=== PATIENT | male | born 1925 | race Caucasian/White ===

== ENCOUNTER 2016-08-26 15:38 | Inpatient (IN) | payer MEDICARE, OTHER ==
[~2016-08-26] VITALS: Ht 180.3 cm; Wt 64.9 kg
[2016-08-26] MEDS: Famotidine Inj 20 MG in IV Premix 1 EACH IV SCH (02:00)
[~2016-08-26 15:38] MED LIST: ASPI-628 PO; BISA5TAB96 PO
[2016-08-26 15:50] VITALS: BP 118/51; PULSE 91; RESP 20; O2SAT 100
[2016-08-26 16:11] LABS: BASOPHILS % (AUTO) 0.1 % (0-3); EOSINOPHILS % (AUTO) 0.1 % (0-5); MONOCYTES % (AUTO) 4.8 % (4-12); Mean Corpuscular Hemoglobin 27.7 pg (27.0-35.0); Mean Corpuscular Volume 86.1 fL (81-100); NEUTROPHILS % (AUTO) 91.5 % (40-74); Platelet Count 346 bil/L (150-400)
--- NOTE | 2016-08-26 16:11 | ED.REPORT ---
HPI-Chest Pain 40 and Over Date of Service Aug 26, 2016 ED Provider: Herb Jiménez MD History of Present Illness: OCC Pt is an 89 y.o. male with a hx of Alzheimer's, dementia, PR, CAD,and hypokalemia who presents to the ED via EMS from [facility] after experiencing chest pain 15 minutes prior to arrival. Upon examination pt states he is not currently experiencing chest pain, and does not remember having chest pain prior to arrival. Pt is primarily concerned with a sore he has on his back which is causing him pain. He denies fever, cough, SOB, and diaphoresis. Per [facility] staff pt was dx with pneumonia on 08/11/16 and today is his last day of a 7 day course of Levaquin. Pt was also recently on a course of Tamiflu. Pt is a poor historian due to his dementia and Alzheimer's. Nursing Notes Stated Complaint: CHEST PAIN Chief Complaint: Chest Pain Nursing Notes Reviewed: Yes ([employer] not reconciled) Allergies: Coded Allergies: No Known Allergies (Verified Allergy, Unknown, 06/29/14) Scheduled Aspirin (Aspir 81) 81 Mg Tablet.dr 81 MG PO DAILY Bisacodyl (Correctol) 5 Mg Tablet 5 MG PO DAILY General Time Seen by MD: 16:06 Transferred From: [facility] Chief Complaint Chest pain Hx Obtained From: Patient Arrived By: Ambulance Sudden in Onset?: Yes Onset Occurred: 1 - 15 minutes ago Location: : Back Quality: Painful Severity: Current: Moderate Past Medical History Past Medical History Dementia Asthma CAD Arthritis Diverticulosis Hypokalemia 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 Physical Exam Initial Vital Signs Vital Signs (First) Date Time Temp Pulse Resp B/P Pulse Ox O2 Delivery O2 Flow Rate FiO2 08/26/16 15:50 36.6 91 20 118/51 100 Nasal Cannula 3 Initial VS: Reviewed, Vital signs normal Head / Eyes: Atraumatic, Normocephalic Skin: Warm, Dry, No cyanosis Neurologic: Alert, Oriented, Nonfocal General/Constitutional: Awake, Well appearing, Well developed, Not toxic appearing Pt is a poor historian and cannot keep focus during the examination. Respiratory / Chest: Atraumatic, Breath sounds NL, No respiratory distress Coarse lung sounds Cardiovascular: Heart rate NL, Regular rhythm, Heart sounds NL, Peripheral circulation NL Trace lower extremity edema Abdomen: Atraumatic, Soft, Non-tender, No distention Interpretation & Diagnostics Lab Results Interpretation Result Diagram: 08/26/16 1542 08/26/16 1542 Test 08/26/16 15:42 White Blood Count 16.5th/mm3 (3.8-10.1) Red Blood Count 3.68mil/mm3 (4.40-5.80) Hemoglobin 10.2g/dL (13.8-17.2) Hematocrit 31.7% (41.0-50.0) Mean Corpuscular Volume 86.1fL (81-100) Mean Corpuscular Hemoglobin 27.7pg (27.0-35.0) Mean Corpuscular Hemoglobin Concent 32.2% (32.0-37.0) Red Cell Distribution Width 15.2% (12.3-15.4) Platelet Count 346bil/L (150-400) Neutrophils (%) (Auto) 91.5% (40-74) Lymphocytes (%) (Auto) 3.1% (14-46) Monocytes (%) (Auto) 4.8% (4-12) Eosinophils (%) (Auto) 0.1% (0-5) Basophils (%) (Auto) 0.1% (0-3) Hold Purple Top Tube Received (Received) Hold Blue Top Tube Received (Received) Sodium Level 137mEq/L (134-144) Potassium Level 5.3mEq/L (3.5-5.2) Chloride Level 99mEq/L (97-108) Carbon Dioxide Level 18mmol/L (18-29) Blood Urea Nitrogen 64mg/dL (8-27) Creatinine 4.25mg/dL (0.76-1.27) Estimat Glomerular Filtration Rate 14mL/min (>59) Glucose Level 116mg/dL (60-99) Calcium Level 8.2mg/dL (8.5-10.1) Total Bilirubin 0.4mg/dL (0.0-1.2) Aspartate Amino Transf (AST/SGOT) 17U/L (0-50) Alanine Aminotransferase (ALT/SGPT) 8U/L (0-44) Alkaline Phosphatase 95U/L (25-160) Total Protein 6.8g/dL (6.4-8.4) Albumin 2.8g/dL (3.4-5.0) Hold Red Top Tube Received (Received) Hold [place] Top Tube Received (Received) Lab Results Interpretation: Possible leukocytosis CMP trace hyperkalemia, not yet significant Renal failure, new compared with previous values several years ago, Blood Cultures pending Lactic acid ECG Interpretation ECG Interpretation: Complicated by poor baseline and pt movement PVC No prior ECG for comparison. Normal ECG Interpretation: Normal rate, Normal sinus rhythm, No acute ischemic changes X-Ray Chest Interpretation Chest Xray Interpretation: IMPRESSION: Mild patchy left midlung radiopacities which may be associated with atelectasis, aspiration, or infection. Dictated by: Leonela Edwards M.D. on 08/26/2016 at 16:30 Approved by: Leonlea Edwards M.D. on 08/26/2016 at 16:30 Re-Eval/Medical Decision Med Decision/Clinical Course This is an 89-year-old male with dementia is unable provide any useful history [facility] with complaint that he had chest pain, and the nurses was worried about a heart attack. A careful review the records are sent with the patient indicates the patient was just diagnosed with a pneumonia , and is now on day 7 of Levaquin which is not yet had today. His records indicate that he recently apparently had a cough, possibly a fever, and again the patient cannot describe any character of the chest pain that brought him here today. According to the nursing notes, the patient was mildly hypotensive the blood pressure of 90 systolic, and was significantly hypoxic there-of these numbers have improved by the time they arrived here in the emergency department. The patient is not currently febrile. Exam here he is fatigued and demented. He does have a decubitus, and he has a few scattered rhonchi-but is not visibly tachypneic, is not currently hypoxic, he does not appear toxic. Chest x-ray however it is abnormal, and while records indicate he has had a recent outpatient chest x-ray was not available for comparison. Given the patient presents now for leukocytosis, this chest pain, and has not chest x-ray with an abnormality in the left chest, despite being on 7 days of antibiotics, at this point CT imaging was obtained-it had not be obtained without contrast due to the renal failure which appears new. The CT has features concerning for pneumonia versus neoplasm. The cultures were drawn, the patient's being started on antibiotics. He meets current criteria for treatment of healthcare associated pneumonia, and received his first dose of Levaquin since he was due for that already here the department. He also fully placed to monitor urine output given the acute renal failure. He clinically appears dry and is in terms of volume status, and is receiving some IV hydration. He did develop some agitation and restlessness, particularly fully required some chemical sedation-after the power of bunch maker was updated. The patient's being admitted for continued management. Case has been discussed the hospitalist. Source of Hx: Old records Time of Eval: 18:03 Re-Evaluation/Progress Note: Pt is agitated and attempting to remove his IV. Will administer Haldol. Consultation : Referral / Consult Name: Pat Mark MD Call Returned at: 16:58 Bark Grinder: Will see patient, Agrees with eval, Agrees with plan, Accepts admit Note: Discussed pt condition. Dr. Mark accepts admit and will see pt in ED. Counseled Regarding: Diagnosis, Lab results, Need for admission Discharge & Departure Primary Impression: Pneumonia Pneumonia type: due to unspecified organism Laterality: left Lung location : unspecified part of lung Qualified Code: J18.9 - Pneumonia, unspecified organism Additional Impressions: Renal failure Decubitus ulcer Pressure ulcer stage: stage II Qualified Code: L89.92 - Pressure ulcer of unspecified site, stage 2 Agitation Disposition: ADMITTED TO HOSPITAL Discharge Condition All VS Reviewed: Yes Condition: Stable Referrals: Yaneli Hughes MD (PCP) Frankie Attestation Portions of this note were transcribed by Julio Ash. I, Dr. Jiménez personally performed the history, physical exam and medical decision-making; I reviewed and confirmed the accuracy of the information in the transcribed note. Signed by: Frankie Martinez, 08/26/2016 and 1836. copies to: Yaneli Hughes MD, Matthew F MD Aug 26, 2016 16:11 JULIO ASH Aug 26, 2016 16:37
--- NOTE | 2016-08-26 16:32 | DRSVH ---
PROCEDURE: X-RAY CHEST ONE VIEW, PORTABLE ([id number]) INDICATIONS: chest pain TECHNIQUE: One view of the chest was acquired. COMPARISON: None. FINDINGS: Surgical changes and devices: None. Lungs and pleura: Mild patchy pulmonary opacities are present in the left midlung. The lungs are othe rwise clear. Mediastinum: Mediastinal contours appear normal. Heart size is normal. Bones and chest wall: No suspicious bony lesions. Overlying soft tissues appear unremarkable. IMPRESSION: Mild patchy left midlung radiopacities which may be associated with atelectasis, aspirati on, or infection. Dictated by: Leonela Edwards M.D. on 08/26/2016 at 16:30 Approved by: Leonela Edwards M.D. on 08/26/2016 at 16:30
[2016-08-26 16:35] LABS: Magnesium 2.3 mg/dL (1.6-2.6)
[2016-08-26] MEDS ORDERED: levoFLOXacin Inj 750 MG in IV Premix 1 EACH IV ONE (16:40)
[2016-08-26] MEDS ORDERED: 0.9% Sodium Chloride 1,000 ML IV ONE (16:40)
[2016-08-26 16:48] LABS: TROPONIN T 0.038 ug/L (0.0-0.011)
[2016-08-26] MEDS ORDERED: Lidocaine 2% 5 mL Urojet Topical Jelly Syringe MUC_MEMBRM ONE (16:55)
[2016-08-26] MEDS ORDERED: Piperacillin-Tazo 3.375 Gm Inj 3.375 GM in Dextrose 5% Minibag Plus 50 ML IV ONE (17:05)
[2016-08-26] MEDS ORDERED: Vancomycin Dose per Pharmacist XX ONE (17:05)
[2016-08-26] MEDS ORDERED: Vancomycin Inj 1,250 MG in 0.9% Sodium Chloride 250 ML IV ONE (17:40)
--- NOTE | 2016-08-26 17:43 | PCM.CONPHA ---
Subjective Requesting Provider: Hebr Jiménez MD Assessment/Plan Assessment/Plan Vancomycin dosing per pharmacist for pneumonia in patient with serum creatinine 4.25, creatinine clearance 14ml/min. Initial ER dose will be 1250mg IV x1, which is conservatively dosed at 15mg/kg since the patient's renal function is so poor. Pharmacy will provide follow up dosing when the patient is admitted if the vancomycin is continued. Danya Orta [facility] Aug 26, 2016 17:43
[2016-08-26] MEDS ORDERED: Haloperidol 5 mg/mL Inj IVPUSH ONE ×2 (17:50→18:05)
[2016-08-26] MEDS ORDERED: Haloperidol 5 mg/mL Inj ONE (17:50)
[2016-08-26] MEDS ORDERED: Albuterol 2.5 mg/3 mL Inhalation Solution NEB PRN (17:55)
--- NOTE | 2016-08-26 18:03 | DRSVH ---
PROCEDURE: CT CHEST WITHOUT CONTRAST ([id number]) INDICATIONS: Refractory ?pneumonia, L Chest TECHNIQUE: Noncontrast 5 mm thick sections acquired from the pulmonary apices to the posterior costophrenic angl es. 7 mm thick coronal and sagittal MIP reformats were then acquired. For radiation dose reduction, the following was used: automated exposure control, adjustment of mA and/or kV according to patient size. COMPARISON: [facility], CT, ABD/PELVIS W/CON (PNL), 03/22/2014, 14:59. FINDINGS: Image quality: Excellent. Lungs and pleura: Patchy airspace opacities are present bilaterally, more confluent on the left than on the right. An irregularly marginated pulmonary mass is present within the lateral aspect of the ri ght lung base which measures 2.0 x 1.3 cm and is similar in size and appearance to the study dated 01/26 (series 3, image 38). A consolidative mass with spiculated margins is present within the tariff inspector ior lingula which measures 1.1 x 1.5 cm. It is unclear whether this represents airspace disease or a discrete pulmonary mass (series 3, image 23). No pleural effusion or pneumothorax. Mediastinum: Heart size is normal. No pericardial effusion. No mediastinal adenopathy by size crit eria. Thoracic aorta and central pulmonary arteries are normal in size. Scattered atheromatous calci fications are present within the aortic arch. Esophagus is normal in caliber. No hiatal hernia. Bones and chest wall: There is a minimally displaced, subacute appearing posterior right 10th rib fra cture (series 3, image 43). No vertebral body compression fractures. No axillary or supraclavicular adenopathy by size criteria. Thyroid gland is unremarkable. Abdomen: Multiple renal cysts are partially characterized on this limited view of the abdomen. Visua lized upper abdominal solid organs and bowel loops appear otherwise normal in the absence of contrast . IMPRESSION: 1. Confluent bibasilar patchy airspace opacities, more consolidative on the left than on the right. G iven the distribution and confluent appearance, these findings most likely represent aspiration or pn eumonia. However, some of these focal areas of consolidation have a masslike appearance raising the s uspicion for neoplasm. No recent comparisons are available to determine the acuity of the findings. H owever, given the clinical history of refractory pneumonia, atypical pneumonia including cryptogenic organizing pneumonia and eosinophilic pneumonia should be considered in the differential. Short inter candis followup is recommended to exclude underlying pulmonary mass. 2. Subacute posterior right rib fracture. Dictated by: Leonela Edwards M.D. on 08/26/2016 at 17:52 Approved by: Leonela Edwards M.D. on 08/26/2016 at 18:01
[2016-08-26 18:41] LABS: APPEARANCE,URINE CLEAR (CLEAR,HAZY); COLOR,URINE YELLOW (YELLOW); OCCULT BLOOD,URINE TRACE (NEGATIVE)
[2016-08-26 18:42] LABS: UROBILINOGEN,URINE NORMAL (NORMAL)
[2016-08-26 18:58] LABS: Magnesium 2.3 mg/dL (1.6-2.6)
[2016-08-26 19:05] LABS: TROPONIN T 0.036 ug/L (0.0-0.011)
[2016-08-26 19:07] VITALS: BP 100/54; PULSE 88; RESP 18; O2SAT 98
--- NOTE | 2016-08-26 19:40 | PCM.HPMED ---
Subjective Date of Service Aug 26, 2016 Primary Provider: Admitting Physician: Pat Mark MD Primary Care Physician: Yaneli Hughes MD Attending Physician: Pat Mark MD Admit Status: From the Emergency Department, Full Admit, [facility] Telemetry Chief Complaint: Complaints of chest pain per [facility] History of Present Illness: This is an 89-year-old male who has significant dementia history of [place] CAD and presents to the emergency room from [facility] with according to the nurses complain of chest pain which lasted about 15 minutes. However on further evaluation with chest x-ray it appears that he has a left mid lung patchy opacities consistent with pneumonia versus aspiration versus atelectasis. He recently is about to complete seven-day course of by mouth Levaquin. He has completed 6 days of it. He also was given a course of Tamiflu. As the patient's dementia unable to get any history. His white count was noted be 16.5. He also was found to have acute renal failure compared to old values from several years ago with a BUN of 64 creatinine of 4.25. His vital signs upon presentation was a temp of 36.6, heart rate 91, respiratory rate 20 blood pressure 118/51 on 3 L nasal cannula O2 sat was 100%. His troponin was found to be 0.038 and lactic acid was 1.7. Bicarbonate on his labs was 18. Of note patient also had a CT of chest without contrast which revealed confluent bibasilar patchy airspace of PACs with more consolidative on the left than the right. Thought this may likely represent aspiration or pneumonia. Over some these focal areas of consolidation have a masslike appearance raising the suspicion for neoplasm. There was also seen a subacute posterior right rib fracture. 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 H/o [place] ho "CHF" Family History Unobtainable Social History Hx Alcohol Use: No Hx Substance Use: No Smoking Status: Former Smoker Living Arrangement: Senior Living Facility Exam Vital Signs Vital Sign - Last Date Time Temp Pulse Resp B/P Pulse Ox O2 Delivery O2 Flow Rate FiO2 08/26/16 19:07 36.0 88 18 100/54 98 Nasal Cannula 2.00 Exam Constitutional: Elderly man who appears in no acute distress Head: Normocephalic atraumatic Mouth: No lesions Neck: No adenopathy Chest: Decreased breath sounds at his bases Cor: Regular rate and rhythm S1-S2 with a 2/6 systolic ejection murmur Abdomen: Soft nontender bowel sounds are present Extremities: Trace bilateral pedal edema Psych: Appears pleasantly demented Neuro: He is alert oriented to self only, moves all extremities equally Lab and Diagnostics Labs Laboratory Tests 72 Hours Test 08/26/16 15:42 08/26/16 17:23 08/26/16 17:54 White Blood Count 16.5th/mm3 (3.8-10.1) Red Blood Count 3.68mil/mm3 (4.40-5.80) Hemoglobin 10.2g/dL (13.8-17.2) Hematocrit 31.7% (41.0-50.0) Mean Corpuscular Volume 86.1fL (81-100) Mean Corpuscular Hemoglobin 27.7pg (27.0-35.0) Mean Corpuscular Hemoglobin Concent 32.2% (32.0-37.0) Red Cell Distribution Width 15.2% (12.3-15.4) Platelet Count 346bil/L (150-400) Neutrophils (%) (Auto) 91.5% (40-74) Lymphocytes (%) (Auto) 3.1% (14-46) Monocytes (%) (Auto) 4.8% (4-12) Eosinophils (%) (Auto) 0.1% (0-5) Basophils (%) (Auto) 0.1% (0-3) Hold Purple Top Tube Received (Received) Hold Blue Top Tube Received (Received) Sodium Level 137mEq/L (134-144) Potassium Level 5.3mEq/L (3.5-5.2) Chloride Level 99mEq/L (97-108) Carbon Dioxide Level 18mmol/L (18-29) Blood Urea Nitrogen 64mg/dL (8-27) Creatinine 4.25mg/dL (0.76-1.27) Estimat Glomerular Filtration Rate 14mL/min (>59) Glucose Level 116mg/dL (60-99) Calcium Level 8.2mg/dL (8.5-10.1) Magnesium Level 2.3mg/dL (1.6-2.6) 2.3mg/dL (1.6-2.6) Total Bilirubin 0.4mg/dL (0.0-1.2) Aspartate Amino Transf (AST/SGOT) 17U/L (0-50) Alanine Aminotransferase (ALT/SGPT) 8U/L (0-44) Alkaline Phosphatase 95U/L (25-160) Troponin T 0.038ug/L (0.0-0.011) 0.036ug/L (0.0-0.011) Total Protein 6.8g/dL (6.4-8.4) Albumin 2.8g/dL (3.4-5.0) Hold Red Top Tube Received (Received) Hold [place] Top Tube Received (Received) Lactic Acid Level 1.7mmol/L (0.4-2.0) Procalcitonin 0.47ng/mL (0.00-0.08) Urine Color Yellow (YELLOW) Urine Appearance Clear (CLEAR,HAZY) Urine pH 5.0 (5.0-8.0) Urine Specific [place] 1.025 (1.003-1.035) Urine Protein Negativemg/dL (NEG,TRACE) Urine Glucose (UA) Negativemg/dL (NEGATIVE) Urine Ketones Negativemg/dL (NEGATIVE) Urine Occult Blood Trace (NEGATIVE) Urine Nitrite Negative (NEGATIVE) Urine Bilirubin Negative (NEGATIVE) Urine Urobilinogen Normalmg/dL (NORMAL) Urine Leukocyte Esterase Moderate (NEGATIVE) Urine RBC 0-2/hpf (0-2) Urine WBC 6-10/hpf (0-5) Urine Epithelial Cells Few/hpf (NONE-MOD) Urine Crystals None seen (NONE SEEN) Urine Bacteria Few/hpf (NONE-FEW) Urine Hyaline Casts None/lpf (NONE) Urine Granular Casts None seen (NONE SEEN) Urine Waxy Casts None seen (NONE SEEN) Urine Red Blood Cell Casts None seen (NONE SEEN) Urine White Blood Cell Casts None seen (NONE SEEN) Urine Mucus Present (None Seen) Urine Trichomonas None seen (NONE SEEN) Urine Yeast None (NONE SEEN) Urinalysis Comment None Urine Culture Reflexed Indicated Result Diagram: 08/26/16 1542 08/26/16 1542 X-Rays, CTs and MRIs PROCEDURE: X-RAY CHEST ONE VIEW, PORTABLE ([id number]) INDICATIONS: chest pain TECHNIQUE: One view of the chest was acquired. COMPARISON: None. FINDINGS: Surgical changes and devices: None. Lungs and pleura: Mild patchy pulmonary opacities are present in the left midlung. The lungs are otherwise clear. Mediastinum: Mediastinal contours appear normal. Heart size is normal. Bones and chest wall: No suspicious bony lesions. Overlying soft tissues appear unremarkable. IMPRESSION: Mild patchy left midlung radiopacities which may be associated with atelectasis, aspiration, or infection. Dictated by: Leonela Edwards M.D. on 08/26/2016 at 16:30 Approved by: Leonela Edwards M.D. on 08/26/2016 at 16:30 PROCEDURE: CT CHEST WITHOUT CONTRAST ([id number]) INDICATIONS: Refractory ?pneumonia, L Chest TECHNIQUE: Noncontrast 5 mm thick sections acquired from the pulmonary apices to the posterior costophrenic angles. 7 mm thick coronal and sagittal MIP reformats were then acquired. For radiation dose reduction, the following was used: automated exposure control, adjustment of mA and/or kV according to patient size. COMPARISON: [facility], CT, ABD/PELVIS W/CON (PNL), 03/22/2014, 14: 59. FINDINGS: Image quality: Excellent. Lungs and pleura: Patchy airspace opacities are present bilaterally, more confluent on the left than on the right. An irregularly marginated pulmonary mass is present within the lateral aspect of the right lung base which measures 2.0 x 1.3 cm and is similar in size and appearance to the study dated 03/22/14 ( series 3, image 38). A consolidative mass with spiculated margins is present within the posterior lingula which measures 1.1 x 1.5 cm. It is unclear whether this represents airspace disease or a discrete pulmonary mass (series 3, image 23). No pleural effusion or pneumothorax. Mediastinum: Heart size is normal. No pericardial effusion. No mediastinal adenopathy by size criteria. Thoracic aorta and central pulmonary arteries are normal in size. Scattered atheromatous calcifications are present within the aortic arch. Esophagus is normal in caliber. No hiatal hernia. Bones and chest wall: There is a minimally displaced, subacute appearing posterior right 10th rib fracture (series 3, image 43). No vertebral body compression fractures. No axillary or supraclavicular adenopathy by size criteria. Thyroid gland is unremarkable. Abdomen: Multiple renal cysts are partially characterized on this limited view of the abdomen. Visualized upper abdominal solid organs and bowel loops appear otherwise normal in the absence of contrast. IMPRESSION: 1. Confluent bibasilar patchy airspace opacities, more consolidative on the left than on the right. Given the distribution and confluent appearance, these findings most likely represent aspiration or pneumonia. However, some of these focal areas of consolidation have a masslike appearance raising the suspicion for neoplasm. No recent comparisons are available to determine the acuity of the findings. However, given the clinical history of refractory pneumonia, atypical pneumonia including cryptogenic organizing pneumonia and eosinophilic pneumonia should be considered in the differential. Short interval followup is recommended to exclude underlying pulmonary mass. 2. Subacute posterior right rib fracture. Dictated by: Leonela Edwards M.D. on 08/26/2016 at 17:52 Ap 12-lead ECG Unable to locate EKG but per ER M.D. note complicated by poor baseline and patient movement PVCs no prior EKG for comparison that was normal rate and rhythm no acute findings seen Assessment & Plan # Pneumonia, acute, present on admission Seems to be a failure of oral Levaquin so we will place on IV Zosyn, IV vancomycin for possible healthcare associated pneumonia. We will also give IV Levaquin at this time. Get sputum studies, respiratory PCR studies Check pro calcitonin today and tomorrow #Chest pain, acute, present on admission Check serial cardiac enzymes and if warranted check further investigative studies # Acute renal failure, present on admission Check abdominal ultrasound and urine studies Give some gentle IV fluid hydration and recheck labs # DVT prophylaxis Use SCDs in place on subcutaneous heparin 5000 every 12 hours # CODE STATUS Patient did have an accompanying pulsed form which states full code Time spent 60 minutes Pat Mark MD Aug 26, 2016 19:40
[2016-08-26] MEDS: Heparin 5,000 Unit/mL Inj SUBQ SCH (20:30)
[2016-08-26 23:15] VITALS: BP 118/55; PULSE 90; RESP 20; O2SAT 94
[2016-08-27] VITALS (8 sets, daily range): BP systolic 92–125; BP diastolic 44–65; PULSE 73–113; RESP 18–20; O2SAT 97–99
--- NOTE | 2016-08-27 00:32 | PCM.CONPHA ---
Subjective Date of Service: Aug 27, 2016 Requesting Provider: Pat Mark MD Reason for Pharmacy Consult: Vancomycin Dosing Objective Vital Signs Date Time Temp Pulse Resp B/P Pulse Ox O2 Delivery O2 Flow Rate FiO2 08/26/16 23:15 36.4 90 20 118/55 94 Nasal Cannula 2.00 08/26/16 19:34 Supplement Oxygen 08/26/16 19:07 36.0 88 18 100/54 98 Nasal Cannula 2.00 08/26/16 18:36 37.2 88 20 107/46 100 Nasal Cannula 3 08/26/16 15:50 36.6 91 20 118/51 100 Nasal Cannula 3 Weight (Kilograms): 81.820 Height (Feet): 5 Height (Inches): 11.00 Test 08/26/16 15:42 08/26/16 17:23 08/26/16 17:54 08/26/16 23:53 White Blood Count 16.5th/mm3 (3.8-10.1) Red Blood Count 3.68mil/mm3 (4.40-5.80) Hemoglobin 10.2g/dL (13.8-17.2) Hematocrit 31.7% (41.0-50.0) Mean Corpuscular Volume 86.1fL (81-100) Mean Corpuscular Hemoglobin 27.7pg (27.0-35.0) Mean Corpuscular Hemoglobin Concent 32.2% (32.0-37.0) Red Cell Distribution Width 15.2% (12.3-15.4) Platelet Count 346bil/L (150-400) Neutrophils (%) (Auto) 91.5% (40-74) Lymphocytes (%) (Auto) 3.1% (14-46) Monocytes (%) (Auto) 4.8% (4-12) Eosinophils (%) (Auto) 0.1% (0-5) Basophils (%) (Auto) 0.1% (0-3) Hold Purple Top Tube Received (Received) Hold Blue Top Tube Received (Received) Sodium Level 137mEq/L (134-144) Potassium Level 5.3mEq/L (3.5-5.2) Chloride Level 99mEq/L (97-108) Carbon Dioxide Level 18mmol/L (18-29) Blood Urea Nitrogen 64mg/dL (8-27) Creatinine 4.25mg/dL (0.76-1.27) Estimat Glomerular Filtration Rate 14mL/min (>59) Glucose Level 116mg/dL (60-99) Calcium Level 8.2mg/dL (8.5-10.1) Total Bilirubin 0.4mg/dL (0.0-1.2) Aspartate Amino Transf (AST/SGOT) 17U/L (0-50) Alanine Aminotransferase (ALT/SGPT) 8U/L (0-44) Alkaline Phosphatase 95U/L (25-160) Total Protein 6.8g/dL (6.4-8.4) Albumin 2.8g/dL (3.4-5.0) Hold Red Top Tube Received (Received) Hold [place] Top Tube Received (Received) Lactic Acid Level 1.7mmol/L (0.4-2.0) Magnesium Level 2.3mg/dL (1.6-2.6) Procalcitonin 0.47ng/mL (0.00-0.08) Urine Color Yellow (YELLOW) Urine Appearance Clear (CLEAR,HAZY) Urine pH 5.0 (5.0-8.0) Urine Specific [place] 1.025 (1.003-1.035) Urine Protein Negativemg/dL (NEG,TRACE) Urine Glucose (UA) Negativemg/dL (NEGATIVE) Urine Ketones Negativemg/dL (NEGATIVE) Urine Occult Blood Trace (NEGATIVE) Urine Nitrite Negative (NEGATIVE) Urine Bilirubin Negative (NEGATIVE) Urine Urobilinogen Normalmg/dL (NORMAL) Urine Leukocyte Esterase Moderate (NEGATIVE) Urine RBC 0-2/hpf (0-2) Urine WBC 6-10/hpf (0-5) Urine Epithelial Cells Few/hpf (NONE-MOD) Urine Crystals None seen (NONE SEEN) Urine Bacteria Few/hpf (NONE-FEW) Urine Hyaline Casts None/lpf (NONE) Urine Granular Casts None seen (NONE SEEN) Urine Waxy Casts None seen (NONE SEEN) Urine Red Blood Cell Casts None seen (NONE SEEN) Urine White Blood Cell Casts None seen (NONE SEEN) Urine Mucus Present (None Seen) Urine Trichomonas None seen (NONE SEEN) Urine Yeast None (NONE SEEN) Urinalysis Comment None Urine Culture Reflexed Indicated Troponin T 0.029ug/L (0.0-0.011) Assessment/Plan Assessment/Plan A: * Vancomycin dosing by pharmacy for 89 y/o man with possible healthcare associated pneumonia * The patient is also being started on Levaquin and Zosyn * He received a vancomycin loading dose of 1250 mg IV (CPinitial of about 22 mcg /mL) * He has LUIS A with a SCr of 4.25 mg/dL * Vancomycin half-life estimations based on CrCl would likely be inaccurate due to LUIS A * Estimated Vd is 57 liters P: * Drawing a vancomycin level 12 hours after the loading dose * Pharmacy to determine further dosing based on the level/renal function * Target a vancomycin trough range of 15 - 20 mcg/mL * Monitor renal function Thank you. Pharmacy will continue to follow. Nuria Adkins, PharmD Nuria Adkins Aug 27, 2016 00:32
[2016-08-27] MEDS: Famotidine Inj 20 MG in IV Premix 1 EACH IV SCH ×2 (01:50→21:38)
[2016-08-27 03:43] LABS: BASOPHILS % (AUTO) 0.1 % (0-3); EOSINOPHILS % (AUTO) 0.8 % (0-5); MONOCYTES % (AUTO) 6.2 % (4-12); Mean Corpuscular Hemoglobin 28.2 pg (27.0-35.0); Mean Corpuscular Volume 85.7 fL (81-100); NEUTROPHILS % (AUTO) 86.7 % (40-74); Platelet Count 265 bil/L (150-400)
[2016-08-27] MEDS: 0.9% Sodium Chloride 1,000 ML IV SCH ×3 (03:54→13:54)
[2016-08-27 04:33] LABS: TROPONIN T 0.033 ug/L (0.0-0.011)
--- NOTE | 2016-08-27 08:02 | NUR ---
Sacral Wound/Admission Information Pt has a sacral pressure ulcer that was present prior to admission. Pressure ulcer had a dressing on it that [facility] had applied but had since then come off. Pt did c/o pain in this area but could not give a pain score. A mepilex dressing was applied to pt's pressure ulcer and a wound care consult has been ordered. Pt's admission information is very little since pt is unable to answer the questions and had no family with him to assist with giving answers. Spoke with pt's son, who is his DPOA, and got a few answers. the DPOA gave the pt's PCP name which is Dr. Perera in [place], [place] and said that she would know about the pt's PMHx and medications. At this time either the PCP or [facility] needs to be contacted to gain further information regarding the pt's PMHx and current medications. This information was provided to sujey FRENCH and she is aware. Addendum: 09/12/16 at 0802 by ALINE PEREZ RN Wound Description When pt was being turned onto his side the wound on the pt's sacral area could be seen since the wound was exposed due to the dressing that [facility] had applied to the wound was senior care removed from the site of the pt's wound. The dressing appeared to be gauze with bio-occlusive dressing over that. The sacral wound had a yellow and reddish-pink appearance to it. The wound appeared to have no skin covering it and appeared to not be flush with the pt's skin that surrounded the wound and therefore looked slightly indented in comparison to the skin surrounding it. There was a bad odor that came from the wound when it was exposed. I placed a mepilex dressing over the wound site to prevent further exposure and possible contamination since the pt was lying down and moving independently of his own accord. Pt was aggressive and would not follow commands so we were unable to keep the pt off of the site of the wound at all times. Pt was able to keep the mepilex on the wound site for the remainder of the shift.
[2016-08-27] MEDS ORDERED: MIRT15TA PO (08:22)
[2016-08-27] MEDS ORDERED: LEVO500T16 PO (08:22)
[2016-08-27] MEDS ORDERED: [UNRECOGNIZED DRUG - CODE] PO (08:22)
[2016-08-27] MEDS ORDERED: levoFLOXacin Inj 750 MG in IV Premix 1 EACH IV SCH (08:30)
[2016-08-27] MEDS ORDERED: Influenza (Adult) Vaccine 0.5 mL Syringe IM ONE (08:30)
[2016-08-27] MEDS ORDERED: Vancomycin Dose per Pharmacist XX SCH (08:30)
[2016-08-27] MEDS: Piperacillin-Tazo 3.375 Gm Inj 3.375 GM in Dextrose 5% Minibag Plus 50 ML IV SCH ×2 (09:03→21:51)
[2016-08-27] MEDS: Heparin 5,000 Unit/mL Inj SUBQ SCH ×2 (09:03→19:58)
--- NOTE | 2016-08-27 09:35 | DRSVH ---
PROCEDURE: X-RAY CHEST ONE VIEW, PORTABLE ([id number]) INDICATIONS: dyspnea TECHNIQUE: One view of the chest was acquired. COMPARISON: [facility], CR, XR CHEST 1VW (PORTABLE), 08/26/2016, 15:55. FINDINGS: Surgical changes and devices: None. Lungs and pleura: No pleural effusions or pneumothorax. Previous subtle left midlung opacity is mary lou sly unchanged Mediastinum: Mediastinal contours appear normal. Heart size is normal. Bones and chest wall: No suspicious bony lesions. Overlying soft tissues appear unremarkable. IMPRESSION: No interval change. Patchy left midlung opacities as before and unchanged Dictated by: Roque Maldonado M.D. on 08/27/2016 at 9:34 Approved by: Roque Maldonado M.D. on 08/27/2016 at 9:35
--- NOTE | 2016-08-27 09:47 | NUR ---
Evaluation completed. Please go to "Notes" then click on "Assessments and Notes" (bottom left corner of screen). Then select appropriate discipline tab on top of screen.
--- NOTE | 2016-08-27 09:49 | DRSVH ---
PROCEDURE: US ABDOMEN ([id number]) INDICATIONS: acute renal failure TECHNIQUE: Real-time scanning was performed of the abdominal and retroperitoneal organs, with image documentatio n. COMPARISON: None. FINDINGS: Liver: Liver is not well seen, grossly in size and homogeneous in echotexture. Gallbladder: Surgically absent Biliary ducts: Not seen Pancreas: Not seen Spleen: Not well-seen Kidneys: Kidneys are normal in size and echotexture. Right kidney measures 10.9 cm long; left kidne y measures 13.0 cm long. No hydronephrosis or nephrolithiasis. No solid masses. Multiple right and left parapelvic cysts, measuring up to 2.7 cm on the right. Exophytic left renal cyst measuring up t o 7.2 cm. Aorta: Visualized aorta is normal in caliber at less than 3 cm. Iliacs: Proximal common iliac arteries are normal in caliber at less than 2.5 cm. IVC: Intrahepatic inferior vena cava is patent. Miscellaneous: No free abdominal fluid. IMPRESSION: Markedly suboptimal examination as above due to altered mental status and difficulty with motion. No definite hydronephrosis. Bilateral renal cysts. Dictated by: Roque Maldonado M.D. on 08/27/2016 at 9:45 Approved by: Roque Maldonado M.D. on 08/27/2016 at 9:49
[2016-08-27] MEDS ORDERED: Vancomycin Inj 1,000 MG in IV Premix 1 EACH IV ONE (12:00)
[2016-08-27] MEDS ORDERED: Vancomycin Serum Level XX ONE (12:00)
--- NOTE | 2016-08-27 14:37 | PCM.CONPHA ---
Subjective History of Present Illness One time dose of vancomycin 1000 mg after low trough of 7.9. New random trough on 08/28 at [facility], Renal function remains variable. Subsequent dosing to be determined. Objective Vital Signs Date Time Temp Pulse Resp B/P Pulse Ox O2 Delivery O2 Flow Rate FiO2 08/27/16 12:28 36.6 73 20 118/62 99 Room Air 08/27/16 10:17 99 08/27/16 08:50 Supplement Oxygen 08/27/16 08:10 36.6 103 18 92/44 97 Room Air 08/27/16 05:58 87 08/27/16 03:30 36.5 113 20 118/65 97 Room Air 08/26/16 23:15 36.4 90 20 118/55 94 Nasal Cannula 2.00 08/26/16 19:34 Supplement Oxygen 08/26/16 19:07 36.0 88 18 100/54 98 Nasal Cannula 2.00 08/26/16 18:36 37.2 88 20 107/46 100 Nasal Cannula 3 08/26/16 15:50 36.6 91 20 118/51 100 Nasal Cannula 3 Weight (Kilograms): 61.100 Height (Feet): 5 Height (Inches): 11.00 Test 08/26/16 15:42 08/26/16 17:23 08/26/16 17:54 08/27/16 03:32 Hold Purple Top Tube Received (Received) Hold Blue Top Tube Received (Received) Hold Red Top Tube Received (Received) Hold [place] Top Tube Received (Received) Lactic Acid Level 1.7mmol/L (0.4-2.0) Magnesium Level 2.3mg/dL (1.6-2.6) Urine Color Yellow (YELLOW) Urine Appearance Clear (CLEAR,HAZY) Urine pH 5.0 (5.0-8.0) Urine Specific [place] 1.025 (1.003-1.035) Urine Protein Negativemg/dL (NEG,TRACE) Urine Glucose (UA) Negativemg/dL (NEGATIVE) Urine Ketones Negativemg/dL (NEGATIVE) Urine Occult Blood Trace (NEGATIVE) Urine Nitrite Negative (NEGATIVE) Urine Bilirubin Negative (NEGATIVE) Urine Urobilinogen Normalmg/dL (NORMAL) Urine Leukocyte Esterase Moderate (NEGATIVE) Urine RBC 0-2/hpf (0-2) Urine WBC 6-10/hpf (0-5) Urine Epithelial Cells Few/hpf (NONE-MOD) Urine Crystals None seen (NONE SEEN) Urine Bacteria Few/hpf (NONE-FEW) Urine Hyaline Casts None/lpf (NONE) Urine Granular Casts None seen (NONE SEEN) Urine Waxy Casts None seen (NONE SEEN) Urine Red Blood Cell Casts None seen (NONE SEEN) Urine White Blood Cell Casts None seen (NONE SEEN) Urine Mucus Present (None Seen) Urine Trichomonas None seen (NONE SEEN) Urine Yeast None (NONE SEEN) Urinalysis Comment None Urine Culture Reflexed Indicated Urine Legionella pneumophilia Ag Negative (Negative) White Blood Count 11.4th/mm3 (3.8-10.1) Red Blood Count 2.87mil/mm3 (4.40-5.80) Hemoglobin 8.1g/dL (13.8-17.2) Hematocrit 24.6% (41.0-50.0) Mean Corpuscular Volume 85.7fL (81-100) Mean Corpuscular Hemoglobin 28.2pg (27.0-35.0) Mean Corpuscular Hemoglobin Concent 32.9% (32.0-37.0) Red Cell Distribution Width 14.9% (12.3-15.4) Platelet Count 265bil/L (150-400) Neutrophils (%) (Auto) 86.7% (40-74) Lymphocytes (%) (Auto) 6.0% (14-46) Monocytes (%) (Auto) 6.2% (4-12) Eosinophils (%) (Auto) 0.8% (0-5) Basophils (%) (Auto) 0.1% (0-3) Sodium Level 140mEq/L (134-144) Potassium Level 4.5mEq/L (3.5-5.2) Chloride Level 106mEq/L (97-108) Carbon Dioxide Level 18mmol/L (18-29) Blood Urea Nitrogen 55mg/dL (8-27) Creatinine 3.26mg/dL (0.76-1.27) Estimat Glomerular Filtration Rate 19mL/min (>59) Glucose Level 75mg/dL (60-99) Calcium Level 7.4mg/dL (8.5-10.1) Total Bilirubin 0.3mg/dL (0.0-1.2) Aspartate Amino Transf (AST/SGOT) 16U/L (0-50) Alanine Aminotransferase (ALT/SGPT) 7U/L (0-44) Alkaline Phosphatase 69U/L (25-160) Troponin T 0.033ug/L (0.0-0.011) Total Protein 4.5g/dL (6.4-8.4) Albumin 2.2g/dL (3.4-5.0) Procalcitonin 0.39ng/mL (0.00-0.08) Test 08/27/16 13:00 Random Vancomycin Level 7.9ug/mL Rx Shayne Badillo Aug 27, 2016 14:37
[2016-08-27] MEDS ORDERED: HYDROcodone-APAP 5-325 mg Tablet PO PRN (15:40)
--- NOTE | 2016-08-27 15:53 | PCM.PNMED ---
Subjective Date of Service Aug 27, 2016 Subjective Overnight, he was found to have a sacral pressure ulcer which was re-dressed. He has been unable to answer questions appropriately due to his advanced dementia. Today: He reports shortness of breath, back pain. Denies fevers, chills, nausea , vomiting, diarrhea, abdominal pain, coughing, wheezing, or edema. He is unsure if he has chest pain. Exam Vital Signs Vital Sign - Last Date Time Temp Pulse Resp B/P Pulse Ox O2 Delivery O2 Flow Rate FiO2 08/27/16 12:28 36.6 73 20 118/62 99 Room Air 08/26/16 23:15 2.00 Intake and Output 08/26/16 08/26/16 08/27/16 Cumulative From/Thru 15:00 23:00 07:00 08/26/16 15:50 - 08/27/16 06:42 Intake Total 1025 ml 1025 ml Output Total 1200 ml 1200 ml Balance -175 ml -175 ml Intake Oral 0 ml 0 ml IV Total 1025 ml 1025 ml Output Urine Total 1200 ml 1200 ml Exam General: Alert, Disoriented, Cooperative, No Acute Distress Head: Normocephalic, atraumatic. External ears normal. Eyes: PERRLA, EOMI. Anicteric sclerae. Mouth: Mouth Normal, Mucous Membranes Moist/[place] Neck: Neck supple with full range of motion. Chest & Lungs: Clear to auscultation bilaterally with no crackles, wheezes, or rhonchi. Cardiovascular: Regular Rate/Rhythm, Normal S1, Normal S2, 2/6 systolic ejection murmur Abdomen: Non-tender, Non-distended, No masses, Normoactive bowel tones, Soft Musculoskeletal: Normal Range of Motion Extremities: Trace pedal edema bilat Neurological: Grossly Neurologically Intact, Normal Speech Lab and Diagnostics Result Diagram: 08/27/1633108/27/16 033 X-Rays, CTs and MRIs PROCEDURE: X-RAY CHEST ONE VIEW, PORTABLE ([id number]) INDICATIONS: chest pain TECHNIQUE: One view of the chest was acquired. COMPARISON: None. FINDINGS: Surgical changes and devices: None. Lungs and pleura: Mild patchy pulmonary opacities are present in the left midlung. The lungs are otherwise clear. Mediastinum: Mediastinal contours appear normal. Heart size is normal. Bones and chest wall: No suspicious bony lesions. Overlying soft tissues appear unremarkable. IMPRESSION: Mild patchy left midlung radiopacities which may be associated with atelectasis, aspiration, or infection. Dictated by: Leonela Edwards M.D. on 08/26/2016 at 16:30 Approved by: Leonela Edwards M.D. on 08/26/2016 at 16:30 PROCEDURE: CT CHEST WITHOUT CONTRAST ([id number]) INDICATIONS: Refractory ?pneumonia, L Chest TECHNIQUE: Noncontrast 5 mm thick sections acquired from the pulmonary apices to the posterior costophrenic angles. 7 mm thick coronal and sagittal MIP reformats were then acquired. For radiation dose reduction, the following was used: automated exposure control, adjustment of mA and/or kV according to patient size. COMPARISON: [facility], CT, ABD/PELVIS W/CON (PNL), 03/22/2014, 14: 59. FINDINGS: Image quality: Excellent. Lungs and pleura: Patchy airspace opacities are present bilaterally, more confluent on the left than on the right. An irregularly marginated pulmonary mass is present within the lateral aspect of the right lung base which measures 2.0 x 1.3 cm and is similar in size and appearance to the study dated 03/22/14 ( series 3, image 38). A consolidative mass with spiculated margins is present within the posterior lingula which measures 1.1 x 1.5 cm. It is unclear whether this represents airspace disease or a discrete pulmonary mass (series 3, image 23). No pleural effusion or pneumothorax. Mediastinum: Heart size is normal. No pericardial effusion. No mediastinal adenopathy by size criteria. Thoracic aorta and central pulmonary arteries are normal in size. Scattered atheromatous calcifications are present within the aortic arch. Esophagus is normal in caliber. No hiatal hernia. Bones and chest wall: There is a minimally displaced, subacute appearing posterior right 10th rib fracture (series 3, image 43). No vertebral body compression fractures. No axillary or supraclavicular adenopathy by size criteria. Thyroid gland is unremarkable. Abdomen: Multiple renal cysts are partially characterized on this limited view of the abdomen. Visualized upper abdominal solid organs and bowel loops appear otherwise normal in the absence of contrast. IMPRESSION: 1. Confluent bibasilar patchy airspace opacities, more consolidative on the left than on the right. Given the distribution and confluent appearance, these findings most likely represent aspiration or pneumonia. However, some of these focal areas of consolidation have a masslike appearance raising the suspicion for neoplasm. No recent comparisons are available to determine the acuity of the findings. However, given the clinical history of refractory pneumonia, atypical pneumonia including cryptogenic organizing pneumonia and eosinophilic pneumonia should be considered in the differential. Short interval followup is recommended to exclude underlying pulmonary mass. 2. Subacute posterior right rib fracture. Dictated by: Leonela Edwards M.D. on 08/26/2016 at 17:52 Ap 12-lead ECG Unable to locate EKG but per ER M.D. note complicated by poor baseline and patient movement PVCs no prior EKG for comparison that was normal rate and rhythm no acute findings seen Assessment & Plan Mr. Dioni Leong is an 89 year old gentleman with history of dementia, [place], CAD , and recent treatment for pneumonia who presents from [facility] with a 15 minute episode of chest pain. He was admitted for refractory pneumonia and acute kidney injury. 1. Possible sepsis, acute. Present on admission. - Pt presents with WBC 16.5, tachycardia 113. Blood cultures show possible Strep. Likely secondary to pneumonia. Lactic acid 1.7. Serial procalcitonin 0.47 and 0.39. - NS @ 100 ml/hr 2. Pneumonia, acute, present on admission - Seems to be a failure of oral Levaquin so we will place on IV Zosyn for possible healthcare associated pneumonia. Discontinued Levaquin as he failed this medication. Also discontinued Vancomycin in light of his LUIS A. Strep pneumo and viral PCR negative. - Zosyn IV - MRSA screen pending - Continue monitoring CBC 3. Acute renal failure, present on admission. Improving. - Cr was elevated at 4.25 on admission, improved to 3.26. Given his dementia, this may be secondary to lack of access to free water. Will discuss with social work and family. - Give some gentle IV fluid hydration and recheck labs 4. Chest pain, acute, present on admission - Serial troponins trending. Elevated, but may also be secondary to severe LUIS A. - NS at 100 ml/hr - Avoid nephrotoxic medications - Monitor CMP 5. Agitation, acute. - Pt became agitated, hallucinated and swinging at staff. Started Seroquel. Consider Haldol if he remains agitated. - Seroquel 25 mg qhs Disposition: Will likely stay 2+ more days given degree of LUIS A. Will discuss code status and possible palliative care consult with family. Resuscitation Status: CPR: Attempt Resuscitation Attending Statement The patient was seen and examined together with Dr. Clifford on 08/27/2016 and I agree with the history, exam and plan as outlined in the note above. . Dalton Clifford Aug 27, 2016 15:53 Ken Jordan MD Sep 01, 2016 17:46
--- NOTE | 2016-08-27 18:23 | NUR ---
AMS/Sitter/Ulcer The pt remained disoriented throughout the shift, with increasing hallucinations and aggression towards the end of the shift. Advanced Alzheimer and dementia. The pt has a sitter at the bedside. PRN halidol is ordered. A stage 3 pressure ulcer on the pt's sacrum has been redressed by nursing, and the NTL is aware of the ulcer and the extensive bruises over the pt's body - including a fractured rib from a fall of unknown time and origin.
[2016-08-28] VITALS (8 sets, daily range): BP systolic 95–131; BP diastolic 44–73; PULSE 62–94; RESP 16–24; O2SAT 96–100
[2016-08-28] MEDS ORDERED: Vancomycin Serum Trough XX ONE (00:01)
[2016-08-28 04:24] LABS: BASOPHILS % (AUTO) 0.1 % (0-3); EOSINOPHILS % (AUTO) 0.6 % (0-5); MONOCYTES % (AUTO) 6.4 % (4-12); Mean Corpuscular Hemoglobin 28.3 pg (27.0-35.0); Mean Corpuscular Volume 85.8 fL (81-100); NEUTROPHILS % (AUTO) 86.8 % (40-74); Platelet Count 282 bil/L (150-400)
[2016-08-28] MEDS ORDERED: Vancomycin Serum Level XX ONE (05:00)
[2016-08-28 05:06] LABS: TROPONIN T 0.044 ug/L (0.0-0.011)
[2016-08-28] MEDS ORDERED: Vancomycin Inj 1,250 MG in 0.9% Sodium Chloride 250 ML IV ONE (06:00)
--- NOTE | 2016-08-28 06:10 | PCM.PHAPRO ---
Progress Date of Service: Aug 28, 2016 Vancomycin dosing by pharmacy for 89 y/o man O: * The patient received a one time 1000 mg dose of vancomycin yesterday * Vancomycin level about 8 hours after the dose was 14.4 mcg/mL * SCr of 2.32 mg/dL on 08/28 A: * He is clearing the vancomycin well * SCr is improving P: * Give a one time 1250 mg dose of vancomycin today * Draw another vancomycin level tomorrow morning (08/29) * Pharmacy to determine further dosing from there if patient is to remain on vancomycin Thank you. Pharmacy will continue to follow. Nuria Adkins, PharmD Nuria Adkins Aug 28, 2016 06:10
[2016-08-28] MEDS: 0.9% Sodium Chloride 1,000 ML IV SCH ×2 (06:39→10:05)
[2016-08-28] MEDS ORDERED: levoFLOXacin Inj 500 MG in IV Premix 1 EACH IV SCH (08:30)
[2016-08-28] MEDS: Heparin 5,000 Unit/mL Inj SUBQ SCH ×2 (08:59→21:24)
[2016-08-28] MEDS: Piperacillin-Tazo 3.375 Gm Inj 3.375 GM in Dextrose 5% Minibag Plus 50 ML IV SCH ×2 (10:06→21:24)
--- NOTE | 2016-08-28 11:05 | NUR ---
Pressure Ulcer Patient is being followed by would care for pressure ulcer. Dressing changed by vascular technician this AM and is C/D/I. Switched patient to P500 bed to promote healing and prevent further injury. Will continue frequent turns and care checks.
--- NOTE | 2016-08-28 11:31 | NUR ---
Discussed case with RN. No change in pt condition. Pt is eating minimal PO. Spoke with RD about adding snacks/supplements to order. MORTGAGE FIELD INSPECTOR will continue to communicate with RN and RD re: diet tolerance and will reassess when appropriate.
--- NOTE | 2016-08-28 11:43 | NUR ---
Palliative Care Palliative Care received verbal order from Dr Jordan 08/28/16 to assist with goals of care. Patient is an 89 year old man with history of dementia, [place], CAD and recent treatment for pneumonia. He was admitted 08/26/16 for refractory pneumonia and acute kidney injury. Patient is a resident at [facility]. Mireille Hansimon (/lives in [place]) [phone] Reuben Leong (son/[place]) [phone] Adriana Real
--- NOTE | 2016-08-28 12:34 | NUR ---
Wound Care [facility] Patient seen for evaluation of wound to sacrum. Unstageable pressure injury to sacrum measures 3.7cm L x 3.7cm W x 0.6 cm D with 100% yellow sough present and minimal purulent drainage. Pressure ulcer present on admission. Undermining 4.5cm at 12:00 and 1.5cm around remainder of wound. Periwound area red over areas of undermining but no signs of infection. Patient very combative during wound care. Assisted onto left side in bed by sitter and RN but does not stay still. Patient thrashing hips from side to side during assessment. Wound cleaned with NS. Covered with Mepliex sacral. Recommend P500 bed with turning every 2 hours as tolerated by patient. Wound care to follow up as needed. Nursing to change dressing q48 hours and prn soiling.
--- NOTE | 2016-08-28 12:50 | PCM.CONPAL ---
Date of Service Aug 28, 2016 Date of Hospital Admission: Aug 26, 2016 at 17:13 Date of Palliative Consult: Aug 28, 2016 Requesting Provider: Pat Mark MD Reason Palliative Care Consult: Goals of Care Discussion Hospital Unit @time of consult: Progressive Care Palliative Care Recommendation Summary of palliative recommendations: -Symptom management (Pain/other) Agitation--is requiring a sitter in hospital but part of that is for lines etc. Suggest increase in seroquel dosing and use routine-- not prn (for regulation issues in [place])-he was on 25 mg and now in hospital is only on haloperidol-suggest trial 12.5 in AM and 25 at HS. Other med he was on is mirtazapine 7.5 mg-- this could also be increased if not too sedating. -DPOA/Advanced Directives/POLST-FULL CODE-- will try and find his original POLST - if not will redo for son to sign later. -Family/emotional support-son Osvaldo -Spiritual support unlikely to benefit due to severity of dementia His GOC are well established by the son and based on conversation this is unlikely to change. Additional Medical Diagnoses with primary management by Hospitalist team include : Problems: End of Life Preferences Osvaldo- son states that they discussed this and goal is to have aggressive tx until end of life. In this discussion he was not opposed to all treatments including feeding tube This of course may take further discussion if condition deteriorates Disposition hopefully back to [facility] Resuscitation Status Resuscitation Status: CPR: Attempt Resuscitation POLST Updates/Changes Previous POLST?: Yes . Symptom management: Agitation, Delirium Pt History History of Present Illness This is an 89-year-old male who has significant dementia history of [place] CAD and presents to the emergency room from [facility] with according to the nurses complain of chest pain which lasted about 15 minutes. However on further evaluation with chest x-ray it appears that he has a left mid lung patchy opacities consistent with pneumonia versus aspiration versus atelectasis. He recently is about to complete seven-day course of by mouth Levaquin. He has completed 6 days of it. He also was given a course of Tamiflu. As the patient's dementia unable to get any history. His white count was noted be 16.5. He also was found to have acute renal failure compared to old values from several years ago with a BUN of 64 creatinine of 4.25. His vital signs upon presentation was a temp of 36.6, heart rate 91, respiratory rate 20 blood pressure 118/51 on 3 L nasal cannula O2 sat was 100%. His troponin was found to be 0.038 and lactic acid was 1.7. Bicarbonate on his labs was 18. Of note patient also had a CT of chest without contrast which revealed confluent bibasilar patchy airspace of PACs with more consolidative on the left than the right. Thought this may likely represent aspiration or pneumonia. Over some these focal areas of consolidation have a masslike appearance raising the suspicion for neoplasm. There was also seen a subacute posterior right rib fracture. PALLIATIVE CARE NOTE Reason for consult- goals of care Decision maker- son Osvaldo Medrano [phone]- son- local DPOAHC. DPOAHC form [facility] in [facility] from 2013 89 yo with hx of dementia, ASCAD s/p stents with hospitalization in Feb or Mar at [facility] for UTI. Recent treatment with levaquin and tamiflu for pneumonia and flu at facility. He is a resident of [facility] under the care of Dr. De La Fuente. Hx obtained from chart notes and his son by phone. Admitted here apparently due to c/o CP with note of ARF although most recent OP labs not available. His son states he was just told his father aspirates liquids but was not told he had difficulty swallowing. He also states he is unaware of masses in his lungs and states there was no mention from [facility]. 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 has son in [place] who is no longer involved in care as per Osvaldo Living Situation: [facility] for months Responsive Patient Symptoms Delirium agitation and aggression reported Other Not obtainable due to nonsensical responses Palliative Performance Scale PPS Patient Status: Current PPS Ambulation: Mainly Sit/Lie PPS Activity: Unable to do most activity PPS Self-Care: 2 person assist PPS Intake: Normal or reduced PPS Conscious Level: Full or confusion Performance Scale: 30% (to 40%--need more input from [facility] to determine) FAST Scale FAST Score: 7-C Allergy Allergies Reviewed: Yes Medications Current Medications: Current Medications Albuterol 2.5 mg 2.5 mg Q2H PRN NEB; Start 08/26/16 at 17:55 Levofloxacin/ Dextrose 750 mg/ Premix 150 ml @ 100 mls/hr Q24 IV; Start at 08:30; Status UNV Piperacillin Sod/ Tazobactam Sod 3.375 gm/Dextrose/ Water 50 ml @ 12.5 mls/hr Q12 IV Last administered on 08/28/16 10:06; Admin Dose 12.5 MLS/HR; Start 08/27 at 08:30 Sodium Chloride 1,000 ml @ 100 mls/hr Q10H IV Last administered on 08/28/16 10 :05; Admin Dose 100 MLS/HR; Start 08/26/16 at 17:54 Famotidine/Sodium Chloride/Premix 50 ml @ 400 mls/hr HS IV Last administered on 08/27/16 21:38; Admin Dose 400 MLS/HR; Start 08/26/16 at 20:30 Pharmacy Consult 1 ea 1 ea DAILY XX; Start 08/27/16 at 08:30; Stop 08/28/16 at 07:43; Status DC Levofloxacin/ Dextrose/Premix 100 ml @ 100 mls/hr Q48 IV; Start 08/28/16 at 08: 30; Stop 08/28/16 at 08:30; Status DC Heparin Sodium (Porcine) 5,000 unit Q12 SUBQ Last administered on 08/28/16 08: 59; Admin Dose 5,000 UNIT; Start 08/26/16 at 20:30 Acetaminophen/ Hydrocodone Bitart 1 tablet Q6 PRN PO Last administered on 16:10; Admin Dose 1 TABLET; Start 08/27/16 at 15:40 Quetiapine Fumarate 25 mg HS PO Last administered on 08/27/16 19:58; Admin Dose 25 MG; Start 08/27/16 at 21:00 Haloperidol 0.5 mg TID PRN PO; Start 08/27/16 at 17:20 Scheduled Aspirin (Aspir 81) 81 Mg Tablet. 81 MG PO DAILY Bisacodyl (Correctol) 5 Mg Tablet 5 MG PO DAILY Levofloxacin (Levaquin) 500 Mg Tablet 500 MG PO DAILY Mirtazapine (Remeron) 15 Mg Tablet 7.5 MG PO HS Miscellaneous Medications Hydrocodone/Acetaminophen (Lorcet 5-325 mg Tablet) 1 Each Tablet 1 EACH PO Objective Findings Exam Vital Sign - Last Date Time Temp Pulse Resp B/P Pulse Ox O2 Delivery O2 Flow Rate FiO2 08/28/16 08:57 37.0 62 16 112/65 100 Room Air 08/26/16 23:15 2.00 Intake and Output 08/27/16 08/27/16 08/28/16 Cumulative From/Thru 15:00 23:00 07:00 08/26/16 15:50 - 08/28/16 06:03 Intake Total 1232 ml 2100 ml 4357 ml Output Total 900 ml 2100 ml Balance 332 ml 2100 ml 2257 ml Intake Oral 200 ml 200 ml IV Total 1032 ml 2100 ml 4157 ml Output Urine Total 900 ml 2100 ml HEENT: PERRLA, Scleral Anicteric Heart: Regular Rate/Rhythm Lungs: Clear to Auscultation Abdomen: Soft Neuro: Other (constant rambling nonsensical talk, intermittent spoon feeding, fairly constant movement of arms and bit of legs) Extremities: No Edema, Other (extensive excoriations and subQ ecchymosis) Skin: Other (decub- dressed so not viewed) Lab/Diagnostics Lab and Imaging results reviewed in detail in EMR. HCO3- 16-18 CR admit of 4.25 and now 2.32 WBC 16K now normal mod anemia Chest CT without contrast- pulm mass stable from 2013, new pulm mass 1.5 cm spiculated and other mass like lesions which may represent pneumonia vs masses subacute R rib fx--pt had fall with contussion [place] 06[place]30 Patient/Family Conference Members Present Family Members Present with son by phone- Osvaldo Medical Team Members Present? Moe KLEIN Discussion/Goals of Care Discussion FAMILY UNDERSTANDING OF DISEASE: Son has sense that the patient's behavior and even his incontinence is a way of his getting attention and is intentional. He states this is part of his personality and only maybe a part from his dementia. He understands that he will not be getting better as to his indep from [place] but he knows he is getting better from this illness His son verbalizes much discontent and distrust of medical system and the expectations on his time for care and coordination of his father and the cost of keeping him at [facility]. He indicates that he does not trust his brother "being the same as his dad" for any input etc. DISEASE PROGRESSION/EVIDENCE OF DECLINE: SYMPTOM BURDEN: He would like things coordinated to minimize phone calls and disruptions in his work day. With this he also requests prompt return of his phone calls --ie info from [facility] etc to minimize his need to call back. If there is a FCTM he is not likely to have the time off work but is willing to try if needed. Working around the son's work schedule for conferences would be appreciated. GOALS: His son indicates that they had discussions about GOC/code status in the past and that they both share the same belief that he would want full code and aggressive management until he dies. He states this is rooted in the restoration belief structure. He indicates that his QOL is quite adequate and that he expects his father to go back to [facility]. HOPES/WORRIES: Time spent Total time 50 minutes; >50% face to face with patient and/or family, providing counselling regarding plans and recommendations, and in care coordination with his/her medical teams. I also spent an additional [ ] minutes counseling for advanced care planning with the patient/the patients family/the surrogate decision maker. copies to: Efrem De La Fuente Deborah A MD Aug 28, 2016 12:49
--- NOTE | 2016-08-28 15:55 | NUR ---
NUTRITION ASSESSMENT Assess: Pt is an 89 yo male admitted w/ pneumonia and acute renal failure. Pt has sacral pressure ulcer that was present prior to admission. Per notes, pt is unable to answer questions d/t dementia. Pt has minimal PO intake. ST encouraged adding HTL nutritional supplements if possible because pt was not appropriate for f/u today. Palliative was consulted. PMHx: Dementia, asthma, CAD, arthritis, diverticulosis, hypokalemia, late onset Alzheimers disease w/ behavioral disturbances, AK, CHF. LABS: Na 145, Cl 110, CO2 16, BUN 38, Allergist/Immunologist 2.32, Gluc 52, Ca 7.9, Alb 2.4 MEDICATIONS: Reviewed. DIET: Stimulation x 1 day HTL. PO Bites-25% GI symptoms/stool: 0 BM noted SKIN: Suman 15 - Unstageable PU on sacrum, present on admission ANTHROPOMETRICS: Current Wt: 61.1 kg BMI: 18.8 kg/m2 IBW: 75.3 kg ESTIMATED NEEDS: Wound (unstageable pressure injury) Calories: 6992-3785 kcal/day (30-35 kcal/kg BW) Protein: 75-95 g/day (1.2-1.5 g/kg BW) NUTRITION DIAGNOSIS: 1) Chew/swallow difficulties related to dementia and missing teeth as evidenced by altered texture diet per ST recommendation. 2) Inadequate oral intake related to acute illness and dementia as evidenced by PO intake of bites-25%. INTERVENTION: 1) Add Magic Cup to all trays. 2) Diet advancement per ST. MONITOR/EVALUATE: PO intake, labs, GI, wound, wt, POC. Will continue to monitor per moderate nutrition risk guidelines. Addendum: 08/28/16 at [address] Student documentation reviewed and I agree with above note. RAF.
[2016-08-28] MEDS ORDERED: Heparin 5,000 Unit/mL Inj IVPUSH PRN (16:50)
[2016-08-28] MEDS ORDERED: Heparin 25K Unit/500mL 0.45 NS 25,000 UNIT in IV Premix 1 EACH IV SCH (16:50)
--- NOTE | 2016-08-28 17:22 | NUR ---
Social Work Note: Initial Assessment Data& Assessment: EMR reviewed. ERNST gathered information from [facility] and pt son, SW role explained. SW phone number listed on pt whiteboard. Dioni Leong is a 89 year old male admitted on 08/26/2016 for pneumonia and acute renal failure. Pt has Medicare and [employer]. Pt also has [facility] supplemental insurance coverage per [facility]. Pt sees Yaneli Hughes MD for primary care. 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 Pt is wheelchair bound at baseline and typically a 1PA for transfers. Pt does not have HH hx. Pt does not have LT insurance or VA benefits. DPOA paperwork copy placed on pt chart. Per [facility], pt has been very ill in the last month. Pt first was struggling with Flu A and then developed pneumonia. Per [facility], they had been treating pt accordingly with antibiotics. However, pt was more confused than usual this last Sunday08/25/2016 and fell out of bed. [facility] also noticed that pt had a wound on his backside that had opened up. Per [facility] pt had complained of chest pain that same day and pt was sent to the ED. Per [facility], pt son is listed as the only contact on file and while he has never officially singed in or out when visiting pt at the facility, staff remembers pt son last visiting two weeks ago. There was an active APS investigation in 2013, but nothing current. There is not an open APS investigation at this time. ERNST spoke with pt son Osvaldo via phone call who confirmed plan for pt to return to [facility] when medically improved and ready for discharge. Pt son denied any needs at this time. SW to continue to follow if any needs arise. Plan: Anticipated discharge back to [facility] when medically ready. Pt son denied any needs at this time. SW to continue to follow if any needs arise. RAFY Vasquez Addendum: 08/28/16 at 1732 by GO LUQUE SS Amended: Links added. Addendum: 08/28/16 at 1736 by GO LUQUE SS ERNST confirmed with [facility] Misael Cuevsa that pt arrived at their facility from [facility] as a rehab pt in May 2016, pt eventually transitioned to a LTC patient and transitioned to [facility] the beginning of this month. RAFY Vasquez
--- NOTE | 2016-08-28 18:35 | PCM.PNMED ---
Subjective Date of Service Aug 28, 2016 Subjective Mr. Leong is an 89-year-old male who has significant dementia history of coronary artery disease and presents to the emergency room from [facility] with according to the nurses complain of chest pain which lasted about 15 minutes. Today, he denies chest pain, shortness of breath, cough, and abdominal pain. He does not have any concerns or pain. Exam Vital Signs Vital Sign - Last Date Time Temp Pulse Resp B/P Pulse Ox O2 Delivery O2 Flow Rate FiO2 08/28/16 17:35 36.8 76 16 112/44 98 Room Air 08/26/16 23:15 2.00 Intake and Output 08/27/16 08/27/16 08/28/16 Cumulative From/Thru 15:00 23:00 07:00 08/26/16 15:50 - 08/28/16 06:03 Intake Total 1232 ml 2100 ml 4357 ml Output Total 900 ml 2100 ml Balance 332 ml 2100 ml 2257 ml Intake Oral 200 ml 200 ml IV Total 1032 ml 2100 ml 4157 ml Output Urine Total 900 ml 2100 ml Exam General: Alert, Disoriented, Cooperative, No Acute Distress Head: Normocephalic, atraumatic. External ears normal. Eyes: PERRLA, EOMI. Anicteric sclerae. Mouth: Mouth Normal, Mucous Membranes Moist/[place] Neck: Neck supple with full range of motion. Chest & Lungs: Clear to auscultation bilaterally with no crackles, wheezes, or rhonchi. Cardiovascular: Regular Rate/Rhythm, Normal S1, Normal S2, 2/6 systolic ejection murmur Abdomen: Non-tender, Non-distended, No masses, Normoactive bowel tones, Soft Musculoskeletal: Normal Range of Motion Extremities: Trace pedal edema bilaterally Neurological: Grossly Neurologically Intact, Normal Speech IVs and Medications Medications Reviewed: Medications were reviewed in detail Lab and Diagnostics Result Diagram: 08/28/160 08/28/160 X-Rays, CTs and MRIs PROCEDURE: X-RAY CHEST ONE VIEW, PORTABLE IMPRESSION: Mild patchy left midlung radiopacities which may be associated with atelectasis, aspiration, or infection. Approved by: Leonela Edwards M.D. on 08/26/2016 at 16:30 PROCEDURE: CT CHEST WITHOUT CONTRAST IMPRESSION: 1. Confluent bibasilar patchy airspace opacities, more consolidative on the left than on the right. Given the distribution and confluent appearance, these findings most likely represent aspiration or pneumonia. However, some of these focal areas of consolidation have a masslike appearance raising the suspicion for neoplasm. No recent comparisons are available to determine the acuity of the findings. However, given the clinical history of refractory pneumonia, atypical pneumonia including cryptogenic organizing pneumonia and eosinophilic pneumonia should be considered in the differential. Short interval followup is recommended to exclude underlying pulmonary mass. 2. Subacute posterior right rib fracture. Dictated by: Leonela Edwards M.D. on 08/26/2016 at 17:52 12-lead ECG Unable to locate EKG but per ER M.D. note complicated by poor baseline and patient movement PVCs no prior EKG for comparison that was normal rate and rhythm no acute findings seen Assessment & Plan Mr. Dioni Leong is an 89 year old gentleman with history of dementia, MA, CAD , and recent treatment for pneumonia who presents from [facility] with a 15 minute episode of chest pain. He was admitted for refractory pneumonia and acute kidney injury. 1. Chest pain, acute, present on admission - Serial troponin trending and continues to be elevated and CK-MB also elevated. Likely secondary to myocardial ischemia. - Given patient's history of coronary artery disease, dementia, and that he is asymptomatic today, we will medically treat - Continue normal saline IV - Monitor CMP - Started aspirin 81 mg daily, metoprolol 12.5 mg twice per day, and atorvastatin 40 mg daily 2. Possible sepsis, acute. Present on admission. - Pt presents with WBC 16.5, tachycardia 113. Blood cultures show possible Enterococci. Likely not secondary to pneumonia or UTI. Source of infection needs to be further investigated. Lactic acid 1.7. Serial procalcitonin 0.47 and 0.39. - Normal Saline at 100 ml/hr, decreased to 75 mL per hour today -Urine culture shows mixed tia 3. Pneumonia, acute, present on admission - Seems to be a failure of oral Levaquin so we will place on IV piperacillin/ tazobactam for possible healthcare associated pneumonia. Discontinued Levaquin as he failed this medication. Also discontinued Vancomycin in light of his LUIS A. Strep pneumo and viral PCR negative. - Piperacillin/tazobactam IV, vancomycin discontinued today - MRSA screen negative - Continue monitoring CBC - Consider repeat imaging as recommended to look for possible underlying lung mass 4. Acute renal failure, present on admission. Improving. - Cr was elevated at 4.25 on admission, improved to 2.32. Given his dementia, this may be secondary to lack of access to free water and possible UTI. Will discuss with social work and family. - Give some gentle IV fluid hydration and recheck labs tomorrow - Avoid nephrotoxins. Vancomycin discontinued today 5. Agitation, acute. - Pt became agitated, hallucinated and swinging at staff. Started Seroquel. - Haldol 0.5 mg TID as needed for agitation - Seroquel 25 mg at bedtime 6. Sacral pressure ulcer, present on admission. Active -Wound care consulted and following. Their time and recommendations are appreciated. Disposition: Will likely stay 2+ more days given degree of acute kidney injury and possible sepsis. Will discuss code status and possible palliative care consult with family. VTE Prophylaxis: Sub-Q Heparin (Unfractionated) Resuscitation Status: CPR: Attempt Resuscitation Attending Statement The patient was seen and examined together with Dr. Cowan on 08/28/2016 and I agree with the history, exam and plan as outlined in the note above. . Cinthya Cowan DO Aug 28, 2016 18:35 Ken Jordan MD Sep 01, 2016 17:47 asymptomatic, will medically treat - NS at 75 mL/hr - Monitor CMP -Started aspirin 81 mg daily, metoprolol 12.5 mg twice per day, and atorvastatin 40 mg daily 2. Possible sepsis, acute. Present on admission. - Pt presents with WBC 16.5, tachycardia 113. Blood cultures show possible Strep. Likely secondary to pneumonia. Lactic acid 1.7. Serial procalcitonin 0.47 and 0.39. - NS @ 100 ml/hr, decreased to 75 mL per hour 3. Pneumonia, acute, present on admission - Seems to be a failure of oral Levaquin so we will place on IV Zosyn for possible healthcare associated pneumonia. Discontinued Levaquin as he failed this medication. Also discontinued Vancomycin in light of his LUIS A. Strep pneumo and viral PCR negative. - Zosyn IV, vancomycin discontinued today - MRSA screen pending - Continue monitoring CBC 4. Acute renal failure, present on admission. Improving. - Cr was elevated at 4.25 on admission, improved to 3.26. Given his dementia, this may be secondary to lack of access to free water. Will discuss with social work and family. - Give some gentle IV fluid hydration and recheck labs -Avoid nephrotoxins. Vancomycin discontinued today 5. Agitation, acute. - Pt became agitated, hallucinated and swinging at staff. Started Seroquel. Consider Haldol if he remains agitated. - Seroquel 25 mg qhs Disposition: Will likely stay 2+ more days given degree of LUIS A. Will discuss code status and possible palliative care consult with family. Resuscitation Status: CPR: Attempt Resuscitation Cinthya Cowan DO Aug 28, 2016 18:35
[2016-08-28] MEDS: Famotidine Inj 20 MG in IV Premix 1 EACH IV SCH (21:25)
[2016-08-29] VITALS (9 sets, daily range): BP systolic 100–128; BP diastolic 35–62; PULSE 57–89; RESP 16–20; O2SAT 96–99
[2016-08-29] MEDS: 0.9% Sodium Chloride 1,000 ML IV SCH ×2 (01:30→15:52)
[2016-08-29 03:41] LABS: BASOPHILS % (AUTO) 0.2 % (0-3); EOSINOPHILS % (AUTO) 0.9 % (0-5); MONOCYTES % (AUTO) 7.5 % (4-12); Mean Corpuscular Hemoglobin 27.8 pg (27.0-35.0); Mean Corpuscular Volume 86.3 fL (81-100); NEUTROPHILS % (AUTO) 80.2 % (40-74); Platelet Count 221 bil/L (150-400)
[2016-08-29] MEDS ORDERED: Vancomycin Serum Trough XX ONE (05:00)
--- NOTE | 2016-08-29 06:51 | NUR ---
Behavior Pt remains confused disoriented and hallucinating. He is combative and resisting care. He continues to swings at staff during care such as turning repositioning, oral care, etc. unable to re-orient and re-direct. All procedures explained to pt well. Pt was placed on P500 MARC bed. Turn Q 2 hr despite resistance form pt . VSS. Sitter at the bedside for safety. No overt complications noted.
[2016-08-29] MEDS: Piperacillin-Tazo 3.375 Gm Inj 3.375 GM in Dextrose 5% Minibag Plus 50 ML IV SCH ×2 (07:41→21:00)
[2016-08-29] MEDS: Heparin 5,000 Unit/mL Inj SUBQ SCH ×2 (07:41→21:02)
--- NOTE | 2016-08-29 11:14 | CONS ---
[address] [address] CONSULTATION REPORT PATIENT: JOHANNY MACHADO : 1925 MR#: [id number] ADMIT: 08/26/2016 JOB ID: [id number] DATE OF SERVICE: 08/29/2016 INFECTIOUS DISEASE CONSULTATION: REASON FOR CONSULT: Enterococcal bacteremia. HISTORY OF PRESENT ILLNESS: The patient is a quite demented, but very conversational, 89-year-old gentleman who lives at a local intermediate facility. He was referred here and admitted after complaints of sustained chest pain three days ago on August 26. Following his referral here, it was noted that he had acute renal failure as well as unexplained leukocytosis and a broad workup was initiated. Just prior to [facility], the patient had received about a six day course of combined levofloxacin and oseltamivir for what was felt to be a respiratory tract infection perhaps due to influenza or associated with a bacterial super infection. Apparently the patient had some degree of cough and questionable shortness of breath but it was not entirely clear that these antimicrobials made any difference, and then he developed the chest pain, which sent him here. In terms of interviewing the patient this morning, he has absolutely no insight into his situation. He is able to relate some past details of his life such as where he was born and so on and so forth but in terms of his current situation, he has absolutely no insight. He states that his left second toe hurts and that is his main problem. He has no idea as to his current location and believes we are somewhere in his house in [place], [place] and that numerous people are present in the room who are clearly not there. He has no idea with respect to what year or decade this is or any current events and any history he gives is extraordinarily unreliable. I attempted to interview him about fevers, chills, pulmonary complaints and other standard historical questions, but the patient will give bizarre answers or decline to answer. He is quite capable of speech, however, and rambles on at one point claiming he invented the [employer]. Review of records from the penitentiary indicates he has been receiving the Levaquin for six days prior to his transfer here. Additional details about what was transpiring at the intermediate facility are not available based on my review of the available records we have, which more or less just detail his meds at the penitentiary and his oral intake. PAST MEDICAL HISTORY: 1. Dementia, advanced, Alzheimer type. 2. Organic heart disease: a. Coronary artery disease. b. History of CHF though it is not clear how that was confirmed. 3. Asthma. SOCIAL HISTORY: Notes in the chart suggest he was a former smoker and the patient confirms this though he tells me he was smoking right up until today which seems highly unlikely as he lives in a penitentiary and is currently at [facility] with a sitter next to him. He denies drinking and the chart confirms this. FAMILY HISTORY: Is completely unknown as the patient seems unaware of what if any family members he has except for a son who he clearly recalls who apparently has been in to visit but there is no useful family history available from this confabulating and confused elderly gentleman. REVIEW OF SYSTEMS: Is likewise completely useless in this demented gentleman. When asked questions, he goes into tangents about other people who are present in the room or other side conversations which do not apply or make sense. PHYSICAL EXAMINATION: Reveals an awake, alert and pleasant though completely disoriented and confabulating elderly gentleman. He is currently sitting up in bed, in no acute distress. He is oriented x1. His speech is reasonably fluent but the content of it is largely nonsensical though his sentence structure is still intact. Examination of the head shows no evidence of trauma. The conjunctivae are pale. There is no scleral icterus. Nose normal. Neck is reasonably supple without adenopathy or any JVD. The patient's oral cavity is notable for many missing teeth but no evidence of thrush, pharyngitis or hairy leukoplakia. There is no obvious gingivitis. His lungs are fairly clear anteriorly though it is a bit difficult to get the patient to take deep breaths. Cardiac tones are regular rate and rhythm without any noticeable murmur but again it is tough to keep him from talking during examination of the heart, but I am reasonably certain that there are no significant murmurs present. There is no S3 and no S4. His abdomen is soft and nontender without organomegaly or ascites. He is wearing a diaper. There is no suprapubic fullness and no diarrhea noted. No inguinal or cervical lymph nodes are noted. The patient's extremities are notable for what appears to be an obvious right foot drop on the right as well as profound atrophy. When asked to move his foot back and forth, he can do it with the left but not with the right confirming the footdrop diagnosis. When asked if he can walk, the patient says no problem but his lower extremities in particular are extremely wasted suggesting that he does not walk. His toes on the left foot appear benign. Even with very careful inspection, I see no evidence for ulceration or tenderness except perhaps some minimal tenderness at the left 2nd MTP joint, but this is not reproducible. There is no evidence for gout or cellulitis in either of the feet though there is the right footdrop on the right. There is no cellulitis noted and absolutely no peripheral edema. 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 There are no peripheral stigmata of endocarditis on his hands nor in his conjunctivae. No thyromegaly is noted. LABORATORIES: Include white count 16,000 with left shift when he came in, now 6400, still with 80% segs. His creatinine was as high as 4.25 in the ED. It is now down to 1.72. Sodium slightly elevated 147. His liver function tests are normal. Procalcitonin was 0.47 when he came in. It is now down to 0.39. This is probably normal given his renal function. His urinalysis 6-10 white cells. Vancomycin level still 14. Urine culture grew mixed tia. Two of three blood cultures on admission in the ED grew Enterococcus which is ampicillin sensitive, gent resistant and streptomycin susceptible. The ARIELLE to penicillin is 8 which is actually fairly high. Respiratory viral PCR panel was done and was completely negative. Repeat blood cultures were just done this morning but only one bottle and it is pending. The MRSA screen of the nares was negative. IMAGING: Was carefully reviewed on the computer monitor. The CT scan of the chest shows patchy bibasilar infiltrates much more so on the left. The radiologist thought these likely represented aspiration and/or pneumonia but they also wonder if it could be neoplasm or cryptogenic organizing pneumonia. The standard chest x-ray shows patchy infiltrate on the left which is not nearly as impressive as it is on the CT. Renal ultrasound showed no hydronephrosis. IMPRESSION: It is a bit thick of a confusing case because we have absolutely no history from the patient available. At this point, the patient appears extremely comfortable and basically denies complaint except for pain in his left great toe. His left second toe is very slightly tender at the base but appears entirely normal so I am not certain when his left foot complaints mean though this would not be typical of gout for example. More importantly, the patient has Enterococcus present on two of three admission blood cultures. He was receiving Levaquin at the penitentiary for a possible pneumonitis and, of course, quinolones in general are not good agents for Enterococcus so perhaps the Levaquin played some role in the selection of this bacteremic organism. Enterococci do not cause pneumonia and so his pulmonary infiltrates cannot be linked to the Enterococcus in his blood. Likewise Enterococci are often agents of urinary tract infections which can be bacteremic, but that is not the case here as the patient's urine did not grow any Enterococcus. It is possible that this Enterococcus in his blood occurred as a result of translocation from the gout or some, as of yet, unrecognized abdominal pathology though his abdominal examination is quite benign. Another concern here would be the possibility of endocarditis as this patient would be in the typical age group for enterococcal endocarditis. RECOMMENDATIONS: 1. Follow up blood cultures have been obtained and we may need more in subsequent days depending on his clinical course. 2. Cardiac echo is needed and I have ordered that. 3. Cryptococcal antigen will be ordered because of the bilateral infiltrates which apparently were present at the penitentiary and failed to improve with Levaquin though I suspect they are likely aspiration rather than an occult fungal pneumonia. 4. Will continue with Zosyn which is currently his only antibiotic. Zosyn is actually a reasonable drug for the Enterococcus and also will provide treatment for aspiration pneumonia. Depending on how things settle out, we may be able to transition to Unasyn for example which would also have a narrower but good coverage for both aspiration and the enterococcal bacteremia. 5. Obviously if the patient has endocarditis, we will have to rethink our antibiotic regimen and duration as this would be have great significance in terms of his management post discharge at the penitentiary. 6. The optimal thing here would be if we find no evidence of endocarditis, his enterococcal bacteremia is not redemonstrated, and he can simply be discharged to the penitentiary to finish 10-14 days of either Unasyn or Zosyn for combined treatment of what may represent aspiration pneumonia as well as enterococcal bacteremia without endocarditis. Thank you very much and I want to thank Dr. Richards for this timely consult.
--- NOTE | 2016-08-29 11:23 | PCM.PNMED ---
Subjective Date of Service Aug 29, 2016 Subjective Mr. Leong is an 89-year-old male who has significant dementia history of coronary artery disease and presents to the emergency room from [facility] with according to the nurses complain of chest pain which lasted about 15 minutes. Overnight: Patient was combative and resisting care. He had a sitter. Today, he denies chest pain, shortness of breath, and abdominal pain. He does not have dysuria or trouble with his bowel movements. Exam Vital Signs Vital Sign - Last Date Time Temp Pulse Resp B/P Pulse Ox O2 Delivery O2 Flow Rate FiO2 08/29/16 07:35 36.6 59 18 100/47 97 Room Air 08/26/16 23:15 2.00 Intake and Output 08/28/16 08/28/16 08/29/16 Cumulative From/Thru 15:00 23:00 07:00 08/26/16 15:50 - 08/29/16 06:20 Intake Total 1200 ml 1120 ml 6677 ml Output Total 775 ml 600 ml 3475 ml Balance 425 ml 520 ml 3202 ml Intake Oral 300 ml 100 ml 600 ml IV Total 900 ml 1020 ml 6077 ml Output Urine Total 775 ml 600 ml 3475 ml Exam General: Alert, Disoriented and Agitated. No Acute Distress Head: Normocephalic, atraumatic. External ears normal. Eyes: PERRLA, EOMI. Anicteric sclerae. Mouth: Mouth Normal, Mucous Membranes Moist/[place] Neck: Neck supple with full range of motion. Chest & Lungs: Clear to auscultation bilaterally with no crackles, wheezes, or rhonchi. Cardiovascular: Regular Rate/Rhythm, Normal S1, Normal S2, 2/6 systolic ejection murmur Abdomen: Non-tender, Non-distended, No masses, Normoactive bowel tones, Soft Musculoskeletal: Normal Range of Motion Extremities: Trace pedal edema bilaterally Neurological: Grossly Neurologically Intact, Normal Speech IVs and Medications Medications Reviewed: Medications were reviewed in detail Lab and Diagnostics Result Diagram: 08/29/16 0255 08/29/16 0255 X-Rays, CTs and MRIs PROCEDURE: X-RAY CHEST ONE VIEW, PORTABLE IMPRESSION: Mild patchy left midlung radiopacities which may be associated with atelectasis, aspiration, or infection. Approved by: Leonela Edwards M.D. on 08/26/2016 at 16:30 PROCEDURE: CT CHEST WITHOUT CONTRAST IMPRESSION: 1. Confluent bibasilar patchy airspace opacities, more consolidative on the left than on the right. Given the distribution and confluent appearance, these findings most likely represent aspiration or pneumonia. However, some of these focal areas of consolidation have a masslike appearance raising the suspicion for neoplasm. No recent comparisons are available to determine the acuity of the findings. However, given the clinical history of refractory pneumonia, atypical pneumonia including cryptogenic organizing pneumonia and eosinophilic pneumonia should be considered in the differential. Short interval followup is recommended to exclude underlying pulmonary mass. 2. Subacute posterior right rib fracture. Dictated by: Leonela Edwards M.D. on 08/26/2016 at 17:52 12-lead ECG Unable to locate EKG but per ER Barby note complicated by poor baseline and patient movement PVCs no prior EKG for comparison that was normal rate and rhythm no acute findings seen Assessment & Plan Mr. Dioni Leong is an 89 year old gentleman with history of dementia, coronary artery disease, and recent treatment for pneumonia who presents from [facility] with a 15 minute episode of chest pain. He was admitted for refractory pneumonia and acute kidney injury. 1. Bacteremia, E. faecalis group D, present on admission. Active. -Blood culture grew E. faecalis resistant to gentamicin but susceptible to penicillin G in 2/3 bottles -Infectious disease consulted and following. His time and recommendations are appreciated. -Repeat blood cultures today -Echocardiogram to look for signs of endocarditis -Consider investigating a gastroenterology source if endocarditis is unlikely based on echocardiogram -Piperacillin/tazobactam IV 2. Sepsis, acute. Present on admission. Active. - Pt presents with WBC 16.5, tachycardia 113. Blood cultures shows Enterococci faecalis. Likely not secondary to pneumonia and urine culture does not reveal E. faecalis growth. Source of bacteremia needs to be further investigated. Lactic acid 1.7. Serial procalcitonin 0.47 and 0.39. - Normal Saline at 100 ml/hr, decreased to 75 mL per hour yesterday - Urine culture shows mixed tia 3. Sacral pressure ulcer, chronic, present on admission. Active -Wound care consulted and following. Their time and recommendations are appreciated. -Wound care recommends surgical consult because of wound depth and severity of wound. -Surgery consulted and following. Their time and recommendations are appreciated. 4. Chest pain, acute, present on admission. Improved. - Serial troponin trending and continues to be elevated and CK-MB also elevated. Likely secondary to myocardial ischemia due to sepsis above. - Given patient's history of coronary artery disease and that he continues to be asymptomatic, we will medically treat - Continue normal saline IV - Monitor CMP - Continue aspirin 81 mg daily, metoprolol 12.5 mg twice per day, and atorvastatin 40 mg daily - Hold metoprolol if patient is HR <60 bpm 5. Pneumonia, acute, present on admission - Seemed to be a failure of oral levofloxacin so he was placed on IV piperacillin/tazobactam for possible healthcare associated pneumonia. Discontinued Levaquin as he failed this medication. Also discontinued Vancomycin in light of his LUIS A. Strep pneumo and viral PCR negative. Possible aspiration pneumonia given patient's dementia. - MRSA screen negative - Continue monitoring CBC - Continue piperacillin/tazobactam IV. Vancomycin discontinued yesterday due to LUIS A and MRSA negative - Consider repeat imaging as recommended to look for possible underlying lung mass 6. Acute renal failure, present on admission. Improving. - Cr was elevated at 4.25 on admission, improved to 1.72 today. Given his dementia, this may be secondary to lack of access to free water and possible UTI. Will discuss with social work and family. - Continue gentle IV fluid hydration and recheck labs tomorrow - Avoid nephrotoxins. Vancomycin discontinued yesterday 7. Agitation, acute. - Patient became agitated, hallucinated and swinging at staff. Started Seroquel. - Haldol discontinued - Seroquel 25 mg at bedtime and started Seroquel 12.5 mg in the morning Other chronic diagnoses: Dementia - Palliative care consulted and following. Their time and recommendations are appreciated. - Patient requires a sitter for safety as he is a fall risk. Disposition: Will likely stay 2+ more days given degree of acute kidney injury, sepsis, and bacteremia. VTE Prophylaxis: Sub-Q Heparin (Unfractionated) Resuscitation Status: CPR: Attempt Resuscitation Attending Statement The patient was seen and examined together with Dr. Cowan on 08/29/2016 and I agree with the history, exam and plan as outlined in the note above. . Cinthya Cowan DO Aug 29, 2016 09:55 Ken Jordan MD Sep 01, 2016 17:48
--- NOTE | 2016-08-29 15:13 | NUR ---
Wound Patient reevaluated at bedside with nursing, digital examination of the sacral pressure ulcer reveals bone with spicule at the base of the wound, dimensions and undermining are unchanged from assessment 08/28/16. pressure injury to sacrum measures 3.7cm L x 3.7cm W x 0.6 cm D with 100% yellow sough present and minimal purulent drainage. Pressure ulcer present on admission. Undermining 4.5cm at 12:00 and 1.5cm around remainder of wound. Periwound area red over areas of undermining but no signs of infection. Believe that this wound is not likely to heal without surgical intervention and I strongly suggest surgical consult. Pt is currently on a P500 surface and is positioned in sidelying with heels floated. Nursing informed of recommendations. 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
--- NOTE | 2016-08-29 16:42 | DRSVH ---
[facility] [address] [place] [address] Echocardiogram Report Name: JOHANNY MACHADO KStudy Date: 08/29/2016 Height: 71 in Hospital Exam Location: [facility] Weight: 136 lb Gender: Male BSA: 1.8 m2 : 1925 Age: 89 yrs BP: 100/47 mmHg Reason For Study: Endocarditis Ordering Physician: HOSPITALIST [facility] Performed By: Natalee Cam Referring Physician: Dr. Yaneli Hughes Interpretation Summary The left ventricle is normal in size. The left ventricular ejection fraction is grossly normal. Regional wall motion abnormalities cannot be excluded due to limited visualization. Assessment of diastolic parameters indicates a relaxation abnormality of the left ventricle, consistent with normal filling pressures. The right ventricle is grossly normal size. Right ventricular function cannot be assessed due to poor image quality. Image quality is very poor which makes it very difficult to see any obvious vegetative masses. Consider MARISOL if clinically suspicious for endocarditis. Procedure: A two-dimensional transthoracic echocardiogram with color flow and Doppler was performed. Image quality is very poor. There is no prior echocardiogram noted for this patient. Left Ventricle: The left ventricle is normal in size. Left ventricular wall thickness is borderline increased. The left ventricular ejection fraction is grossly normal. Regional wall motion abnormalities cannot be excluded due to limited visualization. Assessment of diastolic parameters indicates a relaxation abnormality of the left ventricle, consistent with normal filling pressures. Right Ventricle: The right ventricle is grossly normal size. Right ventricular function cannot be assessed due to poor image quality. Atria: The left atrium is not well visualized. Right atrium not well visualized. Mitral Valve: The mitral valve is not well visualized. Aortic Valve: The aortic valve is not well visualized. Doppler assessment of the aortic valve could not be done due to poor visibility of the valve. There is trace aortic regurgitation. Tricuspid Valve: The tricuspid valve is not well visualized. Pulmonic Valve: The pulmonic valve is not well visualized. Great Vessels: The aortic root is not well visualized. The ascending aorta could not be visualized. The inferior vena cava was not visualized. Pericardium/ Pleura There is no pericardial effusion. MMode/2D Measurements & Calculations LVIDd: 4.8 cm LV lopez. diameter/BSA (cm/m^2): 2.7 IVSd: 1.0 cm LVPWd: 1.1 cm Doppler Measurements & Calculations LVOT Max Ponce MV E max ponce MV E/A: 0.74 MV dec time : 76.9 cm/sec : 59.3 cm/sec Med Peak E' Ponce : 0.28 sec MV A max ponce : 80.4 cm/sec E/E' med: 7.2 MV P1/2t: 82.1 msecMV A dur: 0.16 sec MV P1/2t max ponce LV V1 max PG LV V1 VTI: 16.9 cm MVA(P1/2t): 2.7 cm2 Reading Physician:JACKIE
--- NOTE | 2016-08-29 16:45 | PCM.PALLBR ---
Palliative Care Recommendation Summary of palliative recommendations: -Symptom management (Pain/other) Agitation--is requiring a sitter in hospital but part of that is for lines etc. Suggest increase in seroquel dosing and use routine-- not prn (for regulation issues in [place])-he was on 25 mg and now in hospital is only on haloperidol-suggest trial 12.5 in AM and 25 at HS. Other med he was on is mirtazapine 7.5 mg-- this could also be increased if not too sedating. -DPOA/Advanced Directives/POLST-FULL CODE-- will try and find his original POLST - if not will redo for son to sign later. -Family/emotional support-son Osvaldo -Spiritual support unlikely to benefit due to severity of dementia His GOC are well established by the son and based on conversation this is unlikely to change. Problems: End of Life Preferences Osvaldo- son states that they discussed this and goal is to have aggressive tx until end of life. In this discussion he was not opposed to all treatments including feeding tube This of course may take further discussion if condition deteriorates Disposition hopefully back to [facility] Resuscitation Status Resuscitation Status: CPR: Attempt Resuscitation POLST Updates/Changes Previous POLST?: Yes Total time [ ] minutes; >50% face to face with patient and/or family, providing counselling regarding plans and recommendations, and in care coordination with his/her medical teams. I also spent an additional [ ] minutes counseling for advanced care planning with the patient/the patients family/the surrogate decision maker. copies to: Efrme De La Fuente DO Palliative Brief Note Date of Service Aug 29, 2016 . Dementia with agitation now hospitalized with pneumonia and possible lung masses. Sacral decub is noted. Renal insuff- progressed now improving. Tolerating spoon feeding with pureed diet. He remains verbal and bit nonsensical. had communicated to sitter that he had pain in his leg but now gone - Reviewed with Dr. Deep ARAIZA and Dr. Jordan. Goals of care established through his son Osvaldo--with expectations that he will be a FULL CODE until end of life based on their beliefs. Expectation is that he will return to [facility] when medically stable. Palliative care will sign off at this time. Please call us if new questions arise. Daya Jimenez MD Aug 29, 2016 16:45
--- NOTE | 2016-08-29 18:16 | NUR ---
Behavior/Wound Pt continues to be very confused. Generally calm and cooperative today, re-directable. Sitter at bedside for fall safety and companionship. Dressing to sacral wound changed by wound RN, he requested a surgical consult. Ricardog c/d/i.
--- NOTE | 2016-08-29 20:50 | NUR ---
Transfer Note Pt transferred to [facility] from [facility] at 2034 on P500 bed. Alert and talking, very confused, not oriented to place,year and us president. Calm at this time, but unpredictable, aggressive some times raymond.with repositioning per sitter, sitter with pt. VSS, BP 115/50 HR 53, Meds given as HS except Metoprolol (hold per parameter hr<60). No s/s acute distress or cough. Moderately decreased lung sounds bilaterally,no crackles or wheezes. Tele in place: SR 60S-70S per PCC report. Abdomen soft,non tender, BT active, poor appetite, oral fluid encouraged. Diego in place, patent, yellow urine. Generalized bruises at both arms and hands, PU at sacrum, dressing in place CDI. [place] pt. Care ongoing.
--- NOTE | 2016-08-29 21:03 | NUR ---
TRANSFER Pt transferred to 3002 by sitter and RN in P500 bed, report given to Clementina Rodriguez RN. All belongings with pt. Vitals stable, sacral dressing CDI, no pain reported or noted. No other issue noted.
--- NOTE | 2016-08-29 23:22 | CONS ---
[address] [address] CONSULTATION REPORT PATIENT: JOHANNY MACHADO : 1925 MR#: [id number] ADMIT: 08/26/2016 JOB ID: [id number] DATE OF SERVICE: 08/29/2016 CHIEF COMPLAINT/IDENTIFICATION: I have been asked by the hospitalist service to consult on this 89-year-old man regarding possible debridement of a sacral pressure sore. HISTORY OF PRESENT ILLNESS: The patient was admitted four days ago through the emergency department, brought over from [facility] complaining of chest pain in the setting of a history of significant dementia, known coronary artery disease, history of CHF. He was admitted with aspiration pneumonia and elevated creatinine. Over the past several days he has been seen by Palliative Care and the Renal Service, and he was noted to have a sacral pressure sore. He was seen by Wound Care and today visual examination of the sacral pressure ulcer revealed bone with spicule at the base of the wound with stable dimensions and undermining from the initial assessment on August 28. There was minimal purulent drainage noted and there was concern that the wound would "not likely heal without surgical intervention," and surgical consultation was suggested. I was asked to see the patient. The patient is seen at the bedside. He is conversant but does not make sense, consistent with history of end-stage dementia. He appears cachectic. His BMI is 19. I have not taken his dressing down. His labs show white count of 6.4, hematocrit of 23, down from 31.7 on admission. Admission albumin of 2.2 and now 2.05. His creatinine was initially 4.25, but is now down to 1.72. IMPRESSION AND PLAN: An 89-year-old man who is an ambulator, reportedly has sensation intact but who has a significant pressure sore. I will examine the pressure sore with Booster Operator over the next day or two, but regarding surgical intervention, I think the underlying cause of his pressure sore is multifactorial, including his dementia, inattention to sensation of pain, his poor nutrition, and possibly some aspects of his care at [facility]. Surgical intervention via either debridement and/or flap would be unlikely to heal this problem unless we address the underlying issues. I have reviewed the Palliative Care consultation note and there was discussion of tube feeding which would augment his nutrition, but short of tube feeding it is hard to imagine that he could get him into a nutritional situation that would allow him to heal wounds. To that effect, I am reluctant to just take him to the operating room and debride tissue as I think this will just lead to a larger more problematic wound. Either I, or someone from the Surgical Service, will take a look at the wound with Wound Care in the next day or two and follow along, but at this point, I would not recommend surgical intervention. It is recorded in the chart that the some members of the family have concerns regarding distrust of the medical system, I think at this point surgical intervention would simply create a bigger wound for the patient and would not be in his best interest.
[2016-08-30] MEDS: 0.9% Sodium Chloride 1,000 ML IV SCH ×2 (05:39→13:35)
[2016-08-30 05:53] VITALS: BP 120/57; PULSE 72; RESP 16; O2SAT 99
[2016-08-30 05:57] LABS: BASOPHILS % (AUTO) 0.2 % (0-3); EOSINOPHILS % (AUTO) 4.7 % (0-5); MONOCYTES % (AUTO) 7.7 % (4-12); Mean Corpuscular Hemoglobin 27.9 pg (27.0-35.0); Mean Corpuscular Volume 86.6 fL (81-100); NEUTROPHILS % (AUTO) 71.2 % (40-74); Platelet Count 197 bil/L (150-400)
[2016-08-30] MEDS: Heparin 5,000 Unit/mL Inj SUBQ SCH ×2 (08:49→20:48)
[2016-08-30] MEDS: Piperacillin-Tazo 3.375 Gm Inj 3.375 GM in Dextrose 5% Minibag Plus 50 ML IV SCH ×2 (08:50→20:49)
--- NOTE | 2016-08-30 09:08 | NUR ---
KRISHNA: Patient is unable to accept KRISHNA asked CELL BIOLOGIST to follow up via phone with son to deliver KRISHNA
[2016-08-30 09:09] LABS: Cryptococcal Ag Negative (Negative)
[2016-08-30 10:36] VITALS: PULSE 65
--- NOTE | 2016-08-30 10:37 | NUR ---
KRISHNA signed Verbal permission to sign by pt's son and POA via phone. RAFY Leblanc
--- NOTE | 2016-08-30 10:38 | NUR ---
Social Work: Continued d/c planning Data: Pt is on day 4 of hospitalization. EMR reviewed. Pt discussed in rounds, states it will be at least another 2 days of hospitalization. MANAGER FEDERAL called pt's son, FARHANA Riley, , delivered KRISHNA and gave update of anticipated d/c in 2 or more days. MANAGER FEDERAL will continue to follow. Assessment: Pt from LTC SNF. Plan: Pt will d/c back to [facility]TC under [facility]. MANAGER FEDERAL will continue to follow. RAFY Leblanc
[2016-08-30 12:00] VITALS: BP 103/46; PULSE 54; RESP 16; O2SAT 97
--- NOTE | 2016-08-30 12:27 | PROG NOTE ---
[address] [address] PROGRESS NOTE PATIENT: JOHANNY MACHADO : 1925 MR#: [id number] ADMIT: 08/26/2016 JOB ID: [id number] DATE: 08/30/2016 INFECTIOUS DISEASE FOLLOWUP NOTE: REASON FOR FOLLOWUP: Enterococcal bacteremia, sacral decubitus and possible pulmonary infiltrates. INTERVAL HISTORY: Overnight, the patient says he has felt quite well. He is completely disoriented, however, and believes that outside the door of the room there is a large bathtub with some sort of device attached to it to bring out towels. He is concerned that this device may have been stolen and wants us to go out and look for it. Otherwise, though, he says he feels fine. He denies fevers, chills, shortness of breath, abdominal pain, or pain around the sacral decubitus. PHYSICAL EXAMINATION: Reveals an afebrile gentleman who is quite confused. Temperature 36.6. He has been afebrile since admission. Pulse 65, respiratory rate 16, blood pressure 120/57, saturating well on room air. His eyes without scleral icterus or conjunctivitis. Oral cavity benign. Lungs with a few crackles at the bases but relatively clear, and his breathing is certainly unlabored. Cardiac exam without significant murmur but it is hard to hear because of breathing and he frequently talks during the exam. His abdomen is soft and nontender. I rolled him over to examine his decubitus but there is a large dressing overlying the decubitus ulcers placed by Wound Management. So, instead of examining it, I simply read their notes about a deep decubitus ulcer, which likely will require surgical intervention. LABORATORY STUDIES: Include a white count which has normalized, now 5700, with normal diff. Creatinine 1.36, which is steadily improving. LFT normal. Procalcitonin 0.13. Cryptococcal antigen negative. Blood cultures negative. Respiratory viral culture negative. Note that the blood cultures I mentioned that are negative are the followup blood cultures. The initial sets, of course, 2/3 bottles grew Enterococcus faecalis, and that the organism was sensitive to penicillin. IMAGING: Includes the chest x-ray from the which showed some patchy left mid lung opacity which we thought might represent some degree of aspiration. The echocardiogram did not show obvious valvular vegetations but it was a poor study in terms of looking at the valves. IMPRESSION: This is a fairly complex case of a gentleman who is really quite demented and is conversant and pleasant enough but completely confused at this point. At this juncture he denies all complaints. He does have enterococcus on 2/3 admission blood cultures with negative followup blood cultures. I suspect that the most likely source for the enterococcal bacteremia was his decubitus ulcer perhaps rather than enterococcal endocarditis. Unless we have additional positive blood cultures for enterococcal organisms, I would not pursue a transesophageal echo, which might be quite an undertaking in this gentleman. The decubitus ulcers themselves are significant according to the wound wealth management consultant and unlikely to heal spontaneously. Surgery has already seen the patient, and they are concerned that even with a flap, they might not heal unless there is a great deal of effort expended in terms of nutrition and care of the wound flaps. The patient has no respiratory complaints and his lung exam is actually pretty benign. I suspect that the left-sided infiltrate seen is a resolving aspiration type event of minimal significance given his normal procalcitonin and essentially normal respiratory exam. RECOMMENDATIONS: 1. Will continue to watch the blood cultures. 2. If additional blood cultures turn positive for enterococcus, we will need to think about a MARISOL at that point, but otherwise I think I would not in this nontoxic patient. 3. Will try continue the Zosyn for a course of 10-14 total days. This will provide coverage not only for the enterococcus which was found in the blood but as well as for organisms which are likely in the decubitus ulcer and any possible aspiration pneumonia. 4. I will continue to follow this patient with you.
--- NOTE | 2016-08-30 15:29 | PCM.PNMED ---
Subjective Date of Service Aug 30, 2016 Subjective pleasantly confused but denies any pain, discomfort, or complaints Exam Vital Signs Vital Sign - Last Date Time Temp Pulse Resp B/P Pulse Ox O2 Delivery O2 Flow Rate FiO2 08/30/16 12:00 36.4 54 16 103/46 97 Room Air 08/26/16 23:15 2.00 Intake and Output 08/29/16 08/29/16 08/30/16 Cumulative From/Thru 15:00 23:00 07:00 08/26/16 15:50 - 08/30/16 05:54 Intake Total 1590 ml 1267 ml 9534 ml Output Total 275 ml 500 ml 4250 ml Balance 1315 ml 767 ml 5284 ml Intake Oral 650 ml 400 ml 1650 ml IV Total 940 ml 867 ml 7884 ml Output Urine Total 275 ml 500 ml 4250 ml # Bowel Movements 0 1 1 General: Alert, Cooperative, No Acute Distress Eyes: Scleral Anicteric Mouth: Mucous Membr Moist/[place] Neck: Supple Chest & Lungs: Chest Wall Normal, Clear to auscultation & percussion Cardiovascular: Regular Rate/Rhythm Pulses: NL carotid, radial, femoral, DP, PT Abdomen: Non-tender, Non-distended, Normoactive bowel tones, Soft Extremities: No cyanosis/clubbing/edma bilat Neurological: Grossly Neurologically Intact, Normal Speech IVs and Medications Medications Reviewed: Medications were reviewed in detail Lab and Diagnostics Result Diagram: 08/30/1644 08/30/1644 X-Rays, CTs and MRIs PROCEDURE: X-RAY CHEST ONE VIEW, PORTABLE IMPRESSION: Mild patchy left midlung radiopacities which may be associated with atelectasis, aspiration, or infection. Approved by: Leonela Edwards M.D. on 08/26/2016 at 16:30 PROCEDURE: CT CHEST WITHOUT CONTRAST IMPRESSION: 1. Confluent bibasilar patchy airspace opacities, more consolidative on the left than on the right. Given the distribution and confluent appearance, these findings most likely represent aspiration or pneumonia. However, some of these focal areas of consolidation have a masslike appearance raising the suspicion for neoplasm. No recent comparisons are available to determine the acuity of the findings. However, given the clinical history of refractory pneumonia, atypical pneumonia including cryptogenic organizing pneumonia and eosinophilic pneumonia should be considered in the differential. Short interval followup is recommended to exclude underlying pulmonary mass. 2. Subacute posterior right rib fracture. Dictated by: Leonela Edwards M.D. on 08/26/2016 at 17:52 12-lead ECG Unable to locate EKG but per ER Barby note complicated by poor baseline and patient movement PVCs no prior EKG for comparison that was normal rate and rhythm no acute findings seen Assessment & Plan 89 year old gentleman with history of dementia, coronary artery disease, and recent treatment for pneumonia who presents from [facility] with a 15 minute episode of chest pain. He was admitted for refractory pneumonia and acute kidney injury. 1. Bacteremia, E. faecalis group D, present on admission. Active. -Blood culture grew E. faecalis resistant to gentamicin but susceptible to penicillin G in 2/3 bottles -most likely source is suspected to be the decubitus ulcer rather than enterococcal endocarditis -appreciate ID consult. will f/u w/ recs -c/w IV Zosyn for now 2. Sepsis, acute. Present on admission. clinically resolved - Pt presents with WBC 16.5, tachycardia 113. Blood cultures shows Enterococci faecalis. source likely underlying bacteremia noted above - Source of bacteremia needs to be further investigated. Lactic acid 1.7. Serial procalcitonin 0.47 and 0.39. 3. Sacral pressure ulcer, chronic, present on admission. Active -Wound care consulted and following. Their time and recommendations are appreciated. -appreciate surgery consult as well. will f/u w/ recs - no surgery for now but to follow again in next day or two. 4. Chest pain, acute, present on admission. Improved. - Serial troponin trending and continues to be elevated and CK-MB also elevated. Likely secondary to myocardial ischemia due to sepsis above. - Given patient's history of coronary artery disease and that he continues to be asymptomatic, we will medically treat - Continue aspirin 81 mg daily, metoprolol 12.5 mg twice per day, and atorvastatin 40 mg daily - Hold metoprolol if patient is HR <60 bpm - Echo unremarkable 5. Pneumonia, acute, present on admission - Seemed to be a failure of oral levofloxacin so he was placed on IV piperacillin/tazobactam for possible healthcare associated pneumonia. Discontinued Levaquin as he failed this medication. Also discontinued Vancomycin in light of his LUIS A. Strep pneumo and viral PCR negative. Possible aspiration pneumonia given patient's dementia. - MRSA screen negative 6. Acute renal failure, present on admission. Improving. - Cr was elevated at 4.25 on admission, improved to 1.36 today. Given his dementia, this may be secondary to lack of access to free water - Continue gentle IV fluid hydration and recheck labs tomorrow - Avoid nephrotoxins. Vancomycin discontinued 08/28/16 7. Agitation, acute. - Patient became agitated, hallucinated and swinging at staff. Started Seroquel while in PCU - Haldol discontinued - Seroquel 25 mg at bedtime and Seroquel 12.5 mg in the morning 8. Acute hypokalemi - replete and f/u 9. Dementia - Palliative care consulted and following. Their time and recommendations are appreciated. - Patient requires a sitter for safety as he is a fall risk. Disposition: Will likely stay 2+ more days given degree of acute kidney injury, and bacteremia. VTE Prophylaxis: Sub-Q Heparin (Unfractionated) VTE Mechanical Devices: Venous Foot Pump Resuscitation Status: CPR: Attempt Resuscitation Time spent 35 min Guevara Spears Aug 30, 2016 15:28
[2016-08-30 16:40] VITALS: BP 126/57; PULSE 61; RESP 16; O2SAT 98
[2016-08-30 20:31] VITALS: BP 130/68; PULSE 71; RESP 18; O2SAT 99
[2016-08-30] MEDS ORDERED: Pantoprazole 40 mg ER24 Tablet PO ONE (23:10)
[2016-08-30] MEDS ORDERED: Potassium Chloride 20 mEq SR Tablet PO ONE (23:10)
[2016-08-31] VITALS (10 sets, daily range): BP systolic 110–149; BP diastolic 47–82; PULSE 57–72; RESP 16–18; O2SAT 96–99
[2016-08-31] MEDS: 0.9% Sodium Chloride 1,000 ML IV SCH ×2 (01:42→15:02)
--- NOTE | 2016-08-31 04:30 | NUR ---
BEHAVIOR/ Addendum: 08/31/16 at 0445 by JOHN FINLEY SN Pt remains confused and disoriented, requesting his . Unable to reorient/redirect patient. Sitter at bedside for pt safety. Bed low and locked, bed alarm on.
[2016-08-31 07:03] LABS: BASOPHILS % (AUTO) 0.3 % (0-3); EOSINOPHILS % (AUTO) 3.8 % (0-5); MONOCYTES % (AUTO) 8.7 % (4-12); Mean Corpuscular Hemoglobin 27.6 pg (27.0-35.0); Mean Corpuscular Volume 85.7 fL (81-100); Platelet Count 182 bil/L (150-400)
--- NOTE | 2016-08-31 08:03 | PCM.PNMED ---
Subjective Date of Service Aug 31, 2016 Subjective Pt has no complaints currently but as per nursing, was complaining of back pain , and later pain all over, earlier in the evening/night. No pain noted at this time, pt eager for DC. Exam Vital Signs Vital Sign - Last Date Time Temp Pulse Resp B/P Pulse Ox O2 Delivery O2 Flow Rate FiO2 08/31/16 05:57 69 08/31/16 05:18 36.4 18 144/62 99 Room Air 08/26/16 23:15 2.00 Intake and Output 08/30/16 08/30/16 08/31/16 Cumulative From/Thru 15:00 23:00 07:00 08/26/16 15:50 - 08/31/16 06:09 Intake Total 1267 ml 0 ml 08014 ml Output Total 550 ml 450 ml 5250 ml Balance 717 ml -450 ml 5551 ml Intake Oral 600 ml 0 ml 2250 ml IV Total 667 ml 8551 ml Output Urine Total 550 ml 450 ml 5250 ml # Bowel Movements 1 General: Alert, Other (pleasantly demented. No oriented to place or situation. ) Eyes: PERRLA Mouth: Mucous Membr Moist/[place] Chest & Lungs: Clear to auscultation & percussion Cardiovascular: Regular Rate/Rhythm Extremities: No cyanosis/clubbing/edma bilat Skin: Other (Decubitus wounds dressed, not examining during my morning rounding. ) IVs and Medications Medications Reviewed: Medications were reviewed in detail Lab and Diagnostics Result Diagram: 08/31/16 0645 08/31/16 0645 X-Rays, CTs and MRIs PROCEDURE: X-RAY CHEST ONE VIEW, PORTABLE IMPRESSION: Mild patchy left midlung radiopacities which may be associated with atelectasis, aspiration, or infection. Approved by: Leonela Edwards M.D. on 08/26/2016 at 16:30 PROCEDURE: CT CHEST WITHOUT CONTRAST IMPRESSION: 1. Confluent bibasilar patchy airspace opacities, more consolidative on the left than on the right. Given the distribution and confluent appearance, these findings most likely represent aspiration or pneumonia. However, some of these focal areas of consolidation have a masslike appearance raising the suspicion for neoplasm. No recent comparisons are available to determine the acuity of the findings. However, given the clinical history of refractory pneumonia, atypical pneumonia including cryptogenic organizing pneumonia and eosinophilic pneumonia should be considered in the differential. Short interval followup is recommended to exclude underlying pulmonary mass. 2. Subacute posterior right rib fracture. Dictated by: Leonela Edwards M.D. on 08/26/2016 at 17:52 12-lead ECG Unable to locate EKG but per ER Barby note complicated by poor baseline and patient movement PVCs no prior EKG for comparison that was normal rate and rhythm no acute findings seen Assessment & Plan 89 year old gentleman with history of dementia, coronary artery disease, and recent treatment for pneumonia who presents from [facility] with a 15 minute episode of chest pain. He was admitted for refractory pneumonia and acute kidney injury. 1. Bacteremia, E. faecalis group D, present on admission. Active. -Blood culture grew E. faecalis resistant to gentamicin but susceptible to penicillin G in 2/3 bottles -most likely source is suspected to be the decubitus ulcer rather than enterococcal endocarditis -appreciate ID consult. will f/u w/ recs -c/w IV Zosyn for now, consider means of provided 10-14 days Zosyn therapy as per ID rec, either extended hospital stay, SNF or PICC placement. Will continue to consider disposition options based on pt condition/improvement. . 2. Sepsis, acute. Present on admission. clinically resolved - Pt presents with WBC 16.5, tachycardia 113. Blood cultures shows Enterococci faecalis. source likely underlying bacteremia noted above - Source of bacteremia needs to be further investigated. Lactic acid 1.7. Serial procalcitonin 0.47 and 0.39. - Medically stable this morning. Nontoxic in appearance. 3. Sacral pressure ulcer, chronic, present on admission. Active -Wound care consulted and following. Their time and recommendations are appreciated. -appreciate surgery consult as well. will f/u w/ recs - no surgery for now but to follow this will continue to be considered by specialist. 4. Chest pain, acute, present on admission. Improved. - Serial troponin trending and continues to be elevated and CK-MB also elevated. Likely secondary to myocardial ischemia due to sepsis above. - Given patient's history of coronary artery disease and that he continues to be asymptomatic, we will medically treat - Continue aspirin 81 mg daily, metoprolol 12.5 mg twice per day, and atorvastatin 40 mg daily - Hold metoprolol if patient is HR <60 bpm - Echo unremarkable 5. Pneumonia, acute, present on admission - Seemed to be a failure of oral levofloxacin so he was placed on IV piperacillin/tazobactam for possible healthcare associated pneumonia. Discontinued Levaquin as he failed this medication. Also discontinued Vancomycin in light of his LUIS A. Strep pneumo and viral PCR negative. Possible aspiration pneumonia given patient's dementia. - MRSA screen negative 6. Acute renal failure, present on admission. Improving. - Cr was elevated at 4.25 on admission, improved to 1.36 today. Given his dementia, this may be secondary to lack of access to free water - Continue gentle IV fluid hydration and recheck labs tomorrow - Avoid nephrotoxins. Vancomycin discontinued 08/28/16 7. Agitation, acute. - Patient became agitated, hallucinated and swinging at staff. Started Seroquel while in PCU - Haldol discontinued - Seroquel 25 mg at bedtime and Seroquel 12.5 mg in the morning 8. Acute hypokalemi - replete and f/u 9. Dementia - Palliative care consulted and following. Their time and recommendations are appreciated. - Patient requires a sitter for safety as he is a fall risk. Disposition: Will likely stay 2 more days at least given degree of acute kidney injury, and bacteremia. Pain Evaluation: Adequate Pain Control VTE Prophylaxis: Sub-Q Heparin (Unfractionated) VTE Mechanical Devices: Venous Foot Pump Resuscitation Status: CPR: Attempt Resuscitation Attending Statement 25 minutes Christian Lopez DO Aug 31, 2016 08:03
[2016-08-31] MEDS: Heparin 5,000 Unit/mL Inj SUBQ SCH ×3 (09:17→20:30)
[2016-08-31] MEDS: Piperacillin-Tazo 3.375 Gm Inj 3.375 GM in Dextrose 5% Minibag Plus 50 ML IV SCH ×2 (09:17→20:04)
--- NOTE | 2016-08-31 14:38 | NUR ---
NUTRITION FOLLOW-UP: Assess: 89 YO male admitted w/ pneumonia and acute renal failure. Pt has sacral pressure ulcer that was present prior to admission. Per notes, pt is unable to answer questions d/t dementia. Pt has minimal PO intake now x 5 days, unclear of po intake prior to admit, MD aware of pt inadequate oral intake. Notes mention that family may desire nutrition support. Palliative was consulted. 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 LABS: Reviewed. Na 145, K+ 3.2, Cr 1.29, Ca 7.1, alb 1.9. MEDICATIONS: Reviewed. DIET: Pureed with Honey thick liquids, Magic cup all trays. PO Bites-25% x 5 days. GI symptoms/stool:BM x 1 (08/30) SKIN: Unstageable PU on sacrum, present on admission ANTHROPOMETRICS: Current Wt: 65.2 kg. Admit wt: 61.1 kg BMI: 18.8 kg/m2 IBW: 75.3 kg ESTIMATED NEEDS: Wound (unstageable pressure injury) Calories: 7684-4221 kcal/day (30-35 kcal/kg BW) Protein: 75-95 g/day (1.2-1.5 g/kg BW) NUTRITION DIAGNOSIS: 1) Chew/swallow difficulties related to dementia and missing teeth as evidenced by altered texture diet per ST recommendation -PERSISTS. 2) Inadequate oral intake related to acute illness and dementia as evidenced by PO intake of bites-25% x 5 days-PERSISTS. 3) Increased nutrient needs related to increased demand for nutrients for healing as evidenced by current skin issues-PERSISTS. INTERVENTION: 1) Continue to send Magic Cup all trays. 2) Continue to advance diet as able per ST recommendations. 3) Consider nutrition support if consistent with pt plan of care as pt has had inadequate po intake x 5 days. MONITOR/EVALUATE: PO intake, labs, GI, wound, weight, POC. Will continue to monitor per high nutrition risk guidelines.
--- NOTE | 2016-08-31 14:39 | PROG NOTE ---
[address] [address] PROGRESS NOTE PATIENT: JOAHNNY MACHADO : 1925 MR#: [id number] ADMIT: 08/26/2016 JOB ID: [id number] DATE: 08/31/2016 SUBJECTIVE: The patient was seen today with the marketing proposal specialist. He has a stage 4 pressure sore but minimal necrotic tissue, no underlying infection despite undermining. There is a palpable bone spicule. IMPRESSION AND PLAN: This is a sacral pressure sore on a patient who is capable of ambulating and who has sensation. I have discussed the care with Dr. Moser of plastic surgery. He concurs that optimal treatment is nonoperative at this point, and he needs to have pressure taken off the wound and have his nutrition improved. Surgical intervention, at this point, would simply give him a larger wound that would continue to fail to heal. Discussed with Primary Care team.
--- NOTE | 2016-08-31 15:36 | PROG NOTE ---
[address] [address] PROGRESS NOTE PATIENT: JOHANNY MACHADO : 1925 MR#: [id number] ADMIT: 08/26/2016 JOB ID: [id number] DATE: 08/31/2016 INFECTIOUS DISEASE FOLLOWUP NOTE: REASON FOR FOLLOWUP: Enterococcal bacteremia secondary to decubitus ulcer. INTERVAL HISTORY: The patient remains demented, confabulating and quite pleasant. He answers questions with strange associations but not with useful information. He states that he has no symptoms whatsoever today but he also has no idea where he is located or who the sitter in the room is or anything else. He does state he has been eating some foods today. he denies fevers or chills. He denies shortness of breath, and he denies abdominal complaint. He seems unaware that he has a large decubitus ulcer. PHYSICAL EXAMINATION: On today's physical exam, the patient is confused and confabulating but relatively happy. He is afebrile with temperature 36.2, blood pressure 110/53, pulse 60, respiratory rate 18. His pulse ox is excellent on room air. The patient's oral cavity is unremarkable. His lungs are quite clear. Cardiac tone: Regular rate and rhythm without new murmur. Abdomen soft and nontender. I did not examine his decubitus ulcers again today, as it is quite a struggle to do so, given his mental status. He does not like to be moved but I did review the notes from Dr. Bach who describes a stage 4 pressure ulcer with minimal necrotic tissue and no underlying infection. There is palpable bone present. The plastic surgeon and the general surgeon agree that offloading the wound and antibiotics are indicated at this time but not surgery. LABORATORY STUDIES: Today include white count 6600. His diff is basically normal on that. His creatinine 1.29. Crypto antigen negative. Blood cultures are negative. IMPRESSION: This is a demented gentleman who does not at all appear uncomfortable. He did come in with evidence of a systemic infection, and blood cultures grew enterococcus, which is quite clearly due to the large decubitus ulcer rather than enterococcal endocarditis. General Surgery, Plastic Surgery and Wound Management have been involved, and the patient is not now considered to be a candidate for a flap or any additional debridement. May, in fact, have noted that his wounds do not appear terribly infected. They are just unlikely to heal without more aggressive turning and perhaps eventually a flap. RECOMMENDATIONS: 1. The patient can be kept on Zosyn as long as he is here in the hospital. 2. I think that once the patient is ready for discharge we could transition to an oral regimen of Augmentin 875 b.i.d. plus a single dose of 1.5 g of dalbavancin. 3. Dalbavancin is an expensive drug, and I do not use it too liberally but I think in this case it is indicated because it would provide reasonable coverage for the enterococcus which was found in his blood. The patient really cannot have a peripheral IV unless he has a constant sitter which is a problem both here in the hospital and would be an even bigger problem at a [facility] facility. So, I think the combination of a single dose of IV dalbavancin prior to discharge plus oral Augmentin for any anaerobes or other organisms present within the area of the decubitus would be reasonable. The total duration of the Augmentin would be about 10 days. 4. Infectious Disease will go ahead and sign off at this time, as I see no additional active issues but please give me a call if I can be of any assistance in this complex case. 5. Also note that I did not use linezolid, which would have been a most cost effective agent, because of drug interaction problems. MTDD
--- NOTE | 2016-08-31 17:43 | NUR ---
Wound Patient seen at bedside with Dr Bach. Sacral pressure ulcer stage 4 measures 3.7cm L x 3.7cm W x 0.6 cm D, Drainage is sanquinous and moderate, wound continues to be undermined 4.5cm at 12:00 and 1.5cm around remainder of wound. Slough was non excisionally debrided from the wound bed with a curved iris scissor and forceps, wound dimensions remain unchanged, there was no bleeding. Redressed wound with aguacell ag packing and sacral adhesive foam dressing, recommend nursing change this daily. Will follow up as needed, continue positioning strictly off patients back sidelying only except for meals.
--- NOTE | 2016-08-31 18:13 | NUR ---
shift note Uneventful shift. Patient remained confused and disoriented throughout shift. Patient slept through most of shift with sitter in the room. PT placed patient on bedrest. cooperative with care but needed reinforcement. Wound care change sacral dressing.
[2016-09-01] VITALS (8 sets, daily range): BP systolic 125–138; BP diastolic 42–73; PULSE 58–71; RESP 16–18; O2SAT 96–99
--- NOTE | 2016-09-01 04:14 | NUR ---
Behavior/Plan Patient on bedrest, bed alarm on, with sitter in room entire shift. Came from [facility] with history of dementia, cooperative with cares, slept on and off throughout the night. Refused heparin injection. Had brief moments of hallucinations and one complaint of "pain in his heart", when asked to point to where the pain was, he pointed at his lower abdomen. Vital signs were taken and were normal for patient. Patient stated he was no longer in pain post vital signs. Continue IV Zosyn, potential future discharge home with PICC for antibiotics or to SNF.
[2016-09-01] MEDS: 0.9% Sodium Chloride 1,000 ML IV SCH ×2 (05:08→18:35)
[2016-09-01] MEDS: Piperacillin-Tazo 3.375 Gm Inj 3.375 GM in Dextrose 5% Minibag Plus 50 ML IV SCH ×2 (08:00→20:03)
[2016-09-01] MEDS: Heparin 5,000 Unit/mL Inj SUBQ SCH ×2 (08:11→20:18)
--- NOTE | 2016-09-01 10:26 | NUR ---
Social Work: Readiness for d/c Data: Pt is on day 6 of hospitalization. EMR reviewed. Pt discussed in rounds. states pt is medically ready for d/c. Pt currently has a sitter and cannot go back to [facility] until sitter free for 24 hours. Sitter is scheduled to come off at 10:30am. MARKET CONSULTANT notified [facility] that pt is likely to d/c tomorrow after sitter free for 24 hours. MARKET CONSULTANT will continue to follow. Assessment: Pt from LT. Plan: Pt will return to [facility], likely tomorrow after sitter free for 24 hours. MARKET CONSULTANT will continue to follow. RAFY Leblanc
--- NOTE | 2016-09-01 10:41 | NUR ---
KRISHNA: Patient unable to receive KRISHNA, patient has dementia at base. Asked [employer] to follow up with son via phone to deliver KRISHNA.
--- NOTE | 2016-09-01 11:00 | NUR ---
KRISHNA signed Verbal permission to sign by pt's son over phone. RAFY Leblanc
--- NOTE | 2016-09-01 12:55 | NUR ---
confusion pt is confused asking for help to decorate room that he has already "spent several hours decorating". pt somewhat re-oriented and put back in bed. pt tried to stand with walker but this RN asked the pt to sit back down due to his extreme weakness.
--- NOTE | 2016-09-01 16:08 | NUR ---
ANGER pt is angry over the fact that this RN has not made his toast yet. I explained to him that the doctor has determined that he is to be on a puree diet. pt is angry because he can't have the toast the way he had it in [place]. This RN attempted to re-orient pt to self/place/time, but the pt responds with non-sense.
--- NOTE | 2016-09-01 16:43 | PCM.PNMED ---
Subjective Date of Service Sep 01, 2016 Subjective Patient is stable time of evaluation, have been cooperative with staff in the morning prompting discontinuation of one-on-one sitter. He has no acute complaints during my exam. Lying comfortably in bed. Exam Vital Signs Vital Sign - Last Date Time Temp Pulse Resp B/P Pulse Ox O2 Delivery O2 Flow Rate FiO2 09/01/16 14:35 36.7 67 16 138/73 98 Room Air 08/26/16 23:15 2.00 Intake and Output 08/31/16 08/31/16 09/01/16 Cumulative From/Thru 15:00 23:00 07:00 08/26/16 15:50 - 09/01/16 05:49 Intake Total 400 ml 2558 ml 43919 ml Output Total 650 ml 5900 ml Balance -250 ml 2558 ml 7859 ml Intake Oral 400 ml 2650 ml IV Total 2558 ml 96203 ml Output Urine Total 650 ml 5900 ml # Bowel Movements 2 3 Exam General: Alert, Pleasantly demented. No oriented to place or situation. ) Eyes: PERRLA Mouth: Mucous Membranes Moist/[place] Chest & Lungs: Clear to auscultation & percussion Cardiovascular: Regular Rate/Rhythm Extremities: No cyanosis/clubbing/edema bilat Skin: Decubitus wounds dressed in clean/dry dressing not disturbed during today 's exam. IVs and Medications Medications Reviewed: Medications were reviewed in detail Lab and Diagnostics Result Diagram: 08/31/16 0645 08/31/16 0645 X-Rays, CTs and MRIs PROCEDURE: X-RAY CHEST ONE VIEW, PORTABLE IMPRESSION: Mild patchy left midlung radiopacities which may be associated with atelectasis, aspiration, or infection. Approved by: Leonela Edwards M.D. on 08/26/2016 at 16:30 PROCEDURE: CT CHEST WITHOUT CONTRAST IMPRESSION: 1. Confluent bibasilar patchy airspace opacities, more consolidative on the left than on the right. Given the distribution and confluent appearance, these findings most likely represent aspiration or pneumonia. However, some of these focal areas of consolidation have a masslike appearance raising the suspicion for neoplasm. No recent comparisons are available to determine the acuity of the findings. However, given the clinical history of refractory pneumonia, atypical pneumonia including cryptogenic organizing pneumonia and eosinophilic pneumonia should be considered in the differential. Short interval followup is recommended to exclude underlying pulmonary mass. 2. Subacute posterior right rib fracture. Dictated by: Leonela Edwards M.D. on 08/26/2016 at 17:52 12-lead ECG Unable to locate EKG but per ER [place]. note complicated by poor baseline and patient movement PVCs no prior EKG for comparison that was normal rate and rhythm no acute findings seen Assessment & Plan 89 year old gentleman with history of dementia, coronary artery disease, and recent treatment for pneumonia who presents from [facility] with a 15 minute episode of chest pain. He was admitted for refractory pneumonia and acute kidney injury. 1. Bacteremia, E. faecalis group D, present on admission. Active. -Blood culture grew E. faecalis resistant to gentamicin but susceptible to penicillin G in 2/3 bottles -most likely source is suspected to be the decubitus ulcer rather than enterococcal endocarditis -appreciate ID consult. will f/u w/ recs -c/w IV Zosyn for now, consider means of provided 10-14 days Zosyn therapy as per ID rec, either extended hospital stay, SNF or PICC placement. Will continue to consider disposition options based on pt condition/improvement. Dalbavancin may represent alterative approach should retaining IV access be impractical given pt's tendency to remove them. Will consider prior to DC., 2. Sepsis, acute. Present on admission. clinically resolved - Pt presents with WBC 16.5, tachycardia 113. Blood cultures shows Enterococci faecalis. source likely underlying bacteremia noted above - Source of bacteremia needs to be further investigated. Lactic acid 1.7. Serial procalcitonin 0.47 and 0.39. - Medically stable this morning. Nontoxic in appearance. 3. Sacral pressure ulcer, chronic, present on admission. Active -Wound care consulted and following. Their time and recommendations are appreciated. -appreciate surgery consult as well. will f/u w/ recs, though give patient overall condition he appears a poor candidate for surgical intervention at this time. 4. Chest pain, acute, present on admission. Improved. - Serial troponin trending and continues to be elevated and CK-MB also elevated. Likely secondary to myocardial ischemia due to sepsis above. - Given patient's history of coronary artery disease and that he continues to be asymptomatic, we will medically treat. - - Continue aspirin 81 mg daily, metoprolol 12.5 mg twice per day, and atorvastatin 40 mg daily - Hold metoprolol if patient is HR <60 bpm - Echo unremarkable 5. Pneumonia, acute, present on admission - Seemed to be a failure of oral levofloxacin so he was placed on IV piperacillin/tazobactam for possible healthcare associated pneumonia. Discontinued Levaquin as he failed this medication. Also discontinued Vancomycin in light of his LUIS A. Strep pneumo and viral PCR negative. Possible aspiration pneumonia given patient's dementia. - MRSA screen negative 6. Acute renal failure, present on admission. Improving. - Cr was elevated at 4.25 on admission, improved to 1.36 today. Given his dementia, this may be secondary to lack of access to free water - Continue gentle IV fluid hydration and recheck labs tomorrow - Avoid nephrotoxins. Vancomycin discontinued 08/28/16 7. Agitation, acute. - Patient became agitated, hallucinated and swinging at staff. Started Seroquel while in PCU - Haldol discontinued - Seroquel 25 mg at bedtime and Seroquel 12.5 mg in the morning 8. Acute hypokalemia - replete and f/u 9. Dementia - Palliative care consulted and following. Their time and recommendations are appreciated. - Patient requires a sitter for safety as he is a fall risk. Disposition: Planned DC to assisted living facility if able to stay in room/bed over night without need for sitter. Pain Evaluation: Adequate Pain Control VTE Prophylaxis: Sub-Q Heparin (Unfractionated) VTE Mechanical Devices: Venous Foot Pump Resuscitation Status: CPR: Attempt Resuscitation Time spent 25 minutes Christian Lopez DO Sep 01, 2016 16:42
[2016-09-02] VITALS (9 sets, daily range): BP systolic 129–151; BP diastolic 57–65; PULSE 62–69; RESP 18–22; O2SAT 97–99
--- NOTE | 2016-09-02 02:02 | NUR ---
Behavior/Plan: Patient needs to be 24 hours sitter-free before discharge. Sitter discontinued at 10:30 09/01/16 and remains without. Patient has had no complaints of pain this shift. Bowel movement this shift: medium/soft, Mepalex dressing on sacrum still in tact and due to be changed today 09/02/16. Physical therapy to evaluate status/ambulation, maintaining bedrest with q2 turns. Patient still on IV antibiotics, Zosyn, and has a Diego catheter in place. He is oriented to self only, and has exhibited moderate confusion over night, states "he wants to get out of here", and "go get your car", and has requested many times appointments for the dentist and doctor. Patient responds well to redirection and a quiet environment.
[2016-09-02 06:06] LABS: BASOPHILS % (AUTO) 0.2 % (0-3); EOSINOPHILS % (AUTO) 3.7 % (0-5); MONOCYTES % (AUTO) 9.9 % (4-12); Mean Corpuscular Hemoglobin 28.2 pg (27.0-35.0); Mean Corpuscular Volume 85.9 fL (81-100); NEUTROPHILS % (AUTO) 68.7 % (40-74); Platelet Count 146 bil/L (150-400)
[2016-09-02] MEDS ORDERED: Potassium Chloride Inj 30 MEQ in Dextrose 5% 250 ML IV ONE (07:20)
[2016-09-02] MEDS: 0.9% Sodium Chloride 1,000 ML IV SCH ×2 (07:43→20:55)
--- NOTE | 2016-09-02 07:46 | PCM.PNMED ---
Subjective Date of Service Sep 02, 2016 Subjective Patient did well overnight without sitter, over this morning he was askew and partially out of bed when I began my exam. He is in no acute distress however has no complaints, only remains severely demented does not recall where he is or previous encounters. Exam Vital Signs Vital Sign - Last Date Time Temp Pulse Resp B/P Pulse Ox O2 Delivery O2 Flow Rate FiO2 09/02/16 05:25 67 09/02/16 04:39 36.7 20 148/57 98 Room Air Intake and Output 09/01/16 09/01/16 09/02/16 Cumulative From/Thru 15:00 23:00 07:00 08/26/16 15:50 - 09/02/16 06:42 Intake Total 0 ml 1175 ml 971 ml 47610 ml Output Total 550 ml 650 ml 700 ml 7800 ml Balance -550 ml 525 ml 271 ml 8105 ml Intake Oral 0 ml 200 ml 70 ml 2920 ml IV Total 975 ml 901 ml 07569 ml Output Urine Total 550 ml 650 ml 700 ml 7800 ml # Bowel Movements 1 4 Exam Cachectic gentleman lying askew in bed in no acute distress breathing comfortably. Heart is a regular rate and rhythm with lungs clear to auscultation Neurologic exam is nonfocal excepting baseline dementia. Skin exam demonstrates clean dressings on sacral area, will reexamine later in the day during wound care evaluation, was not examined during my morning examination. Extremities are thin without edema, well-perfused. IVs and Medications Medications Reviewed: Medications were reviewed in detail Lab and Diagnostics Result Diagram: 09/02/1651609/02/16516 X-Rays, CTs and MRIs PROCEDURE: X-RAY CHEST ONE VIEW, PORTABLE IMPRESSION: Mild patchy left midlung radiopacities which may be associated with atelectasis, aspiration, or infection. Approved by: Leonela Edwards M.D. on 08/26/2016 at 16:30 PROCEDURE: CT CHEST WITHOUT CONTRAST IMPRESSION: 1. Confluent bibasilar patchy airspace opacities, more consolidative on the left than on the right. Given the distribution and confluent appearance, these findings most likely represent aspiration or pneumonia. However, some of these focal areas of consolidation have a masslike appearance raising the suspicion for neoplasm. No recent comparisons are available to determine the acuity of the findings. However, given the clinical history of refractory pneumonia, atypical pneumonia including cryptogenic organizing pneumonia and eosinophilic pneumonia should be considered in the differential. Short interval followup is recommended to exclude underlying pulmonary mass. 2. Subacute posterior right rib fracture. Dictated by: Leonela Edwards M.D. on 08/26/2016 at 17:52 12-lead ECG Unable to locate EKG but per ER [place] note complicated by poor baseline and patient movement PVCs no prior EKG for comparison that was normal rate and rhythm no acute findings seen Assessment & Plan 89 year old gentleman with history of dementia, coronary artery disease, and recent treatment for pneumonia who presents from [facility] with a 15 minute episode of chest pain. He was admitted for refractory pneumonia and acute kidney injury. 1. Bacteremia, E. faecalis group D, present on admission. Active. -Blood culture grew E. faecalis resistant to gentamicin but susceptible to penicillin G in 2/3 bottles -most likely source is suspected to be the decubitus ulcer rather than enterococcal endocarditis -appreciate ID consult. will f/u w/ recs -c/w IV Zosyn for now, consider means of provided 10-14 days Zosyn therapy as per ID rec, either extended hospital stay, SNF or PICC placement. Will continue to consider disposition options based on pt condition/improvement. Dalbavancin may represent alterative approach should retaining IV access be impractical given pt's tendency to remove them. Will consider prior to DC., 2. Sepsis, acute. Present on admission. clinically resolved - Pt presents with WBC 16.5, tachycardia 113. Blood cultures shows Enterococci faecalis. source likely underlying bacteremia noted above - Source of bacteremia needs to be further investigated. Lactic acid 1.7. Serial procalcitonin 0.47 and 0.39. - Medically stable this morning. Nontoxic in appearance. 3. Sacral pressure ulcer, chronic, present on admission. Active -Wound care consulted and following. Their time and recommendations are appreciated. -appreciate surgery consult as well. will f/u w/ recs, though give patient overall condition he appears a poor candidate for surgical intervention at this time. 4. Chest pain, acute, present on admission. Improved. - Serial troponin trending and continues to be elevated and CK-MB also elevated. Likely secondary to myocardial ischemia due to sepsis above. - Given patient's history of coronary artery disease and that he continues to be asymptomatic, we will medically treat. - - Continue aspirin 81 mg daily, metoprolol 12.5 mg twice per day, and atorvastatin 40 mg daily - Hold metoprolol if patient is HR <60 bpm - Echo unremarkable 5. Pneumonia, acute, present on admission - Seemed to be a failure of oral levofloxacin so he was placed on IV piperacillin/tazobactam for possible healthcare associated pneumonia. Discontinued Levaquin as he failed this medication. Also discontinued Vancomycin in light of his LUIS A. Strep pneumo and viral PCR negative. Possible aspiration pneumonia given patient's dementia. - MRSA screen negative 6. Acute renal failure, present on admission. Improving. - Cr was elevated at 4.25 on admission, improved to 1.36 today. Given his dementia, this may be secondary to lack of access to free water - Continue gentle IV fluid hydration and recheck labs tomorrow - Avoid nephrotoxins. Vancomycin discontinued 08/28/16 7. Agitation, acute. - Patient became agitated, hallucinated and swinging at staff. Started Seroquel while in PCU - Haldol discontinued - Seroquel 25 mg at bedtime and Seroquel 12.5 mg in the morning 8. Acute hypokalemia - replete and f/u, down returning today opted for IV repletion this morning with 30 mEq potassium. 9. Dementia - Palliative care consulted and following. Their time and recommendations are appreciated. - Patient requires a sitter for safety as he is a fall risk. 10. Severely malnourished/cachexia - This is directly related to patient's dementia and poor oral intake. - We will discuss patient's diet with nutrition further today and attempt for nutritionally concentrated foods and drinks to be provided to assist in this process. - However given end-stage dementia he may not be able to meet nutritional requirements without placement of feeding tube. I will attempt out reach son, Osvaldo, this patient's POA later today to discuss plans of care further. Disposition: Planned DC to assisted living facility once patient is medically stabilized, or plan of care is adjusted. At this time while patient is full code with all medical interventions desired, he is not medically stable for discharge. Pain Evaluation: Adequate Pain Control VTE Prophylaxis: Sub-Q Heparin (Unfractionated) VTE Mechanical Devices: Venous Foot Pump Resuscitation Status: CPR: Attempt Resuscitation Time spent 30 minutes Christian Lopez DO Sep 02, 2016 07:46
[2016-09-02] MEDS: Piperacillin-Tazo 3.375 Gm Inj 3.375 GM in Dextrose 5% Minibag Plus 50 ML IV SCH ×2 (09:23→19:50)
[2016-09-02] MEDS: Heparin 5,000 Unit/mL Inj SUBQ SCH ×2 (09:28→19:50)
--- NOTE | 2016-09-02 15:38 | NUR ---
Dressing Change Together with primary RN, changed Pt's sacral decub dressing. As per order, cleaned wound with sterile saline, patted dry with gauze, placed clean Mepilex dressing. Also changed patient's brief at this time. Moderate yellow drainage noted on previous brief and old Mepilex dressing.
--- NOTE | 2016-09-02 15:59 | NUR ---
NUTRITION FOLLOW-UP: Assess: 89 YO male admitted w/ pneumonia and acute renal failure. Pt has sacral pressure ulcer that was present prior to admission. Per notes, pt is unable to answer questions d/t dementia. Pt has minimal PO intake now x 7 days, unclear of PO intake prior to admit. MD aware of pt inadequate oral intake. Notes mention that family may desire nutrition support, confirmed by Palliative Care. Pt. continues to require sitter, which precludes discharge. Code status remains full. 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 LABS: Reviewed. K+ 2.8, Glu 111, Ca 6.7, Alb 1.8. MEDICATIONS: Reviewed. Seroquel, remeron, lopressor. DIET: Pureed with Honey thick liquids, Magic cup all trays. PO Bites-25% x 7 days. GI symptoms/stool: BM x 1 today. SKIN: Sacral ulcer, stage IV. ANTHROPOMETRICS: Current Wt: 69.3 kg. Admit wt: 61.1 kg BMI: 18.8 kg/m2 IBW: 75.3 kg ESTIMATED NEEDS: Wound (Stg IV pressure injury) Calories: 8011-1983 kcal/day (30-35 kcal/kg BW) Protein: 75-95 g/day (1.2-1.5 g/kg BW) NUTRITION DIAGNOSIS: 1) Chew/swallow difficulties related to dementia and missing teeth as evidenced by altered texture diet per ST recommendation - PERSISTS. 2) Inadequate oral intake related to acute illness and dementia as evidenced by PO intake of bites-25% x 7 days - PERSISTS. 3) Increased nutrient needs related to increased demand for nutrients for healing as evidenced by current skin issues - PERSISTS. INTERVENTION: 1) Continue to send Magic Cup all trays. 2) Continue to advance diet as able per ST recommendations. 3) It appears that the patient will remain full code. Recommend consideration of PEG tube placement to mitigate long-term feeding issues. Recommend initiate Jevity 1.5 at 15 ml/hr x 8 hr. Once tolerance established, recommend advance 5 ml every 4 hr. to goal rate 55 ml/hr. Flush dose 40 ml H2O every 4 hr. Enteral feeding at goal would provide 1898 kcal, 81 g protein, sufficient to meet 100% nutrient needs. MONITOR/EVALUATE: PO intake, labs, orders for nutrition support, GI, wound, weight, POC. Will continue to monitor per high nutrition risk guidelines.
[2016-09-03] VITALS (9 sets, daily range): BP systolic 124–157; BP diastolic 47–72; PULSE 50–71; RESP 18–20; O2SAT 98–99
--- NOTE | 2016-09-03 05:04 | NUR ---
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 Patient was able to sleep better tonight as well.
[2016-09-03 05:33] LABS: BASOPHILS % (AUTO) 0.2 % (0-3); EOSINOPHILS % (AUTO) 3.6 % (0-5); Mean Corpuscular Hemoglobin 27.8 pg (27.0-35.0); Mean Corpuscular Volume 86.1 fL (81-100); Platelet Count 145 bil/L (150-400)
[2016-09-03 05:49] LABS: Magnesium 1.4 mg/dL (1.6-2.6)
[2016-09-03] MEDS ORDERED: Magnesium Sulf 2 Gm/50mL Water 2 GM in IV Premix 1 EACH IV ONE ×2 (07:15→14:00)
--- NOTE | 2016-09-03 07:27 | PCM.PNMED ---
Subjective Date of Service Sep 03, 2016 Subjective Patient remained pleasant and mostly cooperative overnight was staff. As has been the case previously noted acute complaints described no discomforts. Staff had a little more success feeding him his meals than previously when he was symptom provided them and left feet himself, this may be a relatively noninvasive means of increasing his caloric intake. Exam Vital Signs Vital Sign - Last Date Time Temp Pulse Resp B/P Pulse Ox O2 Delivery O2 Flow Rate FiO2 09/03/16 05:59 50 09/03/16 05:31 36.1 20 136/47 98 Room Air Intake and Output 09/02/16 09/02/16 09/03/16 Cumulative From/Thru 15:00 23:00 07:00 08/26/16 15:50 - 09/03/16 06:50 Intake Total 0 ml 2130 ml 984 ml 49696 ml Output Total 0 ml 1200 ml 850 ml 9850 ml Balance 0 ml 930 ml 134 ml 9169 ml Intake Oral 0 ml 80 ml 0 ml 3000 ml IV Total 2050 ml 984 ml 56587 ml Output Urine Total 0 ml 1200 ml 850 ml 9850 ml # Bowel Movements 1 0 5 Exam Cachectic gentleman lying askew in bed in no acute distress breathing comfortably. Pleasantly demented. Heart is a regular rate and rhythm with lungs clear to auscultation Neurologic exam is nonfocal excepting baseline dementia. Skin exam demonstrates sacral ulcer, stage IV, edges of the wound demonstrates good granulation tissue without evidence of worsening infection, over there is extensive undermining and depth of ulcer was not probed during this evaluation. Skin is loose and hanging is evidence of muscle wasting. Extremities are thin without edema, well-perfused. IVs and Medications Medications Reviewed: Medications were reviewed in detail Lab and Diagnostics Result Diagram: 09/03/16 0458 09/03/16 0458 X-Rays, CTs and MRIs PROCEDURE: X-RAY CHEST ONE VIEW, PORTABLE IMPRESSION: Mild patchy left midlung radiopacities which may be associated with atelectasis, aspiration, or infection. Approved by: Leonela Edwards M.D. on 08/26/2016 at 16:30 PROCEDURE: CT CHEST WITHOUT CONTRAST IMPRESSION: 1. Confluent bibasilar patchy airspace opacities, more consolidative on the left than on the right. Given the distribution and confluent appearance, these findings most likely represent aspiration or pneumonia. However, some of these focal areas of consolidation have a masslike appearance raising the suspicion for neoplasm. No recent comparisons are available to determine the acuity of the findings. However, given the clinical history of refractory pneumonia, atypical pneumonia including cryptogenic organizing pneumonia and eosinophilic pneumonia should be considered in the differential. Short interval followup is recommended to exclude underlying pulmonary mass. 2. Subacute posterior right rib fracture. Dictated by: Leonela Edwards M.D. on 08/26/2016 at 17:52 12-lead ECG Unable to locate EKG but per ER Barby note complicated by poor baseline and patient movement PVCs no prior EKG for comparison that was normal rate and rhythm no acute findings seen Assessment & Plan 89 year old gentleman with history of dementia, coronary artery disease, and recent treatment for pneumonia who presents from [facility] with a 15 minute episode of chest pain. He was admitted for refractory pneumonia and acute kidney injury. 1. Bacteremia, E. faecalis group D, present on admission. Active. -Blood culture grew E. faecalis resistant to gentamicin but susceptible to penicillin G in 2/3 bottles -most likely source is suspected to be the decubitus ulcer rather than enterococcal endocarditis -appreciate ID consult. will f/u w/ recs -c/w IV Zosyn for now, with a report total of 10-14 days therapy as per ID rec, either extended hospital stay, SNF or PICC placement. Will continue to consider disposition options based on pt condition/improvement. Dalbavancin may represent alterative approach should retaining IV access be impractical given pt 's tendency to remove them. Will consider prior to DC., 2. Sepsis, acute. Present on admission. clinically resolved - Pt presents with WBC 16.5, tachycardia 113. Blood cultures shows Enterococci faecalis. source likely underlying bacteremia noted above - Source of bacteremia needs to be further investigated. Lactic acid 1.7. Serial procalcitonin 0.47 and 0.39. - Medically stable this morning. Nontoxic in appearance. 3. Sacral pressure ulcer, chronic, present on admission. Active -Wound care consulted and following. Their time and recommendations are appreciated. -appreciate surgery consult as well. will f/u w/ recs, though give patient overall condition he appears a poor candidate for surgical intervention at this time. 4. Severely malnourished/cachexia - This is directly related to patient's dementia and poor oral intake. - Staff have been making attempts to assist patient in feedings which may improve caloric intake some, though I believe without PEG tube or other means of nutritional supplementation he will not be able to sustain himself long- term. I have had further discussion with patient's son and POA, who confirms he would wish to proceed with all invasive measures as needed, including placement of PEG tube. Given patient's continued decline nutritional status there seems no other means providing adequate nutrition aside from this intervention. - At this time we will continue to push by mouth feeds as much as possible, and provide nutritional and electrolyte supplementation as needed. Specifically patient's calcium magnesium and potassium have been an issue, even corrected calcium has been dropping, today was replated along with other electrolytes. - GI will be consulted for surgical placement of PEG tube. I discussed this case with Dr. Marrero, patient will remain nothing by mouth after midnight in anticipation of possible procedure. - Time placement of PEG Jevity feeds may be initiated as per recommendations of nutrition services associate. 5. Pneumonia, acute, present on admission - Seemed to be a failure of oral levofloxacin so he was placed on IV piperacillin/tazobactam for possible healthcare associated pneumonia. Discontinued Levaquin as he failed this medication. Also discontinued Vancomycin in light of his LUIS A. Strep pneumo and viral PCR negative. Possible aspiration pneumonia given patient's dementia. - MRSA screen negative 6. Acute renal failure, present on admission. Improving. - Cr was elevated at 4.25 on admission, improved to 1.36 today. Given his dementia, this may be secondary to lack of access to free water - Continue gentle IV fluid hydration and recheck labs tomorrow - Avoid nephrotoxins. Vancomycin discontinued 08/28/16 7. Agitation, acute. - Patient became agitated, hallucinated and swinging at staff. Started Seroquel while in PCU - Haldol discontinued - Seroquel 25 mg at bedtime and Seroquel 12.5 mg in the morning 8. Acute hypokalemia - replete and f/u, down returning today opted for IV repletion this morning with 30 mEq potassium. 9. Dementia - Palliative care consulted and following. Their time and recommendations are appreciated. - Patient requires a sitter for safety as he is a fall risk. 10. Chest pain, acute, present on admission. Improved. - Serial troponin trending and continues to be elevated and CK-MB also elevated. Likely secondary to myocardial ischemia due to sepsis above. - Given patient's history of coronary artery disease and that he continues to be asymptomatic, we will medically treat. - - Continue aspirin 81 mg daily, metoprolol 12.5 mg twice per day, and atorvastatin 40 mg daily - Hold metoprolol if patient is HR <60 bpm - Echo unremarkable Disposition: Planned DC to assisted living facility once patient is medically stabilized, or plan of care is adjusted. At this time while patient is full code with all medical interventions desired, he is not medically stable for discharge. Pain Evaluation: Adequate Pain Control VTE Prophylaxis: Sub-Q Heparin (Unfractionated) VTE Mechanical Devices: Venous Foot Pump Resuscitation Status: CPR: Attempt Resuscitation Time spent 25 minutes Christian Lopez DO Sep 03, 2016 07:27
[2016-09-03] MEDS: Potassium Chloride Inj 20 MEQ in Dextrose 5% 250 ML IV SCH ×3 (08:33→16:58)
[2016-09-03] MEDS: Piperacillin-Tazo 3.375 Gm Inj 3.375 GM in Dextrose 5% Minibag Plus 50 ML IV SCH ×2 (08:33→19:54)
[2016-09-03] MEDS: Heparin 5,000 Unit/mL Inj SUBQ SCH ×2 (08:34→19:58)
--- NOTE | 2016-09-03 09:10 | NUR ---
KRISHNA signed VOLLEYBALL ASSISTANT COACH called pt's son, FARHANA. Verbal permission to sign given by son. RAFY Leblanc
[2016-09-03] MEDS: 0.9% Sodium Chloride 1,000 ML IV SCH (11:09)
--- NOTE | 2016-09-03 15:42 | NUR ---
Behavior/nutrition/dressing change pt was more cooperative with care than previous shifts. Pt refused all meals. Sacral dressing changed after BM.
--- NOTE | 2016-09-03 16:26 | NUR ---
Social Work: Continued d/c planning Data: Pt is on day 8 of hospitalization. EMR reviewed. Pt discussed in rounds. MD states pt will remain in hospital for at least a few more days due to nutritional issues. GI will be consulted. INDUSTRIAL ENERGY ENGINEER spoke with pt's son who states that he spoke with MD yesterday regarding update and that he appreciates the communication. INDUSTRIAL ENERGY ENGINEER will continue to follow. Assessment: Pt who is independent at baseline. Plan: Pt will d/c back to [facility] when medically stable. INDUSTRIAL ENERGY ENGINEER will continue to follow. RAFY Leblanc
[2016-09-04] VITALS (10 sets, daily range): BP systolic 127–150; BP diastolic 56–71; PULSE 55–86; RESP 18–20; O2SAT 95–100
[2016-09-04] MEDS: 0.9% Sodium Chloride 1,000 ML IV SCH ×2 (00:04→12:15)
--- NOTE | 2016-09-04 01:24 | CONS ---
[address] [address] CONSULTATION REPORT PATIENT: JOHANNY MACHADO : 1925 MR#: [id number] ADMIT: 08/26/2016 JOB ID: [id number] DATE OF SERVICE: 09/04/2016 REASON FOR CONSULTATION: Evaluation for PEG tube placement. HISTORY OF PRESENT ILLNESS: This is an 89-year-old, male, with a history of dementia, asthma, coronary artery disease, diverticulosis, arthritis, history of myocardial infarction, history of congestive heart failure, who presents for consultation for evaluation for PEG tube. The patient was admitted to the hospital on August 26, 2016, for chest pain, and found to have a left middle lung opacification consistent with pneumonia at that point in time. The patient was also found to have sepsis with positive blood cultures for Enterococci faecalis. The patient is currently followed by Infectious Disease. The patient also has a sacral decubitus, and also acute renal failure upon admission. The patient has been followed by speech and swallow therapy, and it was deemed that the patient was too malnourished or cachectic, with poor p.o. intake, and request for a PEG tube. It is unknown whether the patient had an EGD or colonoscopy in the past, and unknown family history of colon cancer, inflammatory bowel disease, or celiac disease. The patient does have a dual power of insurance defense attorney, who is the patient's son. The patient denies rectal bleeding, nausea, vomiting, hematemesis, abdominal pain, change in bowel habits, or unintentional weight loss. The patient states that he does not like the food here and wants regular food. Speech and swallow therapy evaluated the patient and recommended adding snacks and supplements to their order, and a pureed texture with nectar thick liquids with one-to-one feeds. The patient denies any dysphagia or odynophagia. PAST MEDICAL HISTORY: As stated above. PAST SURGERIES: Unknown. MEDICATIONS AT HOME: Aspirin and Bisacodyl. ALLERGIES: No known drug allergies. SOCIAL HISTORY: Former smoker. No alcohol. No IV drug use. He lives in a long term facility. FAMILY HISTORY: Unknown. REVIEW OF SYSTEMS: The patient denies headache, blurred vision, nausea, vomiting. Positive for chest pain. No shortness of breath, abdominal pain, skin rash, joint pain. PHYSICAL EXAMINATION: Vital signs upon presentation: His temperature is 36.3, pulse 71, respiratory rate 18, blood pressure 124/68, satting 98% on room air. General: In no acute distress. Head: No scars. Eyes: Anicteric. Throat supple. Lungs: Clear to auscultation bilaterally. Cardiovascular: Regular rhythm and rate. Abdomen: Soft, nondistended, nontender. Normal bowel sounds. Extremities: No cyanosis, clubbing or edema. LABORATORIES: Show a white count 6.2, hemoglobin 7.6, hematocrit 23, platelet count 145. Chemistry: Sodium 142, potassium 2.8, chloride 111, bicarb 19, BUN 12, creatinine 1.0, glucose 72. Lactic acid 0.8. Calcium 6.3, magnesium 1.4. Total bili 0.4, AST 19, ALT 10, alk phos 54. Troponin 0.072. Total protein 3.8, albumin 1.9. PT and INR unknown at this time. Abdominal ultrasound on August 26, 2016, showed no hydronephrosis, bilateral renal cyst. Chest x-ray on August 27, 2016, shows left mid lung opacifications, unchanged from prior study. ASSESSMENT AND PLAN: This is an 89-year-old, male, with a history of Alzheimer's dementia, myocardial infarction, coronary artery disease. He lives at [facility] in [place]. History of diverticulosis, asthma, arthritis, congestive heart failure, who presents for evaluation for a percutaneous endoscopic gastrostomy (PEG) tube. At this point in time, the patient is unable to make his own decisions and the durable power insurance defense attorney is his son per chart bx who would like everything to be done for the patient. I will be in contact with the speech team in regards to the patient's nutrition status and calorie count, and the need for a PEG tube at this point in time. I do agree if the patient has low albumin and the patient is malnourished, which would not help with his healing of his sacral decubitus. RECOMMENDATIONS: 1. Diet per speech team. 2. I will be in contact with the speech and swallow team to see if the patient is not meeting his daily calorie count. If this is so and if the patient's durable power of insurance defense attorney would like everything done, then we will proceed with an EGD with PEG tube placement, with cardiac clearance given the patient's HI, elevated troponin also that was found during this hospital stay, along with his chest pain on admission. We will continue to follow. JAMSHIDD
--- NOTE | 2016-09-04 03:48 | NUR ---
PO intake: At the beginning of the shift, pt was verbalizing that he has not received any food since being here. Speech is mumbled at times and thoughts are scattered, pt is not always able to complete his thoughts. Pt stated liking applesauce, and that he would like some, although after offering pt 3 bites, he declined any further; did take an additional [address] Marquez talked with the pt tonight, stated at this time pt could eat, did not have to be NPO after midnight and further information was required before going forward with PEG tube placement. Pt has been able to sleep most of the night thus far this shift.
[2016-09-04] MEDS ORDERED: Potassium Phos (mEq) Inj 20 MEQ in Dextrose 5% 250 ML IV ONE (07:00)
[2016-09-04] MEDS ORDERED: Magnesium Sulf 4 Gm/100 mL H2O 4 GM in IV Premix 1 EACH IV ONE (07:00)
[2016-09-04] MEDS ORDERED: Potassium Chloride 20 mEq SR Tablet PO ONE (07:00)
[2016-09-04] MEDS: Piperacillin-Tazo 3.375 Gm Inj 3.375 GM in Dextrose 5% Minibag Plus 50 ML IV SCH ×2 (07:56→22:24)
[2016-09-04] MEDS: Heparin 5,000 Unit/mL Inj SUBQ SCH ×2 (08:02→22:26)
[2016-09-04 09:26] LABS: BASOPHILS % (AUTO) 0.4 % (0-3); EOSINOPHILS % (AUTO) 3.5 % (0-5); MONOCYTES % (AUTO) 6.8 % (4-12); Mean Corpuscular Hemoglobin 27.5 pg (27.0-35.0); Mean Corpuscular Volume 83.8 fL (81-100); NEUTROPHILS % (AUTO) 75.2 % (40-74); Platelet Count 185 bil/L (150-400)
--- NOTE | 2016-09-04 10:32 | PCM.PNSURG ---
Subjective Date of Service: Sep 04, 2016 Date of Service: Sep 04, 2016 Visit Information: Subjective: No acute events overnight. Patient was sleeping and now awake. Patient alert and oriented 0. Patient denies difficulty swallowing or pain on swallowing. Postop General: No Complaints Objective Vital Sign- Last 8 Hours Date Time Temp Pulse Resp B/P Pulse Ox O2 Delivery O2 Flow Rate FiO2 09/04/16 09:47 60 20 96 Room Air 09/04/16 09:37 36.2 60 18 127/63 96 Room Air 09/04/16 06:03 Supplement Oxygen 09/04/16 06:00 36.4 61 20 145/68 98 Room Air Intake and Output- Last 8 Hour 09/04/16 Cumulative From/Thru 07:00 08/26/16 15:50 - 09/04/16 06:52 Intake Total 226 ml 75100 ml Output Total 1050 ml 45561 ml Balance -824 ml 8755 ml Intake Oral 0 ml 3080 ml IV Total 226 ml 32276 ml Output Urine Total 1050 ml 21535 ml # Bowel Movements 1 7 General: Alert Neck: Supple Lungs: Clear to Auscultation Heart: Exam Unremarkable Abdomen: Benign, Soft, Non-tender, Non-distended, Normoactive bowel tones Extremities: Distal Pulses Palpable Result Diagram: 09/04/16 0900 09/04/16 0900 Assessment & Plan Impression This is an 89-year-old, male, with a history of Alzheimer's dementia, myocardial infarction, coronary artery disease. He lives at [facility] in [place]. History of diverticulosis, asthma, arthritis, congestive heart failure, who presents for evaluation for a percutaneous endoscopic gastrostomy (PEG) tube. At this point in time, the patient is unable to make his own decisions and the durable power assistant district attorney is his son per chart bx who would like everything to be done for the patient. I do agree that pt has low albumin and the patient is malnourished, which would not help with his healing of his sacral decubitus. 09/04/2016- I spoke with the dietitian team. The patient has not had a daily calorie count for the past 3 days to see if this meets his required calorie counts each day. I have also encouraged the use of Megace and Ensure to help with his calorie count and appetite stimulation. The patient is most likely a poor candidate for a PEG tube given that he has pulled out his IVs in the past per the hospitalist team. RECOMMENDATIONS: 1. diet per clipper automatic and speech team 2. daily calorie count x 3 days 3. consider megace and ensure 4. Patient will be a poor candidate for PEG tube given the fact that he has pulled out his IVs in the past per the hospitalist team 5. encourage pt to eat and give pt types of foods he is willing to consume. 6. consider Ethics consult if PEG tube is pursued further will sign off Problems: VTE Prophylaxis: Sub-Q Heparin (Unfractionated) Resuscitation Status: CPR: Attempt Resuscitation Mathew Marquez MD Sep 04, 2016 10:32 Mathew Marquez MD Sep 04, 2016 10:32
[2016-09-04] MEDS: MEGESTROL 40 MG/ML PO SCH ×3 (12:15→22:26)
--- NOTE | 2016-09-04 14:13 | NUR ---
NUTRITION FOLLOW-UP Assess: 89 YO male admitted w/ pneumonia and acute renal failure. Per notes, acute renal failure is improving. Pt has Stage IV sacral pressure ulcer that was present prior to admission. Per notes, pt is unable to answer questions d/t dementia. Minimal PO intake persists w/ pt refusing most meals. Per notes, pt requested applesauce, but only took three bites when provided by RN. MD aware of pt inadequate oral intake. Per notes, pts son is interested in a PEG tube, but pt is unable to make his own needs known. GI consulted. Discussed the option of PEG tube w/ GI, and decided to collect a 3 day calorie count to assess nutritional intake before determining a recommendation. Pt already receiving supplements to help w/ intake at meals, but will add snack supplements to assess if intake improves w/ additional offerings. 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 LABS: Reviewed. Cl 112, Ca 6.8, Alb 1.8 MEDICATIONS: Reviewed. Seroquel, Remeron, Lopressor, Sodium Chloride, Megace. DIET: Pureed w/ NTL, Magic cups, gelatein, protein powder all trays. PO Refused-20%. GI symptoms/stool: BM x 1 (09/04) SKIN: Sacral ulcer, stage IV. ANTHROPOMETRICS: Current Wt: 65.1 kg. Admit wt: 61.1 kg BMI: 20.0 kg/m2 IBW: 75.3 kg ESTIMATED NEEDS: Wound (Stg IV pressure injury) Calories: 8186-8258 kcal/day (35-40 kcal/kg BW) Protein: 100-130 g/day (1.5-2.0 g/kg BW) Fluid: 5566-5950 ml (approximately 1 ml/kcal/day) NUTRITION DIAGNOSIS: 1) Chew/swallow difficulties related to dementia and missing teeth as evidenced by altered texture diet per ST recommendation - PERSISTS. 2) Inadequate oral intake related to acute illness and dementia as evidenced by PO intake of bites-25% x 9 days PERSISTS. 3) Increased nutrient needs related to increased demand for nutrients for healing as evidenced by Stage IV pressure ulcer - PERSISTS. INTERVENTION: 1) Continue to send Magic Cups, Gelatein and protein powder on all trays. 2) Continue to advance diet as able per ST recommendations. 3) Add NT Ensure BID at 10am and 2pm snacks. 4) Conduct three-day calorie count to assess nutritional intake. 5) If pt and son decide to proceed w/ PEG tube placement, recommend initiating Jevity 1.5 at 10 ml/hr for 24 hrs. Will monitor for refeeding d/t limited oral intake. Once tolerance established, recommend advancing 10 ml q 6 hrs to goal rate 70 ml/hr to provide 2415 kcal, 103g of protein and 1224 ml water, meeting 100% of calorie and protein needs. Flush dose 50 ml H2O q 4 hr to provide a total of 1524 ml of H2O, meeting 75% of fluid needs. Remaining fluid could be achieved through oral intake or increased fluid flush if PO remains poor. MONITOR/EVALUATE: Calorie intake, PO intake, labs, GI, wound, wt, POC. Will continue to monitor per high nutrition risk guidelines. Addendum: 09/04/16 at [address] Auxiliary student documentation reviewed. I agree with above documentation. Ashok Callejas, ROBERTN, CD
--- NOTE | 2016-09-04 14:33 | PCM.PNMED ---
Subjective Date of Service Sep 04, 2016 Subjective no new complaints or events. PEG tube placement on hold. Unclear if it would help. Spoke with GI. will start Megace. Will start caloric count. will continue to discuss with family goals of care. Exam Vital Signs Vital Sign - Last Date Time Temp Pulse Resp B/P Pulse Ox O2 Delivery O2 Flow Rate FiO2 09/04/16 13:36 36.3 60 18 149/68 98 Room Air Intake and Output 09/03/16 09/03/16 09/04/16 Cumulative From/Thru 15:00 23:00 07:00 08/26/16 15:50 - 09/04/16 06:52 Intake Total 1710 ml 226 ml 57253 ml Output Total 1300 ml 1050 ml 02684 ml Balance 410 ml -824 ml 8755 ml Intake Oral 80 ml 0 ml 3080 ml IV Total 1630 ml 226 ml 34505 ml Output Urine Total 1300 ml 1050 ml 48525 ml # Bowel Movements 1 1 7 Exam Cachectic gentleman lying in bed in no acute distress breathing comfortably. Pleasantly demented. Heart is a regular rate and rhythm with lungs clear to auscultation Neurologic exam is nonfocal excepting baseline dementia. Skin exam demonstrates sacral ulcer, stage IV, edges of the wound demonstrates good granulation tissue without evidence of worsening infection, over there is extensive undermining and depth of ulcer was not probed during this evaluation. Skin is loose and hanging is evidence of muscle wasting. Extremities are thin without edema, well-perfused. IVs and Medications Medications Reviewed: Medications were reviewed in detail Lab and Diagnostics Result Diagram: 09/04/16 0900 09/04/16 0900 X-Rays, CTs and MRIs PROCEDURE: X-RAY CHEST ONE VIEW, PORTABLE IMPRESSION: Mild patchy left midlung radiopacities which may be associated with atelectasis, aspiration, or infection. Approved by: Leonela Edwards M.D. on 08/26/2016 at 16:30 PROCEDURE: CT CHEST WITHOUT CONTRAST IMPRESSION: 1. Confluent bibasilar patchy airspace opacities, more consolidative on the left than on the right. Given the distribution and confluent appearance, these findings most likely represent aspiration or pneumonia. However, some of these focal areas of consolidation have a masslike appearance raising the suspicion for neoplasm. No recent comparisons are available to determine the acuity of the findings. However, given the clinical history of refractory pneumonia, atypical pneumonia including cryptogenic organizing pneumonia and eosinophilic pneumonia should be considered in the differential. Short interval followup is recommended to exclude underlying pulmonary mass. 2. Subacute posterior right rib fracture. Dictated by: Leonela Edwards M.D. on 08/26/2016 at 17:52 12-lead ECG Unable to locate EKG but per ER Barby note complicated by poor baseline and patient movement PVCs no prior EKG for comparison that was normal rate and rhythm no acute findings seen Assessment & Plan 89 year old gentleman with history of dementia, coronary artery disease, and recent treatment for pneumonia who presents from [facility] with a 15 minute episode of chest pain. He was admitted for refractory pneumonia and acute kidney injury. 1. Bacteremia, E. faecalis group D, present on admission. Active. -Blood culture grew E. faecalis resistant to gentamicin but susceptible to penicillin G in 2/3 bottles -most likely source is suspected to be the decubitus ulcer rather than enterococcal endocarditis -appreciate ID consult. will f/u w/ recs -c/w IV Zosyn for now, with a report total of 10-14 days therapy as per ID rec, started on 08/27/16either extended hospital stay, SNF or PICC placement. Will continue to consider disposition options based on pt condition/improvement. Dalbavancin may represent alterative approach should retaining IV access be impractical given pt's tendency to remove them. Will consider prior to DC., 2. Sepsis, acute. Present on admission. clinically resolved - Pt presents with WBC 16.5, tachycardia 113. Blood cultures shows Enterococci faecalis. source likely underlying bacteremia noted above - Source of bacteremia needs to be further investigated. Lactic acid 1.7. Serial procalcitonin 0.47 and 0.39. - Medically stable this morning. Nontoxic in appearance. 3. Sacral pressure ulcer, chronic, present on admission. Active -Wound care consulted and following. Their time and recommendations are appreciated. -appreciate surgery consult as well. will f/u w/ recs, though give patient overall condition he appears a poor candidate for surgical intervention at this time. 4. Severely malnourished/cachexia - This is directly related to patient's dementia and poor oral intake. - Staff have been making attempts to assist patient in feedings which may improve caloric intake some, prior team consulted GI for possible PEG. - Unclear if it would help. Spoke with GI. will start Megace. Will start caloric count. will continue to discuss with family goals of care. Patient is with advanced dementia. he reportedly pulls IV lines. Very high risk of pulling PEG tube and subsequent self injury. 5. Pneumonia, acute, present on admission - Seemed to be a failure of oral levofloxacin so he was placed on IV piperacillin/tazobactam for possible healthcare associated pneumonia. Discontinued Levaquin as he failed this medication. Also discontinued Vancomycin in light of his LUIS A. Strep pneumo and viral PCR negative. Possible aspiration pneumonia given patient's dementia. - MRSA screen negative 6. Acute renal failure, present on admission. Improving. - Cr was elevated at 4.25 on admission, improved to 1.36 today. Given his dementia, this may be secondary to lack of access to free water - Continue gentle IV fluid hydration and recheck labs tomorrow - Avoid nephrotoxins. Vancomycin discontinued 08/28/16 7. Agitation, acute. - Patient became agitated, hallucinated and swinging at staff. Started Seroquel while in PCU - Haldol discontinued - Seroquel 25 mg at bedtime and Seroquel 12.5 mg in the morning 8. Acute hypokalemia - replete and f/u, down returning today opted for IV repletion this morning with 30 mEq potassium. 9. Dementia - Palliative care consulted and following. Their time and recommendations are appreciated. - Patient requires a sitter for safety as he is a fall risk. 10. Chest pain, acute, present on admission. Improved. - Serial troponin trending and continues to be elevated and CK-MB also elevated. Likely secondary to myocardial ischemia due to sepsis above. - Given patient's history of coronary artery disease and that he continues to be asymptomatic, we will medically treat. - - Continue aspirin 81 mg daily, metoprolol 12.5 mg twice per day, and atorvastatin 40 mg daily - Hold metoprolol if patient is HR <60 bpm - Echo unremarkable Disposition: Planned DC to assisted living facility once patient is medically stabilized, or plan of care is adjusted. At this time while patient is full code with all medical interventions desired, he is not medically stable for discharge. Calori count started today. VTE Prophylaxis: Sub-Q Heparin (Unfractionated) VTE Mechanical Devices: Venous Foot Pump Resuscitation Status: CPR: Attempt Resuscitation Dayday Griffith MD Sep 04, 2016 14:33
--- NOTE | 2016-09-04 16:44 | NUR ---
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 Patient currently has no sitter at this time. Per report in rounds, mention of peg. Discussion of calorie count. SW will continue to follow pending further clinical course and discussion of goals of care with family. PLAN: Return back to [facility] of , pending clinical course Vito HILLMAN
[2016-09-05] VITALS (7 sets, daily range): BP systolic 114–150; BP diastolic 65–74; PULSE 68–74; RESP 16–20; O2SAT 98–99
[2016-09-05] MEDS: 0.9% Sodium Chloride 1,000 ML IV SCH ×2 (02:02→15:38)
--- NOTE | 2016-09-05 05:55 | NUR ---
Uneventful Night: Pt had an uneventful night, no c/o pain, chest pain, SOB. Pt awake off/on throughout the night, confused, trying to get out of bed; easily reoriented. ELECTRONICS ENGINEERING TECHNOLOGIST spent a lot of time visiting with the patient during shift. Pt pleasant and cooperative with most care.
[2016-09-05 07:57] LABS: BASOPHILS % (AUTO) 0.1 % (0-3); MONOCYTES % (AUTO) 7.3 % (4-12); Mean Corpuscular Volume 85.5 fL (81-100); NEUTROPHILS % (AUTO) 70.8 % (40-74); Platelet Count 181 bil/L (150-400)
[2016-09-05] MEDS: Piperacillin-Tazo 3.375 Gm Inj 3.375 GM in Dextrose 5% Minibag Plus 50 ML IV SCH ×2 (08:03→20:39)
[2016-09-05] MEDS: MEGESTROL 40 MG/ML PO SCH ×2 (08:04→20:39)
[2016-09-05] MEDS: Heparin 5,000 Unit/mL Inj SUBQ SCH ×2 (08:15→20:39)
[2016-09-05 08:26] LABS: Magnesium 1.8 mg/dL (1.6-2.6); Phosphorus 1.6 mg/dL (2.5-4.9)
[2016-09-05] MEDS ORDERED: Potassium Chloride 20 mEq/15 mL 15mL Oral Soln PO ONE (11:35)
[2016-09-05] MEDS ORDERED: Magnesium Sulf 2 Gm/50mL Water 2 GM in IV Premix 1 EACH IV ONE (11:35)
--- NOTE | 2016-09-05 14:25 | NUR ---
NUTRITION FOLLOW-UP Assess: 89 YO male admitted w/ pneumonia and acute renal failure. Per notes, acute renal failure is improving. Pt has Stage IV sacral pressure ulcer that was present prior to admission. Per notes, pt is unable to answer questions d/t dementia. Per notes, pt's son is interested in a PEG tube, but pt is unable to make his own needs known. GI consulted. Discussed the option of PEG tube w/ GI, and decided to collect a 3 day calorie count to assess nutritional intake before determining a recommendation. Per notes, pt has history of removing IV. concerned about potential of pt pulling out PEG and inflicting self-harm. Pt was started on Megace yesterday, and Ensure added BID. Calorie count started yesterday, w/ minimal PO at breakfast, but increasing PO at lunch and dinner. Calorie count inaccurate d/t incomplete medical records. 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 LABS: Reviewed. K 3.0, Cl 109, Ca 6.9, Phos 1.6, Alb 2.1 MEDICATIONS: Reviewed. Vit D3, Seroquel, Remeron, Lopressor, Sodium Chloride, Megace. DIET: Pureed w/ NTL, alternating Magic cups, gelatein, protein powder all trays. PO Refused-50%. CALORIE COUNT - DAY 1: Breakfast: 5 kcal, no protein Lunch: Meal ticket not provided - 50% total PO recorded. Total kcal and protein intake unknown. Dinner: 285 kcal, 21g protein Total (breakfast, dinner): 290 kcal, 21g protein meeting 13% of calorie needs and 20% of protein needs. GI symptoms/stool: BM x 2 (09/04) SKIN: Sacral ulcer, stage IV. ANTHROPOMETRICS: Current Wt: 64.8 kg. Admit wt: 61.1 kg BMI: 19.9 kg/m2 IBW: 75.3 kg ESTIMATED NEEDS: Wound (Stg IV pressure injury) Calories: 9288-5951 kcal/day (35-40 kcal/kg BW) Protein: 100-130 g/day (1.5-2.0 g/kg BW) Fluid: 7032-6212 ml (approximately 1 ml/kcal/day) NUTRITION DIAGNOSIS: 1) Chew/swallow difficulties related to dementia and missing teeth as evidenced by altered texture diet per ST recommendation - PERSISTS. 2) Inadequate oral intake related to acute illness and dementia as evidenced by PO intake of bites-50% x 10 days PERSISTS, SLIGHT IMPROVEMENT YESTERDAY w/ 50% PO x 2 MEALS. 3) Increased nutrient needs related to increased demand for nutrients for healing as evidenced by Stage IV pressure ulcer - PERSISTS. INTERVENTION: 1) Continue to alternate sending Magic Cups, Gelatein and protein powder on all trays. 2) Continue to advance diet as able per ST recommendations. 3) Continue NT Ensure BID at 10am and 2pm snacks. 4) If pt and son decide to proceed w/ PEG tube placement, recommend initiating Jevity 1.5 at 10 ml/hr for 24 hrs. Will monitor for refeeding d/t limited oral intake. Once tolerance established, recommend advancing 10 ml q 6 hrs to goal rate 70 ml/hr to provide 2415 kcal, 103g of protein and 1224 ml water, meeting 100% of calorie and protein needs. Flush dose 50 ml H2O q 4 hr to provide a total of 1524 ml of H2O, meeting 75% of fluid needs. Remaining fluid could be achieved through oral intake or increased fluid flush if PO remains poor. 5) PEG tube may be contraindicated in pt w/ advanced age and dementia. 6) Continue to calorie count. MONITOR/EVALUATE: Calorie intake, PO intake, labs, GI, wound, wt, POC. Will continue to monitor per high nutrition risk guidelines. Addendum: 09/05/16 at [address] Student documentation reviewed and I agree with above note. G.
--- NOTE | 2016-09-05 14:50 | NUR ---
KRISHNA completed with patient son/FARHANA Riley via phone. SW charted in patient chart. SW to follow.
--- NOTE | 2016-09-05 16:38 | PCM.PNMED ---
Subjective Date of Service Sep 05, 2016 Subjective Patient is on day 2 of the caloric count, will finish tomorrow upon review of the chart, there was discussion about PEG placement with , , documented in 08/29, family was not opposed to any types of life sustaining measures including PEG placement Nilson Rilye was not reachable today, Exam Vital Signs Vital Sign - Last Date Time Temp Pulse Resp B/P Pulse Ox O2 Delivery O2 Flow Rate FiO2 09/05/16 16:11 Supplement Oxygen 09/05/16 13:42 36.1 68 17 144/70 99 Intake and Output 09/04/16 09/04/16 09/05/16 Cumulative From/Thru 15:00 23:00 07:00 08/26/16 15:50 - 09/05/16 05:56 Intake Total 1235 ml 150 ml 28397 ml Output Total 750 ml 1200 ml 61835 ml Balance 485 ml -1050 ml 8190 ml Intake Oral 260 ml 150 ml 3490 ml IV Total 975 ml 14704 ml Output Urine Total 750 ml 1200 ml 85344 ml # Bowel Movements 1 0 8 Exam Cachectic elderly male, AAOx1 no JVD, MMM, no LAD RRR, nl s1, s2 no mrg CTAB, no w,c S,ND,NT,normoactive BS+ warm, no edema, pulses 2/2 IVs and Medications Medications Reviewed: Medications were reviewed in detail Lab and Diagnostics Result Diagram: 09/05/16 0751 09/05/16 0751 X-Rays, CTs and MRIs PROCEDURE: X-RAY CHEST ONE VIEW, PORTABLE IMPRESSION: Mild patchy left midlung radiopacities which may be associated with atelectasis, aspiration, or infection. Approved by: Leonela Edwards M.D. on 08/26/2016 at 16:30 PROCEDURE: CT CHEST WITHOUT CONTRAST IMPRESSION: 1. Confluent bibasilar patchy airspace opacities, more consolidative on the left than on the right. Given the distribution and confluent appearance, these findings most likely represent aspiration or pneumonia. However, some of these focal areas of consolidation have a masslike appearance raising the suspicion for neoplasm. No recent comparisons are available to determine the acuity of the findings. However, given the clinical history of refractory pneumonia, atypical pneumonia including cryptogenic organizing pneumonia and eosinophilic pneumonia should be considered in the differential. Short interval followup is recommended to exclude underlying pulmonary mass. 2. Subacute posterior right rib fracture. Dictated by: Leonela Edwards M.D. on 08/26/2016 at 17:52 12-lead ECG Unable to locate EKG but per ER Barby note complicated by poor baseline and patient movement PVCs no prior EKG for comparison that was normal rate and rhythm no acute findings seen Assessment & Plan 89 year old gentleman with history of dementia, coronary artery disease, and recent treatment for pneumonia who presents from [facility] with a 15 minute episode of chest pain. He was admitted for refractory pneumonia and acute kidney injury. 1. Bacteremia, E. faecalis group D, present on admission. Active. -Blood culture grew E. faecalis resistant to gentamicin but susceptible to penicillin G in 2/3 bottles -most likely source is suspected to be the decubitus ulcer rather than enterococcal endocarditis -appreciate ID consult. will f/u w/ recs -c/w IV Zosyn for now, with a report total of 10-14 days therapy as per ID rec, started on 08/27/16either extended hospital stay, SNF or PICC placement. Will continue to consider disposition options based on pt condition/improvement. Dalbavancin may represent alterative approach should retaining IV access be impractical given pt's tendency to remove them. Will consider prior to DC., 2. Sepsis, acute. Present on admission. clinically resolved - Pt presents with WBC 16.5, tachycardia 113. Blood cultures shows Enterococci faecalis. source likely underlying bacteremia noted above - Source of bacteremia needs to be further investigated. Lactic acid 1.7. Serial procalcitonin 0.47 and 0.39. - Medically stable this morning. Nontoxic in appearance. 3. Sacral pressure ulcer, chronic, present on admission. Active -Wound care consulted and following. Their time and recommendations are appreciated. -appreciate surgery consult as well. will f/u w/ recs, though give patient overall condition he appears a poor candidate for surgical intervention at this time. 4. Severely malnourished/cachexia - This is directly related to patient's dementia and poor oral intake. - Staff have been making attempts to assist patient in feedings which may improve caloric intake some, prior team consulted GI for possible PEG. -started Chris, caloric count. -will contact Son Osvaldo to confirm PEG placement tomorrow. -likely needs cardiac preop eval requested by GI 5. Pneumonia, acute, present on admission - Seemed to be a failure of oral levofloxacin so he was placed on IV piperacillin/tazobactam for possible healthcare associated pneumonia. Discontinued Levaquin as he failed this medication. Also discontinued Vancomycin in light of his LUIS A. Strep pneumo and viral PCR negative. Possible aspiration pneumonia given patient's dementia. - MRSA screen negative 6. Acute renal failure, present on admission. Improving. - Cr was elevated at 4.25 on admission, improved to 1.36 today. Given his dementia, this may be secondary to lack of access to free water - Continue gentle IV fluid hydration and recheck labs tomorrow - Avoid nephrotoxins. Vancomycin discontinued 08/28/16 7. Agitation, acute. - Patient became agitated, hallucinated and swinging at staff. Started Seroquel while in PCU - Haldol discontinued - Seroquel 25 mg at bedtime and Seroquel 12.5 mg in the morning 8. Acute hypokalemia - replete and f/u, down returning today opted for IV repletion this morning with 30 mEq potassium. 9. Dementia - Palliative care consulted and following. Their time and recommendations are appreciated. - Patient requires a sitter for safety as he is a fall risk. 10. Chest pain, acute, present on admission. Improved. - Serial troponin trending and continues to be elevated and CK-MB also elevated. Likely secondary to myocardial ischemia due to sepsis above. - Given patient's history of coronary artery disease and that he continues to be asymptomatic, we will medically treat. 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 VTE Prophylaxis: Sub-Q Heparin (Unfractionated) VTE Mechanical Devices: Venous Foot Pump Resuscitation Status: CPR: Attempt Resuscitation Time spent 35min Marvin Cornejo MD Sep 05, 2016 16:38 Marvin Cornejo MD Sep 05, 2016 16:38
--- NOTE | 2016-09-05 16:54 | NUR ---
Mentation- Patient is confused to place, time,and date. Stating he wants to get out of here and go home. Swinging legs off side of bed. Patient stating, I am going to if you don't give me my clothes and let me out of here." Cooperative for a while with reminders that he is safe and in the hospital and then becomes he becomes agitated again. Phone call made to son Fredis, who said he would call and talk to patient this evening. Notified MD of patient's increased confusion.Orders received.
--- NOTE | 2016-09-06 03:30 | NUR ---
Mentation Patient slept through most of the night, awakened twice and was yelling out. Cooperative with care. Alert to self and birthday. Bed alarm on for safety, intentional rounding in place.
[2016-09-06 05:07] VITALS: BP 132/74; PULSE 66; RESP 18; O2SAT 99
[2016-09-06 06:28] LABS: BASOPHILS % (AUTO) 0.3 % (0-3); EOSINOPHILS % (AUTO) 2.9 % (0-5); MONOCYTES % (AUTO) 8.9 % (4-12); Mean Corpuscular Volume 83.9 fL (81-100); NEUTROPHILS % (AUTO) 73.4 % (40-74); Platelet Count 194 bil/L (150-400)
[2016-09-06 06:34] LABS: Magnesium 2.1 mg/dL (1.6-2.6); Phosphorus 1.8 mg/dL (2.5-4.9)
[2016-09-06] MEDS: Piperacillin-Tazo 3.375 Gm Inj 3.375 GM in Dextrose 5% Minibag Plus 50 ML IV SCH (09:08)
[2016-09-06] MEDS: MEGESTROL 40 MG/ML PO SCH (09:09)
[2016-09-06] MEDS: Heparin 5,000 Unit/mL Inj SUBQ SCH (09:15)
--- NOTE | 2016-09-06 10:32 | NUR ---
Social Work: Readiness for d/c Data: Pt is on day 11 of hospitalization. EMR reviewed, pt discussed in rounds. states pt likely to d/c today. MW will continue to follow. Assessment: Pt from [facility]. Plan: Pt will d/c to [facility] when medically stable, likely today. TRANSPORTATION DISPATCH MANAGER will continue to follow. RAFY Leblanc
--- NOTE | 2016-09-06 10:44 | NUR ---
NUTRITION FOLLOW-UP Assess: 89 YO male admitted w/ pneumonia and acute renal failure. Per notes, acute renal failure is improving. Pt has Stage IV sacral pressure ulcer that was present prior to admission. Per notes, pt is unable to answer questions d/t dementia. Per notes, pt's son is interested in a PEG tube, but pt is unable to make his own needs known. GI consulted. Discussed the option of PEG tube w/ GI, and decided to collect a 3 day calorie count to assess nutritional intake before determining a recommendation. Per notes, pt has history of removing IV. concerned about potential of pt pulling out PEG and inflicting self-harm. Pt was started on Megace, and Ensure added BID. Calorie count started 09/04. Calorie count for Day 2 not complete d/t limited reporting. Increased PO intake this morning. Visited w/ pt who stated he was hungry and enjoying the food. Pt ate 100% of breakfast meal and supplements. 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 LABS: Reviewed. Cl 112, CO2 17, Gluc 107, Ca 7.1, Phos 1.8, Alb 2.1 MEDICATIONS: Reviewed. Vit D3, Seroquel, Remeron, Lopressor, Megace. DIET: Pureed w/ NTL, alternating Magic cups, gelatein, protein powder all trays. PO Refused-100%. CALORIE COUNT - DAY 1: Breakfast: 5 kcal, no protein Lunch: Meal ticket not provided - 50% total PO recorded. Total kcal and protein intake unknown. Dinner: 285 kcal, 21g protein Total (breakfast, dinner): 290 kcal, 21g protein meeting 13% of calorie needs and 20% of protein needs. CALORIE COUNT DAY 2: Breakfast: 140 kcal, 4 g protein Lunch: 285 kcal, 21g protein Dinner: Meal ticket not provided - No PO recorded. Total kcal and protein intake unknown. CALORIE COUNT DAY 3: Breakfast: 1115 kcal, 66g protein GI symptoms/stool: BM x 2 (09/04) SKIN: Sacral ulcer, stage IV. ANTHROPOMETRICS: Current Wt: 64.9 kg Admit wt: 61.1 kg BMI: 20.0 kg/m2 IBW: 75.3 kg ESTIMATED NEEDS: Wound (Stg IV pressure injury) Calories: 6612-3649 kcal/day (35-40 kcal/kg BW) Protein: 100-130 g/day (1.5-2.0 g/kg BW) Fluid: 2159-3605 ml (approximately 1 ml/kcal/day) NUTRITION DIAGNOSIS: 1) Chew/swallow difficulties related to dementia and missing teeth as evidenced by altered texture diet per ST recommendation - PERSISTS. 2) Inadequate oral intake related to acute illness and dementia as evidenced by PO intake of bites-100% x 11 days - SIGNIFICANTLY IMPROVED W/ 100% OF BREAKFAST CONSUMED. 3) Increased nutrient needs related to increased demand for nutrients for healing as evidenced by Stage IV pressure ulcer - PERSISTS. INTERVENTION: 1) Continue to alternate sending Magic Cups, Gelatein and protein powder on all trays. 2) Continue to advance diet as able per ST recommendations. 3) Continue NT Ensure BID at 10am and 2pm snacks. 4) Continue calorie count for one more day. 5) PEG tube may be contraindicated in pt d/t increasing PO intake, advanced age and dementia. MONITOR/EVALUATE: Calorie intake, PO intake, labs, GI, wound, wt, POC. Will continue to monitor per high nutrition risk guidelines. Addendum: 09/06/16 at [address] Auxiliary student documentation reviewed. I agree with above documentation, but would add the following: As pt has had minimal po intake x 9 days while admitted and po intake has dramatically increased today at breakfast, recommend checking labs (Mg, Phos, K+) frequently x 1 week as pt is at high risk for refeeding syndrome. Ashok Callejas, RDN, CD
[2016-09-06] MEDS ORDERED: QUET25TA73 PO ×2 (11:25)
[2016-09-06] MEDS ORDERED: MEGE400O4 PO (11:25)
[2016-09-06] MEDS ORDERED: CHOL100043 PO (11:25)
[2016-09-06] MEDS ORDERED: NAPH1POW2 PO (11:25)
[2016-09-06] MEDS ORDERED: ATOR20TA65 PO (11:32)
[2016-09-06] MEDS ORDERED: METO25TA6 PO (11:32)
--- NOTE | 2016-09-06 11:32 | PCM.DIMED ---
Discharge Instructions Date of Service Sep 06, 2016 Dates of Hospitalization Aug 26, 2016 at 17:13 Discharge Diagnosis Discharge Diagnosis #Sepsis secondary to Bacteremia with E. faecalis group D from infected decubitus ulcer. #Severely malnourished/cachexia, deconditioning due to advanced dementia Medication Instructions Please continue Megace for appetite booster Please note that aspirin, stain, BB started for medical management of possible ACS. Although joint terminal attack controller benefit is unclear, consider to stop if patient cannot tolerate well. Please continue vitD, phosphate supplement Please try Seroquel for agitation/delirium which has worked well during hospitalization. Diet Other (please see additional nutritional instruction) Activity No restrictions Patient Instructions You were hospitalized with complicated infection, deconditioning, poor oral intake. Instruction for SNF. Please note that pt remained in Full code after multiple discussion with family by palliative care service, all of the measures including PEG was discussed( family is willing to) Pt underwent trial of caloric count with Megace, which successfully increased his appetite, tolerated diet. Please follow details of nutrition recommendation as below. Pt finished course of antibiotics with zosyn for sepsis, remained stable upon discharge. NUTRITION FOLLOW-UP Assess: 89 YO male admitted w/ pneumonia and acute renal failure. Per notes, acute renal failure is improving. Pt has Stage IV sacral pressure ulcer that was present prior to admission. Per notes, pt is unable to answer questions d/ t dementia. Per notes, pt's son is interested in a PEG tube, but pt is unable to make his own needs known. GI consulted. Discussed the option of PEG tube w / GI, and decided to collect a 3 day calorie count to assess nutritional intake before determining a recommendation. Per notes, pt has history of removing IV. concerned about potential of pt pulling out PEG and inflicting self-harm. Pt was started on Megace, and Ensure added BID. Calorie count started /. Calorie count for Day 2 not complete d/t limited reporting. Increased PO intake this morning. Visited w/ pt who stated he was hungry and enjoying the food. Pt ate 100% of breakfast meal and supplements. 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 LABS: Reviewed. Cl 112, CO2 17, Gluc 107, Ca 7.1, Phos 1.8, Alb 2.1 MEDICATIONS: Reviewed. Vit D3, Seroquel, Remeron, Lopressor, Megace. DIET: Pureed w/ NTL, alternating Magic cups, gelatein, protein powder all trays. PO Refused-100%. CALORIE COUNT - DAY 1: Breakfast: 5 kcal, no protein Lunch: Meal ticket not provided - 50% total PO recorded. Total kcal and protein intake unknown. Dinner: 285 kcal, 21g protein Total (breakfast, dinner): 290 kcal, 21g protein meeting 13% of calorie needs and 20% of protein needs. CALORIE COUNT DAY 2: Breakfast: 140 kcal, 4 g protein Lunch: 285 kcal, 21g protein Dinner: Meal ticket not provided - No PO recorded. Total kcal and protein intake unknown. CALORIE COUNT DAY 3: Breakfast: 1115 kcal, 66g protein GI symptoms/stool: BM x 2 (09/04) SKIN: Sacral ulcer, stage IV. ANTHROPOMETRICS: Current Wt: 64.9 kg Admit wt: 61.1 kg BMI: 20.0 kg/m2 IBW: 75.3 kg ESTIMATED NEEDS: Wound (Stg IV pressure injury) Calories: 0919-5663 kcal/day (35-40 kcal/kg BW) Protein: 100-130 g/day (1.5-2.0 g/kg BW) Fluid: 3038-0816 ml (approximately 1 ml/kcal/day) NUTRITION DIAGNOSIS: 1) Chew/swallow difficulties related to dementia and missing teeth as evidenced by altered texture diet per ST recommendation - PERSISTS. 2) Inadequate oral intake related to acute illness and dementia as evidenced by PO intake of bites-100% x 11 days - SIGNIFICANTLY IMPROVED W/ 100% OF BREAKFAST CONSUMED. 3) Increased nutrient needs related to increased demand for nutrients for healing as evidenced by Stage IV pressure ulcer - PERSISTS. INTERVENTION: 1) Continue to alternate sending Magic Cups, Gelatein and protein powder on all trays. 2) Continue to advance diet as able per ST recommendations. 3) Continue NT Ensure BID at 10am and 2pm snacks. 4) Continue calorie count for one more day. 5) PEG tube may be contraindicated in pt d/t increasing PO intake, advanced age and dementia. MONITOR/EVALUATE: Calorie intake, PO intake, labs, GI, wound, wt, POC. Will continue to monitor per high nutrition risk guidelines. Follow-up plan Please follow up with the doctor in [facility]. Follow-up Provider: Shayne Duff MD Follow-up with PCP in: 2 weeks Marvin Cornejo MD Sep 06, 2016 11:29
--- NOTE | 2016-09-06 11:50 | NUR ---
Arranged S transport for 1415 via [facility], patient is returning to [facility]. Updated [employer] DEVELOPER
[2016-09-06] MEDS: Sodium-Potassium Phosphorus Packet PO SCH ×2 (12:10→12:33)
--- NOTE | 2016-09-06 13:46 | NUR ---
Social Work: Discharge Data: Pt is on day 11 of hospitalization. EMR reviewed. D/C orders are in. TABLET TECHNICIAN notified pt's son via voice mail, RN, MD, UR, and UR specialist notified facility and set up BLS transportation fro 2:15pm. No further d/c planning needs at this time. TABLET TECHNICIAN will continue to follow if needs arise. Assessment: Pt from LTC. Plan: Pt will d/c to [facility] via BLS at 2:15pm. No further d/c planning needs at this time. TABLET TECHNICIAN will continue to follow if needs arise. RAFY Leblanc
--- NOTE | 2016-09-06 14:15 | NUR ---
Discharge Reviewed d/c instructions with [facility]. Pt VS stable at time of d/c. IV d/c intact, no tele. Pt leaving with mixon catheter intact. All belongings packed by [employer]SEED OIL BOILER and taken with pt. BLS transport picked up pt.
--- NOTE | 2016-09-06 16:25 | NUR ---
Discharge 1400 - wind farm engineer arrived to transfer pt to [facility]. Pt VS were stable at time of transfer. Pt was transferred with mixon catheter n place. Verbal and written report were given by the primary RN. Pt belongings were with wind farm engineer.
--- NOTE | 2016-09-08 13:50 | PCM.DC.MED ---
Discharge Summary Date of Service Sep 06, 2016 Dates of Hospitalization Date of Hospital Admission Aug 26, 2016 at 17:13 Date of Discharge: Sep 06, 2016 Providers: Admitting Physician: Pat Mark MD Primary Care Physician: Yaneli Hughes MD Attending Physician: Pat Mark MD Diagnosis at Time of Discharge Diagnosis at Time of Discharge #Sepsis secondary to Bacteremia with E. faecalis group D from infected decubitus ulcer. #Severely malnourished/cachexia, deconditioning due to advanced dementia #advanced dementia Consultations palliative care gastroenterology infectious disease Procedures XRay, CTs & MRIs PROCEDURE: X-RAY CHEST ONE VIEW, PORTABLE IMPRESSION: Mild patchy left midlung radiopacities which may be associated with atelectasis, aspiration, or infection. Approved by: Leonela Edwards M.D. on 08/26/2016 at 16:30 PROCEDURE: CT CHEST WITHOUT CONTRAST IMPRESSION: 1. Confluent bibasilar patchy airspace opacities, more consolidative on the left than on the right. Given the distribution and confluent appearance, these findings most likely represent aspiration or pneumonia. However, some of these focal areas of consolidation have a masslike appearance raising the suspicion for neoplasm. No recent comparisons are available to determine the acuity of the findings. However, given the clinical history of refractory pneumonia, atypical pneumonia including cryptogenic organizing pneumonia and eosinophilic pneumonia should be considered in the differential. Short interval followup is recommended to exclude underlying pulmonary mass. 2. Subacute posterior right rib fracture. Dictated by: Leonela Edwards M.D. on 08/26/2016 at 17:52 ECG 12 Lead Unable to locate EKG but per ER M.D. note complicated by poor baseline and patient movement PVCs no prior EKG for comparison that was normal rate and rhythm no acute findings seen Other Diagnostics PROCEDURE: US ABDOMEN ([id number]) INDICATIONS: acute renal failure TECHNIQUE: Real-time scanning was performed of the abdominal and retroperitoneal organs, with image documentation. COMPARISON: None. FINDINGS: Liver: Liver is not well seen, grossly in size and homogeneous in echotexture. Gallbladder: Surgically absent Biliary ducts: Not seen Pancreas: Not seen Spleen: Not well-seen Kidneys: Kidneys are normal in size and echotexture. Right kidney measures 10.9 cm long; left kidney measures 13.0 cm long. No hydronephrosis or nephrolithiasis. No solid masses. Multiple right and left parapelvic cysts, measuring up to 2.7 cm on the right. Exophytic left renal cyst measuring up to 7.2 cm. Aorta: Visualized aorta is normal in caliber at less than 3 cm. Iliacs: Proximal common iliac arteries are normal in caliber at less than 2.5 cm. IVC: Intrahepatic inferior vena cava is patent. Miscellaneous: No free abdominal fluid. IMPRESSION: Markedly suboptimal examination as above due to altered mental status and difficulty with motion. No definite hydronephrosis. Bilateral renal cysts. Dictated by: Roque Maldonado M.D. on 08/27/2016 at 9:45 Approved by: Roque Maldonado M.D. on 08/27/2016 at 9:49 Brief History HPI obtained by This is an 89-year-old male who has significant dementia history of [place] CAD and presents to the emergency room from [facility] with according to the nurses complain of chest pain which lasted about 15 minutes. However on further evaluation with chest x-ray it appears that he has a left mid lung patchy opacities consistent with pneumonia versus aspiration versus atelectasis. He recently is about to complete seven-day course of by mouth Levaquin. He has completed 6 days of it. He also was given a course of Tamiflu. As the patient's dementia unable to get any history. His white count was noted be 16.5. He also was found to have acute renal failure compared to old values from several years ago with a BUN of 64 creatinine of 4.25. His vital signs upon presentation was a temp of 36.6, heart rate 91, respiratory rate 20 blood pressure 118/51 on 3 L nasal cannula O2 sat was 100%. His troponin was found to be 0.038 and lactic acid was 1.7. Bicarbonate on his labs was 18. Of note patient also had a CT of chest without contrast which revealed confluent bibasilar patchy airspace of PACs with more consolidative on the left than the right. Thought this may likely represent aspiration or pneumonia. Over some these focal areas of consolidation have a masslike appearance raising the suspicion for neoplasm. There was also seen a subacute posterior right rib fracture. PALLIATIVE CARE NOTE Reason for consult- goals of care Decision maker- son Osvaldo Medrano [phone]- son- local DPOA. [facility] 89 yo with hx of dementia, ASCAD s/p stents with hospitalization in Feb or Mar at [facility] for UTI. Recent treatment with levaquin and tamiflu for pneumonia and flu at facility. He is a resident of [facility] under the care of Dr. De La Fuente. Hx obtained from chart notes and his son by phone. Admitted here apparently due to c/o CP with note of ARF although most recent OP labs not available. His son states he was just told his father aspirates liquids but was not told he had difficulty swallowing. He also states he is unaware of masses in his lungs and states there was no mention from [facility]. Hospital Course 89 year old gentleman with history of dementia, coronary artery disease, and recent treatment for pneumonia who presents from [facility] with a 15 minute episode of chest pain. He was admitted for refractory pneumonia and acute kidney injury. pt had long complicated hospital course with sepsis secondary to E. faecalis group D bacteremia, possible HCAP with zosyn, finished 10days, source was thought to be sacral ulcer. also had LUIS A, prerenal vs ATN in the setting of sepsis, improved with supportive tx. Later the course, severe malnutrition was an issue, GI was consulted for possible PEG(which family agrees to after discussion with palliative care), pt underwent trial of caloric count with Megace, responded well, tolerated diet with improved appetite. PEG was not necessary per nutrition recommendation, Since pt is [facility]iary [facility], discharged back to SNF. most updated CODE STATUS " Osvaldo- son states that they discussed this and goal is to have aggressive tx until end of life. In this discussion he was not opposed to all treatments including feeding tube" 1. Bacteremia, E. faecalis group D, present on admission. Active. -Blood culture grew E. faecalis resistant to gentamicin but susceptible to penicillin G in 2/3 bottles -most likely source is suspected to be the decubitus ulcer rather than enterococcal endocarditis -appreciate ID consult. will f/u w/ recs -c/w IV Zosyn for now, with a report total of 10-14 days therapy as per ID rec, started on 08/27/16either extended hospital stay, SNF or PICC placement. Will continue to consider disposition options based on pt condition/improvement. Dalbavancin may represent alterative approach should retaining IV access be impractical given pt's tendency to remove them. Will consider prior to DC., 2. Sepsis, acute. Present on admission. clinically resolved - Pt presents with WBC 16.5, tachycardia 113. Blood cultures shows Enterococci faecalis. source likely underlying bacteremia noted above - Source of bacteremia needs to be further investigated. Lactic acid 1.7. Serial procalcitonin 0.47 and 0.39. - Medically stable this morning. Nontoxic in appearance. 3. Sacral pressure ulcer, chronic, present on admission. Active -Wound care consulted and following. Their time and recommendations are appreciated. -appreciate surgery consult as well. will f/u w/ recs, though give patient overall condition he appears a poor candidate for surgical intervention at this time. 4. Severely malnourished/cachexia - This is directly related to patient's dementia and poor oral intake. - Staff have been making attempts to assist patient in feedings which may improve caloric intake some, prior team consulted GI for possible PEG. -started Chris, caloric count. -will contact Son Osvaldo to confirm PEG placement tomorrow. -likely needs cardiac preop eval requested by GI 5. Pneumonia, acute, present on admission - Seemed to be a failure of oral levofloxacin so he was placed on IV piperacillin/tazobactam for possible healthcare associated pneumonia. Discontinued Levaquin as he failed this medication. Also discontinued Vancomycin in light of his LUIS A. Strep pneumo and viral PCR negative. Possible aspiration pneumonia given patient's dementia. - MRSA screen negative 6. Acute renal failure, present on admission. Improving. - Cr was elevated at 4.25 on admission, improved to 1.36 today. Given his dementia, this may be secondary to lack of access to free water - Continue gentle IV fluid hydration and recheck labs tomorrow - Avoid nephrotoxins. Vancomycin discontinued 08/28/16 7. Agitation, acute. - Patient became agitated, hallucinated and swinging at staff. Started Seroquel while in PCU - Haldol discontinued - Seroquel 25 mg at bedtime and Seroquel 12.5 mg in the morning 8. Acute hypokalemia - replete and f/u, down returning today opted for IV repletion this morning with 30 mEq potassium. 9. Dementia - Palliative care consulted and following. Their time and recommendations are appreciated. - Patient requires a sitter for safety as he is a fall risk. 10. Chest pain, acute, present on admission. Improved. - Serial troponin trending and continues to be elevated and CK-MB also elevated. Likely secondary to myocardial ischemia due to sepsis above. - Given patient's history of coronary artery disease and that he continues to be asymptomatic, we will medically treat. - - Continue aspirin 81 mg daily, metoprolol 12.5 mg twice per day, and atorvastatin 40 mg daily - Hold metoprolol if patient is HR <60 bpm - Echo unremarkable Disposition:Full code with all medical interventions desired, pt is [facility] at [facility], likely d/c in 2-3more days if pt require PEG. Exam Vital Signs (Last) Date Time Temp Pulse Resp B/P Pulse Ox O2 Delivery O2 Flow Rate FiO2 09/06/16 08:00 Supplement Oxygen 09/06/16 05:07 36.4 66 18 132/74 99 Exam Cachectic elderly male, AAOx1 no JVD, MMM, no LAD RRR, nl s1, s2 no mrg CTAB, no w,c S,ND,NT,normoactive BS+ warm, no edema, pulses 2/2 Test 08/26/16 15:42 08/26/16 17:54 08/28/16 04:00 08/28/16 15:05 Hold Purple Top Tube Received (Received) Hold Blue Top Tube Received (Received) Hold Red Top Tube Received (Received) Hold Parnell Top Tube Received (Received) Urine Color Yellow (YELLOW) Urine Appearance Clear (CLEAR,HAZY) Urine pH 5.0 (5.0-8.0) Urine Specific [place] 1.025 (1.003-1.035) Urine Protein Negativemg/dL (NEG,TRACE) Urine Glucose (UA) Negativemg/dL (NEGATIVE) Urine Ketones Negativemg/dL (NEGATIVE) Urine Occult Blood Trace (NEGATIVE) Urine Nitrite Negative (NEGATIVE) Urine Bilirubin Negative (NEGATIVE) Urine Urobilinogen Normalmg/dL (NORMAL) Urine Leukocyte Esterase Moderate (NEGATIVE) Urine RBC 0-2/hpf (0-2) Urine WBC 6-10/hpf (0-5) Urine Epithelial Cells Few/hpf (NONE-MOD) Urine Crystals None seen (NONE SEEN) Urine Bacteria Few/hpf (NONE-FEW) Urine Hyaline Casts None/lpf (NONE) Urine Granular Casts None seen (NONE SEEN) Urine Waxy Casts None seen (NONE SEEN) Urine Red Blood Cell Casts None seen (NONE SEEN) Urine White Blood Cell Casts None seen (NONE SEEN) Urine Mucus Present (None Seen) Urine Trichomonas None seen (NONE SEEN) Urine Yeast None (NONE SEEN) Urinalysis Comment None Urine Culture Reflexed Indicated Urine Legionella pneumophilia Ag Negative (Negative) Random Vancomycin Level 14.4ug/mL Rx Total Creatine Kinase 129U/L (21-232) Creatine Kinase MB 9.4ng/mL (0.0-10.4) Creatine Kinase MB % 7.3% (0.0-5.0) Test 08/28/16 17:24 08/29/16 02:55 08/30/16 05:44 08/31/16 06:45 Activated Partial Thromboplast Time 36.2sec (22.8-33.0) Cryptococcus Antigen Negative (Negative) Lactic Acid Level 0.8mmol/L (0.4-2.0) Procalcitonin 0.13ng/mL (0.00-0.08) Troponin T 0.072ug/L (0.0-0.011) Test 09/06/16 05:05 White Blood Count 7.5th/mm3 (3.8-10.1) Red Blood Count 3.04mil/mm3 (4.40-5.80) Hemoglobin 8.5g/dL (13.8-17.2) Hematocrit 25.5% (41.0-50.0) Mean Corpuscular Volume 83.9fL (81-100) Mean Corpuscular Hemoglobin 28.0pg (27.0-35.0) Mean Corpuscular Hemoglobin Concent 33.3% (32.0-37.0) Red Cell Distribution Width 15.9% (12.3-15.4) Platelet Count 194bil/L (150-400) Neutrophils (%) (Auto) 73.4% (40-74) Lymphocytes (%) (Auto) 14.0% (14-46) Monocytes (%) (Auto) 8.9% (4-12) Eosinophils (%) (Auto) 2.9% (0-5) Basophils (%) (Auto) 0.3% (0-3) Sodium Level 142mEq/L (134-144) Potassium Level 3.7mEq/L (3.5-5.2) Chloride Level 112mEq/L (97-108) Carbon Dioxide Level 17mmol/L (18-29) Blood Urea Nitrogen 11mg/dL (8-27) Creatinine 1.05mg/dL (0.76-1.27) Estimat Glomerular Filtration Rate 71mL/min (>59) Glucose Level 107mg/dL (60-99) Calcium Level 7.1mg/dL (8.5-10.1) Phosphorus Level 1.8mg/dL (2.5-4.9) Magnesium Level 2.1mg/dL (1.6-2.6) Total Bilirubin 0.3mg/dL (0.0-1.2) Aspartate Amino Transf (AST/SGOT) 20U/L (0-50) Alanine Aminotransferase (ALT/SGPT) 10U/L (0-44) Alkaline Phosphatase 72U/L (25-160) Total Protein 4.5g/dL (6.4-8.4) Albumin 2.1g/dL (3.4-5.0) Discharge Medications Discharge Medications Aspirin (Aspir 81) 81 Mg Tablet.dr 81 MG PO DAILY (Reported) Atorvastatin Calcium (Atorvastatin Calcium) 20 Mg Tablet 40 MG PO HS Prescribed by: MARVIN MCBRIDE MD Bisacodyl (Correctol) 5 Mg Tablet 5 MG PO DAILY (Reported) Cholecalciferol (Vitamin D3) (Vitamin D) 1,000 Unit Tablet 1,000 UNIT PO DAILY Prescribed by: MARVIN MCBRIDE MD Megestrol Acetate (Megestrol Acetate) 400 Mg/10 Ml Oral.susp 400 MG PO BID Prescribed by: MARVIN MCBRIDE MD Metoprolol Tartrate (Metoprolol Tartrate) 25 Mg Tablet 12.5 MG PO BID Prescribed by: MARVIN MCBRIDE MD Mirtazapine (Remeron) 15 Mg Tablet 7.5 MG PO HS (Reported) Naph,Mb-Db/K pH,Mbdb (Phos-Nak Packet) 1 Each Powd.pack 1 EA PO PCHS Prescribed by: MARVIN MCBRIDE MD Quetiapine Fumarate (Quetiapine Fumarate) 25 Mg Tablet 25 MG PO HS Prescribed by: MARVIN MCBRIDE MD Quetiapine Fumarate (Quetiapine Fumarate) 25 Mg Tablet 12.5 MG PO MORNING Prescribed by: MARVIN MCBRIDE MD Miscellaneous Medications Hydrocodone/Acetaminophen (Lorcet 5-325 mg Tablet) 1 Each Tablet 1 EACH PO ( Reported) Additional med instructions Please continue Megace for appetite booster Please note that aspirin, stain, BB started for medical management of possible ACS. Although rat exterminator benefit is unclear, consider to stop if patient cannot tolerate well. Please continue vitD, phosphate supplement Please try Seroquel for agitation/delirium which has worked well during hospitalization. Followup Plan Disposition: SNF Follow-up plan Please follow up with the doctor in [facility]. Discharge Diet: Other (please see additional nutritional instruction) Discharge Activity: No restrictions Patient Instructions You were hospitalized with complicated infection, deconditioning, poor oral intake. Instruction for SNF. Please note that pt remained in Full code after multiple discussion with family by palliative care service, all of the measures including PEG was discussed( family is willing to) Pt underwent trial of caloric count with Megace, which successfully increased his appetite, tolerated diet. Please follow details of nutrition recommendation as below. Pt finished course of antibiotics with zosyn for sepsis, remained stable upon discharge. NUTRITION FOLLOW-UP Assess: 89 YO male admitted w/ pneumonia and acute renal failure. Per notes, acute renal failure is improving. Pt has Stage IV sacral pressure ulcer that was present prior to admission. Per notes, pt is unable to answer questions d/ t dementia. Per notes, pt's son is interested in a PEG tube, but pt is unable to make his own needs known. GI consulted. Discussed the option of PEG tube w / GI, and decided to collect a 3 day calorie count to assess nutritional intake before determining a recommendation. Per notes, pt has history of removing IV. concerned about potential of pt pulling out PEG and inflicting self-harm. Pt was started on Megace, and Ensure added BID. Calorie count started 09/04. Calorie count for Day 2 not complete d/t limited reporting. Increased PO intake this morning. Visited w/ pt who stated he was hungry and enjoying the food. Pt ate 100% of breakfast meal and supplements. 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 LABS: Reviewed. Cl 112, CO2 17, Gluc 107, Ca 7.1, Phos 1.8, Alb 2.1 MEDICATIONS: Reviewed. Vit D3, Seroquel, Remeron, Lopressor, Megace. DIET: Pureed w/ NTL, alternating Magic cups, gelatein, protein powder all trays. PO Refused-100%. CALORIE COUNT - DAY 1: Breakfast: 5 kcal, no protein Lunch: Meal ticket not provided - 50% total PO recorded. Total kcal and protein intake unknown. Dinner: 285 kcal, 21g protein Total (breakfast, dinner): 290 kcal, 21g protein meeting 13% of calorie needs and 20% of protein needs. CALORIE COUNT DAY 2: Breakfast: 140 kcal, 4 g protein Lunch: 285 kcal, 21g protein Dinner: Meal ticket not provided - No PO recorded. Total kcal and protein intake unknown. CALORIE COUNT DAY 3: Breakfast: 1115 kcal, 66g protein GI symptoms/stool: BM x 2 (09/04) SKIN: Sacral ulcer, stage IV. ANTHROPOMETRICS: Current Wt: 64.9 kg Admit wt: 61.1 kg BMI: 20.0 kg/m2 IBW: 75.3 kg ESTIMATED NEEDS: Wound (Stg IV pressure injury) Calories: 1186-1503 kcal/day (35-40 kcal/kg BW) Protein: 100-130 g/day (1.5-2.0 g/kg BW) Fluid: 1469-2584 ml (approximately 1 ml/kcal/day) NUTRITION DIAGNOSIS: 1) Chew/swallow difficulties related to dementia and missing teeth as evidenced by altered texture diet per ST recommendation - PERSISTS. 2) Inadequate oral intake related to acute illness and dementia as evidenced by PO intake of bites-100% x 11 days - SIGNIFICANTLY IMPROVED W/ 100% OF BREAKFAST CONSUMED. 3) Increased nutrient needs related to increased demand for nutrients for healing as evidenced by Stage IV pressure ulcer - PERSISTS. INTERVENTION: 1) Continue to alternate sending Magic Cups, Gelatein and protein powder on all trays. 2) Continue to advance diet as able per ST recommendations. 3) Continue NT Ensure BID at 10am and 2pm snacks. 4) Continue calorie count for one more day. 5) PEG tube may be contraindicated in pt d/t increasing PO intake, advanced age and dementia. MONITOR/EVALUATE: Calorie intake, PO intake, labs, GI, wound, wt, POC. Will continue to monitor per high nutrition risk guidelines. Follow-up Provider: Shayne Duff MD Follow-up with PCP in: 2 weeks Time spent 65min Marvin Mcbride MD Sep 06, 2016 17:01
== END 2016-09-06 14:09 | DRG 871 ==
LOC: EDBD 15:38 → SED 15:38 → EDUNIT# 15:38 → PCC 17:13 → MPC 08-29 20:23
PROVIDERS: ADMIT Specialist; ATTEND Specialist
DX: A41.81 Sepsis due to Enterococcus (principal); J69.0 Pneumonitis due to inhalation of food and vomit; E43 Unspecified severe protein-calorie malnutrition; L89.154 Pressure ulcer of sacral region, stage 4; N17.9 Acute kidney failure, unspecified; F02.81 Dementia in other diseases classified elsewhere, unspecified severity, with behavioral disturbance; R64 Cachexia; Z68.1 Body mass index [BMI] 19.9 or less, adult; R07.9 Chest pain, unspecified; G30.1 Alzheimer's disease with late onset; I25.2 Old myocardial infarction; E87.6 Hypokalemia; Z87.891 Personal history of nicotine dependence

== ENCOUNTER 2016-09-21 11:45 | Inpatient (IN) | payer MEDICARE, OTHER ==
[2016-09-21] VITALS (10 sets, daily range): BP systolic 86–110; BP diastolic 32–66; PULSE 60–91; RESP 13–20; O2SAT 97–100
[~2016-09-21] VITALS: Ht 180.3 cm; Wt 70.3 kg
[~2016-09-21 11:45] MED LIST changes: +ATOR20TA65 PO; +CHOL100043 PO; +MEGE400O4 PO; +METO25TA6 PO; +MIRT15TA PO; +NAPH1POW2 PO; +QUET25TA73 PO; +[UNRECOGNIZED DRUG - CODE] PO
--- NOTE | 2016-09-21 11:59 | ED.REPORT ---
HPI-General Illness Date of Service Sep 21, 2016 ED Provider: Kendra Grimm MD The patient is an 89 year old male with history of dementia, asthma, and coronary artery disease, who was brought to the emergency department by EMS from [facility] for dark tarry stools that were noticed this morning. The staff is concerned he may be dehydrated or have sepsis. They also mention a decubitus ulcer that is getting larger. The patient is able to answer some questions but is not a reliable historian due to his mental status. Nursing Notes Stated Complaint: TARRY DARK STOOL Nursing Notes Reviewed: Yes Allergies: Coded Allergies: No Known Allergies (Verified Allergy, Unknown, 09/21/16) Scheduled Aspirin Chew (Aspirin Chew) 81 Mg Chew 81 MG PO DAILY Atorvastatin Calcium (Atorvastatin Calcium) 20 Mg Tablet 40 MG PO HS Cholecalciferol (Vitamin D3) (Vitamin D) 1,000 Unit Tablet 1,000 UNIT PO DAILY Megestrol Acetate (Megace) 400 Mg/10 Ml Oral.susp 400 MG PO BIDWM Metoprolol Tartrate (Metoprolol Tartrate) 25 Mg Tablet 12.5 MG PO BID Mirtazapine (Remeron) 15 Mg Tablet 7.5 MG PO HS Naph,Mb-Db/K pH,Mbdb (Phos-Nak Packet) 1 Each Powd.pack 1 EACH PO HS Quetiapine Fumarate (Quetiapine Fumarate) 25 Mg Tablet 25 MG PO HS Quetiapine Fumarate (Quetiapine Fumarate) 25 Mg Tablet 12.5 MG PO MORNING Scheduled PRN Hydrocodone/Acetaminophen (Lorcet 5-325 mg Tablet) 1 Each Tablet 1 EACH PO Q4H PRN PRN For Pain General Time Seen by MD: 11:57 Chief Complaint Other (dark tarry stools) Hx Obtained From: Patient (limited due to dementia), [employer]er, EMS Arrived By: Ambulance Sudden in Onset?: Yes Onset Occurred: 1 - 4 hours ago Symptom Duration: Intermittent Recent Healthcare: No recent hospitalization Similar Sx Previous: Yes Past Medical History Past Medical History Dementia Asthma CAD Arthritis Diverticulosis Hypokalemia 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 [place], he has a POLST form indicating FULL CODE Other Social History: Local resident Review of Systems +dark tarry stools, decubitus ulcer Unable to Obtain ROS Patient condition, Mental status Physical Exam Vital Signs Vital Signs Date Time Temp Pulse Resp B/P Pulse Ox O2 Delivery O2 Flow Rate FiO2 09/21/16 17:05 82 15 90/32 97 Room Air 09/21/16 16:10 82 16 86/33 97 Room Air 09/21/16 12:33 36.5 90 16 94/40 100 Room Air Initial VS: Reviewed Head / Eyes: Atraumatic, Normocephalic, PERRL Neck: Supple, Non-tender, Full range of motion Extremities: No swelling General/Constitutional: Awake, No acute distress Alertness: Positive: Confused, Disoriented Distress / Hydration: Positive: Dehydration moderate Elderly, weak, deconditioned and does not look well. Diffuse muscle wasting and skin atrophy. ENT: Airway patent Mouth: Positive: Mucous membranes dry Respiratory / Chest: Atraumatic, Breath sounds NL, Breath sounds = bilat, No respiratory distress, No rales, No rhonchi, No wheezing Cardiovascular: Heart rate NL, Regular rhythm, Heart sounds NL, No gallop, No murmurs, No rubs, Cap refill not delayed, Peripheral circulation NL Abdomen: Atraumatic, Soft, Non-tender, No guarding, No rebound, BS normoactive , No distention Skin: Color NL, Warm, Dry Rash / Lesion Notes: There is a 4x4 decubitus ulcer to the sacrum with surrounding necrosis and erythema. The wound have a very foul odor. : Diego catheter in place, with fecal matter around the tubing. Neurologic: Speech NL, No motor deficits, No sensory deficits Mental Status: Positive: Confused, Disoriented to place, Disoriented to time Interpretation & Diagnostics Lab Results Interpretation Result Diagram: 09/21/16 1252 09/21/16 1252 Test 09/21/16 12:52 09/21/16 15:52 09/21/16 16:58 White Blood Count 8.6th/mm3 (3.8-10.1) Red Blood Count 2.28mil/mm3 (4.40-5.80) Hemoglobin 6.2g/dL (13.8-17.2) Hematocrit 19.9% (41.0-50.0) Mean Corpuscular Volume 87.3fL (81-100) Mean Corpuscular Hemoglobin 27.2pg (27.0-35.0) Mean Corpuscular Hemoglobin Concent 31.2% (32.0-37.0) Red Cell Distribution Width 16.5% (12.3-15.4) Platelet Count 207bil/L (150-400) Neutrophils (%) (Auto) 95.5% (40-74) Lymphocytes (%) (Auto) 2.5% (14-46) Monocytes (%) (Auto) 1.6% (4-12) Eosinophils (%) (Auto) 0.1% (0-5) Basophils (%) (Auto) 0% (0-3) Prothrombin Time 11.5sec (8.1-12.5) Prothromb Time International Ratio 1.07ratio Sodium Level 137mEq/L (134-144) Potassium Level 3.1mEq/L (3.5-5.2) Chloride Level 105mEq/L (97-108) Carbon Dioxide Level 17mmol/L (18-29) Blood Urea Nitrogen 28mg/dL (8-27) Creatinine 1.09mg/dL (0.76-1.27) Estimat Glomerular Filtration Rate 68mL/min (>59) Glucose Level 139mg/dL (60-99) Calcium Level 7.8mg/dL (8.5-10.1) Total Bilirubin 0.3mg/dL (0.0-1.2) Aspartate Amino Transf (AST/SGOT) 17U/L (0-50) Alanine Aminotransferase (ALT/SGPT) 11U/L (0-44) Alkaline Phosphatase 57U/L (25-160) Troponin T 0.103ug/L (0.0-0.011) C-Reactive Protein 18.0mg/dL (0.0-0.5) Pro-B-Type Natriuretic Peptide 46501bq/mL (0-486) Total Protein 5.0g/dL (6.4-8.4) Albumin 2.0g/dL (3.4-5.0) Procalcitonin 2.71ng/mL (0.00-0.08) Phosphorus Level 3.1mg/dL (2.5-4.9) Lactic Acid Level 1.6mmol/L (0.4-2.0) ECG Interpretation ECG Interpretation: Sinus rhythm with a 79 PACs Time: 12:38 Interpreted by: ED physician X-Ray Chest Interpretation Chest Xray Interpretation: IMPRESSION: No acute cardiopulmonary disease. Dictated by: Bhargav MORSE Interpreted: Marga Hirsch MD on 09/21/2016 at 14:24 Interpretation / Wet Read by: Interpret - Radiologist Re-Eval/Medical Decision Med Decision/Clinical Course 89[facility]year-old [facility] staff has been concerned with altered mental status today. On evaluation does meet sepsis criteria with a large sacral decubitus stage IV fluids and antibiotics are started. He did have palliative care consult with most recent hospital stay. Remains full code at this point. Additional findings on anemia and elevated troponin. At this point I suspect the sacral decubitus is causing the underlying sepsis. Likely has bone marrow response due to his poor nutritional status and recurrent infections and that is contributing to his anemia. There is no evidence of acute blood loss the infection and anemia are causing the elevated troponin without any evidence of ischemic change chest pain or shortness of breath at this point Pressure care bed has been arranged, will clearly need wound care, will likely need general surgery consultation to talk about debridement. Not sure if he is physically strong enough to handle surgical intervention that may be required for the debridement. Remains quite confused. palliative care discussions including CODE STATUS need to be continued. Source of Hx: Old records, EMS, [employer] Time of Eval: 13:52 Re-Evaluation/Progress Note: Once the decubitus ulcer was further evaluated, antibiotics will be started, the wound will be well cleaned, will have a wound care consult, and will get a pressure bed while waiting for admission. Consultation #1: Referral / Consult Name: Mathew Marr MD Consulted With: Hospitalist Call Returned at: 15:55 Warehouse Pricing And Inventory Clerk: Will see patient, Agrees with eval, Agrees with plan, Accepts admit Consultation #2: Referral / Consult Name: Christian Lopez DO Consulted With: Hospitalist Call Returned at: 16:20 Warehouse Pricing And Inventory Clerk: Will see patient, Agrees with eval, Agrees with plan, Accepts admit Note: Dr. Lopez will now be admitting the patient. Counseled Regarding: Diagnosis, Lab results, Need for admission Discharge & Departure Primary Impression: Altered mental status Altered mental status type: unspecified Qualified Code: R41.82 - Altered mental status, unspecified Additional Impressions: Decubitus ulcer Pressure ulcer stage: stage IV Qualified Code: L89.94 - Pressure ulcer of unspecified site, stage 4 Dementia Dementia type: unspecified type Dementia behavioral disturbance: without behavioral disturbance Qualified Code: F03.90 - Unspecified dementia without behavioral disturbance Sepsis Anemia Elevated troponin Disposition: ADMITTED TO HOSPITAL Discharge Condition All VS Reviewed: Yes Condition: Stable Referrals: Yaneli Hughes MD (PCP) Scribe Attestation Portions of this note were transcribed by Cherie Mendez. I, Dr. Grimm personally performed the history, physical exam and medical decision-making; I reviewed and confirmed the accuracy of the information in the transcribed note. Signed by: Frankie Vergara, 09/21/2016 at 1645. copies to: Yaneli Hughes MD, Shawna L MD Sep 21, 2016 11:59 Cherie Mendez Sep 21, 2016 12:03
[2016-09-21] MEDS ORDERED: 0.9% Sodium Chloride 1,000 ML IV ONE ×2 (12:21→16:55)
[2016-09-21 13:08] LABS: BASOPHILS % (AUTO) 0 % (0-3); EOSINOPHILS % (AUTO) 0.1 % (0-5); MONOCYTES % (AUTO) 1.6 % (4-12); Mean Corpuscular Hemoglobin 27.2 pg (27.0-35.0); Mean Corpuscular Volume 87.3 fL (81-100); NEUTROPHILS % (AUTO) 95.5 % (40-74); Platelet Count 207 bil/L (150-400)
[2016-09-21 13:55] LABS: TROPONIN T 0.103 ug/L (0.0-0.011)
[2016-09-21] MEDS ORDERED: Clindamycin Inj 900 MG in IV Premix 1 EACH IV ONE (13:55)
[2016-09-21] MEDS ORDERED: Vancomycin Dose per Pharmacist XX ONE (13:55)
[2016-09-21] MEDS ORDERED: Meropenem Inj 2,000 MG in 0.9% Sodium Chloride 100 ML IV ONE (13:55)
[2016-09-21] MEDS ORDERED: Vancomycin Inj 1,250 MG in 0.9% Sodium Chloride 250 ML IV ONE (14:15)
--- NOTE | 2016-09-21 14:25 | DRSVH ---
PROCEDURE: X-RAY CHEST ONE VIEW, PORTABLE ([id number]) INDICATIONS: altered mental status TECHNIQUE: One view of the chest was acquired. COMPARISON: [facility], CR, XR CHEST 1VW (PORTABLE), 08/27/2016, 3:27. FINDINGS: Surgical changes and devices: None. Lungs and pleura: No pleural effusions or pneumothorax. Lungs are clear. Mediastinum: Mediastinal contours appear normal. Heart size is normal. Bones and chest wall: No suspicious bony lesions. Overlying soft tissues appear unremarkable. IMPRESSION: No acute cardiopulmonary disease. Dictated by: Bhargav Rendon [facility] Interpreted: Marga Hirsch MD on 09/21/2016 at 14:24 Transcribed by: GREG on 09/21/2016 at 14:24 Approved by: Marga Hirsch MD, PhD on 09/21/2016 at 17:02
[2016-09-21] MEDS ORDERED: Polyethylene Glycol (PEG) 17 Gm Powder PO PRN (16:20)
[2016-09-21] MEDS ORDERED: Alum-Mag Hydrox-Simeth 30 mL Suspension PO PRN (16:20)
[2016-09-21] MEDS ORDERED: Ondansetron 2 mg/mL 2 mL Inj IVPUSH PRN (16:20)
[2016-09-21] MEDS ORDERED: ASPI81TA3 PO (16:30)
[2016-09-21] MEDS ORDERED: BISA-67 PO (16:31)
[2016-09-21] MEDS ORDERED: MEGE400O PO (16:32)
[2016-09-21] MEDS ORDERED: NAPH1POW2 PO (16:35)
[2016-09-21] MEDS: 0.9% Sodium Chloride 1,000 ML IV SCH ×3 (16:46→20:01)
[2016-09-21] MEDS ORDERED: 0.9% Sodium Chloride 1,000 ML IV SCH (16:50)
[2016-09-21 17:06] LABS: INR 1.07 ratio
--- NOTE | 2016-09-21 17:12 | PCM.HPMED ---
Subjective Date of Service Sep 21, 2016 Primary Provider: Admitting Physician: Primary Care Physician: Yaneli Hughes MD Attending Physician: Chief Complaint: Altered Mental Status History of Present Illness: Dioni Leong is an 89 year old man with past medical history significant for severe dementia, coronary artery disease, cachexia, chronic non-healing sacral pressure ulcer, and E. fecalis bacteremia who presented this morning to [facility] ED via EMS from [facility] due to dark tarry stools. Patient is unable to give any history and while verbal is completely unaware of the situation surrounding him. All history is obtained from chart review and current ED records. Per report the [facility] staff was concerned that the patient may be dehydrated or have sepsis. The patient was previous hospitalized at [facility] from 06/01 to 09/06/16 due to bacteremia and sepsis secondary to chronic sacral ulcer. During that stay the wound was evaluated by Dr. Adame, general surgery , plastic surgery and wound care and it was determined that the patient is not a candidate for a flap. However Dr. Adame at the time also noted that the wound was unlikely to heal without surgical intervention. At the time he was treated with Zosyn with Dalbavancin on discharge. The patient could not be started on Zosyn due to medication interaction. At the time the patient was also considered for a PEG tube but was not determined to be a candidate. The patient's son is his DPOA and would like to proceed with full treatment and full code based on past documentation. In the ED the patients vital were T 36.5 HR 90 BP 94/40 RR 16. He was given single doses of Vancomycin, Meropenem and Clindamycin. He was also given one liter of fluid. Review of Systems: A comprehensive review of systems could not be conducted with the patient due to severe dementia. Allergies Coded Allergies: No Known Allergies (Verified Allergy, Unknown, 09/21/16) Home Medications Discharge Medications Aspirin (Aspir 81) 81 Mg Tablet. 81 MG PO DAILY (Reported) Atorvastatin Calcium (Atorvastatin Calcium) 20 Mg Tablet 40 MG PO HS Prescribed by: GABY MCBRIDE MD Bisacodyl (Correctol) 5 Mg Tablet 5 MG PO DAILY (Reported) Cholecalciferol (Vitamin D3) (Vitamin D) 1,000 Unit Tablet 1,000 UNIT PO DAILY Prescribed by: GABY MCBRIDE MD Megestrol Acetate (Megestrol Acetate) 400 Mg/10 Ml Oral.susp 400 MG PO BID Prescribed by: GABY MCBRIDE MD Metoprolol Tartrate (Metoprolol Tartrate) 25 Mg Tablet 12.5 MG PO BID Prescribed by: GABY MCBRIDE MD Mirtazapine (Remeron) 15 Mg Tablet 7.5 MG PO HS (Reported) Naph,Mb-Db/K pH,Mbdb (Phos-Nak Packet) 1 Each Powd.pack 1 EA PO PCHS Prescribed by: GABY MCBRIDE MD Quetiapine Fumarate (Quetiapine Fumarate) 25 Mg Tablet 25 MG PO HS Prescribed by: GABY MCBRIDE MD Quetiapine Fumarate (Quetiapine Fumarate) 25 Mg Tablet 12.5 MG PO MORNING Prescribed by: GABY MCBRIDE MD [facility] From prior chart records, unable to obtain from patient as he is altered: Dementia Asthma CAD Arthritis Diverticulosis Hypokalemia 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 HEENT: Normocephalic, atraumatic. External ears without defect. Pupils equal, round, and reactive to light and accommodation. Anicteric sclerae, pale conjunctivae, and no lid lag. Oropharynx free of erythema and cobble stoning with moist mucosa. Neck: Supple with full range of motion. No jugular venous distension. No bruits. No lymphadenopathy or thyromegaly. Cardiovascular: Regular rate and rhythm with no rubs, or gallops appreciated. A 2/6 systolic ejection murmur appreciated. Pulmonary: Clear to auscultation bilaterally with no crackles, wheezes, or rhonchi. Normal respiratory effort with no use of accessory muscles. Abdomen: Bowel tones present. Soft, nontender, nondistended. No hepatosplenomegaly or masses appreciated. Extremities: No clubbing, cyanosis, edema, or lymphadenopathy appreciated. : Diego in place. Skin: Pale. Patient refused sacral exam however documentation from the ED states " There is a 4x4 decubitus ulcer to the sacrum with surrounding necrosis and erythema. The wound have a very foul odor." Neurological: Cranial nerves grossly intact. Normal muscle strength.Overall muscular wasting noted. Reflexes, coordination, and sensory function within normal limits. No known gait impairment. Psychiatric: Pleasant however confused. Speaking in full sentences but content is nonsensical. Not answering any questions directly. Upon meeting the resident replied that he "will have a nice stay and I love you." Lab and Diagnostics Result Diagram: 09/21/16 1252 09/21/16 1252 X-Rays, CTs and MRIs X-RAY CHEST ONE VIEW, PORTABLE IMPRESSION: No acute cardiopulmonary disease. Dictated by: Bhargav MORSE Interpreted: Marga Hirsch MD on 09/21/2016 at 14:24 Cardiac Echo Impressions Interpretation Summary The left ventricle is normal in size. The left ventricular ejection fraction is grossly normal. Regional wall motion abnormalities cannot be excluded due to limited visualization. Assessment of diastolic parameters indicates a relaxation abnormality of the left ventricle, consistent with normal filling pressures. The right ventricle is grossly normal size. Right ventricular function cannot be assessed due to poor image quality. Image quality is very poor which makes it very difficult to see any obvious vegetative masses. Consider MARISOL if clinically suspicious for endocarditis. Assessment & Plan Dioni Leong is an 89 year old man with past medical history significant for severe dementia, coronary artery disease, cachexia, chronic non-healing sacral pressure ulcer, and E. fecalis bacteremia who presented this morning to [facility] ED via EMS from [facility] due to dark tarry stools. 1. Sacral pressure ulcer, chronic, present on admission. Active -Noted on prior admission and determined to be a surgical candidate -Wound care consulted. -In the ED patient received antibiotics for necrotizing fasciitis although his LRINEC score is only 2 -His wound previously grew E fecalis and was treated with Zosyn -Will consult infectious disease for antibiotic guidance but will continue with Zosyn for now 2. Probable sepsis, acute, present on admission. Active. - While patient does not meet criteria for SIRS he is hypotensive with a procalcitonin of 2.7, left shift with 95% neutrophils with a large decubitus ulcer known to grown E. fecalis and as described by the ED staff it appears fecal material is leaking around his wound. So it is likely he is again infected. - Patient received 2 L of NS in the ED - Will continue with another 1-2 L of NS and reassess - Trend lactic acid 3. Acute GI bleed, likely upper, present on admission. Active -Patient recently discharged with an Hgb of 8.5 only 2 weeks ago and presents with dark tarry stools by description -Patient typed and crossed for 4 units of blood in the ED. Agree with 1-2 units of PRBC. -Aggressive fluid resuscitation. Of note, in the past H and P the patient was noted to have CHF however on an ECHO done last month the patient was noted to have normal heart function. -Protonix bolus and drip -Trend H and H Q6 -NPO -Will hold off on GI consultation at this time and reassess goals of care with DPOA once he is present 4. Cachexia, chronic, present on admission. Active. - This is directly related to patient's dementia and poor oral intake. - Not a candidate for PEG tube. - NPO while likely UGIB is assessed, Carpenter/Labor consultation thereafter. 5. Acute on chronic normocytic normochromic anemia, present on admission. Active. - Secondary to acute UGIB - Will monitor as above. 6. Elevated troponin of uncertain significance, acute on chronic, present on admission. Active. - Prior values of troponin have been elevated however not this significantly - Possible etiology is due to stress from acute blood loss in the setting of known CAD or sepsis - Uncertain if this is consistent with an RI as patient is not complaining of any symptoms, however it is uncertain if he can. - Will continue to trend and obtain an EKG 7. 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 Active. - IV potassium replacement - likely due to poor oral intake 8. Dementia - Palliative care consulted and following. Their time and recommendations are appreciated. - Patient requires a sitter for safety as he is a fall risk. CODE STATUS: FULL CODE. Per notes from prior admission the patient's son, his DPOA, would like to continue with all invasive treatment. Would be prudent to perhaps broach the topic of palliative care and hospice due to mental status, cachexia and non-healing sacral ulcer. Patient is admitted under inpatient status with expected length of stay greater than 2 midnights due to severity of presenting symptoms, risk of adverse event, and complexity of treatment plan. Time spent 55 minutes Attending Statement I have seen and evaluated patient at bedside in addition to directly supervising care provided by resident physician. I agree with above documentation provided by Dr Garcia. Pt is well known to me, having participated in care on previous admission. Though medically unstable, i suspect underlying malnurtionment secondary to poor oral intake has a major factor both in failure of decubitus to heal and developement of anemia. Further, wound has been evaluated by surgery in the past , who deem patient a poor candidate due to his malnourished state, so intervention beyond further antibiotic therapy will likely again not be considered as nutritional status has only declined since previous admission. Extensive conversation with son confirms, pt will remain full code in accordance with wishes expressed prior to onset of late stage dementia. Palliative care as well has discuss this with son extensively, his opinion has been unwavering. Belinda Garcia DO Sep 21, 2016 17:12 Christian Lopez DO Sep 22, 2016 08:16
[2016-09-21] MEDS ORDERED: Pantoprazole 4 mg/mL 10 mL Inj IVPUSH ONE (17:30)
[2016-09-21 18:41] LABS: APPEARANCE,URINE SLIGHTLY CLOUDY (CLEAR,HAZY); COLOR,URINE YELLOW (YELLOW); OCCULT BLOOD,URINE MODERATE (NEGATIVE); PH,URINE 5.5 (5.0-8.0); UROBILINOGEN,URINE NORMAL (NORMAL)
[2016-09-21 18:43] LABS: YEAST,URINE MODERATE (NONE SEEN)
--- NOTE | 2016-09-21 19:01 | NUR ---
Admit from ED Pt alert only to self. Confusion noted with intermittent non-relevant speech. Agitation and yelling at times. Full skin check completed with the following observations: sacrum: deep open wound. R knee: scab. Bilateral toes: abrasions. Bilateral heels: redness. R heel: scab. L shoulder: redness. L westfall: scabs. Back: redness. IV line present. Diego catheter. Lesly care completed. Complete admission to be done by oncoming RN.
[2016-09-21] MEDS: Pantoprazole Inj 80 MG in 0.9% Sodium Chloride 80 ML IV SCH ×2 (20:01→21:49)
[2016-09-21] MEDS: Sodium Chloride LOK Flush 10 mL Syringe IVFLUSH SCH ×2 (20:01→23:29)
[2016-09-21] MEDS ORDERED: 0.9% Sodium Chloride 250 ML ONE (21:10)
[2016-09-22] VITALS (14 sets, daily range): BP systolic 109–148; BP diastolic 59–76; PULSE 55–84; RESP 16–22; O2SAT 95–100
[2016-09-22] MEDS ORDERED: 0.9% Sodium Chloride 250 ML ONE (00:54)
--- NOTE | 2016-09-22 05:10 | NUR ---
Blood Administration Pt alert only to self, significantly confused throughout shift but noncombative and semi-cooperative with care. Incoherent speech, unable to identify needs appropriately or respond to questions accurately. 2 units PRBCs administered this shift per MD order. VSS. Tele SR 70s with PACs. Pressure ulcer protocol initiated, pt on specialty MARC bed with Q2H turns/floated heels implemented. Admission documentation and med rec completed per record from [facility]; pt unable to contribute to admission information. Son (DPOA) updated to plan of care via phone call. NPO at present.
[2016-09-22] MEDS: 0.9% Sodium Chloride 1,000 ML IV SCH ×3 (06:21→22:19)
[2016-09-22] MEDS ORDERED: Propofol 10,000 mCg/mL 20 mL Inj ONE (07:46)
[2016-09-22] MEDS: Piperacillin-Tazo 3.375 Gm Inj 3.375 GM in Dextrose 5% Minibag Plus 50 ML IV SCH ×2 (08:09→21:10)
[2016-09-22] MEDS: Sodium Chloride LOK Flush 10 mL Syringe IVFLUSH SCH ×3 (08:10→21:10)
[2016-09-22 08:56] LABS: BASOPHILS % (AUTO) 0.2 % (0-3); EOSINOPHILS % (AUTO) 0.8 % (0-5); MONOCYTES % (AUTO) 7.3 % (4-12); Mean Corpuscular Volume 85.7 fL (81-100); NEUTROPHILS % (AUTO) 85.4 % (40-74); Platelet Count 178 bil/L (150-400)
--- NOTE | 2016-09-22 10:53 | NUR ---
Social Work: Initial Assessment D: Per EMR review, pt is an 89 year old male admitted for altered mental status, stage four decubitus sacral wounds. Pt is Medicare with [employer]; Pt also has [facility] for LTC and no VA Benefits. PCP is Mitzy Hughes MD. NOK and DPOA is Osvaldo Leong, son, . Advanced directives completed, POLST on file. Readmit score is high, 6/8. Pt is a readmit from 09/06/16 and was discharged to [facility]. Pt discussed in rounds. Pt admitted with a worsening sacral wound. Wound Care consult placed. There is question about a possible PEG tube placement for the pt and staff readiness officer states family was discussing possible hospice. Pt is a LTC resident at [facility]. He has dementia at baseline and is primarily w/c bound. Initial Assessment completed with pt's son, Osvaldo. He states pt has been a LTC resident since April 2016. He has never had HH. Son understands that limitations with [facility] placement for LTC and is willing to have the pt return to [facility] when pt is medically stable. At this time, pt's son would like to discuss pt's medical care before making any further decisions about PEG tube versus hospice. He is requesting a phone call from the pt's medical team. MANAGER EN[employer] CONTENT MANAGEMENT notified lead resident and provided contact information for pt's DPOA. Palliative care MANAGER [employer] MANAGEMENT is also aware. MANAGER [employer]ENT MANAGEMENT spoke with [place] at [facility]. They are prepared to accept the pt back once medically stable. She states that they can manage tube feeds for the pt if the family decides to purse this option. A: Pt who is dependent for all care with dementia at baseline. P: Evolving; Anticipate pt to discharge back to [facility] once medically stable. MANAGER [employer] MANAGEMENT to continue with discussions surrounding discharge planning RAFY Amaya Addendum: 09/22/16 at 1108 by ANTONIO BUNN SS Amended: Links added.
--- NOTE | 2016-09-22 13:17 | NUR ---
NUTRITION ASSESSMENT: ASSESS:89 YO male with past medical history significant for severe dementia, coronary artery disease, cachexia, chronic non-healing sacral pressure injury, and E. fecalis bacteremia who presented to the ED via EMS from [facility] due to dark tarry stools. Wound consult initiated for worsening non-healing sacral pressure injury that is likely source of sepsis. GI consult not yet ordered, pending decision related to goals of care. In the past, patient has not been a candidate for nutrition support; however, in the event family continues the patient's full code status, PEG tube placement will be required to be discussed. A review of the patient admission weights indicates that the patient has not lost weight in the past several months; in fact, he has gained nearly a kilogram since his admit in August. He is nearly the same weight as that recorded in 2013. PMHx:CAD, diverticulitis, non-healing sacral pressure injury, bacteremia, asthma. DIET:NPO. There is no swallow evaluation ordered at this time. LABS: K+ 3.1, Chloride 110, CO2 14, Ca 7.1, PAB 6. MEDICATIONS: Reviewed. NUTRITION FOCUSED PHYSICAL ASSESSMENT: GI symptoms / stool: BM x 2 todayBraden: 10. Skin Integrity: Wound consult pending related to chronic non-healing sacral pressure injury. ANTHROPOMETRICS: Current Wt: 65.7 kgBMI: 20.0 kg/m2. IBW: 78.18 kg (84% IBW) ESTIMATED NEEDS (WOUND, UNDERWEIGHT): Calories: 1971 - 2300 kcal (30 - 35 kcal / kg BW) Protein: 99 - 118 g protein (1.5 - 1.8 g / kg BW) Fluid: Approx. 1643 mL (25 mL / kg BW) NUTRITION DIAGNOSIS: 1)Inadequate oral intake related to severe dementia, failure to thrive, as evidenced by 84% IBW. INTERVENTION: 1) Recommend swallow evaluation to determine baseline swallow capability. 2) In the event family determines that patient is to remain full code and request PEG tube placement, enteral feeding recommendation follows. Initiate Jevity 1.5 @ 15 ml/hr x 24 hr to mitigate any refeeding issues. Once tolerance established, recommend advance 5 ml every 4 hr. to goal rate 65 ml/hr. Flush dose 40 ml H2O every 4 hr. Enteral feeding at goal rate will provide 2243 kcal, 95 g protein, sufficient to meet 100% nutrient needs. MONITOR/EVALUATE: Code status, nutrition support, diet advance / tolerance, PO intake, labs, GI/nutrition status. Follow up per high nutrition risk guidelines.
[2016-09-22] MEDS: Pantoprazole Inj 80 MG in 0.9% Sodium Chloride 80 ML IV SCH ×2 (13:30→23:34)
--- NOTE | 2016-09-22 14:27 | PCM.PNMED ---
Subjective Date of Service Sep 22, 2016 Subjective Overnight: Patient received 2 units of PRBCs. Vital signs stable. No acute event. NPO overnight. Today: Patient is only oriented to self. He is significantly demented and is an unreliable historian. He only complains of hunger and pain with movement. Otherwise, he has no other concerns. Plan of care was discussed with son, Reuben Leong, (DPOA) over the phone and hospice care was suggested in light of his father's multiple comorbidities. However, son is adamant that his father will receive full treatment and full code. Exam Vital Signs Vital Sign - Last Date Time Temp Pulse Resp B/P Pulse Ox O2 Delivery O2 Flow Rate FiO2 09/22/16 08:24 36.8 79 16 130/76 99 Room Air Intake and Output 09/21/16 09/21/16 09/22/16 Cumulative From/Thru 15:00 23:00 07:00 09/21/16 16:50 - 09/22/16 06:22 Intake Total 2000 ml 1844 ml 3844 ml Output Total 500 ml 500 ml Balance 2000 ml 1344 ml 3344 ml Intake Oral 0 ml 0 ml IV Total 2000 ml 1214 ml 3214 ml Packed Cells 630 ml 630 ml Output Urine Total 500 ml 500 ml # Bowel Movements 2 2 Exam General: Very pale, chronically ill appearing male, thin, not in acute distress HEENT: Normocephalic, atraumatic. External ears without defect. Anicteric sclerae, pale conjunctivae, and no lid lag. Neck: Supple with full range of motion. No jugular venous distension. No bruits. No lymphadenopathy or thyromegaly. Cardiovascular: Regular rate and rhythm. A 2/6 systolic ejection murmur appreciated. Pulmonary: Clear to auscultation bilaterally with no crackles, wheezes, or rhonchi. Normal respiratory effort with no use of accessory muscles. Abdomen: Bowel tones present. Soft, nontender, nondistended. No hepatosplenomegaly or masses appreciated. Extremities: No clubbing, cyanosis, edema, or lymphadenopathy appreciated. : Diego in place. Skin: Pale with scattered ecchymoses on arms. Skin exam was done with the help of wound care: Stage 1 Pressure injury/erythema patch at right medial heel measuring 1.5 cm L x 1 cm W. Stage 4 Pressure injury sacrum 4 cm L x 3.5 cm W x0.6 cm D, there is a rim of necrotic tissue from 6 o'clock through 12 o'clock to 3 o'clock, wound is also undermined 3 cms circumferentially, no tunneling noted. Patient also has bruising from this ulcer down along the left buttock extending probably about 10 cms. Neurological: Overall muscular wasting noted. Unable to assess gait. Psychiatric: Alert, oriented to self only. Pleasant however confused. Speaking in full sentences but content is nonsensical. Not answering any questions directly. IVs and Medications Medications Reviewed: Medications were reviewed in detail Lab and Diagnostics Result Diagram: 09/22/1684809/22/16848 X-Rays, CTs and MRIs X-RAY CHEST ONE VIEW, PORTABLE IMPRESSION: No acute cardiopulmonary disease. Dictated by: Bhargav MORSE Interpreted: Marga Hirsch MD on 09/21/2016 at 14:24 Cardiac Echo Impressions Interpretation Summary The left ventricle is normal in size. The left ventricular ejection fraction is grossly normal. Regional wall motion abnormalities cannot be excluded due to limited visualization. Assessment of diastolic parameters indicates a relaxation abnormality of the left ventricle, consistent with normal filling pressures. The right ventricle is grossly normal size. Right ventricular function cannot be assessed due to poor image quality. Image quality is very poor which makes it very difficult to see any obvious vegetative masses. Consider MARISOL if clinically suspicious for endocarditis. Assessment & Plan Dioni Leong is an 89 year old man with past medical history significant for severe dementia, coronary artery disease, cachexia, chronic non-healing sacral pressure ulcer, and E. fecalis bacteremia who presented this morning to [facility] ED via EMS from [facility] due to dark tarry stools. 1. Acute GI bleed, likely upper, present on admission. Active -Patient recently discharged with an Hgb of 8.5 only 2 weeks ago and presents with dark tarry stools by description -Patient typed and crossed for 4 units of blood in the ED. Transfused 2 units of PRBC last night. -Aggressive fluid resuscitation. LR @120mls/hr. Of note, in the past H and P the patient was noted to have CHF however on an ECHO done last month the patient was noted to have normal heart function. -Protonix bolus and drip -H/H has been stable. Last value was 9.4/28.6. Check H/H at 0000 and 0500. -NPO -GI consulted and will do an endoscopy this afternoon 09/22. Their time and recommendations are greatly appreciated. 2. Sacral pressure ulcer, chronic, present on admission. Active -Noted on prior admission and determined not to be a candidate for aggressive debridement, flaps and other aggressive care because of his advanced dementia and debility. -Wound care consulted. Their recommendations are appreciated. -Wound culture pending. -In the ED patient received antibiotics for necrotizing fasciitis although his LRINEC score is only 2 -His wound previously grew E fecalis and was treated with Zosyn at the last hospitalization. -Infectious disease was consulted for antibiotic guidance and recommended to continue Zosyn. Vanco and Clindamycin were discontinued. -Will follow up with wound culture for susceptibilities. 3. Probable sepsis, acute, present on admission. Active. - While patient does not meet criteria for SIRS he is hypotensive with a procalcitonin of 2.7, left shift with 95% neutrophils with a large decubitus ulcer known to grown E. fecalis and as described by the ED staff it appears fecal material is leaking around his wound. So it is likely he is again infected. - Patient received 2 L of NS in the ED - Will continue with another LR at 120mls/hr - Lactic acid 1.0 today. Repeat lactic acid in AM 4. Cachexia, chronic, present on admission. Active. - This is directly related to patient's dementia and poor oral intake. - Not a candidate for PEG tube. - NPO while likely UGIB is assessed, Sales Planning Coordinator consultation thereafter. 5. Acute on chronic normocytic normochromic anemia, present on admission. Active. - Secondary to acute UGIB - Will monitor as above. 6. Elevated troponin of uncertain significance, acute on chronic, present on admission. Active. - Prior values of troponin have been elevated however not this significantly - Possible etiology is due to stress from acute blood loss in the setting of known CAD or sepsis - Uncertain if this is consistent with an CA as patient is not complaining of any symptoms, however it is uncertain if he can. - Will check Troponin and EKG in the AM. 7. 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 Active. - IV potassium replacement - likely due to poor oral intake - On Mg/K replacement protocol 8. Dementia - Palliative care consulted and following. Their time and recommendations are appreciated. - Patient requires a sitter for safety as he is a fall risk. - Will consult Speech therapy in the AM. 9. Medication reconciliation: Patient is currently NPO. Will reconcile his med list once his diet is advanced. CODE STATUS: FULL CODE. Would be prudent to perhaps broach the topic of palliative care and hospice due to mental status, cachexia and non-healing sacral ulcer. However, his DPOA, would like to continue with all invasive treatment. Son is Reuben Leong at [phone]. Patient is admitted under inpatient status with expected length of stay greater than 2 midnights due to severity of presenting symptoms, risk of adverse event, and complexity of treatment plan. Pain Evaluation: Adequate Pain Control GI Prophylaxis: Proton Pump Inhibitor VTE Mechanical Devices: Intermittant Pneumatic CD Resuscitation Status: CPR: Attempt Resuscitation Attending Statement The patient was seen and examined together with Dr. Quiñones on 09/22/2016 and I agree with the history, exam and plan as outlined in the note above. . Javy Bass DO Sep 22, 2016 11:54 Gayle Quiñones DO Sep 22, 2016 14:27 Ken Jordan MD Sep 23, 2016 13:46
[2016-09-22] MEDS ORDERED: KCl 40 mEq/D5W 500 mL 40 MEQ in IV Premix 1 EACH IV ONE (14:30)
--- NOTE | 2016-09-22 14:40 | CONS ---
[address] [address] CONSULTATION REPORT PATIENT: JOHANNY MACHADO : 1925 MR#: [id number] ADMIT: 09/21/2016 JOB ID: [id number] DATE OF SERVICE: 09/22/2016 INFECTIOUS DISEASE CONSULTATION: I thank Dr. Garcia for this timely consult. REASON FOR CONSULTATION: Deep sacral decubitus ulcer with probable underlying osteomyelitis. HISTORY OF THE PRESENT ILLNESS: The patient is an unfortunate 89-year-old gentleman who is well known to me from an admission just last month. At that time, he had a deep decubitus ulcer and an enterococcal bacteremia without evidence of endocarditis. We treated him short course with IV antibiotics in the hospital and sent him home with a single dose of dalbavancin to hopefully eradicate his enterococcal bacteremia. He actually went back to the fdc facility where he resides at [facility] because of his very severe dementia. The patient apparently did okay there for a couple weeks, but was returned to this center because of concerns about possible sepsis and also was sent for evaluation of some black tarry stools that had been noted at [facility]. The patient was once again admitted as she was found to be quite anemic and had a borderline blood pressure. This readmission occurred last night. The patient is completely fluent in his speech and confabulates rapidly as he did during his last admission. 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 He has likewise no idea about what year it is or our current events but when asked questions he answers rapidly and fluidly. He tells us he has a car parked out back and when asked for details he tells us it is a BMW and so on. His history is likely of very limited value but he does tell us that today he has no significant headache, fevers, chills or sweats. He notes his vision is a little off but offers no details. He denies sore throat. He denies shortness of breath, chest pain or cough. He denies trouble swallowing or stiff neck. He does not have abdominal pain, nausea or vomiting and is asking for food. He says he had some pain around his butt which is chronic. This is the area where he has the large decub. He notes that he has a chronic Diego catheter which is correct. He tells us he can walk which seems highly unlikely looking at the condition of his legs and feet. Otherwise there is little else to be found in his history of the present illness. PAST MEDICAL HISTORY: 1. Advanced dementia supposedly Alzheimer's type though the patient's very fluent and rapid confabulation might suggest another cause like Wernicke's or Korsakoff's.. 2. 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 3. Asthma. SOCIAL HISTORY: Notes from my prior consults show that the patient was a former smoker. He denies having been a consumer of alcohol in the past or currently. 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 FAMILY HISTORY: The patient tells us he has a son but otherwise has no insight into any of his relatives or other past medical history. REVIEW OF SYSTEMS: Is basically useless. I stated in the history of the present illness what little I was able to glean from my conversations with this very demented gentleman. Review of systems is essentially not useful in this case. PHYSICAL EXAMINATION: Reveals a very pleasant and fluent gentleman, who is 100% disoriented. This is the way he presented last month as well. His current temperature is 36.8. He has been afebrile since his readmission. His pulse is 79. His respiratory rate is 16. His blood pressure is 130/76. He is saturating 99% on room air and looks very comfortable. Examination of the head reveals no trauma. He does not have temporal wasting. His eyes are notable for pale conjunctivae. No scleral icterus noted. Nose normal. Oral cavity without thrush or pharyngitis. Neck is completely supple. No adenopathy. No significant JVD. Lungs notable for a few rales at the right side when we had him positioned on his side. His spine is relatively straight and free of any skin breakdown. I examined in great detail the wounds with Ander from wound care. The patient has a very large decubitus ulcer about 4 cm in diameter over his sacrum. This extends down about 2/3 of a centimeter to palpable bone. One spicule of bone broke off when we were examining the wound and we sent this for culture as it is almost a free bone biopsy. There is considerable undermining going several centimeters in every direction from this already extensive wound. Surrounding this decubitus ulcer, there is a cellulitic change which is a little worse than when I saw it about three weeks ago. The patient's legs are somewhat wasted. When asked though, he can move his feet bilaterally and seems to have sensation in his feet but there are no calluses on his feet and his legs are quite wasted suggesting he is nonambulatory. When asked, however, he says he walks without difficulty. He has a Diego catheter present. No suprapubic fullness. The Diego is draining clear yellow urine. There is no evidence for synovitis or joint abnormalities. Neurologically, as mentioned, the patient can move his extremities, though he is quite weak diffusely and seems to have intact sensation. LABORATORIES: Include white count 6600. Hematocrit was only 20 when he came in. It is now 26 after some blood. Platelets 178. He has 85% segs. His creatinine is 0.95. His LFTs normal. Initial procalcitonin 2.71 which is up from 0.13 when he left in mid August. Urinalysis with 11-50 white cells. Keep in mind he has a chronic Diego. A culture is going to grow something. Cryptococcal antigen, during his last admission, was negative. During his last admission in August, blood cultures 2/3 bottles grew Enterococcus and that Enterococcus was sensitive to penicillin and only resistant to gent at the high-level synergy level. Urine last admission was mixed. A MRSA screen last admission was negative. From our admission last night, we have a couple blood cultures that are pending and a urine which is growing mixed tia. Another MRSA screen is pending. IMAGING: Done this admission last night includes a chest x-ray which is clear. Recall that during his last admission a month ago, his chest x-ray showed some patchy infiltrates which we thought might be heart failure or aspiration, those have completely resolved. IMPRESSION: This is an extremely unfortunate gentleman who is 89 years old and very demented. He has an unusual appearance to his dementia in that he will readily speak to you and is quite lively and conversational but completely disoriented and demented unfortunately. He was sent here from [facility] because of the possibility of either a GI bleed or sepsis and it is not clear to me reviewing the records exactly which was the foremost concern. At this point, I see nothing to suggest he is septic as he is awake and conversational and in no distress. His blood pressure and respiratory rate are fine and he is oxygenating quite well. He does, however, have a newly elevated procalcitonin and a very foul smelling deep decubitus ulcer, which Ander performed some limited debridement on at the bedside. 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 There is no reason to suspect that MRSA is involved here. RECOMMENDATIONS: 1. Ideally, if an aggressive approach was indicated, we would take the patient to the OR for extensive debridement and skin flaps. In addition, a colostomy might be indicated to divert stool away from his deep decubitus. This combined with aggressive turning to keep the patient off his sacrum for a period of weeks or even months might lead to a cure of this sacral decubitus ulcer. This was discussed during his last admission and the multiple services involved agreed he was not a candidate for aggressive debridement, flaps and other aggressive care because of his advanced dementia and debility. 2. Barring the aggressive approach described above, I think the best we are going to do is try and keep him off his backside as much as possible and perhaps give a course of antibiotics not so much to cure the wound but to prevent overt sepsis and further extension. 3. Zosyn will be a reasonable antibiotic and so I have gone ahead and stopped his vanco and clindamycin as these are likely to pose a toxicity without benefit. 4. How long to treat with Zosyn is a bit unclear but we might reasonably start off with a week or two of therapy and then perhaps try and transition to something oral based upon our culture and susceptibilities. 5. We did swabs of the deep wound right down to the bone at the bedside as well as sending a spicule of bone that broke off during our examination and these results will be helpful in tailoring the antibiotics. 6. I think a better approach overall in this patient might be to reconsider is full code status and consider some transition to hospice where this patient would receive comfort care.
--- NOTE | 2016-09-22 14:46 | PCM.CONPAL ---
Date of Service Sep 22, 2016 Date of Hospital Admission: Sep 21, 2016 at 17:20 Date of Palliative Consult: Sep 22, 2016 Requesting Provider: Ken Jordan MD Reason Palliative Care Consult: Goals of Care Discussion Hospital Unit @time of consult: Progressive Care Palliative Care Recommendation 89 yo with dementia and multiple progressive sacral decubiti readmitted with possible sepsis and further tissue breakdown. Patient''s son remains committed to maximal aggressive treatment. Palliative medicine consulted to assist in considerations of goals of care. Summary of palliative recommendations: -Symptom management (Pain/other)- remarkably comfortable at this time. Continued management per hospitalist team -DPOA/Advanced Directives/POLST- remains full code at his son's insistence. See below for details of my extended conversation with his son. Additional Medical Diagnoses with primary management by Hospitalist team include : 1. Sacral pressure ulcer, chronic, present on admission. Active 2. Probable sepsis, acute, present on admission. Active. 3. Acute GI bleed, likely upper, present on admission. Active 4. Cachexia, chronic, present on admission. Active. 5. Acute on chronic normocytic normochromic anemia, present on admission. Active. 6. Elevated troponin of uncertain significance, acute on chronic, present on admission. Active. 7. 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 Active. 8. Dementia Problems: End of Life Preferences Full code, all possible aggressive care per his son/POA Goals of Care His son unrealistically expects some sort of recovery, despite my advising him that it is overwhelmingly likely that the patient's decubiti will not heal and will only progress and worsen Disposition Likely return to SNF Resuscitation Status Resuscitation Status: CPR: Attempt Resuscitation POLST Updates/Changes Previous POLST?: No . Pain: None Pt History History of Present Illness Per admission H&P: 89 year old man with past medical history significant for severe dementia, coronary artery disease, cachexia, chronic non-healing sacral pressure ulcer, and E. fecalis bacteremia who presented this morning to [facility] ED via EMS from [facility] due to dark tarry stools. Patient is unable to give any history and while verbal is completely unaware of the situation surrounding him. All history is obtained from chart review and current ED records. Per report the [facility] staff was concerned that the patient may be dehydrated or have sepsis. The patient was previous hospitalized at [facility] from 08/26/16 to due to bacteremia and sepsis secondary to chronic sacral ulcer. During that stay the wound was evaluated by Dr. Adame, general surgery, plastic surgery and wound care and it was determined that the patient is not a candidate for a flap. However Dr. Adame at the time also noted that the wound was unlikely to heal without surgical intervention. At the time he was treated with Zosyn with Dalbavancin on discharge. The patient could not be started on Zosyn due to medication interaction. At the time the patient was also considered for a PEG tube but was not determined to be a candidate. The patient's son is his DPOA and would like to proceed with full treatment and full code based on past documentation. Palliative consulted to assist patient and his son in determining goals of care. Prior to visiting, I reviewed records in detail in the EMR, and spoke with his nurse and hospitalist. On my arrival, patient is lying in bed, and appears comfortable. He denies any pain, SOB, nausea or other distressing symptoms. He says "I am more than 82 years old so don't remember much..." when asked other questions. Unsure why he is here or where he came from or what his goals or plans might be. Attempted to contact his son/FARHANA Riley by phone, who put me on hold saying "I've got a $ 3 million boat deal I've been working on for years so you have to hold..." and then left me on hold for greater than 15 minutes before I gave up. I was later able to reach him by phone and we talked at length. Reviewed his father's past medical history (and he expresses a lot of resentment about prior care at other facilities that he feels negatively contributed to his father's present state) as well as his current status, diagnoses, and treatment options. He expressed quite unrealistic expectations for care- for instance, suggesting that surgeons could "just go in and cut off those bones that stick out and fix him right up". Osvaldo consistently demands that his father continue to receive all possible aggressive care, though after I specifically talked about artificial nutrition support in this setting he did seem to be reconsidering his insistence on PEG tube placement. He confirmed vigorously that he wants his father to receive all possible resuscitation efforts, including CPR, defibrillation, intubation, etc. despite being informed of the dismal prognosis with those interventions in patients like his father. He says he must respect to his father's wishes for aggressive resuscitation and life maintenance. He says his father would have wanted this even had had the foresight to see what he was like today. Osvaldo stated that "God will take us when he takes us" and that it was our duty to do everything possible to try to keep his father alive for as long as possible regardless of the quality of life. 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 Living Situation: From [facility] Palliative Performance Scale PPS Patient Status: Baseline PPS Ambulation: Totally Bed PPS Activity: Unable to do any activity PPS Self-Care: Total Care PPS Intake: Normal or reduced PPS Conscious Level: Full or confusion Performance Scale: 30% ADLs ADL Patient Status: Baseline ADL Ambulation: Totally Bed ADL Dressing: Total care ADL Feeding: Total care ADL Hygene/bathing: Total care ADL Transfers: Mainly assistance FAST Scale FAST Score: 6-E POLST at Time of Admission Previous POLST?: No Allergy Allergies Reviewed: Yes Medications Current Medications: Current Medications Sodium Chloride 1,000 ml @ 0 mls/hr Q0M IV Last administered on 09/21/16 17:45 ; Admin Dose 1,000 MLS/HR; Start 09/21/16 at 16:19 Al Hydrox/Mg Hydrox/Simethicone 30 ml Q6H PRN PO; Start 09/21/16 at 16:20 Ondansetron HCl 4-8 mg Q4H PRN IVPUSH; Start 09/21/16 at 16:20 Senna 17.2 mg BID PRN PO; Start 09/21/16 at 16:20 Polyethylene Glycol 17 gm 17 gm DAILY PRN PO; Start 09/21/16 at 16:20 Sodium Chloride 1,000 ml @ 100 mls/hr Q10H IV Last administered on 09/22/16 06 :21; Admin Dose 100 MLS/HR; Start 09/21/16 at 16:19 Sodium Chloride 10 ml 10 ml BULMARO IVFLUSH Last administered on 09/22/16 08:10; Admin Dose 10 ML; Start 09/21/16 at 16:30 Sodium Chloride 1,000 ml @ 0 mls/hr Q0M IV; Start 09/21/16 at 16:50; Stop at 17:33; Status DC Pantoprazole 80 mg/Sodium Chloride 100 ml @ 10 mls/hr Q10H IV Last administered on 09/21/16 21:49; Admin Dose 10 MLS/HR; Start 09/21/16 at 17:30 Piperacillin Sod/ Tazobactam Sod/ Dextrose/Water 50 ml @ 12.5 mls/hr Q12 IV Last administered on 09/22/16 08:09; Admin Dose 12.5 MLS/HR; Start 09/22/16 at 08:30 Scheduled Aspirin Chew (Aspirin Chew) 81 Mg Chew 81 MG PO DAILY Atorvastatin Calcium (Atorvastatin Calcium) 20 Mg Tablet 40 MG PO HS Cholecalciferol (Vitamin D3) (Vitamin D) 1,000 Unit Tablet 1,000 UNIT PO DAILY Megestrol Acetate (Megace) 400 Mg/10 Ml Oral.susp 400 MG PO BIDWM Metoprolol Tartrate (Metoprolol Tartrate) 25 Mg Tablet 12.5 MG PO BID Mirtazapine (Remeron) 15 Mg Tablet 7.5 MG PO HS Naph,Mb-Db/K pH,Mbdb (Phos-Nak Packet) 1 Each Powd.pack 1 EACH PO HS Quetiapine Fumarate (Quetiapine Fumarate) 25 Mg Tablet 25 MG PO HS Quetiapine Fumarate (Quetiapine Fumarate) 25 Mg Tablet 12.5 MG PO MORNING Scheduled PRN Hydrocodone/Acetaminophen (Lorcet 5-325 mg Tablet) 1 Each Tablet 1 EACH PO Q4H PRN PRN For Pain Objective Findings Exam Vital Sign - Last Date Time Temp Pulse Resp B/P Pulse Ox O2 Delivery O2 Flow Rate FiO2 09/22/16 12:30 36.5 84 16 148/66 100 Room Air Intake and Output 09/21/16 09/21/16 09/22/16 Cumulative From/Thru 15:00 23:00 07:00 09/21/16 16:50 - 09/22/16 06:22 Intake Total 2000 ml 1844 ml 3844 ml Output Total 500 ml 500 ml Balance 2000 ml 1344 ml 3344 ml Intake Oral 0 ml 0 ml IV Total 2000 ml 1214 ml 3214 ml Packed Cells 630 ml 630 ml Output Urine Total 500 ml 500 ml # Bowel Movements 2 2 Objective Frail-appearing elderly man lying in bed in no distress. Vital signs noted. Skin pale warm and dry. Head and neck exam without acute focal findings. Lungs clear anteriorly, heart sounds regular, abdomen soft and nontender. No ankle edema. I did not take down dressings over his decubiti. Lab/Diagnostics Lab and Imaging results reviewed in detail in EMR. Time spent Total time 85 minutes; >50% face to face with patient and family, providing counselling regarding plans and recommendations, and in care coordination with his medical teams. Of the above total time, 25 minutes counseling for advanced care planning with the patient's son/POA copies to: Yaneli Hughes MD, David F MD Sep 22, 2016 14:46
--- NOTE | 2016-09-22 14:49 | PCM.CHPMED ---
Subjective Date of Service: Sep 22, 2016 Provider requesting consult: Gayle Quiñones DO Primary Physician: Admitting Physician: Mathew Marr MD Primary Care Physician: Yaneli Hughes MD Attending Physician: Mathew Marr MD Chief Complaint: Chief Complaint: REASON FOR GI CONSULT: Acute anemia secondary to suspected upper gastrointestinal bleeding History of Present Illness: GASTROENTEROLOGY CONSULTATION NOTE Mr. Leong is a pleasantly confused 89 year old gentleman that arrived to [facility] via EMS from [facility] with reported melena. Initial labs revealed Hb 6.2 , Hct 19.9, with repeated values 5.8/18.5. He received 2U pRBC with appropriate response. GI was consulted to evaluate acute anemia secondary to suspected upper gastrointestinal bleeding. Patient is a poor historian; information has been obtained from chart review and discussions with primary team. No family at bedside at time of evaluation. Patient currently denies any pain, SOB, chest pain. Does not recall having any episodes of dark stools or hematemesis. States he is hungry. Declares the year as 1984, and states he cannot understand how he crossed [place] [facility] [place] and ended up in [place]. He states he is currently in [place] and that is where he lives. According to previous documentation, the patient is a resident of [facility], and staff at the facility were concerned that the patient was developing sepsis and was dehydrated. He was recently admitted to [facility] in August 2016 for approx 2 weeks for evaluation and treatment of E. faecalis bacteremia and sepsis secondary to a chronic, evolving sacral ulceration. GI consulted for evaluation of etiology of acute anemia and suspected UGIB. PMH Past Medical History From admission records, unable to obtain from patient as he is altered: Chronic decubitus ulceration of sacrum E. 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 H/o PA ho "CHF" Surgical History Unable to obtain, none reported at time of admission Home Medications Taken from admission note, which utilized the [place] medications from 08/2016 admission Discharge Medications Aspirin (Aspir 81) 81 Mg Tablet.dr 81 MG PO DAILY (Reported) Atorvastatin Calcium (Atorvastatin Calcium) 20 Mg Tablet 40 MG PO HS Prescribed by: GABY MCBRIDE MD Bisacodyl (Correctol) 5 Mg Tablet 5 MG PO DAILY (Reported) Cholecalciferol (Vitamin D3) (Vitamin D) 1,000 Unit Tablet 1,000 UNIT PO DAILY Prescribed by: GABY MCBRIDE MD Megestrol Acetate (Megestrol Acetate) 400 Mg/10 Ml Oral.susp 400 MG PO BID Prescribed by: GABY MCBRIDE MD Metoprolol Tartrate (Metoprolol Tartrate) 25 Mg Tablet 12.5 MG PO BID Prescribed by: GABY MCBRIDE MD Mirtazapine (Remeron) 15 Mg Tablet 7.5 MG PO HS (Reported) Naph,Mb-Db/K pH,Mbdb (Phos-Nak Packet) 1 Each Powd.pack 1 EA PO PCHS Prescribed by: GABY MCBRIDE MD Quetiapine Fumarate (Quetiapine Fumarate) 25 Mg Tablet 25 MG PO HS Prescribed by: GABY MCBRIDE MD Quetiapine Fumarate (Quetiapine Fumarate) 25 Mg Tablet 12.5 MG PO MORNING Prescribed by: GABY MCBRIDE MD Allergies: Coded Allergies: No Known Allergies (Verified Allergy, Unknown, 09/21/16) Family History Family History Unable to obtain, none reported at time of admission Social History Hx Alcohol Use: NoHx Substance Use: No Smoking Status: Former Smoker Living Arrangement: Halfway Facility ([facility]) Exam Vital Signs Vital Sign - Last Date Time Temp Pulse Resp B/P Pulse Ox O2 Delivery O2 Flow Rate FiO2 09/22/16 12:30 36.5 84 16 148/66 100 Room Air Intake and Output 09/21/16 09/21/16 09/22/16 Cumulative From/Thru 15:00 23:00 07:00 09/21/16 16:50 - 09/22/16 06:22 Intake Total 2000 ml 1844 ml 3844 ml Output Total 500 ml 500 ml Balance 2000 ml 1344 ml 3344 ml Intake Oral 0 ml 0 ml IV Total 2000 ml 1214 ml 3214 ml Packed Cells 630 ml 630 ml Output Urine Total 500 ml 500 ml # Bowel Movements 2 2 General: Alert, Cooperative, No Acute Distress, Other (Frail; appears younger than stated age) Head: Facial Expression & Appearance (Equal and symmetrical) Eyes: Scleral Anicteric Nose: Mucous Membr Moist/Tillar Mouth: Mucous Membr Moist/Tillar Chest & Lungs: Auscultation (Clear bilaterally), No adventitious breath sounds Cardiovascular: Regular Rate/Rhythm Pulses: Radial (Equal and bilateral) Abdomen: Non-tender, Non-distended, Soft Genitourinary: Diego Present Extremities: No cyanosis/clubbing/edma bilat, Warm Neurological: Normal Speech (without slur) Additional Information: Psych: Not oriented to place (reported: [place]) nor time (reported: August 1984); Unable to recall details of recent events; non-combative Lab and Diagnostics Result Diagram: 09/22/16 0849 09/22/16 0849 Assessment & Plan Assessment GASTROENTEROLOGY CONSULTATION NOTE Mr. Leong is a pleasantly confused 89 year old gentleman that arrived to [facility] via EMS from [facility] with reported melena. Initial labs revealed Hb 6.2 , Hct 19.9, with repeated values 5.8/18.5. He received 2U pRBC with appropriate response. GI was consulted to evaluate acute anemia secondary to suspected upper gastrointestinal bleeding. Assessments - Acute anemia secondary to suspected upper gastrointestinal bleeding - Acute anemia s/p 2U pRBC Plan - Keep NPO - Endoscopy 09/22 - Will need to contact family for consents of procedures: Son, Osvaldo Leong, Patient unable to recall details of health; reports stated episodes of melena, and initial H/H 6.2/19.9 with drop to 5.8/18.5. Thank you for this consult, we will happily follow along with you at this time. Please do not hesitate to contact us with any questions or concerns. Total time: 45 minutes Problems: Pain Evaluation: Adequate Pain Control VTE Mechanical Devices: Intermittant Pneumatic CD Attending Statement patient seen and examined agree with resident physician note plan for upper endoscopy to evaluate. Tiffanie Correia DO Sep 22, 2016 14:49 Lucinda Mc MD Sep 23, 2016 00:45
--- NOTE | 2016-09-22 14:55 | NUR ---
Wound Care Wound evaluation order received, patient seen at bedside, multiple Pressure Injuries (POA) R heel and sacrum. 89 yo demented male admitted with change in mental status from SNF where he is a resident. Pt presents with stage 1 Pressure injury at r medial heel measuring 1.5 cm L x 1 cm W x flush. Stage 4 Pressure injury sacrum 4 cm L x 3.5 cm W x0.6 cm D, there is a rim of necrotic tissue from 6 o'clock through 12 o'clock to 3 o'clock, wound is also undermined 3 cms circumferentially, no tunneling noted. Patient also has bruising from this ulcer down along the left buttock extending probably about 10 cms. Necrotic tissue was removed with scissors from the edge of this impressive ulceration but in no way was all of the necrotic tissue removed, wound was irrigated with saline and then dressed with 4x4 packing covered with an abd pad taped in place. This dressing to be changed by nursing daily. Patient on a low air loss bed.Recommend frequent repositioning and floating of heels. Would benefit from surgical consult for decision on whether to do a more thorough debridement of necrotic tissue to reduce bioburden at sacral ulcer or not. Goal of healing is not reasonable for this patient. Wound was cultured and loose bone fragment sent for culture as well. Dr Adame present during assessment. Addendum: 09/25/16 at 1037 by NOE HARRIS [facility] This note to define debridement more clearly, this was a nonexcisional selective debridement of necrotic skin around the wound edges dimensions of the wound are unchanged in depth, length increased to 4.5 cm and width increased to 4 cm. No bleeding with debridement and no complaint of pain as tissue was totally necrotic.
--- NOTE | 2016-09-22 15:52 | NUR ---
Palliative care note D/A: Referral for palliative care services received today from Dr. Quiñones. Request is for assistance with goals of care. Pt is an elderly male with dementia and Stage IV decub. Pt is a fpc resident at [facility]. His son Osvaldo, who is his decision maker, can be reached at [phone]. Dr. Gonsales is working with pt and his son. Discussion with son on the phone in relation to Go. Son continues to want full code. P: Palliative care to continue to follow. Avelina JIMENEZ, CCM
[2016-09-22] MEDS ORDERED: Lactated Ringer's 1,000 ML IV ONE (16:50)
--- NOTE | 2016-09-22 17:30 | NUR ---
AMS/Fluid status Pt Alert only to self. Agitated, restless, and anxious at times. Needs constant reorienting. Able to move extremities but mostly only moves when assisted. Tele sinus rhythm. Lungs clear bilaterally on RA, diminished in the bases. Pt NPO status since admission. Bowel tones hypoactive. Last BM 09/22/16. Diego catheter patent, draining yellow urine. Complains of pain only when turned or moved. Large open area on sacrum, covered with dressing placed by wound care staff today. Family members present at the bedside today. NS and protonix have been hanging all day. IV Potassium added after a K+ level of 3.1 was reported. IVs present on bilateral arms.
--- NOTE | 2016-09-22 17:41 | NUR ---
Procedure Patient left for the PACU at 1740 with family and RN. IV pantoprazole was disconnected and saline locked. IV NS was disconnected and saline locked. IV potassium remains hanging on the patient at 125ml/hour. Report given to RN at bedside.
[2016-09-22] MEDS: Lactated Ringer's 1,000 ML IV SCH ×2 (17:44→17:53)
[2016-09-22] MEDS ORDERED: MetoCLOpramide 5 mg/mL 2 mL Inj IVPUSH PRN (17:45)
[2016-09-22] MEDS ORDERED: Ondansetron 2 mg/mL 2 mL Inj IVPUSH PRN (17:45)
--- NOTE | 2016-09-22 21:51 | ENDO ---
[address] [address] ENDOSCOPY PROCEDURE PATIENT: JOHANNY MACHADO : 1925 MR#: [id number] ADMIT: 09/21/2016 JOB ID: [id number] PROCEDURE: Esophagogastroduodenoscopy. INDICATION: History of suspected melena in a patient with anemia and multiple medical problems. Please see Dr. Dejan Ernandez's anesthesia report for details regarding ASA classification, Mallampati score, and medications. INSTRUMENT USED: [id number]. PROCEDURE DETAILS: After informed consent was obtained, the patient was brought into the GI suite, where he was placed on oxygen via nasal cannula and monitored with continuous pulse oximeter, telemetry, and blood pressure monitoring. A time-out was performed. Then, he was placed in a left lateral decubitus position and medications were administered for sedation. A bite block was placed. Standard EGD scope was inserted through the bite block and advanced under direct visualization to the second portion of the duodenum without difficulty. FINDINGS: 1. Normal-appearing duodenal bulb, first and second portion. Bile-stained mucosa was noted throughout the examined portions of the duodenum. 2. Normal-appearing pylorus, antrum, and gastric body. 3. Retroflexed views in the gastric body revealed a normal-appearing cardia and fundus. 4. The GE junction was regular at 41 cm. 5. In the esophagus, what initially appeared to be adherent whitish plaques and therefore a single biopsy was obtained. However, upon further inspection and irrigation, this appeared to be possibly old food debris or medications, as we were able to irrigate and suction this whitish material. IMPRESSION: Normal esophagogastroduodenoscopy exam to second portion of the duodenum. No old or fresh blood seen on exam. Following the procedure, I had performed a rectal exam which revealed brown liquid stool. RECOMMENDATIONS: 1. Continue to follow H and H and transfuse blood products as needed. No upper GI source for anemia. Consider other etiologies for anemia. 2. He his having brown stool currently and therefore will hold off on colonoscopy to further evaluate anemia at this time. 3. If liquid stool persists consider checking C. Diff. Above discussed with patient's son who agreed on holding off on colonoscopy at this time. [facility]
[2016-09-23] VITALS (9 sets, daily range): BP systolic 100–161; BP diastolic 59–80; PULSE 61–81; RESP 16–20; O2SAT 98–100
[2016-09-23 03:55] LABS: BASOPHILS % (AUTO) 0.2 % (0-3); EOSINOPHILS % (AUTO) 1.8 % (0-5); MONOCYTES % (AUTO) 10.7 % (4-12); Mean Corpuscular Hemoglobin 28.1 pg (27.0-35.0); Mean Corpuscular Volume 83.7 fL (81-100); Platelet Count 214 bil/L (150-400)
[2016-09-23 04:35] LABS: TROPONIN T 0.13 ug/L (0.0-0.011)
[2016-09-23] MEDS ORDERED: KCl 40 mEq/D5W 500 mL 40 MEQ in IV Premix 1 EACH IV ONE (04:46)
--- NOTE | 2016-09-23 04:54 | NUR ---
Mentation / Wound Pt alert to self only, participates in conversation but incoherent. Pt restless and agitated this shift, insistently requesting "shrimp cocktails out of the fridge, and put some powdered cheese on it" or "we have to go, or they're going to beat us"; pt intermittently yells for Fredis (son). Generally redirectable, though occasionally pt escalates to anger and threats of violence without action. Able to calm and redirect with therapeutic speech. Pt attempted intermittently to pull at mixon; PRN quetiapine ordered. Not yet given this shift. VSS. Q2H turns in place. Sacral dressing changed x1. Tele SR 70s.
[2016-09-23] MEDS: Sodium Chloride LOK Flush 10 mL Syringe IVFLUSH SCH ×2 (08:30→16:13)
[2016-09-23] MEDS: 0.9% Sodium Chloride 1,000 ML IV SCH (08:42)
[2016-09-23] MEDS: MEGESTROL 40 MG/ML PO SCH ×2 (08:42→17:40)
[2016-09-23] MEDS: Piperacillin-Tazo 3.375 Gm Inj 3.375 GM in Dextrose 5% Minibag Plus 50 ML IV SCH ×2 (08:43→20:50)
--- NOTE | 2016-09-23 09:05 | NUR ---
[facility] Signed
[2016-09-23] MEDS: Pantoprazole Inj 80 MG in 0.9% Sodium Chloride 80 ML IV SCH (09:49)
--- NOTE | 2016-09-23 10:17 | PCM.PNMED ---
Subjective Date of Service Sep 23, 2016 Subjective GASTROENTEROLOGY PROGRESS NOTE Today: States date as 06/26/12; states he is located in the [facility], but cannot identify that he is in a medical facility. Denies any SOB, chest pain, abdominal pain, nausea, vomiting. No evidence bleeding noted by medical team. No family present at bedside at time of examination. Exam Vital Signs Vital Sign - Last Date Time Temp Pulse Resp B/P Pulse Ox O2 Delivery O2 Flow Rate FiO2 09/23/16 09:20 73 09/23/16 08:46 36.8 16 145/80 100 Room Air 09/22/16 18:20 2 100 Intake and Output 09/22/16 09/22/16 09/23/16 Cumulative From/Thru 15:00 23:00 07:00 09/21/16 16:50 - 09/23/16 06:24 Intake Total 1334 ml 1078 ml 6256 ml Output Total 450 ml 300 ml 1250 ml Balance 884 ml 778 ml 5006 ml Intake Oral 0 ml 0 ml 0 ml IV Total 1334 ml 1078 ml 5626 ml Packed Cells 630 ml Output Urine Total 450 ml 300 ml 1250 ml # Bowel Movements 0 2 4 Exam General: Alert, Cooperative, No Acute Distress, Frail; mildly agitated Head: Facial Expression & Appearance (Equal and symmetrical) Eyes: Scleral Anicteric Nose: Mucous Membr Moist/Dolliver Mouth: Mucous Membr Moist/Dolliver Chest & Lungs: Auscultation (Clear bilaterally), No adventitious breath sounds Cardiovascular: Regular Rate/Rhythm Pulses: Radial (Equal and bilateral) Abdomen: Non-tender, Non-distended, Soft Extremities: No cyanosis/clubbing/edma bilat, Warm Neurological: Normal Speech (without slur) Psych: Not oriented to place (does report location as [facility], but cannot identify he is in a medical facility) nor time (reported date: 06/26/12); Unable to recall details of recent events; non-combative, but notably agitated with IV sites and blankets Lab and Diagnostics Result Diagram: 09/23/16 0328 09/23/16 0328 X-Rays, CTs and MRIs X-RAY CHEST ONE VIEW, PORTABLE IMPRESSION: No acute cardiopulmonary disease. Dictated by: Bhargav MORSE Interpreted: Marga Hirsch MD on 09/21/2016 at 14:24 Cardiac Echo Impressions Interpretation Summary The left ventricle is normal in size. The left ventricular ejection fraction is grossly normal. Regional wall motion abnormalities cannot be excluded due to limited visualization. Assessment of diastolic parameters indicates a relaxation abnormality of the left ventricle, consistent with normal filling pressures. The right ventricle is grossly normal size. Right ventricular function cannot be assessed due to poor image quality. Image quality is very poor which makes it very difficult to see any obvious vegetative masses. Consider MARISOL if clinically suspicious for endocarditis. Assessment & Plan GASTROENTEROLOGY PROGRESS NOTE Mr. Leong is a pleasantly confused 89 year old gentleman that arrived to [facility] via EMS from [facility] with reported melena. Initial labs revealed Hb 6.2 , Hct 19.9, with repeated values 5.8/18.5. He received 2U pRBC with appropriate response. GI was consulted to evaluate acute anemia secondary to suspected upper gastrointestinal bleeding. EGD 09/22: No fresh or blood visualized; normal examination. Whitish material observed and biopsied of esophagus, likely marketing development representative of old food material. Assessments - Acute anemia secondary to suspected upper gastrointestinal bleeding; no identified source - Acute anemia s/p 2U pRBC; stable Plan - Continue to monitor H/H and transfuse as needed - Consider alternative anemia work-up - Consider stool PCR of liquid stool if it persists; he has received extensive antibiotics for his treatment of decubitus ulcer - No plans for colonoscopy at this time - Will need to contact family for consents of procedures, if and when indicated : Osvaldo Devine, Patient unable to recall details of health; reports stated episodes of melena, and initial H/H 6.2/19.9 with drop to 5.8/18.5. Osvaldo Devine, was contacted after EGD completion, and is aware of findings and agrees with holding off on colonoscopy at this time. No further interventions by the GI service. Thank you for this consult. We will sign off at this time. Please do not hesitate to contact us with any questions or concerns. if if the patient again develops signs of GI bleeding. Total time: 30 minutes GI Prophylaxis: Proton Pump Inhibitor VTE Mechanical Devices: Intermittant Pneumatic CD Resuscitation Status: CPR: Attempt Resuscitation Attending Statement patient seen and examined agree with resident physician note follow H/H considering checking stool PCR if further assistance needed please do not hesitate to contact us will sign off. Tiffanie Correia DO Sep 23, 2016 10:17 Lucinda Mc MD Sep 23, 2016 15:37
--- NOTE | 2016-09-23 10:34 | NUR ---
Social Work: Readiness for Discharge D: Pt discussed in am rounds. Pt is improving and expected to discharge back to [facility] tomorrow. CARGO SERVICES COORDINATOR spoke with channeler runner, Greer, at [facility] to notify of pt's anticipated discharge on Sunday. She is aware and they can accept him back. A: Pt who is a LTC resident at [facility]. P: Anticipate pt to discharge back to [facility] when medically stable; CARGO SERVICES COORDINATOR to continue to follow. RAFY Amaya
--- NOTE | 2016-09-23 11:43 | NUR ---
NUTRITION FOLLOW-UP: ASSESS:89 YO male with past medical history significant for severe dementia, coronary artery disease, cachexia, chronic non-healing sacral pressure injury, and E. fecalis bacteremia who presented to the ED via EMS from [facility] due to dark tarry stools. Wound consult initiated for worsening non-healing sacral pressure injury that is likely source of sepsis. Per Wrapper Off, there is a stage 1 Pressure injury at r medial heel measuring 1.5 cm L x 1 cm W x flush. There is a stage 4 Pressure injury sacrum 4 cm L x 3.5 cm W x0.6 cm D, with a rim of necrotic tissue from 6 o'clock through 12 o'clock to 3 o'clock. the wound is also undermined 3 cms circumferentially, no tunneling noted. Patient also has bruising from this ulcer down along the left buttock extending probably about 10 cms. Necrotic tissue was removed with scissors from the edge of this impressive ulceration, but in no way was all of the necrotic tissue removed. Wrapper Off recommending surgical consult for more extensive intervention. GI consult not ordered, per DPOA. In the past, patient has not been a candidate for nutrition support; however, in the event family continues the patient's full code status, PEG tube placement will be required to be discussed. A review of the patient admission weights indicates that the patient has not lost weight in the past several months; in fact, he has gained nearly a kilogram since his admit in August. He is nearly the same weight as that recorded in 2013. Diet advanced today by Speech Therapy to pureed, with honey thick liquids. PO intake not yet recorded. PMHx:CAD, diverticulitis, non-healing sacral pressure injury, bacteremia, asthma. DIET:Pureed, honey thick liquids. LABS: K+ 3.3, Chloride 114, CO2 14, Ca 7.6, Troponin 0.130, Alb 1.8. MEDICATIONS: Reviewed. Remeron, Seroquel, Lopressor, Megace. NUTRITION FOCUSED PHYSICAL ASSESSMENT: GI symptoms / stool: BM x 2 todayBraden: 10. Skin Integrity: See details in assessment, above. ANTHROPOMETRICS: Wt: 67.7 kg, BMI 20.0 kg/m2. Admit weight: 65.7 kgBMI: 20.0 kg/m2. IBW: 78.18 kg (84% IBW) ESTIMATED NEEDS (WOUNDS, UNDERWEIGHT): Calories: 1971 - 230 kcal (30 - 35 kcal / kg BW) Protein: 99 - 118 g protein (1.5 - 1.8 g / kg BW) Fluid: Approx. 1643 mL (25 mL / kg BW) NUTRITION DIAGNOSIS: 1)Inadequate oral intake related to severe dementia, failure to thrive, as evidenced by 84% IBW - PERSISTS. 2)Chewing / swallowing issues related to severe dementia, as evidenced by requirement for modified diet, per ST order. INTERVENTION: 1) Will add honey thick Mihir with Sprite lunch and dinner trays to assist with wound healing. 2) In the event family determines that patient is to remain full code and request PEG tube placement, enteral feeding recommendation follows. Initiate Jevity 1.5 @ 15 ml/hr x 24 hr to mitigate any refeeding issues. Once tolerance established, recommend advance 5 ml every 4 hr. to goal rate 65 ml/hr. Flush dose 40 ml H2O every 4 hr. Enteral feeding at goal rate will provide 2243 kcal, 95 g protein, sufficient to meet 100% nutrient needs. MONITOR/EVALUATE: Code status, nutrition support, diet advance / tolerance, PO intake, labs, GI/nutrition status. Follow up per high nutrition risk guidelines.
[2016-09-23] MEDS: D5 0.45% NaCl + KCl 20 mEq/L 1,000 ML IV SCH (12:23)
--- NOTE | 2016-09-23 12:26 | NUR ---
Potassium Potassium came back at 3.3 after getting a K Josiah this morning. Chatted with MD's and decided to not hang the second K Josiah and ordered D5W with 20 K in it for fluids. Will continue to monitor.
--- NOTE | 2016-09-23 16:27 | PCM.PNMED ---
Subjective Date of Service Sep 23, 2016 Subjective Overnight: patient was restless, agitated, and attempted to pull Diego intermittently. Quetiapine was ordered but not administered. Sacral dressing changed x1. Tele SR 70s. No other acute event. Today: Patient admits to have pain all over, but does not appear in distress. Nursing reports that patient only seems to be in pain when they turn him. Patient states to feel hungry. He has been NPO overnight, but saw ST this morning and was advanced to pureed diet. He continues to be pleasantly demented. Exam Vital Signs Vital Sign - Last Date Time Temp Pulse Resp B/P Pulse Ox O2 Delivery O2 Flow Rate FiO2 09/23/16 05:56 69 09/23/16 03:06 36.2 20 161/63 99 Room Air 09/22/16 18:20 2 100 Intake and Output 09/22/16 09/22/16 09/23/16 Cumulative From/Thru 15:00 23:00 07:00 09/21/16 16:50 - 09/23/16 06:24 Intake Total 1334 ml 1078 ml 6256 ml Output Total 450 ml 300 ml 1250 ml Balance 884 ml 778 ml 5006 ml Intake Oral 0 ml 0 ml 0 ml IV Total 1334 ml 1078 ml 5626 ml Packed Cells 630 ml Output Urine Total 450 ml 300 ml 1250 ml # Bowel Movements 0 2 4 Exam General: Very pale, chronically ill appearing male, thin, not in acute distress HEENT: Normocephalic, atraumatic. External ears without defect. Anicteric sclerae, pale conjunctivae, and no lid lag. Neck: Supple with full range of motion. No jugular venous distension. No bruits. No lymphadenopathy or thyromegaly. Cardiovascular: Regular rate and rhythm. A 2/6 systolic ejection murmur appreciated. Pulmonary: Scattered crackles. Normal respiratory effort with no use of accessory muscles. Abdomen: Bowel tones present. Soft, nontender, nondistended. No hepatosplenomegaly or masses appreciated. Extremities: No clubbing, cyanosis, edema, or lymphadenopathy appreciated. : Diego in place. Skin: Pale skin with scattered ecchymoses on arms. See my exam on 09/22 or wound care note for details of the decubitus ulcer exam. Neurological: Overall muscular wasting noted. Unable to assess gait. Psychiatric: Alert, oriented to self only. Pleasant however confused. Speaking in full sentences but content is nonsensical. Not answering any questions directly. IVs and Medications Medications Reviewed: Medications were reviewed in detail Lab and Diagnostics Result Diagram: 09/23/1632709/23/16327 X-Rays, CTs and MRIs X-RAY CHEST ONE VIEW, PORTABLE IMPRESSION: No acute cardiopulmonary disease. Dictated by: Bhargav Rendon RRShane Interpreted: Marga Hirsch MD on 09/21/2016 at 14:24 Cardiac Echo Impressions Interpretation Summary The left ventricle is normal in size. The left ventricular ejection fraction is grossly normal. Regional wall motion abnormalities cannot be excluded due to limited visualization. Assessment of diastolic parameters indicates a relaxation abnormality of the left ventricle, consistent with normal filling pressures. The right ventricle is grossly normal size. Right ventricular function cannot be assessed due to poor image quality. Image quality is very poor which makes it very difficult to see any obvious vegetative masses. Consider MARISOL if clinically suspicious for endocarditis. Assessment & Plan Dioni Leong is an 89 year old man with past medical history significant for severe dementia, coronary artery disease, cachexia, chronic non-healing sacral pressure ulcer, and E. fecalis bacteremia who presented this morning to [facility] ED via EMS from [facility] due to dark tarry stools. 1. Acute on chronic normocytic normochromic anemia, present on admission. Improved. - Initially suspected to be upper GI bleed. However, EGD was negative for bleeding. - Likely due to worsening Stage 4 decubitus ulcer. - Patient recently discharged with an Hgb of 8.5 only 2 weeks ago and presented with dark tarry stools by description. - Initial H/H was 5.8/18.5, now improved to 9.3/27.7 and stable. - Patient was transfused 2 units of PRBC on 09/21. - Aggressive fluid resuscitation initially due to hypotension, which now improved as well. - Monitor CBC daily 2. Possible acute GI bleed, likely upper, present on admission. Ruled out. - Appreciate GI's recommendations. EGD on 09/22 showed no upper GI source for anemia. Per GI, will hold off on colonoscopy to further evaluate anemia at this time. - Will switch from Protonix drip to PO. - H/H has been stable. Last value was 9.11/10.6. - Advance diet to puree. 3. Sacral pressure ulcer, chronic, present on admission. Active -Noted on prior admission and determined not to be a candidate for aggressive debridement, flaps and other aggressive care because of his advanced dementia and debility. -Wound care consulted and will continue to follow. Their recommendations are appreciated. -Wound culture pending. -In the ED patient received antibiotics for necrotizing fasciitis although his LRINEC score is only 2 -His wound previously grew E fecalis and was treated with Zosyn at the last hospitalization. -Infectious disease was consulted for antibiotic guidance and recommended to continue Zosyn. Will follow up with ID for length of antibiotic treatment. -Will follow up with wound culture for susceptibilities. 4. Probable sepsis, acute, present on admission. Resolved. - While patient does not meet criteria for SIRS he is hypotensive with a procalcitonin of 2.7, left shift with 95% neutrophils with a large decubitus ulcer known to grown E. fecalis and as described by the ED staff it appears fecal material is leaking around his wound. So it is likely he is again infected. - Patient received 2 L of NS in the ED - Lactic acid 1.0 on admission. Repeat lactic acid and procalcitonin in AM 5. Moderate malnutrition, chronic, present on admission. - This is directly related to patient's dementia and poor oral intake. - Not a candidate for PEG tube. - Given his poor oral intake, will start D5 1/2NS with 20mEq K at 80mls/hr. - Electronic Die Maker consultation. 6. Elevated troponin of uncertain significance, acute on chronic, present on admission. Active. - Prior values of troponin have been elevated however not this significantly - Possible etiology is due to stress from acute blood loss in the setting of known CAD or sepsis - Uncertain if this is consistent with an VT as patient is not complaining of any symptoms, however it is uncertain if he can. - EKG 09/23 showed normal rate and rhythm with no ST elevation. Will continue to trend Troponin. - Of note, in the past H and P the patient was noted to have CHF however on an ECHO done last month the patient was noted to have normal heart function. 7. 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 Active. - IV potassium replacement - likely due to poor oral intake - On Mg/K replacement protocol 8. Dementia - Palliative care consulted and following. Their time and recommendations are appreciated. - Patient requires a sitter for safety as he is a fall risk. - Pureed diet per speech. 9. Medication reconciliation: home medications were reconciled and resumed today. CODE STATUS: FULL CODE. Would be prudent to perhaps broach the topic of palliative care and hospice due to mental status, cachexia and non-healing sacral ulcer. However, his DPOA, would like to continue with all invasive treatment. Son is Reuben Leong at [phone]. Patient is admitted under inpatient status with expected length of stay greater than 2 midnights due to severity of presenting symptoms, risk of adverse event, and complexity of treatment plan. Pain Evaluation: Adequate Pain Control GI Prophylaxis: Proton Pump Inhibitor VTE Mechanical Devices: Intermittant Pneumatic CD Resuscitation Status: CPR: Attempt Resuscitation Attending Statement The patient was seen and examined together with Dr. Quiñones on 09/23/2016 and I agree with the history, exam and plan as outlined in the note above. . Gayle Quiñones DO Sep 23, 2016 07:00 Ken Jordan MD Sep 25, 2016 09:49
[2016-09-24] VITALS (8 sets, daily range): BP systolic 117–150; BP diastolic 65–82; PULSE 61–77; RESP 16–24; O2SAT 94–100
[2016-09-24] MEDS: Sodium Chloride LOK Flush 10 mL Syringe IVFLUSH SCH ×3 (00:30→16:33)
[2016-09-24 04:28] LABS: BASOPHILS % (AUTO) 0 % (0-3); EOSINOPHILS % (AUTO) 1.4 % (0-5); Mean Corpuscular Hemoglobin 27.9 pg (27.0-35.0); Mean Corpuscular Volume 84.4 fL (81-100); NEUTROPHILS % (AUTO) 77.1 % (40-74); Platelet Count 203 bil/L (150-400)
--- NOTE | 2016-09-24 06:10 | NUR ---
Mentation/Turns Patient awake and confused overnight. Frequent attempts at conversation with nursing staff, but content of statements is mostly nonsensical. Adamantly refusing turns and repositioning; "You're causing me agony when you do that." Explained importance of turns to patient, without success; patient continues to push staff back during care and verbally refuse care. Encouraged independent repositioning as much as possible and arranged pillows for support when possible. Continue to monitor.
[2016-09-24] MEDS ORDERED: KCl 40 mEq/D5W 500 mL 40 MEQ in IV Premix 1 EACH IV SCH (06:15)
[2016-09-24] MEDS: Piperacillin-Tazo 3.375 Gm Inj 3.375 GM in Dextrose 5% Minibag Plus 50 ML IV SCH ×2 (08:47→21:11)
[2016-09-24] MEDS: MEGESTROL 40 MG/ML PO SCH (08:47)
[2016-09-24] MEDS: Pantoprazole 40 mg ER24 Tablet PO SCH (08:49)
[2016-09-24] MEDS ORDERED: 0.9% Sodium Chloride 250 ML ONE (09:46)
--- NOTE | 2016-09-24 11:38 | PCM.PNMED ---
Subjective Date of Service Sep 24, 2016 Subjective Patient is pleasantly confused this morning. He reports that he is in no pain except for his back/rear end. He does have some idea that there is a wound on his posterior. Additional history is unreliable. Overnight patient was noted to be confused and not having any meaningful conversations. He told staff he was in too much pain for turns. Exam Vital Signs Vital Sign - Last Date Time Temp Pulse Resp B/P Pulse Ox O2 Delivery O2 Flow Rate FiO2 09/24/16 09:05 77 09/24/16 08:38 36.3 24 150/77 94 Room Air 09/22/16 18:20 2 100 Intake and Output 09/23/16 09/23/16 09/24/16 Cumulative From/Thru 15:00 23:00 07:00 09/21/16 16:50 - 09/24/16 01:54 Intake Total 1496 ml 707 ml 8459 ml Output Total 600 ml 1850 ml Balance 896 ml 707 ml 6609 ml Intake Oral 454 ml 454 ml IV Total 1042 ml 707 ml 7375 ml Packed Cells 630 ml Output Urine Total 600 ml 1850 ml # Bowel Movements 4 8 Exam General: Very pale, chronically ill appearing male, thin, not in acute distress ; somnolent this AM HEENT: Normocephalic, atraumatic. External ears without defect. Anicteric sclerae, pale conjunctivae, and no lid lag. Neck: Supple with full range of motion. No jugular venous distension. No bruits. No lymphadenopathy or thyromegaly. Cardiovascular: Regular rate and rhythm. A 2/6 systolic ejection murmur appreciated. Pulmonary: Scattered crackles. Normal respiratory effort with no use of accessory muscles. Abdomen: Bowel tones present. Soft, nontender, nondistended. No hepatosplenomegaly or masses appreciated. Extremities: No clubbing, cyanosis, or lymphadenopathy appreciated. Mild pitting edema appreciated in both lower extremities Pulses: Radial present and equal bilaterally. Dorsalis pedis pulse present on the right but difficult to appreciate on the left. : Diego in place. Skin: Pale skin with scattered ecchymoses on arms. See my exam on 09/22 or wound care note for details of the decubitus ulcer exam. Psychiatric: Alert, oriented to self only. Pleasant however confused. Speaking in full sentences but content is nonsensical. Answers few questions appropriately. IVs and Medications Medications Reviewed: Medications were reviewed in detail Lab and Diagnostics Result Diagram: 09/24/1635609/24/16356 X-Rays, CTs and MRIs X-RAY CHEST ONE VIEW, PORTABLE IMPRESSION: No acute cardiopulmonary disease. Dictated by: Bhargav MORSE Interpreted: Marga Hirsch MD on 09/21/2016 at 14:24 Cardiac Echo Impressions Interpretation Summary The left ventricle is normal in size. The left ventricular ejection fraction is grossly normal. Regional wall motion abnormalities cannot be excluded due to limited visualization. Assessment of diastolic parameters indicates a relaxation abnormality of the left ventricle, consistent with normal filling pressures. The right ventricle is grossly normal size. Right ventricular function cannot be assessed due to poor image quality. Image quality is very poor which makes it very difficult to see any obvious vegetative masses. Consider MARISOL if clinically suspicious for endocarditis. Additional Diagnostics PROCEDURE: Esophagogastroduodenoscopy. FINDINGS: 1. Normal-appearing duodenal bulb, first and second portion. Bile-stained mucosa was noted throughout the examined portions of the duodenum. 2. Normal-appearing pylorus, antrum, and gastric body. 3. Retroflexed views in the gastric body revealed a normal-appearing cardia and fundus. 4. The GE junction was regular at 41 cm. 5. In the esophagus, what initially appeared to be adherent whitish plaques and therefore a single biopsy was obtained. However, upon further inspection and irrigation, this appeared to be possibly old food debris or medications, as we were able to irrigate and suction this whitish material. IMPRESSION: Normal esophagogastroduodenoscopy exam to second portion of the duodenum. No old or fresh blood seen on exam. Following the procedure, I had performed a rectal exam which revealed brown liquid stool. RECOMMENDATIONS: 1. Continue to follow H and H and transfuse blood products as needed. No upper GI source for anemia. Consider other etiologies for anemia. 2. He his having brown stool currently and therefore will hold off on colonoscopy to further evaluate anemia at this time. 3. If liquid stool persists consider checking C. Diff. Above discussed with patient's son who agreed on holding off on colonoscopy at this time. Lucinda Mc MD 09/22/16 182 Assessment & Plan Dioni Leong is an 89 year old man with past medical history significant for severe dementia, coronary artery disease, cachexia, chronic non-healing sacral pressure ulcer, and E. fecalis bacteremia who presented this morning to [facility] ED via EMS from [facility] due to dark tarry stools. Hospital day # 4 1. Acute on chronic normocytic normochromic anemia, present on admission. Stable. - Initially suspected to be upper GI bleed. However, EGD was negative for bleeding. Likely due to worsening Stage 4 decubitus ulcer. - Patient was transfused 2 units of PRBC's on 3 and has required no additional blood product up to now. - Monitor CBC daily. Transfuse PRBC's if Hgb <8.0. 2. Sacral pressure ulcer, chronic, present on admission, ongoing. - Noted on prior admission and determined not to be a candidate for aggressive debridement, flaps and other aggressive care because of his advanced dementia and debility. In the ED patient received antibiotics for necrotizing fasciitis although his LRINEC score is only 2 - Wound care consulted and will continue to follow. Their recommendations are appreciated. - Wound culture pending - preliminary results show staph aureus infection. Await sensitivities. - Dr. Adame was consulted for antibiotic guidance and recommended to continue Zosyn (day 3). Will follow up with ID for length of antibiotic treatment. 3. Probable sepsis, acute, present on admission. Resolved. - While patient does not meet criteria for SIRS he is hypotensive with a procalcitonin of 2.7, left shift with 95% neutrophils with a large decubitus ulcer known to grown E. fecalis and as described by the ED staff it appears fecal material is leaking around his wound. So it is likely he is again infected. - Patient received 2 L of NS in the ED - Continue to monitor CBC and procalcitonin. 4. Moderate malnutrition, chronic, present on admission. - This is directly related to patient's dementia and poor oral intake. - Not a candidate for PEG tube. - Given his poor oral intake, will start D5 1/2NS with 20mEq K at 80mls/hr. - Lav Crewman consultation for most optimal nutrition. Limited to honey/pureed diet by speech therapy. - Stop Megace appetite stimulant. Start marinol 5 mg TID 30-60 minutes prior to meals. If patient tolerating this medication consider going up to 10 mg TIDAC. - If patient and family do not want limited diet they may sign an AMA form so they can feed him whatever he wants. 5. Elevated troponin of uncertain significance, acute on chronic, present on admission. Active. - Possible etiology is due to stress from acute blood loss in the setting of known CAD or sepsis. - EKG PRN chest pain. - Continue to monitor for symptoms. 6. 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 Active. - Likely due to poor oral intake. - Continue to monitor BMP and replete as needed. 7. Dementia, chronic, ongoing gradual decline. - Palliative care consulted and following. Their time and recommendations are appreciated. - Patient requires a sitter for safety as he is a fall risk. - Pureed diet per speech. 8. Possible acute GI bleed, likely upper, present on admission. Ruled out. - Appreciate GI's recommendations. EGD on 09/22 showed no upper GI source for anemia. Per GI, will hold off on colonoscopy to further evaluate anemia at this time. - Will switch from Protonix drip to PO. - H/H has been stable. - Advance diet to puree. Disposition: Awaiting final recommendations from Dr. Adame on length of antibiotic treatment. If H&H remains stable tomorrow anticipate discharge back to long-term. CODE STATUS: FULL CODE. Would be prudent to perhaps broach the topic of palliative care and hospice due to mental status, cachexia and non-healing sacral ulcer. However, his DPOA, would like to continue with all invasive treatment. Son is Reuben Leong at [phone]. GI Prophylaxis: Proton Pump Inhibitor VTE Mechanical Devices: Intermittant Pneumatic CD Resuscitation Status: CPR: Attempt Resuscitation Attending Statement The patient was seen and examined together with Dr. Mcintyre on 09/24/2016 and I agree with the history, exam and plan as outlined in the note above. . Vivien Mcintyre DO Sep 24, 2016 11:38 Ken Jordan MD Sep 25, 2016 09:50 GI Prophylaxis: Proton Pump Inhibitor VTE Mechanical Devices: Intermittant Pneumatic CD Resuscitation Status: CPR: Attempt Resuscitation Vivien Mcintyre DO Sep 24, 2016 11:38
[2016-09-24] MEDS ORDERED: KCl 40 mEq/D5W 500 mL 40 MEQ in IV Premix 1 EACH IV ONE (11:55)
[2016-09-24] MEDS: D5 0.45% NaCl + KCl 20 mEq/L 1,000 ML IV SCH ×2 (12:36→13:05)
--- NOTE | 2016-09-24 15:49 | NUR ---
Mentation/Turns/Dressing Change Pt mentation continues to be alert to self. Will ask RN to open all the cupboards to see "what will fly out of them". Pt refusing turns stating that he is in too much pain. This RN explained reasoning for positioning and pt told her to "shut up and quit talking". After approximately 5-10 minutes of explanation and convincing pt agreed to turn so that bed linens could be changed. At approximately 1530 pt was approached in order to have dressing changed on his sacrum. Pt stated that if it was going to hurt he would not allow us to touch him. This RN explained procedure and necessity of the dressing change. Pt continued to refuse. Will allow for 30 minutes and then reproach. Addendum: 09/24/16 at 1720 by ANGELA REED RN At 1630 Pt was reproached regarding dressing change on sacrum. He was agreeable to taking some pain medication and then having the dressing changed. Pt was administered PO 975mg of Tylenol and dressing was changed per wound care orders.
[2016-09-25] MEDS: Sodium Chloride LOK Flush 10 mL Syringe IVFLUSH SCH ×2 (00:30→07:52)
[2016-09-25] MEDS: D5 0.45% NaCl + KCl 20 mEq/L 1,000 ML IV SCH (02:33)
--- NOTE | 2016-09-25 04:20 | NUR ---
Mentation/Sleep/Turns Patient continues to be oriented to self only, generally pleasantly confused. Improved appetite and asking RN for food and snacks when awake. Patient informed RN at 2044 that he "just wants to sleep" and asked for RN to "please let me sleep as long as possible." Patient asleep for most of shift; rouses easily for medications and vitals checks. Refusing most attempts at repositioning and turning, stating "Don't make me lose my temper, I don't like losing my temper." Continue to monitor.
[2016-09-25 04:45] VITALS: BP 118/69; PULSE 62; RESP 16; O2SAT 99
[2016-09-25] MEDS: Piperacillin-Tazo 3.375 Gm Inj 3.375 GM in Dextrose 5% Minibag Plus 50 ML IV SCH (07:52)
[2016-09-25] MEDS: Pantoprazole 40 mg ER24 Tablet PO SCH (07:52)
[2016-09-25 07:55] LABS: BASOPHILS % (AUTO) 0.3 % (0-3); EOSINOPHILS % (AUTO) 2.7 % (0-5); MONOCYTES % (AUTO) 7.9 % (4-12); Mean Corpuscular Hemoglobin 27.6 pg (27.0-35.0); Mean Corpuscular Volume 81.2 fL (81-100); Platelet Count 219 bil/L (150-400)
[2016-09-25 08:00] VITALS: BP 148/75; PULSE 62; RESP 18; O2SAT 99
[2016-09-25 08:19] LABS: Magnesium 1.7 mg/dL (1.6-2.6); Phosphorus 1.9 mg/dL (2.5-4.9)
[2016-09-25] MEDS ORDERED: Sodium Chloride LOK Flush 10 mL Syringe IVFLUSH PRN ×2 (09:50)
[2016-09-25 10:27] VITALS: PULSE 61
--- NOTE | 2016-09-25 12:01 | PCM.DIMED ---
QuiñonesLetitiaana Deal 09/25/16 1201: Discharge Instructions Date of Service Sep 25, 2016 Dates of Hospitalization Sep 21, 2016 at 17:20 Discharge Diagnosis Discharge Diagnosis 1. Acute on chronic normocytic normochromic anemia, present on admission. Stable. 2. Sacral pressure ulcer, chronic, present on admission, ongoing. 3. 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 4. Sepsis, acute, present on admission. Resolved. 5. Moderate malnutrition, chronic, present on admission. 6. Elevated troponin of uncertain significance, acute on chronic, present on admission. Active. 7. 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 Active. 8. Dementia, chronic, ongoing gradual decline. 9. Possible acute GI bleed, likely upper, present on admission. Ruled out. Medication Instructions Patient will need to be on Unasyn 3000mg IV Q6H for an additional 39 days ( total of 6 weeks antibiotic for osteomyelitis). Script was written by Dr. Adame (infectious disease). He will stop taking the Megace and start the Dronabinol as directed. No change in other medications. Test Results Wound and bone cultures both grew probable staph aureus and strep enterococci. Diet Other (Pureed diet) Activity No restrictions Call your provider Fever or Chills, Shortness of breath, Bleeding, Chest pain, Vomitting, Excessive diarrhea, Weakness (unilateral) Patient Instructions You have a bone infection at the sacral decubitus wound and need to stay on antibiotics for 6 weeks. We did not find the source of bleeding in your upper GI tract. You can discuss with your PCP about having a follow-up colonoscopy to find out the source of bleeding. Your blood counts have been stable. Follow-up Provider: Yaneli Hughes MD Follow-up with PCP in: 1 week Marcos Moreau MD 09/26/16 1518: Discharge Instructions Attending's Statement The patient was seen and examined together with Dr. Quiñones on 09-25-16 and I agree with the history, exam and plan as outlined in the note above. Gayle Quiñones DO Sep 25, 2016 12:01 Marcos Moreau MD Sep 26, 2016 15:18
[2016-09-25] MEDS ORDERED: DRON2.5C10 PO (13:14)
[2016-09-25 13:36] VITALS: BP 136/80; PULSE 65; RESP 16; O2SAT 99
--- NOTE | 2016-09-25 13:46 | DRSVH ---
PROCEDURE: X-RAY PICC LINE PLACEMENT BY NURSE ([id number]) INDICATIONS: antibiotics COMPARISON: None. FINDINGS: PICC was placed by the intravenous therapy team from the left side. Fluoroscopic spot rojas m demonstrates tip projected over the lower SVC. IMPRESSION: Tip of PICC projected over the lower SVC . Dictated by: Bhargav MORSE Interpreted: Marycruz Brown MD on 09/25/2016 at 13:45 Transcribed by: ABRAHAM on 09/25/2016 at 13:45 Approved by: Marycruz Brown M.D. on 09/25/2016 at 18:29
--- NOTE | 2016-09-25 14:04 | PROG NOTE ---
[address] [address] PROGRESS NOTE PATIENT: JOHANNY MACHADO : 1925 MR#: [id number] ADMIT: 09/21/2016 JOB ID: [id number] DATE: 09/25/2016 REASON FOR FOLLOWUP: Deep, stage IV decubitus sacral ulcer with osteomyelitis at the base. INTERVAL HISTORY: Over the weekend, the patient has continued to be quite confused. He continues to be oriented x1. He reports he has no fevers, chills, pulmonary or significant GI symptoms. He does note, not surprisingly, that he does have rather severe pain in his sacral area. Given his dementia, there is little else in the way of available history, though the patient remains affable and his speech is reasonably fluent but just does not make sense. The patient has been afebrile over the weekend. Temp 36.8, pulse 62, respiratory rate 18, blood pressure 148/75. He is saturating well on room air. He is in no acute distress. Oriented x1 and confabulating. His eyes without conjunctivitis. Oral cavity negative. Lungs: Coarse breath sounds at the bases. Cardiac tones: No new murmur. Regular rate and rhythm. Abdomen soft and nontender. Given the fact the patient is comfortable and having breakfast, we did not roll him over but we did carefully examine the deep sacral decubitus on Sunday with wound management and there were actually bone spicules readily available that were actually breaking off his sacrum at the base of his very deep, undermined, and obviously infected wound. No new skin rashes noted. LABORATORIES: Include a white count of 6600, a normal diff. Creatinine is 0.91. LFTs normal. Albumin 1.9. Procalcitonin yesterday 1.25. Urinalysis 11-50 white cells. Urine culture was mixed. MRSA screen was negative once again. Deep cultures from the wound x2 both grew the same two organisms, MSSA and an ampicillin-sensitive Enterococcus. Recall that this is a patient who was admitted to this facility with enterococcal bacteremia of unknown significance last month and it certainly appears that that was on the basis of probable osteomyelitis, in retrospect. IMPRESSION: This unfortunate, very demented gentleman has a deep sacral decubitus ulcer with osteomyelitis in the base. The organisms here involve certainly the Enterococcus and Methicillin-sensitive Staphylococcus aureus we have cultured as well as certainly anaerobes, as this was a very malodorous wound. The nurses report that when the patient stools, the stools basically channeled into this deep and undermined sacral decubitus, making this really a hopeless situation without some debridement, possibly a flap, aggressive efforts to position the patient off his backside, and possibly even a colostomy to divert his fecal stream. Without this more aggressive set of measures, I am not at all hopeful about any resolution of this deep sacral decubitus as antibiotics alone may control it to some degree, the osteomyelitis and surrounding soft tissue infection, but will in no way obviously ameliorate this gaping, deep defect. RECOMMENDATIONS: 1. Unasyn offers one IV choice that would provide coverage for the Enterococcus as well as the MSSA and attendant anaerobes. Given that the patient lives in a group home, this could be provided there. If, on the other hand, more funds were available, it would be possible perhaps to use daptomycin as a once-a-day option with a short course of oral Flagyl for anaerobes, as the daptomycin would cover both the MSSA as well as the Enterococcus, but I suspect this would be cost prohibitive at the group home. 2. The patient will need a PICC line for his six weeks of antibiotics as well as followup labs. 3. I have written orders for the PICC line as well as the antibiotics and the serial laboratory studies and discussed this with the house staff caring for the patient as well as nursing. 4. Given that the patient resides at [facility], I suspect that his group home medical staff can take care of monitoring the labs on IV Unasyn, but I am happy to be involved in this, if necessary. 5. Note that his Unasyn will need to continue through about November 03 to maximize the chance of resolving his osteomyelitis, but again, I do not think that without some of the more aggressive measures mentioned above that we will likely gain permanent control of this problem. 6. ID will go ahead and sign off at this time as there are no additional issues to discuss but please do not hesitate to call me.
[2016-09-25] MEDS ORDERED: Ampicillin-Sulbactam Inj 3,000 MG in 0.9% Sodium Chloride 100 ML IV SCH (14:30)
--- NOTE | 2016-09-25 16:23 | NUR ---
Social Work Note: Discharge Data& Assessment: EMR reviewed. Per pt is medically ready for discharge. Dioni Leong is a 89 year old male admitted on 09/21/2016 for altered mental status. Per pt is medically improved and ready for discharge. Pt is a LTC resident at [facility]. ERNST confirmed with [place] in Admissions that pt is able to return today and they are able to meet pt's needs for IV Unicin for 6 weeks. Pt meets criteria for BLS and requires ambulance transportation for safety and continued care. ERNST spoke with Pt Son Osvaldo to confirm discharge plan and address any unmet needs. Pt son denies any other needs. RN notified. All updated and agreeable to plan. No other discharge needs identified. Plan: Per pt is medically ready for discharge back to [facility] via BLS. All updated and agreeable to plan. No other discharge needs identified. RAFY Vasquez
--- NOTE | 2016-09-25 16:30 | NUR ---
Discharge Pt discharged to [facility] [place]. He will be transported by BLS ambulance. Pt IV dc'd intact, telemetry was removed and tech notified. Pt's belongings were gathered for transport with pt. Report was called to [facility] and given to Alysa FRENCH. Pt was transferred onto a gurney and transported at 1543, a short report was given to GALILEO Johansen.
--- NOTE | 2016-09-25 17:55 | PCM.DC.MED ---
Discharge Summary Date of Service Sep 25, 2016 Dates of Hospitalization Date of Hospital Admission Sep 21, 2016 at 17:20 Date of Discharge: Sep 25, 2016 Providers: Admitting Physician: Mathew Marr MD Primary Care Physician: Yaneli Hughes MD Attending Physician: Mathew Marr MD Diagnosis at Time of Discharge Diagnosis at Time of Discharge 1. Acute on chronic normocytic normochromic anemia, present on admission. Stable. 2. Sacral pressure ulcer, chronic, present on admission, ongoing. 3. 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 4. Sepsis, acute, present on admission. Resolved. 5. Moderate malnutrition, chronic, present on admission. 6. Elevated troponin of uncertain significance, acute on chronic, present on admission. Active. 7. 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 Active. 8. Dementia, chronic, ongoing gradual decline. 9. Possible acute GI bleed, likely upper, present on admission. Ruled out. Consultations Infectious Disease (Dr. Bladimir Adame) Procedures XRay, CTs & MRIs X-RAY CHEST ONE VIEW, PORTABLE IMPRESSION: No acute cardiopulmonary disease. Dictated by: Bhargav Rendon Shane Interpreted: Marga Hirsch MD on 09/21/2016 at 14:24 Cardiac Echo Impression Interpretation Summary The left ventricle is normal in size. The left ventricular ejection fraction is grossly normal. Regional wall motion abnormalities cannot be excluded due to limited visualization. Assessment of diastolic parameters indicates a relaxation abnormality of the left ventricle, consistent with normal filling pressures. The right ventricle is grossly normal size. Right ventricular function cannot be assessed due to poor image quality. Image quality is very poor which makes it very difficult to see any obvious vegetative masses. Consider MARISOL if clinically suspicious for endocarditis. Other Diagnostics PROCEDURE: Esophagogastroduodenoscopy. FINDINGS: 1. Normal-appearing duodenal bulb, first and second portion. Bile-stained mucosa was noted throughout the examined portions of the duodenum. 2. Normal-appearing pylorus, antrum, and gastric body. 3. Retroflexed views in the gastric body revealed a normal-appearing cardia and fundus. 4. The GE junction was regular at 41 cm. 5. In the esophagus, what initially appeared to be adherent whitish plaques and therefore a single biopsy was obtained. However, upon further inspection and irrigation, this appeared to be possibly old food debris or medications, as we were able to irrigate and suction this whitish material. IMPRESSION: Normal esophagogastroduodenoscopy exam to second portion of the duodenum. No old or fresh blood seen on exam. Following the procedure, I had performed a rectal exam which revealed brown liquid stool. RECOMMENDATIONS: 1. Continue to follow H and H and transfuse blood products as needed. No upper GI source for anemia. Consider other etiologies for anemia. 2. He his having brown stool currently and therefore will hold off on colonoscopy to further evaluate anemia at this time. 3. If liquid stool persists consider checking C. Diff. Above discussed with patient's son who agreed on holding off on colonoscopy at this time. Lucinda Mc MD 09/22/16 182 Brief History Per admission H&P: Dioni Leong is an 89 year old man with past medical history significant for severe dementia, coronary artery disease, cachexia, chronic non-healing sacral pressure ulcer, and E. fecalis bacteremia who presented this morning to [facility] ED via EMS from [facility] due to dark tarry stools. Patient is unable to give any history and while verbal is completely unaware of the situation surrounding him. All history is obtained from chart review and current ED records. Per report the [facility] staff was concerned that the patient may be dehydrated or have sepsis. The patient was previous hospitalized at [facility] from 06/01 to 09/06/16 due to bacteremia and sepsis secondary to chronic sacral ulcer. During that stay the wound was evaluated by Dr. Adame, general surgery , plastic surgery and wound care and it was determined that the patient is not a candidate for a flap. However Dr. Adame at the time also noted that the wound was unlikely to heal without surgical intervention. At the time he was treated with Zosyn with Dalbavancin on discharge. The patient could not be started on Zosyn due to medication interaction. At the time the patient was also considered for a PEG tube but was not determined to be a candidate. The patient's son is his DPOA and would like to proceed with full treatment and full code based on past documentation. In the ED the patients vital were T 36.5 HR 90 BP 94/40 RR 16. He was given single doses of Vancomycin, Meropenem and Clindamycin. He was also given one liter of fluid. Hospital Course Dioni Leong is an 89 year old man with past medical history significant for severe dementia, coronary artery disease, cachexia, chronic non-healing sacral pressure ulcer, and E. fecalis bacteremia who presented this morning to [facility] ED via EMS from [facility] due to dark tarry stools. Hospital day # 5 1. Acute on chronic normocytic normochromic anemia, present on admission. Stable. - Initially suspected to be upper GI bleed. However, EGD was negative for bleeding. Likely due to worsening Stage 4 decubitus ulcer. - Patient was transfused 2 units of PRBC's on 3 and has required no additional blood product up to now. - CBC monitored daily. Transfuse PRBC's if Hgb <8.0. 2. Sacral pressure ulcer, chronic, present on admission, ongoing. - Noted on prior admission and determined not to be a candidate for aggressive debridement, flaps and other aggressive care because of his advanced dementia and debility. In the ED patient received antibiotics for necrotizing fasciitis although his LRINEC score is only 2 - Wound care consulted. Their recommendations are appreciated. 3. 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 - Wound and bone culture from the sacral ulcer grew Stap aureus and Strep Enterococci. Await sensitivities. - Dr. Adame was consulted for antibiotic guidance and recommended to continue Zosyn (day 4). - At discharge, patient had a PICC line placed and discharge on Unasyn 3g Q6H for another 39 days (total of 6 weeks). 4. Probable sepsis, acute, present on admission. Resolved. - While patient does not meet criteria for SIRS he is hypotensive with a procalcitonin of 2.7, left shift with 95% neutrophils with a large decubitus ulcer known to grown E. fecalis and as described by the ED staff it appears fecal material is leaking around his wound. So it is likely he is again infected. - Patient received 2 L of NS in the ED - CBC and procalcitonin monitored, both trended down. 5. Moderate malnutrition, chronic, present on admission. - This is directly related to patient's dementia and poor oral intake. - Not a candidate for PEG tube. - Given his poor oral intake, he was on D5 1/2NS with 20mEq K at 80mls/hr. - [employer] consultation for most optimal nutrition. Limited to honey/pureed diet by speech therapy. - Stop Megace appetite stimulant. Start marinol 5 mg TID 30-60 minutes prior to meals. - If patient and family do not want limited diet they may sign an AMA form so they can feed him whatever he wants. 6. Elevated troponin of uncertain significance, acute on chronic, present on admission. Active. - Possible etiology is due to stress from acute blood loss in the setting of known CAD or sepsis. - EKG PRN chest pain. - Continue to monitor for symptoms. 7. 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 Improved. - Likely due to poor oral intake. - Repletion PRN 8. Dementia, chronic, ongoing gradual decline. - Palliative care consulted. Their time and recommendations are appreciated. - Patient requires a sitter for safety as he is a fall risk. - Pureed diet per speech. 9. Possible acute GI bleed, likely upper, present on admission. Ruled out. - Appreciate GI's recommendations. EGD on 09/22 showed no upper GI source for anemia. Per GI, will hold off on colonoscopy to further evaluate anemia at this time. - Protonix drip changed PO. - H/H has been stable. - Advance diet to puree. Disposition: Discharge back to alf. CODE STATUS: FULL CODE. Would be prudent to perhaps broach the topic of palliative care and hospice due mental status, cachexia and non-healing sacral ulcer. However, his DPOA, would like to continue with all invasive treatment. Son is Reuben Leong at [phone]. Exam Vital Signs (Last) Date Time Temp Pulse Resp B/P Pulse Ox O2 Delivery O2 Flow Rate FiO2 09/25/16 10:27 61 09/25/16 08:00 36.8 18 148/75 99 Room Air 09/22/16 18:20 2 100 Exam General: Very pale, chronically ill appearing male, thin, not in acute distress HEENT: Normocephalic, atraumatic. External ears without defect. Anicteric sclerae, pale conjunctivae, and no lid lag. Neck: Supple with full range of motion. No jugular venous distension. No bruits. No lymphadenopathy or thyromegaly. Cardiovascular: Regular rate and rhythm. A 2/6 systolic ejection murmur appreciated. Pulmonary: Scattered crackles. Normal respiratory effort with no use of accessory muscles. Abdomen: Bowel tones present. Soft, nontender, nondistended. No hepatosplenomegaly or masses appreciated. Extremities: No clubbing, cyanosis, or lymphadenopathy appreciated. Mild pitting edema appreciated in both lower extremities Pulses: Radial present and equal bilaterally. Dorsalis pedis pulse present on the right but difficult to appreciate on the left. : Diego in place. Skin: Pale skin with scattered ecchymoses on arms. See my exam on 09/22 or wound care note for details of the decubitus ulcer exam. Psychiatric: Alert, oriented to self only. Pleasant however confused. Speaking in full sentences but content is nonsensical. Answers few questions appropriately. Test 09/21/16 12:52 09/21/16 18:21 09/24/16 03:57 09/25/16 07:45 Prothrombin Time 11.5sec (8.1-12.5) Prothromb Time International Ratio 1.07ratio C-Reactive Protein 18.0mg/dL (0.0-0.5) Pro-B-Type Natriuretic Peptide 33789md/mL (0-486) Urine Color Yellow (YELLOW) Urine Appearance Slightly cloudy Urine pH 5.5 (5.0-8.0) Urine Specific [place] 1.025 (1.003-1.035) Urine Protein 30mg/dL (NEG,TRACE) Urine Glucose (UA) Negativemg/dL (NEGATIVE) Urine Ketones Negativemg/dL (NEGATIVE) Urine Occult Blood Moderate (NEGATIVE) Urine Nitrite Positive (NEGATIVE) Urine Bilirubin Negative (NEGATIVE) Urine Urobilinogen Normalmg/dL (NORMAL) Urine Leukocyte Esterase Small (NEGATIVE) Urine RBC 3-10/hpf (0-2) Urine WBC 11-50/hpf (0-5) Urine Epithelial Cells Few/hpf (NONE-MOD) Urine Crystals Amorphous urates (NONE Urine Bacteria Moderate/hpf (NONE-FEW) Urine Hyaline Casts None/lpf (NONE) Urine Granular Casts Rare (NONE SEEN) Urine Waxy Casts None seen (NONE SEEN) Urine Red Blood Cell Casts None seen (NONE SEEN) Urine White Blood Cell Casts None seen (NONE SEEN) Urine Mucus None seen (None Seen) Urine Trichomonas None seen (NONE SEEN) Urine Yeast Moderate (NONE SEEN) Urinalysis Comment None Urine Culture Reflexed Indicated Lactic Acid Level 1.8mmol/L (0.4-2.0) Troponin T 0.085ug/L (0.0-0.011) Prealbumin 7mg/dL (20-40) Procalcitonin 1.25ng/mL (0.00-0.08) White Blood Count 6.6th/mm3 (3.8-10.1) Red Blood Count 3.41mil/mm3 (4.40-5.80) Hemoglobin 9.4g/dL (13.8-17.2) Hematocrit 27.7% (41.0-50.0) Mean Corpuscular Volume 81.2fL (81-100) Mean Corpuscular Hemoglobin 27.6pg (27.0-35.0) Mean Corpuscular Hemoglobin Concent 33.9% (32.0-37.0) Red Cell Distribution Width 16.2% (12.3-15.4) Platelet Count 219bil/L (150-400) Neutrophils (%) (Auto) 73.0% (40-74) Lymphocytes (%) (Auto) 14.9% (14-46) Monocytes (%) (Auto) 7.9% (4-12) Eosinophils (%) (Auto) 2.7% (0-5) Basophils (%) (Auto) 0.3% (0-3) Sodium Level 139mEq/L (134-144) Potassium Level 3.9mEq/L (3.5-5.2) Chloride Level 114mEq/L (97-108) Carbon Dioxide Level 14mmol/L (18-29) Blood Urea Nitrogen 19mg/dL (8-27) Creatinine 0.91mg/dL (0.76-1.27) Estimat Glomerular Filtration Rate 83mL/min (>59) Glucose Level 157mg/dL (60-99) Calcium Level 7.4mg/dL (8.5-10.1) Phosphorus Level 1.9mg/dL (2.5-4.9) Magnesium Level 1.7mg/dL (1.6-2.6) Total Bilirubin 0.3mg/dL (0.0-1.2) Aspartate Amino Transf (AST/SGOT) 12U/L (0-50) Alanine Aminotransferase (ALT/SGPT) 11U/L (0-44) Alkaline Phosphatase 46U/L (25-160) Total Protein 4.3g/dL (6.4-8.4) Albumin 1.9g/dL (3.4-5.0) Microbiology Results Bone and Wound Cultures from the Sacral Decubitus Ulcer Microbiology ARIELLE GS (GRAM STAIN) Final 09/22/16-1630 GRAM STAIN RESULT RARE POLYS FEW GRAM POS COCCI ARIELLE CULT AEROBIC Preliminary 09/25/16-1218 Organism 1 STAPHYLOCOCCUS AUREUS COLONY COUNT/QUANTITY MODERATE GROWTH SENSITIVITY COMMENTS For susceptibility test results see OTHER CULTURE SAME DAY Organism 2 ENTEROCOC FAECALIS - (GROUP D) COLONY COUNT/QUANTITY MODERATE GROWTH SENSITIVITY COMMENTS For susceptibility test results see OTHER CULTURE SAME DAY Organism 3 STREPTOCOCCUS ANGINOSUS COLONY COUNT/QUANTITY MODERATE GROWTH SENSITIVITY COMMENTS For susceptibility test results see OTHER CULTURE SAME DAY PRELIMINARY ID STAPH, PROBABLE STAPH AUREUS ID TO FOLLOW COLONY COUNT/QUANTITY MODERATE GROWTH PRELIMINARY ID ORG 2 STREP, PROBABLE ENTEROCOCCI ID TO FOLLOW COLONY COUNT/QUANTITY MODERATE GROWTH GRAM NEG RODS, ID and Susceptibilities to follow TWO MORPH TYPES ANAEROBIC CULTURE Preliminary 09/24/16-0859 Insufficient growth, culture is reincubated. Discharge Medications Discharge Medications Aspirin Chew (Aspirin Chew) 81 Mg Chew 81 MG PO DAILY (Reported) Atorvastatin Calcium (Atorvastatin Calcium) 20 Mg Tablet 40 MG PO HS Prescribed by: GABY MCBRIDE MD Cholecalciferol (Vitamin D3) (Vitamin D) 1,000 Unit Tablet 1,000 UNIT PO DAILY Prescribed by: GABY MCBRIDE MD Dronabinol (Dronabinol) 2.5 Mg Capsule 5 MG PO TIDAC Prescribed by: NAVNEET DA SILVA DO Metoprolol Tartrate (Metoprolol Tartrate) 25 Mg Tablet 12.5 MG PO BID Prescribed by: GABY MCBRIDE MD Mirtazapine (Remeron) 15 Mg Tablet 7.5 MG PO HS (Reported) Naph,Mb-Db/K pH,Mbdb (Phos-Nak Packet) 1 Each Powd.pack 1 EACH PO HS (Reported) Quetiapine Fumarate (Quetiapine Fumarate) 25 Mg Tablet 25 MG PO HS Prescribed by: GABY MCBRIDE MD Quetiapine Fumarate (Quetiapine Fumarate) 25 Mg Tablet 12.5 MG PO MORNING Prescribed by: GABY MCBRIDE MD As needed Hydrocodone/Acetaminophen (Lorcet 5-325 mg Tablet) 1 Each Tablet 1 EACH PO Q4H PRN PRN For Pain (Reported) Additional med instructions Patient will need to be on Unasyn 3000mg IV Q6H for an additional 39 days ( total of 6 weeks antibiotic for osteomyelitis). Script was written by Dr. Adame (infectious disease). He will stop taking the Megace and start the Dronabinol as directed. No change in other medications. Followup Plan Disposition: [facility] Follow-up plan Follow up plan per SNF. Discharge Diet: Other (Pureed diet) Discharge Activity: No restrictions Patient Instructions You have a bone infection at the sacral decubitus wound and need to stay on antibiotics for 6 weeks. We did not find the source of bleeding in your upper GI tract. You can discuss with your PCP about having a follow-up colonoscopy to find out the source of bleeding. Your blood counts have been stable. Follow-up Provider: Yaneli Hughes MD Follow-up with PCP in: 1 week Attending Statement The patient was seen and examined together with Dr. Da Silva on 09-25-16 and I agree with the history, exam and plan as outlined in the note above. copies to: Yaneli Hughes MD, Ngochanh H DO Sep 25, 2016 13:28 Marcos Moreau MD Sep 26, 2016 15:18
== END 2016-09-25 15:45 | DRG 871 ==
LOC: SED 11:45 → EDBD 11:45 → PCC 17:20
PROVIDERS: ADMIT Internal Medicine; ATTEND Internal Medicine
PROC: 30233N1 Transfusion of Nonautologous Red Blood Cells into Peripheral Vein, Percutaneous Approach (ICD-10-PCS; 2016-09-21)
PROC: 0DB58ZX Excision of Esophagus, Via Natural or Artificial Opening Endoscopic, Diagnostic (ICD-10-PCS; principal; 2016-09-22 16:00)
DX: A41.9 Sepsis, unspecified organism (principal); L89.154 Pressure ulcer of sacral region, stage 4; D62 Acute posthemorrhagic anemia; R64 Cachexia; E44.0 Moderate protein-calorie malnutrition; M86.18 Other acute osteomyelitis, other site; M86.68 Other chronic osteomyelitis, other site; Z68.20 Body mass index [BMI] 20.0-20.9, adult; L89.611 Pressure ulcer of right heel, stage 1; B95.61 Methicillin susceptible Staphylococcus aureus infection as the cause of diseases classified elsewhere; Z79.82 Long term (current) use of aspirin; Z87.891 Personal history of nicotine dependence; E87.6 Hypokalemia; F03.90 Unspecified dementia, unspecified severity, without behavioral disturbance, psychotic disturbance, mood disturbance, and anxiety; Z51.5 Encounter for palliative care; I25.2 Old myocardial infarction; B95.2 Enterococcus as the cause of diseases classified elsewhere; B95.4 Other streptococcus as the cause of diseases classified elsewhere; B96.20 Unspecified Escherichia coli [E. coli] as the cause of diseases classified elsewhere

== ENCOUNTER 2016-10-29 21:31 | Emergency (ER) | payer MEDICARE, OTHER ==
[~2016-10-29] VITALS: Ht 177.8 cm; Wt 65.0 kg
[~2016-10-29 21:31] MED LIST changes: -ASPI-628 PO; +ASPI81TA3 PO; -BISA5TAB96 PO; +DRON2.5C10 PO; -MEGE400O4 PO
--- NOTE | 2016-10-29 21:37 | ED.REPORT ---
HPI-General Illness Date of Service Oct 29, 2016 ED Provider: Dr. Cota 89 y/o male with a hx of dementia, Alzheimer's, [place], and pneumonia presents to the ED via EMS due to loss of his IV and required antibiotics due to be given for ulcer on the left buttock. Nursing notes indicate he was agitated and combative at his halfway causing his IV to come out. Further history unable to be obtained due to pt's dementia. Nursing Notes Stated Complaint: DEMENTIA Nursing Notes Reviewed: Yes Allergies: Coded Allergies: No Known Allergies (Verified Allergy, Unknown, 09/21/16) Scheduled Aspirin Chew (Aspirin Chew) 81 Mg Chew 81 MG PO DAILY Atorvastatin Calcium (Atorvastatin Calcium) 20 Mg Tablet 40 MG PO HS Cholecalciferol (Vitamin D3) (Vitamin D) 1,000 Unit Tablet 1,000 UNIT PO DAILY Dronabinol (Dronabinol) 2.5 Mg Capsule 5 MG PO TIDAC Metoprolol Tartrate (Metoprolol Tartrate) 25 Mg Tablet 12.5 MG PO BID Mirtazapine (Remeron) 15 Mg Tablet 7.5 MG PO HS Naph,Mb-Db/K pH,Mbdb (Phos-Nak Packet) 1 Each Powd.pack 1 EACH PO HS Quetiapine Fumarate (Quetiapine Fumarate) 25 Mg Tablet 25 MG PO HS Quetiapine Fumarate (Quetiapine Fumarate) 25 Mg Tablet 12.5 MG PO MORNING Scheduled PRN Hydrocodone/Acetaminophen (Lorcet 5-325 mg Tablet) 1 Each Tablet 1 EACH PO Q4H PRN PRN For Pain General Time Seen by MD: 21:36 Transferred From: long term Chief Complaint Other (Ulcer) Hx Obtained From: EMS Unable to Obtain Hx: Mental status Arrived By: Ambulance Sudden in Onset?: No Past Medical History Past Medical History Dementia Asthma CAD Arthritis Diverticulosis Hypokalemia 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, he has a POLST form indicating FULL CODE Other Social History: Local resident Ambulatory Status Wheelchair Review of Systems Unable to Obtain ROS Mental status Physical Exam Vital Signs Vital Signs Date Time Temp Pulse Resp B/P Pulse Ox O2 Delivery O2 Flow Rate FiO2 10/29/16 23:10 36.8 97 18 123/92 98 Room Air 10/29/16 21:39 37 78 18 114/54 99 Room Air Initial VS: Reviewed, Vital signs normal Head / Eyes: Atraumatic, Normocephalic, PERRL ENT: Mucous membranes moist, Conjunctiva normal, No scleral icterus Neck: Supple, Full range of motion Respiratory: Breath sounds normal, Clear to auscultation, No respiratory distress Abdomen / GI: Soft, Non-tender, No guarding, No rebound, No distention General/Constitutional: Awake Alertness: Positive: Confused Cardiovascular: Regular rhythm Borderline Tachycardia. Rate 108. Skin: Atraumatic Decubitus Ulcer #1: Positive: Chronic, Single decubitus ulcer, Stage 4 Ulcer located over left buttock Neurologic: Speech NL Mental Status: Positive: Confused Re-Eval/Medical Decision Med Decision/Clinical Course Demented elderly man presents E ambulance and even IV for ongoing IV antibiotics. An IV was placed by nursing staff. No other particular agenda to this visit and he is discharged back via ambulance to the halfway for ongoing therapy as previously arranged. Source of Hx: Old records, EMS Time of Eval: 23:16 Re-Evaluation/Progress Note: Dced back to SNF via BLS Counseled Regarding: Diagnosis, Need for follow-up, When/why to return to ED Discharge & Departure Primary Impression: Dementia Dementia type: unspecified type Dementia behavioral disturbance: with behavioral disturbance Qualified Code: F03.91 - Unspecified dementia with behavioral disturbance Additional Impression: Decubitus ulcer Pressure ulcer location: buttock Pressure ulcer stage: stage 4 Laterality: left Qualified Code: L89.324 - Pressure ulcer of left buttock, stage 4 Disposition: Home Discharge Condition All VS Reviewed: Yes Condition: Stable Additional Instructions: Resume former orders. Arrange PICC line during the daytime this week. Referrals: Bharat Hughes (PCP) Scribe Attestation Portions of this note were transcribed by Elliott Olivier and Av Coreas. I, personally performed the history, physical exam and medical decision- making;I reviewed and confirmed the accuracy of the information in the transcribed note. Signed by Elliott Olivier and Frankie Jackson. 10/29/16. 2313. copies to: Bharat Hughes Christopher W MD Oct 29, 2016 21:37 Elliott Olivier Oct 29, 2016 21:43 AV COREAS Oct 29, 2016 22:16
[2016-10-29 21:39] VITALS: BP 114/54; PULSE 78; RESP 18; O2SAT 99
[2016-10-29 23:10] VITALS: BP 123/92; PULSE 97; RESP 18; O2SAT 98
== END 2016-10-29 23:15 | disposition home or self-care (01) ==
LOC: EDUNIT# 21:31 → EDBD 21:31 → SED 21:31
DX: F03.91 Unspecified dementia, unspecified severity, with behavioral disturbance (principal); L89.324 Pressure ulcer of left buttock, stage 4; I25.2 Old myocardial infarction; G30.1 Alzheimer's disease with late onset; I25.10 Atherosclerotic heart disease of native coronary artery without angina pectoris; J45.909 Unspecified asthma, uncomplicated; I50.9 Heart failure, unspecified; Z79.82 Long term (current) use of aspirin; Z87.891 Personal history of nicotine dependence; Z99.3 Dependence on wheelchair

== ENCOUNTER 2017-02-15 07:55 | Inpatient (IN) | payer MEDICARE, OTHER, MEDICAID ==
[~2017-02-15] VITALS: Ht 182.9 cm; Wt 74.9 kg
[2017-02-15] VITALS (14 sets, daily range): BP systolic 100–132; BP diastolic 50–99; PULSE 76–123; RESP 17–24; O2SAT 96–100
--- NOTE | 2017-02-15 08:02 | ED.REPORT ---
HPI-General Illness Date of Service Feb 15, 2017 ED Provider: Kendra Grimm MD Patient is an 89 year old male with a hx of dementia and CAD who presents to the ED via EMS from [facility] for gargling respirations onset last night. Associated symptoms include altered level of consciousness. On arrival, he has feeding tube contents being suctioned from his oropharynx and is tachycardic at a rate of 120. Patient had a chest X-ray yesterday that was negative for pneumonia and noted to be normal. He has been on antibiotics as follows: Keflex started on January 24, 10 day course. Ceftriaxone, 500 mg IM, started on January 30, 7 day course. Bactrim, 7 day course, stopped yesterday. Ceftriaxone, 1 g IM, given yesterday for a possible aspiration pneumonia. Patient is FULL CODE. Nursing Notes Stated Complaint: DYSPNEA Chief Complaint: General Complaint Nursing Notes Reviewed: Yes Allergies: Coded Allergies: No Known Allergies (Verified Allergy, Unknown, 02/15/17) Scheduled Aspirin Chew (Aspirin Chew) 81 Mg Chew 81 MG PO DAILY Atorvastatin Calcium (Atorvastatin Calcium) 20 Mg Tablet 40 MG PO HS Cholecalciferol (Vitamin D3) (Vitamin D) 1,000 Unit Tablet 1,000 UNIT PO DAILY Dronabinol (Dronabinol) 2.5 Mg Capsule 5 MG PO TIDAC Metoprolol Tartrate (Metoprolol Tartrate) 25 Mg Tablet 12.5 MG PO BID Mirtazapine (Remeron) 15 Mg Tablet 7.5 MG PO HS Naph,Mb-Db/K pH,Mbdb (Phos-Nak Packet) 1 Each Powd.pack 1 EACH PO HS Quetiapine Fumarate (Quetiapine Fumarate) 25 Mg Tablet 25 MG PO HS Quetiapine Fumarate (Quetiapine Fumarate) 25 Mg Tablet 12.5 MG PO MORNING Scheduled PRN Hydrocodone/Acetaminophen (Lorcet 5-325 mg Tablet) 1 Each Tablet 1 EACH PO Q4H PRN PRN For Pain General Time Seen by MD: 07:55 Chief Complaint Breathing problem Hx Obtained From: EMS Arrived By: Ambulance Sudden in Onset?: Yes Onset Occurred: Yesterday Symptom Duration: Since onset Past Medical History Past Medical History Dementia Asthma CAD Arthritis Diverticulosis Hypokalemia 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 H/o IA H/o "CHF" Past Surgical History CABG cardiac stents Reports: Back/neck surgery Family History Noncontributory Smoking History Former Smoker Social History Patient presents from [facility], he has a POLST form indicating FULL CODE Other Social History: Local resident Ambulatory Status Wheelchair Review of Systems Unable to Obtain ROS Patient condition, Mental status Physical Exam Vital Signs Vital Signs Date Time Temp Pulse Resp B/P Pulse Ox O2 Delivery O2 Flow Rate FiO2 02/15/17 10:04 88 19 114/50 99 Room Air 02/15/17 09:45 88 20 114/50 98 Room Air 02/15/17 09:30 88 20 104/50 98 Room Air 02/15/17 09:00 109 19 132/67 97 Room Air 02/15/17 08:45 112 19 116/99 99 Room Air 02/15/17 08:30 115 20 109/64 98 Room Air 02/15/17 08:15 115 20 121/70 96 Room Air 02/15/17 08:00 118 20 116/69 96 Room Air 02/15/17 07:56 36.6 123 24 116/69 98 Room Air Initial VS: Reviewed, Vital signs abnormal Head / Eyes: Atraumatic, Normocephalic General/Constitutional: Awake Appearance / Presentation: Positive: Pale Minimally responsive Neck: Atraumatic Respiratory / Chest: Atraumatic diffuse gurgling Heart Rate / Rhythm: Positive: Tachycardia overriding pulomary noise Abdomen: Atraumatic, Soft feeding tube in place Ankle / Foot: No deformity R foot and ankle multiple wounds L foot and ankle atraumatic Skin: Warm, Dry Rash / Lesion Notes: multiple small bruises and abrasions sacrum - stage IV decubitus, bone visible, smells foul, wound vac dislodge, looks infected. R foot ulcer on lateral aspect no infection, large decubitus to R ankle with dressing, not draining L foot and ankle nL poor profusion diffusely Mental Status: Positive: Unresponsive (minimally responsive ) Interpretation & Diagnostics Lab Results Interpretation Result Diagram: 02/15/17 0800 02/15/17 0800 Test 02/15/17 08:00 02/15/17 08:03 02/15/17 09:00 White Blood Count 11.2th/mm3 (3.8-10.1) Red Blood Count 2.72mil/mm3 (4.40-5.80) Hemoglobin 8.1g/dL (13.8-17.2) Hematocrit 25.8% (41.0-50.0) Mean Corpuscular Volume 94.9fL (81-100) Mean Corpuscular Hemoglobin 29.8pg (27.0-35.0) Mean Corpuscular Hemoglobin Concent 31.4% (32.0-37.0) Red Cell Distribution Width 16.7% (12.3-15.4) Platelet Count 231bil/L (150-400) Neutrophils (%) (Auto) 88.7% (40-74) Lymphocytes (%) (Auto) 4.0% (14-46) Monocytes (%) (Auto) 6.9% (4-12) Eosinophils (%) (Auto) 0.1% (0-5) Basophils (%) (Auto) 0.1% (0-3) Sodium Level 142mEq/L (134-144) Potassium Level 3.5mEq/L (3.5-5.2) Chloride Level 105mEq/L (97-108) Carbon Dioxide Level 20mmol/L (18-29) Blood Urea Nitrogen 57mg/dL (8-27) Creatinine 0.83mg/dL (0.76-1.27) Estimat Glomerular Filtration Rate 93mL/min (>59) Glucose Level 195mg/dL (60-99) Lactic Acid Level 2.2mmol/L (0.4-2.0) Calcium Level 8.4mg/dL (8.5-10.1) Phosphorus Level 3.7mg/dL (2.5-4.9) Total Bilirubin 0.2mg/dL (0.0-1.2) Aspartate Amino Transf (AST/SGOT) 16U/L (0-50) Alanine Aminotransferase (ALT/SGPT) 10U/L (0-44) Alkaline Phosphatase 65U/L (25-160) Pro-B-Type Natriuretic Peptide 3871pg/mL (0-486) Total Protein 5.4g/dL (6.4-8.4) Albumin 2.7g/dL (3.4-5.0) Prealbumin 15mg/dL (20-40) Lipase 13U/L (13-60) Procalcitonin 0.22ng/mL (0.00-0.08) Urine Color Straw (YELLOW) Urine Appearance Hazy (CLEAR,HAZY) Urine pH 7.0 (5.0-8.0) Urine Specific [place] 1.005 (1.003-1.035) Urine Protein Negativemg/dL (NEG,TRACE) Urine Glucose (UA) Negativemg/dL (NEGATIVE) Urine Ketones Negativemg/dL (NEGATIVE) Urine Occult Blood Negative (NEGATIVE) Urine Nitrite Positive (NEGATIVE) Urine Bilirubin Negative (NEGATIVE) Urine Urobilinogen Normalmg/dL (NORMAL) Urine Leukocyte Esterase Negative (NEGATIVE) Urine RBC 0-2/hpf (0-2) Urine WBC 0-5/hpf (0-5) Urine Epithelial Cells Occasional/hpf (NONE-MOD) Urine Crystals None seen (NONE SEEN) Urine Bacteria Moderate/hpf (NONE-FEW) Urine Hyaline Casts None/lpf (NONE) Urine Granular Casts None seen (NONE SEEN) Urine Waxy Casts None seen (NONE SEEN) Urine Red Blood Cell Casts None seen (NONE SEEN) Urine White Blood Cell Casts None seen (NONE SEEN) Urine Mucus None seen (None Seen) Urine Trichomonas None seen (NONE SEEN) Urine Yeast None (NONE SEEN) Urinalysis Comment None Urine Culture Reflexed Indicated Urine Legionella pneumophilia Ag Negative (Negative) ECG Interpretation ECG Interpretation: Sinus tachycardia with a rate of 108 ST depression, anterolateral leads Different from 09/23/16 Time: 08:49 Interpreted by: ED physician ABG Interpretation ABG Interpretation: VBG: pH 7.370 pCO2 41 pO2 30.5 cHCO3- 22.9 cBase -1.7 Exam Performed by: Allied health pract X-Ray Chest Interpretation Chest Xray Interpretation: IMPRESSION: 1. Left retrocardiac opacities compatible with atelectasis or developing consolidation. Dictated by: Edward Sanchez M.D. on 02/15/2017 at 8:51 Approved by: Edward Sanchez M.D. on 02/15/2017 at 8:53 View: Portable, 1 view Interpretation / Wet Read by: Interpret - Radiologist Re-Eval/Medical Decision Med Decision/Clinical Course 89-year-old gentleman presents from nursing home facility, full code. Apparently increasing respiratory distress over the course of the evening. Minimally responsive with gurgling fluids clearly aspirating. Appeared to be tube feeding material. Initially quite tachycardic, pale, normotensive, and poor peripheral perfusion. Stat medical team was called. IV access was obtained. Deep suctioning performed a liter of fluid administered broad-spectrum antibiotics started. Initial assumption was severe sepsis with source being his large sacral decubitus ulcer with complicating aspiration and respiratory compromise. With her initial resuscitation if he actually has improved nicely now awake much more alert and interactive responding appropriately. At this point respiratory status is stable and he will not need intubation. EKG reveals some ST depression diffusely. Initial troponin is elevated. Suspect that these cardiac issues are result of the severity of the respiratory issue initially. Given the concerns for sepsis and the large sacral decubitus open area will opt to not anticoagulate at this time. With the recent significant aspiration from a G- tube I am not comfortable with oral aspirin and given the large suprapubic tube is getting to his rectum for rectal aspirin is not going to be feasible at this moment. Contacted his son and power of state's attorney. Reviewed my concerns with sepsis, the respiratory failure with likely a developing now aspiration pneumonia, the severe sacral decubitus that may need surgical intervention and clearly needs wound care and my concern that at his tenuous medical state and advanced age with multiple episodes today and the elevated troponin and he clearly is given need some of the consultative care available at [facility]. His son agreed to admission and hospitalist was called. Full CODE STATUS was again reviewed and confirmed. Time of Eval: 09:16 Re-Evaluation/Progress Note: Rechecked patient. He is now much more alert after fluids, antibiotics are running. He was deep suctioned and now has only a few wheezes and rhonchi throughout. He is less tachycardic now. Discussed plan for admission. Patient understands and agrees with plan. All questions addressed at this time. Time of Eval: 10:23 Re-Evaluation/Progress Note: Discussed plan of care in length with pt's son, POA. Explained clinical conditions and concerns. Pt's son agrees to hospitalization at [facility]. Consultation : Referral / Consult Name: Ken Jordan MD Consulted With: Hospitalist Call Returned at: 10:14 Financial Sales Manager: Will see patient, Agrees with eval, Agrees with plan, Accepts admit Note: Discussed pt's case. Accepts admit. Make sure admit to [facility] acceptable to pt's son who is POA Counseled Regarding: Diagnosis, Need for admission Discharge & Departure Primary Impression: Sepsis Sepsis type: sepsis due to unspecified organism Qualified Code: A41.9 - Sepsis, unspecified organism Additional Impressions: Elevated troponin Sacral decubitus ulcer, stage IV Aspiration pneumonia Aspiration pneumonia type: unspecified Laterality: left Lung location: lower lobe of lung Qualified Code: J69.0 - Pneumonitis due to inhalation of food and vomit Disposition: ADMITTED TO HOSPITAL Discharge Condition All VS Reviewed: Yes Condition: Stable Referrals: Bharat Hughes (PCP) Crit Care Except Billable Proc Time Spent: 30-74 minutes Services Performed: Patient management by me, Time spent at bedside, Reviewing test results, Reviewing imaging, Discussing patient care, Documentation in record, Time with fam/surrogate Scribe Attestation Portions of this note were transcribed by Fernanda Youngblood. I, Dr. Grimm, personally performed the history, physical exam, and medical decision making; I reviewed and confirmed the accuracy of the information in the transcribed note. Signed by: Frankie Samuels, 02/15/17 copies to: Bharat Hughes Shawna L MD Feb 15, 2017 08:02 FERNANDA YOUNGBLOOD Feb 15, 2017 08:08
[2017-02-15] MEDS ORDERED: 0.9% Sodium Chloride 1,000 ML IV ONE ×2 (08:03→08:05)
[2017-02-15] MEDS ORDERED: levoFLOXacin Inj 750 MG in IV Premix 1 EACH IV ONE (08:05)
[2017-02-15] MEDS ORDERED: Piperacillin-Tazo 3.375 Gm Inj 3.375 GM in Dextrose 5% Minibag Plus 50 ML IV ONE (08:05)
[2017-02-15] MEDS ORDERED: Vancomycin Dose per Pharmacist XX ONE (08:05)
[2017-02-15 08:10] LABS: BASOPHILS % (AUTO) 0.1 % (0-3); EOSINOPHILS % (AUTO) 0.1 % (0-5); MONOCYTES % (AUTO) 6.9 % (4-12); Mean Corpuscular Hemoglobin 29.8 pg (27.0-35.0); Mean Corpuscular Volume 94.9 fL (81-100); NEUTROPHILS % (AUTO) 88.7 % (40-74); Platelet Count 231 bil/L (150-400)
[2017-02-15] MEDS ORDERED: Vancomycin Inj 1,000 MG in IV Premix 1 EACH IV ONE (08:25)
--- NOTE | 2017-02-15 08:54 | DRSVH ---
PROCEDURE: X-RAY CHEST ONE VIEW, PORTABLE ([id number]) INDICATIONS: dyspnea TECHNIQUE: One view of the chest was acquired. COMPARISON: [facility], CR, XR CHEST 1VW (PORTABLE), 09/21/2016, 12:48. FINDINGS: Surgical changes and devices: None. Lungs and pleura: No pleural effusions or pneumothorax. There are a few streaky left retrocardiac o pacities compatible with atelectasis or developing consolidation. Mediastinum: Mediastinal contours appear normal. Heart size is normal. Bones and chest wall: No suspicious bony lesions. Overlying soft tissues appear unremarkable. IMPRESSION: 1. Left retrocardiac opacities compatible with atelectasis or developing consolidation. Dictated by: Edward Sanchez M.D. on 02/15/2017 at 8:51 Approved by: Edward Sanchez M.D. on 02/15/2017 at 8:53
[2017-02-15 09:18] LABS: TROPONIN T 0.169 ug/L (0.0-0.011)
[2017-02-15 09:47] LABS: APPEARANCE,URINE HAZY (CLEAR,HAZY); COLOR,URINE STRAW (YELLOW)
[2017-02-15 09:48] LABS: OCCULT BLOOD,URINE NEGATIVE (NEGATIVE); UROBILINOGEN,URINE NORMAL (NORMAL)
[2017-02-15] MEDS ORDERED: Lactated Ringer's 1,000 ML IV PRN (10:41)
[2017-02-15] MEDS ORDERED: Norepineph 8,000 mCg/250 mL NS 8,000 MCG in IV Premix 1 EACH IV PRN (10:41)
[2017-02-15] MEDS ORDERED: Lactated Ringer's 1,000 ML IV SCH (10:41)
[2017-02-15] MEDS ORDERED: 0.9% Sodium Chloride 1,000 ML IV SCH ×2 (10:41)
[2017-02-15] MEDS ORDERED: Ondansetron 2 mg/mL 2 mL Inj IVPUSH PRN (10:45)
[2017-02-15] MEDS ORDERED: Acetaminophen IV 1,000 MG in IV Premix 1 EACH IV PRN (10:45)
[2017-02-15 11:41] LABS: Phosphorus 3.7 mg/dL (2.5-4.9)
--- NOTE | 2017-02-15 11:53 | NUR ---
Admit to CCU Pt arrived from ED 1130. Multiple wounds noted, pt placed on P500 bed. Wound vac to coccyx and R buttocks. Wound RN notified, to see pt as soon as possible. Pt with flatus and liquid stool, incontinent. Per MD order, FMS placed. Stool sample to be sent. Temp 37.3, tele SR 84 with PVCs, SpO2 99% on RA, RR 15, BP 100/50(62). Arrived with Diego from SNF, clear yellow UOP. G-tube clamped. Pt alert, answers questions appropriately, slow to respond.
--- NOTE | 2017-02-15 13:01 | PCM.CHPMED ---
Subjective Date of Service: Feb 15, 2017 Provider requesting consult: Ken Jordan MD Primary Physician: Admitting Physician: Ken Jordan MD Primary Care Physician: Bharat Hughes Attending Physician: Ken Jordan MD Admit Status: From the Emergency Department Chief Complaint: Chief Complaint: Aspiration event at [facility] with associated altered mental status. 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 He presented to the ED via EMS from [facility] following a presumed aspiration event last evening when he was observed to have gargling respirations and altered mental status. On arrival to the emergency department feeding tube contents were suctioned from his oropharynx. He was tachycardic and hypotensive at that time and subsequently received two liters of normal saline as well as single doses of vancomycin, zosyn and levlofloxacin. History was obtained via chart review as patient is unable to give any history. Of note after extensive evaluation it was determined that the patient is not a candidate for a flap. Unfortunately it also appeared at that time that the wound was unlikely to heal without surgical intervention. However, he underwent extensive wound care and debridement and was ultimately discharged on 09/25 with plan for 6weeks of IV Unasyn, per Dr. Adame. The patient's son is his DPOA and would like to proceed with full treatment and full code based on past documentation. Additionally, patient reportedly received the following antibiotics prior to admission: cephalexin (-02/03), ceftriaxone (01/30-02/06), and a 7-day course of Trimethoprim- sulfamethoxazole through 02/14. In the ED, he was given single doses of vancomycin , levofloxacin and zosyn. He was also given two liters of normal saline after which his mentation was noted to improve. In the ED the patients vital were T 36.6, BP 116/69, HR 123, RR 24, SpO2 98%. Labs significant for a mild leukocytosis with a left shift, elevated troponin ( 0.169), lactic acidosis (2.2), mildly elevated procalcitonin, normocytic anemia (Hb 8.1),and hyperglycemia with a serum glucose of 195. ECG showed sinus tachycardia with a rate of [address] depression in the anterolateral leads which is new from prior admissions. Chest xray showed left retrocardiac opacities compatible with atelectasis or developing consolidation. He received single doses of vancomycin, levofloxacin and zosyn. He was also given two liters of normal saline after which his mentation and blood pressure improved. Review of Systems: Unable to obtain complete review of systems secondary to patient condition. 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 Per chart review, patient discharged on 09/25/16 with the following medications: Aspirin 81 MG PO DAILY Atorvastatin 40 MG PO HS Cholecalciferol 1,000 UNIT PO DAILY Dronabinol 5 MG PO TIDAC Metoprolol Tartrate 12.5 MG PO BID Mirtazapine 7.5 MG PO HS Quetiapine Fumarate 25 MG PO HS Quetiapine Fumarate 12.5 MG PO MORNING Hydrocodone/Acetaminophen 5-325 mg 1 EACH PO Q4H PRN For Pain Patient also discharged on Unasyn 3000mg IV Q6h for a total of 6 weeks of antibiotic for osteomyelitis, per Infectious Disease (Dr. Adame). Allergies: Coded Allergies: No Known Allergies (Verified Allergy, Unknown, 02/15/17) Social History Hx Alcohol Use: NoHx Substance Use: No Smoking Status: Former Smoker Exam Vital Signs Vital Sign - Last Date Time Temp Pulse Resp B/P Pulse Ox O2 Delivery O2 Flow Rate FiO2 02/15/17 10:04 88 19 114/50 99 Room Air 02/15/17 07:56 36.6 General: Pale and very thin chronically ill appearing male HEENT: Normocephalic, atraumatic. PERRLA, no scleral icterus. Moist mucosa. Neck: Supple, nontender, no JVD or lymphadenopathy Cardiovascular: Regular rate and rhythm with no rubs, or gallops appreciated. 2/ 6 systolic murmur appreciated. Pulmonary: Lungs are coarse with diffuse rhonchi, no wheezing. Normal respiratory effort with no use of accessory muscles. Abdomen: Bowel tones present. Soft, mildly distended and mildly tender to palpation diffusely. No masses appreciated. Extremities: No clubbing, cyanosis, edema, or lymphadenopathy appreciated. : Diego in place. Rectal exam revealed liquid brown stool without impaction Skin: Warm, dry without obvious rashes or tears. 4x4 decubitus ulcer to the sacrum with surrounding erythema Neurological: Cranial nerves grossly intact. Muscle wasting upper/lower extremities with generalized weakness. Psychiatric: Alert and somewhat withdrawn, answering questions with yes/no. Cooperative. Lab and Diagnostics Labs Laboratory Tests Test 02/15/17 08:00 02/15/17 08:03 White Blood Count 11.2th/mm3 (3.8-10.1) Red Blood Count 2.72mil/mm3 (4.40-5.80) Hemoglobin 8.1g/dL (13.8-17.2) Hematocrit 25.8% (41.0-50.0) Mean Corpuscular Volume 94.9fL (81-100) Mean Corpuscular Hemoglobin 29.8pg (27.0-35.0) Mean Corpuscular Hemoglobin Concent 31.4% (32.0-37.0) Red Cell Distribution Width 16.7% (12.3-15.4) Platelet Count 231bil/L (150-400) Neutrophils (%) (Auto) 88.7% (40-74) Lymphocytes (%) (Auto) 4.0% (14-46) Monocytes (%) (Auto) 6.9% (4-12) Eosinophils (%) (Auto) 0.1% (0-5) Basophils (%) (Auto) 0.1% (0-3) Sodium Level 142mEq/L (134-144) Potassium Level 3.5mEq/L (3.5-5.2) Chloride Level 105mEq/L (97-108) Carbon Dioxide Level 20mmol/L (18-29) Blood Urea Nitrogen 57mg/dL (8-27) Creatinine 0.83mg/dL (0.76-1.27) Estimat Glomerular Filtration Rate 93mL/min (>59) Glucose Level 195mg/dL (60-99) Lactic Acid Level 2.2mmol/L (0.4-2.0) Calcium Level 8.4mg/dL (8.5-10.1) Total Bilirubin 0.2mg/dL (0.0-1.2) Aspartate Amino Transf (AST/SGOT) 16U/L (0-50) Alanine Aminotransferase (ALT/SGPT) 10U/L (0-44) Alkaline Phosphatase 65U/L (25-160) Troponin T 0.169ug/L (0.0-0.011) Pro-B-Type Natriuretic Peptide 3871pg/mL (0-486) Total Protein 5.4g/dL (6.4-8.4) Albumin 2.7g/dL (3.4-5.0) Procalcitonin 0.22ng/mL (0.00-0.08) Urine Color Straw (YELLOW) Urine Appearance Hazy (CLEAR,HAZY) Urine pH 7.0 (5.0-8.0) Urine Specific [place] 1.005 (1.003-1.035) Urine Protein Negativemg/dL (NEG,TRACE) Urine Glucose (UA) Negativemg/dL (NEGATIVE) Urine Ketones Negativemg/dL (NEGATIVE) Urine Occult Blood Negative (NEGATIVE) Urine Nitrite Positive (NEGATIVE) Urine Bilirubin Negative (NEGATIVE) Urine Urobilinogen Normalmg/dL (NORMAL) Urine Leukocyte Esterase Negative (NEGATIVE) Urine RBC 0-2/hpf (0-2) Urine WBC 0-5/hpf (0-5) Urine Epithelial Cells Occasional/hpf (NONE-MOD) Urine Crystals None seen (NONE SEEN) Urine Bacteria Moderate/hpf (NONE-FEW) Urine Hyaline Casts None/lpf (NONE) Urine Granular Casts None seen (NONE SEEN) Urine Waxy Casts None seen (NONE SEEN) Urine Red Blood Cell Casts None seen (NONE SEEN) Urine White Blood Cell Casts None seen (NONE SEEN) Urine Mucus None seen (None Seen) Urine Trichomonas None seen (NONE SEEN) Urine Yeast None (NONE SEEN) Urinalysis Comment None Urine Culture Reflexed Indicated Microbiology 02/15/17 Blood Culture, Received Pending 02/15/17 Urine Culture, Received Pending Result Diagram: 02/15/17 0800 02/15/17 0800 X-Rays, CTs and MRIs (02/15/17) X-RAY CHEST ONE VIEW, PORTABLE IMPRESSION: 1. Left retrocardiac opacities compatible with atelectasis or developing consolidation. Dictated and approved by: Edward Sanchez M.D. on 02/15/2017 at 8:51 Assessment & Plan Assessment 89 year old man with severe dementia, coronary artery disease, and chronic non- healing sacral pressure ulcer who presented to the emergency department via EMS from [facility] with altered mental status following a possible aspiration event. Possible sepsis, acute, present on admission. Active. - Met criteria on admission with hypotension, tachycardia, leukocytosis, altered mental status with suspected pulmonary and/or decubitus ulcer as source for infection. - Patient was given 2 liters of normal saline in the ED and received doses of vancomycin, levofloxacin and zosyn. 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 Active - Secondary to severe, stage IV sacral decubitus ulcer. Previous admissions, wound cultures grew Staph aureus and strep enterococci - Patient determined to be a surgical candidate during previous admission - Wound care consulted. Elevated troponin of uncertain significance, acute on chronic, present on admission. Active. - Uncertain etiology. Possibly secondary demand ischemia in the setting infection. Patient does have history of known CAD as well as chronically elevated troponins. - At presentation troponin 0.162. Difficult to asses as patient is unable to provide additional information. He is not complaining of any symptoms. - Trend troponin Hyperglycemia, uncertain chronicity, present on admission. Active. - Patient without prior diagnosis of diabetes and serum glucose of 195 on admission. HbA1c pending - Bedside glucose checks, correctional insulin if patient NPO. Add basal insulin if needed. Possible small bowel obstruction vs ileus, present on admission. Active. - Patient presented with abdominal distention and apparent discomfort on exam. Dilated bowel loops noted on chest xray and history of retained gastric contents with tube feeding material suctioned from the oropharynx in the ED. - Rectal exam revealed an empty, dilated rectal vault with gas and liquid stool - Abdominal plain film, pending. Acute on chronic normocytic anemia, present on admission. Active. - Likely secondary to chronic disease. Hb 8.1 on admission. Concern for upper GI bleed on admission in August with negative endoscopy. - Monitor H/H - Transfusion threshold Hb < 7.0 Dementia, chronic, present on admission. Presumed stable. - Patient is a resident of [facility] and his son is his DPOA who would like to continue with full treatment. - Consider consult to palliative care. Problems: BeRosi grier DO Feb 15, 2017 10:46 Rosi Kirk DO Feb 15, 2017 10:46
--- NOTE | 2017-02-15 14:07 | DRSVH ---
PROCEDURE: X-RAY ABDOMEN, ONE VIEW ([id number]) INDICATIONS: Concern for bowel obstruction vs ileus TECHNIQUE: One view of the abdomen acquired. COMPARISON: None. FINDINGS: Surgical changes and devices: G-tube present.. Bowel: There is symmetric mildly gaseous distention of both small and large bowel throughout the abdo men and pelvis. Soft tissues: No suspicious abdominal calcifications. Visualized solid organ contours appear normal in size. Bones: No suspicious bony lesions. Diffuse osteopenia. IMPRESSION: Mild gaseous distention of bowel throughout the abdomen and pelvis which would suggest pa ralytic ileus, developing obstruction is unlikely. Recommend continued clinical correlation and if in dicated followup plain film series could be performed or alternatively abdominal pelvic CT. Dictated by: Bhargav MORSE Interpreted: Bonifacio Osuna MD on 02/15/2017 at 13:25 Approved by: Bonifacio Osuna M.D. on 02/15/2017 at 14:04
--- NOTE | 2017-02-15 15:37 | NUR ---
Inpatient Wound Nurse Patient seen for assessment of multiple wounds, most significantly, Stage 4 sacral pressure ulcer. Multiple bruises and skin tears found over all areas, most prominently on upper and lower arms. Umbilicus packed with black crust, topical fungus noted in bilateral axillae. It appears that oral care has been deferred; thick, mucus strings noted coating tongue. Patient is wearing foam boots from [facility], no bogginess or erythema found on heels. Wound vac was not patent, drape had rolled and bunched on one side. One piece of black foam was intact in sacral wound bed, canister 50% full of very dark exudate. 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 Wounds are listed as found on admission as follows: L lateral 5th met head Stage 1 PU 2.5 cm L x 2.5 cm W, erythemic, nonblanchable, dry. No additional interventions, as patient is wearing [employer] offloading boot. R lateral 5th met head DTI 1 cm L x 0.5 cm W, dark purple and brown with extending halo of erythema; dry. This area was painted with povidone idiodine swab and covered with dry, nonstick gauze. R lateral mid foot over tuberosity of 5th metatarsal unstageable PU, necrotic crust, intact, dry. This area was painted with povidone idiodine swab and covered with dry, nonstick gauze. R lateral malleolus Stage 3 PU 3.0 cm L x 2.5 cm W x 0.3 cm D, 50% beefy red wound bed, 50% well-adhered, scattered yellow slough. Epibole edges with extending erythemic halo of 3 cm. This wound was cleansed, blotted dry, periwound swabbed with skin prep, wound bed covered with Aquacel Extra Ag, the bordered Mepilex dressing and foot returned to [employer] offloading boot. L posterior at calf, Stage 1 PU, 4 cm L x 2 cm W, nonblanchable and erythemic. L posterior trochanter Grade 3 skin tear 1 cm L x 1.5 cm W x 0.1 cm D, dry pink wound bed, no drainage. This was covered with nonstick gauze. R posterior trochanter Grade 3 skin tear 1 cm L x 1.5 cm W x 0.1 cm D, dry pink wound bed, no drainage. This was covered with nonstick gauze. L tricep Grade 3 skin tear 3 cm L x 1 cm W, dry pink wound bed, no drainage. This was covered with nonstick gauze. R tricep Grade 3 skin tear 1 cm L x 2 cm W, dry pink wound bed, no drainage. This was covered with nonstick gauze. Midline sacrum Stage 4 PU 5.5. cm L x 3.5 cm W x 0.6 cm D. Tunnel found at 11 o'clock extending 2 cm. Epibole noted to entire margin circumference. Wound bed has no beefy red, granulating tissue, all tissue is either glossy pink or small areas of dark brown, thready tissue. Heavy drainage is odorous. Sharp bone is palpated throughout length of wound. This wound was cleansed, blotted dry, periwound swabbed with skin prep, Aquacel Extra Ag laid into wound bed without overlapping wound margins, then covered with sacral Mepilex foam dressing. Wound care was painful for patient though he followed instructions when assisted to side lying position for wound care. Conversation was completed with Dr. Jorge who advised that with bone exposed in sacrum and malleolus, osteomyelitis should be ruled out before NPWT is resumed. Patient's predicted wound healing trajectory is lengthy and complicated. Until goals are clear and established, wound care approach is to provide comfort and avoid further breakdown. Nursing staff to cover skin tears PRN. Pressure ulcer protocols to be followed and patient is on P500 bed. R medial malleolus wound and sacral wound to be followed by [facility] every other day. Since tomorrow is Sunday, [facility] will see patient tomorrow and continue to follow through next week.
--- NOTE | 2017-02-15 16:47 | PCM.HPMED ---
Subjective Date of Service Feb 15, 2017 Primary Provider: Admitting Physician: Ken Jordan MD Primary Care Physician: Bharat Hughes Attending Physician: Ken Jordan MD Chief Complaint: Aspiration event at [facility] with associated altered mental status. 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 due to AMS and gargled respiration and presumed aspiration concurrent with overall decline in the patient's physical capacity and cognition. The patient was unable to provide any meaningful information and is essentially only responsive to noxious stimuli. Upon arrival to the ED the patient's oropharynx was suctioned yielding a significant amount of tube feed mixture. The patient has been on multiple recent courses of antibiotics for soft tissue infections and osteomyelitis: cephalexin (01/24-02/03), ceftriaxone (01/30-02/06), and a 7-day course of Trimethoprim-sulfamethoxazole through 02/14. Wound care again evaluated the patient's chronic ulcer and determined that there was exposed bone which was highly likely to be infected and thus the patient's wound Vac was discontinued and managed per wound care recommendations. In the ED the patient was given Vanco, Zosyn, and Levofloxacin in response to his presumed aspiration with lab evaluation indicative of mild leukocytosis, lactic acidosis, tachycardia, mild hypotension, mildly elevated procalcitonin and a CXR indicative of pneumonia. Review of Systems: Comprehensive ROS negative except as outlined above. 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 Dementia Asthma CAD with h/o AL "CHF" Arthritis Diverticulosis Hypokalemia Surgical History CABG Cardiac stents Back/neck surgery Family History Patient is unable to relate any family history and no relevant history is listed in his chart Social History Hx Alcohol Use: No Hx Substance Use: No Smoking Status: Former Smoker Exam Vital Signs Vital Sign - Last Date Time Temp Pulse Resp B/P Pulse Ox O2 Delivery O2 Flow Rate FiO2 02/15/17 13:50 78 02/15/17 12:00 37.3 21 100/50 99 Room Air Exam Gen: obtunded elderly chronically ill appearing gentleman Neck: No JVD, no lymphadenopathy HEENT: PERRL, EOMI, no scleral icterus, dry mucous membranes, does not track CV: RRR, 2/6 mild systolic ejection murmur, no rubs or gallops Resp: Lungs Coarse with upper airway sounds obscuring auscultation, diffuse coarse rhonchi Abd: Mildly firm, distended, no rebound guarding or tenderness Extr: no clubbing or cyanosis, mild BL LE edema Skin: Dressed sacral decubitus ulcer examined by wound care and not disturbed upon evaluation Neuro: Difficult to assess as patient is not responsive in any significant manner, no gross neurologic abnormalities Lab and Diagnostics Labs Item Value Date Time Red Blood Count 2.72 mil/mm3 L 02/15/17799 Mean Corpuscular Volume 94.9 fL 02/15/17799 Mean Corpuscular Hemoglobin 29.8 pg 02/15/17799 Mean Corpuscular Hemoglobin Concent 31.4 % L 02/15/17799 Red Cell Distribution Width 16.7 % H 02/15/17799 Neutrophils (%) (Auto) 88.7 % H 02/15/17799 Lymphocytes (%) (Auto) 4.0 % L 02/15/17799 Monocytes (%) (Auto) 6.9 % 02/15/17799 Eosinophils (%) (Auto) 0.1 % 02/15/17799 Basophils (%) (Auto) 0.1 % 02/15/17799 Estimat Glomerular Filtration Rate 93 mL/min 02/15/17799 Lactic Acid Level 2.2 mmol/L H 02/15/17799 Calcium Level 8.4 mg/dL L 02/15/17799 Phosphorus Level 3.7 mg/dL 02/15/17799 Total Bilirubin 0.2 mg/dL 02/15/17799 Aspartate Amino Transf (AST/SGOT) 16 U/L 8/3/17 0800 Alanine Aminotransferase (ALT/SGPT) 10 U/L 02/15/17 0800 Alkaline Phosphatase 65 U/L 02/15/17 0800 Troponin T 0.161 ug/L *H 02/15/17 1439 Pro-B-Type Natriuretic Peptide 3871 pg/mL H 02/15/17 0800 Total Protein 5.4 g/dL L 02/15/17 0800 Albumin 2.7 g/dL L 02/15/17 0800 Prealbumin 15 mg/dL L 02/15/17 0800 Lipase 13 U/L 02/15/17 0800 Result Diagram: 02/15/17 0800 02/15/17 08 Microbiology Blood cultures pending Strep Pneumo antigen negative MRSA nasal swab pending X-Rays, CTs and MRIs X-RAY CHEST ONE VIEW, PORTABLE IMPRESSION: 1. Left retrocardiac opacities compatible with atelectasis or developing consolidation. Dictated by: Edward Sanchez M.D. on 02/15/2017 at 8:51 Approved by: Edward Sanchez M.D. on 02/15/2017 at 8:53 X-RAY ABDOMEN, ONE VIEW IMPRESSION: Mild gaseous distention of bowel throughout the abdomen and pelvis which would suggest paralytic ileus, developing obstruction is unlikely. Recommend continued clinical correlation and if indicated followup plain film series could be performed or alternatively abdominal pelvic CT. Dictated by: Bhargav Rendon [facility] Interpreted: Bonifacio Osuna MD on 02/15/2017 at 13:25 Approved by: Bonifacio Osuna M.D. on 02/15/2017 at 14:04 . Assessment & Plan Dioni Leong is a 89 year old demented gentleman with a history of CAD with AL and CABG, chronic decubitus ulcers with osteomyelitis, and Alzheimer's who presents from [facility] due to gargling respirations with presumed aspiration and sacral ulcers with exposed bone. Sepsis, POA, acute. Active -Likely secondary to Aspiration pneumonia, sacral ulcers with possible osteomyelitis, or a combination of the 2 -In the ED patient had Leukocytosis, Hypotension, Tachycardia, Elevated Procalcitonin, Altered mental status, and the above mentioned sources -Will Continue Vanco and Zosyn with plan to potentially eliminate Vanco with negative MRSA swab -Blood cultures pending -MRSA swab pending -Pelvic XR not indicative of osteomyelitis though this is not a sensitive test, Patient would likely not be able to lie still for MRI to clearly evaluate the area -Trend Lactic Acid and CBC, Procalcitonin 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 Active -Wound care evaluated the patient's sacral ulcer and observed exposed bone with likely Osteo -Severe stage IV pressure ulcer, prior cultures grew Staph Aureus and Strep Entorococci -Wound care will continue to manage -Infectious disease has been consulted and we appreciate their recommendations Elevated Troponin of uncertain significance, POA, chronic. 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 Active -Distended loops of small bowel on XR and abdominal distension on exam -Rectal exam revealed an empty, dilated rectal vault with gas and liquid stool -Abdominal XR not indicative of obstruction -Patient currently NPO due to altered mental status -Will consider CT if symptoms or clinical symptoms develop Dementia, POA, chronic. Active -Secondary to late onset Alzheimer's -Will continue palliative discussion from last admission -Patient's son is DPOA, as of last interaction he was insistent upon full code -Currently holding home oral Seroquel due to NPO status Acute on chronic normocytic anemia, POA. Active -Likely secondary to poor nutritional status and assisted illness -Will continue to monitor H/H -Transfusion Hg<7.0 Failure to Thrive, POA, Acute on chronic. Active -As above the patient's DPOA and son has in the past insisted upon Full Code and Full Treatment -Will continue palliative discussion Chronic conditions managed with home meds Hypertension: currently holding home antihypertensives due to NPO status and Hypotension Hyperlipidemia: Currently holding status due to NPO status Patient status: Inpatient, anticipated length of stay >2 midnights due to severity of condition and complexity of treatment plan Pain Evaluation: Adequate Pain Control GI Prophylaxis: H2 cyndi VTE Prophylaxis Indicated: Contraindicated (Low H/H with undetermined source) VTE Mechanical Devices: Intermittant Pneumatic CD Resuscitation Status: CPR: Attempt Resuscitation Attending Statement The patient was seen and examined together with Dr. Crane on 02/15/2017 and I agree with the history, exam and plan as outlined in the note above. . Mathew Crane DO Feb 15, 2017 16:47 Ken Jordan MD Feb 15, 2017 19:53
[2017-02-15] MEDS: Piperacillin-Tazo 3.375 Gm Inj 3.375 GM in Dextrose 5% Minibag Plus 50 ML IV SCH (16:56)
[2017-02-15] MEDS: Dextrose 5% 0.45% NaCl 1,000 ML IV SCH (16:56)
--- NOTE | 2017-02-15 18:55 | CONS ---
[address] [address] CONSULTATION REPORT PATIENT: JOHANNY MACHADO : 1925 MR#: [id number] ADMIT: 02/15/2017 JOB ID: [id number] DATE OF SERVICE: 02/15/2017 INFECTIOUS DISEASE CONSULTATION: I thank Dr. Crane for this timely consult. REASON FOR CONSULTATION: Sepsis in a debilitated dementia patient. HISTORY OF THE PRESENT ILLNESS: The patient is an extremely unfortunate 89-year-old gentleman I have had the chance to see during admissions in August and September of this year. His problems revolve around a diagnosis of advanced dementia, multiple decubitus ulcers including those over his sacrum as well as his right lateral malleolus, underlying cardiac disease, and asthma. He was hospitalized here in August and at that time had decubitus ulcers and an enterococcal bacteremia. In September he was hospitalized once again and at that time had a culture of a bone chip which was obtained during a biopsy debridement of an ulcer that grew a truly extraordinary range of organisms including MSSA, Enterococcus faecalis, Streptococcus anginosus, E. coli, and Morganella. The blood cultures during the September admission also grew Enterococcus, as they had in August. At the end of his admission in September we decided to attempt and cover what was probably osteomyelitis of the sacrum involving multiple organisms and a malodorous wound with six weeks of IV antibiotics. The decision was made at that point to send him out with the Unasyn to continue through November 03, as it would provide coverage for all these isolated organisms. I noted, however, in my notes from the September admission that without debridement, flaps, and very aggressive efforts to keep him on his side, that it was unlikely that he would improve substantially despite the long-term antibiotics. Also notable during his September admission was the fact he had a very fluent kind of dementia. 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 He was completely disoriented and unable to make any sense of his surroundings, but nevertheless was very fluent in his speech and able to keep up a lively banter, which was entirely nonfactual. While at [facility] the patient had additional possible infections of his decubitus ulcers and received antibiotics including ceftriaxone, Keflex, and recently Bactrim. I find in the notes from [facility] cultures for, among other things, MRSA which he did not have before, Morganella, and E. coli. These were obtained apparently from the right lateral malleolar decubitus ulcer. The patient was readmitted to this facility from [facility] today. He was transported over here because of gurgling respiration and presumed aspiration in concert with an overall decline in his physical and mental capacities. He was not able to give any information when he arrived in the ER late last night prior to his admission earlier this morning. The patient was suctioned, however, and a great deal of what appeared to be tube feeding material from his PEG tube was found in his airway. Because of this it was thought that he likely had aspirated, though his chest x-ray was not all that impressive. It was also noted that the patient continue to have significant decubitus ulcers and he was readmitted and started on broad-spectrum antibiotics today. The patient is unable to provide any real history. He can be awakened, but he is much more lethargic and confused than he was at his prior admissions this year. He basically resists much of the exam and would not allow me to roll him over and examine his sacral decubitus ulcer, though with some persuasion he did allow me to get a look at his right lateral malleolus. He is not able to give any history whatsoever today. PAST MEDICAL HISTORY: 1. Severe Alzheimer's dementia. 2. Asthma. 3. 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 4. Diverticulosis. 5. Status post CABG. 6. Status post back surgery. SOCIAL HISTORY: The patient is a former smoker and currently a nondrinker. He has been residing at [facility]. FAMILY HISTORY: Unobtainable from this very demented gentleman. REVIEW OF SYSTEMS: Unobtainable from this demented and lethargic gentleman. PHYSICAL EXAMINATION: Reveals a chronically ill, very debilitated gentleman lying supine in his bed. He looks much worse than he did when I saw him in August and September, as he has clearly lost much more weight. He was previously bright-eyed and able to answer questions, though the answers almost invariably were nonsensical. Now he really does not respond at all other than to say occasionally yes or no, or leave me alone. He has clearly lost weight and some of his remaining muscle mass in the meantime despite the placement of a PEG tube. Examination of the head reveals temporal wasting. The eyes are without conjunctivitis or particular scleral icterus. The oral cavity was examined and does not have thrush or pharyngitis. His neck is reasonably supple, without adenopathy or significant JVD. His lungs are notable for excessive upper airway gurgling, for want of a better term. It is almost impossible to auscultate the patient as it sounds like he is actively aspirating at all times. His cardiac tones are difficult to auscultate because of his noisy upper airway respirations, but at least he has regular rate and rhythm. His abdomen is soft and without appreciable tenderness. He does have a PEG tube in the left upper quadrant and there is no surrounding inflammation. He does not seem to have flank tenderness, though again it is difficult to know. He does not have suprapubic fullness. He does have a dressing over a large sacral decubitus which has been examined by others today, but he would not allow me to look. The realty loan specialist's note states that he has a left posterior trochanter grade 3 wound, as well as a right posterior trochanter grade 3 wound. Additionally she noted a stage 4 midline sacrum decubitus 5 x 3 cm x 0.6 cm deep. There was no good granulation tissue and the drainage was malodorous. Also noted, of course, were wounds over the right lateral foot, and especially the right lateral malleolus. Less significant wounds were present over the left lateral foot. The patient's legs are now much more wasted than they were before. He appears to have no strength whatsoever in his wasted legs. I carefully examined the feet. The right foot has a deep wound, stage 3 at least, over the right lateral malleolus. This does not appear infected per se but there is exposed tendon at the base of this wound. Along the right lateral forefoot there is considerable erythema and early breakdown of the skin without overt infection. The left foot is much better, as there is a grade 1 at most issue along the lateral foot. As was mentioned the patient did not allow me to remove his sacral decubitus dressing. He has reasonable perfusion of his extremities, but strength would be no more than 3/5 in the lower extremities. There is no overt skin rash beyond the skin breakdown noted in the sacrum and over the feet. The remainder of the exam was unremarkable. LABORATORIES: Include white count 11,200, with left shift. His creatinine is 0.83. His liver function tests are normal. BNP 3871. Albumin 2.7. Procalcitonin 0.22. Urinalysis without pyuria. Cultures from prior admissions were reviewed in the history of present illness. From this admission we have two sets of blood cultures, which are just from this morning, and they are of course too early to tell. The urine is in the same category. Urine pneumococcal antigen though is negative and the urine Legionella antigen is negative. IMAGING: I reviewed the patient's chest x-ray from today. It is about the same as on prior exams and shows perhaps a bit of left retrocardiac atelectasis but really the chest x-ray is quite clear. His abdominal film shows some mild gaseous distention through the abdomen, but no focal abnormalities of great importance. IMPRESSION: It is unclear to me at this point how much of an infection is going on here. The patient is afebrile and, though has a lot of upper airway gurgling, his chest x-ray does not look bad. Auscultation of his chest is very limited because of all the upper airway sounds. His decubitus ulcers are extensive and are present in the sacrum as well as over both trochanters and his right lateral malleolus. Despite all these abnormalities, the patient does not appear to me to be overtly septic, though he does have a mildly increased white blood count. He is certainly unable to protect his airway and if he does not have pneumonia now he surely will in the near future unfortunately. Likewise he has been unable to heal the deep decubitus ulcer despite the weeks of antibiotics and careful care he received at [facility]. My overall sense of this case is that this unfortunate demented nonambulatory gentleman is on a path of steady decline which will soon lead to his demise regardless of what actions we take. RECOMMENDATIONS: Given the multiplicity of organisms he has grown recently, I think we are at least in the short term forced to cover MRSA as this was isolated during a culture of his ankle done at [facility]. Likewise we have to cover strep anginosus and some basic gram-negative rods. 1. Will continue the vancomycin in the very short term while we attempt to sort out his culture and code situation. 2. Zosyn would be a reasonable primary agent to use here given the organisms we have isolated earlier. The combination of vancomycin and Zosyn is nephrotoxic and I would like to stop it as soon as possible but hopefully will have some culture data by tomorrow. 3. I would not continue any levofloxacin as a second agent for pneumonia because, among other things, I am not convinced that the patient has pneumonia based on his chest x-ray and physical exam. 4. If at all possible this patient should be made a DNR, DNI and I would argue almost certainly should be on comfort care given his progressive dementia, debility, decubitus ulcers, and almost total lack of prospects for improvement. Thank you very much.
[2017-02-15] MEDS ORDERED: Vancomycin Inj 1,000 MG in IV Premix 1 EACH IV SCH (20:30)
[2017-02-15] MEDS: Famotidine Inj 20 MG in IV Premix 1 EACH IV SCH (21:01)
[2017-02-16] VITALS (10 sets, daily range): BP systolic 108–138; BP diastolic 42–81; PULSE 52–70; RESP 17–22; O2SAT 97–100
[2017-02-16] MEDS: Piperacillin-Tazo 3.375 Gm Inj 3.375 GM in Dextrose 5% Minibag Plus 50 ML IV SCH ×3 (00:30→17:02)
[2017-02-16 03:20] LABS: BASOPHILS % (AUTO) 0.1 % (0-3); EOSINOPHILS % (AUTO) 1.7 % (0-5); MONOCYTES % (AUTO) 8.4 % (4-12); Mean Corpuscular Hemoglobin 29.7 pg (27.0-35.0); Mean Corpuscular Volume 93.4 fL (81-100); NEUTROPHILS % (AUTO) 80.7 % (40-74); Platelet Count 202 bil/L (150-400)
[2017-02-16 03:58] LABS: Phosphorus 2.6 mg/dL (2.5-4.9)
[2017-02-16 04:07] LABS: TROPONIN T 0.175 ug/L (0.0-0.011)
[2017-02-16] MEDS: 0.9% Sodium Chloride 250 ML IV SCH (04:25)
--- NOTE | 2017-02-16 05:35 | NUR ---
Mentation, skin, anemia Dozing most of the night. Arouses easily and occasionally makes verbal responses. At other times makes eye contract then does not respond. Turned side to side q2h. Foam boots in place. Multiple dressings intact. [place] cath placed with pale uop. Peg tube in place and secured. FMS in place with very small amount thin brown/rodriguez stool. Sats on room air high 90s. Desaturated once to 87%. Pt unable to cough or clear secretions. NT suctioned x1 for large amount white clear secretions. Sats returned to 99% after suctioning.
[2017-02-16] MEDS: Dextrose 5% 0.45% NaCl 1,000 ML IV SCH ×3 (06:05→22:09)
[2017-02-16] MEDS: Famotidine Inj 20 MG in IV Premix 1 EACH IV SCH ×2 (07:44→22:09)
[2017-02-16] MEDS ORDERED: Vancomycin Dose per Pharmacist XX SCH (08:30)
--- NOTE | 2017-02-16 10:08 | PCM.PNMED ---
Subjective Date of Service Feb 16, 2017 PULMONOLOGY/CRITICAL CARE PROGRESS NOTE . Subjective Patient appears to be resting comfortably this morning, in no acute distress and without acute events overnight. He is awake but significantly confused and non-cooperative. He will answer a question occasionally but responds only with yes/no answers. He is guarded this morning and would not allow me to do a complete physical exam. Throughout my exam he pushed my arms away and continually pulled his blankets up to his neck. Unable to obtain review of systems secondary to patient condition. Exam Vital Signs Vital Sign - Last Date Time Temp Pulse Resp B/P Pulse Ox O2 Delivery O2 Flow Rate FiO2 02/16/17 04:39 66 02/16/17 03:49 20 128/49 99 Room Air 02/16/17 00:24 36.9 Intake and Output 02/15/17 02/15/17 02/16/17 Cumulative From/Thru 15:00 23:00 07:00 02/15/17 08:32 - 02/16/17 05:56 Intake Total 2000 ml 1309 ml 3309 ml Output Total 950 ml 950 ml Balance 2000 ml 359 ml 2359 ml Intake IV Total 2000 ml 1309 ml 3309 ml Output Urine Total 950 ml 950 ml Exam General: Chronically ill appearing, pale and cachetic elderly male lying on his side in no acute distress. HEENT: Normocephalic, atraumatic. PERRLA, Anicteric sclerae, pale conjunctivae. Moist mucosa. Cardiovascular: Regular rate and rhythm. 2/6 systolic murmur appreciated. Pulmonary: Lungs are coarse with diffuse rhonchi, no wheezing. Normal respiratory effort with no use of accessory muscles. Abdomen: Bowel tones present. Soft, mildly distended does not appear tender to palpation but exam limited due to patient participation. Extremities: No clubbing, cyanosis, edema, or lymphadenopathy appreciated. : Diego in place. Rectal exam revealed liquid brown stool without impaction Skin: Warm, dry with scattered ecchymoses bilateral upper extremities. Patient would not allow me to exam sacral wound. Per wound care exam: 5.5cm x 3.5cm wound with tunneling, exposed bone, malodorous drainage and no granulating tissue. Neurological: Cranial nerves grossly intact. Muscle wasting upper/lower extremities with generalized weakness. Psychiatric: Difficult to asses. He is awake but somewhat withdrawn. Not speaking in full sentences. Answering questions with yes/no. Groaning and pushing me away during the exam. IVs and Medications Medications Reviewed: Medications were reviewed in detail Lab and Diagnostics Laboratory Tests Test 02/15/17 14:39 02/15/17 20:30 02/16/17 03:10 Troponin T 0.161ug/L (0.0-0.011) 0.163ug/L (0.0-0.011) 0.175ug/L (0.0-0.011) Lactic Acid Level 1.1mmol/L (0.4-2.0) White Blood Count 7.7th/mm3 (3.8-10.1) Red Blood Count 2.29mil/mm3 (4.40-5.80) Hemoglobin 6.8g/dL (13.8-17.2) Hematocrit 21.4% (41.0-50.0) Mean Corpuscular Volume 93.4fL (81-100) Mean Corpuscular Hemoglobin 29.7pg (27.0-35.0) Mean Corpuscular Hemoglobin Concent 31.8% (32.0-37.0) Red Cell Distribution Width 16.5% (12.3-15.4) Platelet Count 202bil/L (150-400) Neutrophils (%) (Auto) 80.7% (40-74) Lymphocytes (%) (Auto) 8.8% (14-46) Monocytes (%) (Auto) 8.4% (4-12) Eosinophils (%) (Auto) 1.7% (0-5) Basophils (%) (Auto) 0.1% (0-3) Sodium Level 143mEq/L (134-144) Potassium Level 3.2mEq/L (3.5-5.2) Chloride Level 108mEq/L (97-108) Carbon Dioxide Level 18mmol/L (18-29) Blood Urea Nitrogen 44mg/dL (8-27) Creatinine 0.76mg/dL (0.76-1.27) Estimat Glomerular Filtration Rate 103mL/min (>59) Glucose Level 98mg/dL (60-99) Calcium Level 8.2mg/dL (8.5-10.1) Phosphorus Level 2.6mg/dL (2.5-4.9) Magnesium Level 2.0mg/dL (1.6-2.6) Total Bilirubin 0.2mg/dL (0.0-1.2) Aspartate Amino Transf (AST/SGOT) 19U/L (0-50) Alanine Aminotransferase (ALT/SGPT) 9U/L (0-44) Alkaline Phosphatase 51U/L (25-160) Total Protein 5.0g/dL (6.4-8.4) Albumin 2.4g/dL (3.4-5.0) Procalcitonin 0.21ng/mL (0.00-0.08) Microbiology 02/15/17 Blood Culture - NO GROWTH AFTER 24 HOURS 02/15/17 MRSA (PCR) - Negative 02/15/17 Legionella and Streptococcus pneumoniae Ag Screens - Negative Result Diagram: 02/16/1730902/16/17309 Microbiology Blood cultures pending Strep Pneumo antigen negative MRSA nasal swab pending X-Rays, CTs and MRIs X-RAY CHEST ONE VIEW, PORTABLE IMPRESSION: 1. Left retrocardiac opacities compatible with atelectasis or developing consolidation. Dictated by: Edward Sanchez M.D. on 02/15/2017 at 8:51 Approved by: Edward Sanchez M.D. on 02/15/2017 at 8:53 X-RAY ABDOMEN, ONE VIEW IMPRESSION: Mild gaseous distention of bowel throughout the abdomen and pelvis which would suggest paralytic ileus, developing obstruction is unlikely. Recommend continued clinical correlation and if indicated followup plain film series could be performed or alternatively abdominal pelvic CT. Dictated by: Bhargav Rendon [facility] Interpreted: Bonifacio Osuna MD on 02/15/2017 at 13:25 Approved by: Bonifacio Osuna M.D. on 02/15/2017 at 14:04 . Assessment & Plan 89 year old man with severe dementia, coronary artery disease, and chronic non- healing sacral pressure ulcers who presented to the emergency department via EMS from [facility] with altered mental status following a possible aspiration event. Hospital day #2. Sepsis, acute. Present on admission. Active. - Likely secondary to infected decubitus ulcers. - Met criteria on admission with: hypotension, tachycardia, tachypnea, leukocytosis, and altered mental status. - Pt received 2 liters of normal saline in the ED and doses of vancomycin, levofloxacin and zosyn. - Blood cultures with no growth at 24h - Procalcitonin mildly elevated and essentially unchanged from yesterday - Lactic acid normalized. 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 Present on admission. Active - Secondary to severe, stage IV sacral decubitus ulcer. Previous admissions, wound/bone chip cultures grew Staph aureus, Strep, Enterococci - Per wound care, exposed bone observed during exam of sacral ulcer and foul odor noted. - Infectious disease is following, greatly appreciate expertise and recommendations. - Wound care will continue to manage Likely paralytic ileus. Present on admission. Active - Patient presented with abdominal distention and apparent discomfort on exam. Rectal exam revealed an empty, dilated rectal vault with gas and liquid stool - Distended loops of small bowel on abdominal xray consistent with ileus, unlikely obstruction. - Patient currently NPO due to altered mental status - Will consider CT if symptoms or clinical symptoms develop Acute on chronic normocytic anemia, present on admission. Active. - Likely secondary to chronic disease. Hb 8.1 on admission. Concern for upper GI bleed on admission in August with negative endoscopy. - Hb 6.8 this morning, down from 8.1 on admission. No obvious signs or symptoms of active bleed. - Transfuse 2units pRBCs with threshold for transfusion of Hb < 7.0 - Monitor for signs/symptoms of active bleeding - Serial H/H Dementia, chronic. Present on admission. Presumed stable. - Secondary to late onset Alzheimer's. Patient is a resident of [facility] and his son is his DPOA who would like to continue with full treatment. - Palliative care consulted, appreciate recommendations. Elevated troponin of uncertain significance, acute on chronic. Present on admission. Stable - Likely secondary to stress in the setting infection. Patient with chronically elevated troponin, appears at baseline. - Monitor clinically and repeat ECG, troponin if patient develop symptoms Hyperglycemia, uncertain chronicity. Present on admission. Resolved. - Patient without prior diagnosis of diabetes and serum glucose of 195 on admission. HbA1c 5.1 - Continue to monitor, correctional insulin if necessary Pulmonology/Critical Care consulted at time of admission due to patient's significant comorbidities and tenuous status at presentation. He has since been transferred out of the CCU. Thank you for included us in the care of this interesting patient and we remain available if necessary. . GI Prophylaxis: H2 cyndi VTE Mechanical Devices: Intermittant Pneumatic CD Resuscitation Status: CPR: Attempt Resuscitation Rosi Kirk DO Feb 16, 2017 07:49
--- NOTE | 2017-02-16 12:40 | PROG NOTE ---
[address] [address] PROGRESS NOTE PATIENT: JOHANNY MACHADO : 1925 MR#: [id number] ADMIT: 02/15/2017 JOB ID: [id number] DATE: 02/16/2017 INFECTIOUS DISEASE FOLLOWUP NOTE: REASON FOR FOLLOWUP: Infected decubitus ulcers in a debilitated and demented patient. INTERVAL HISTORY: The patient has been relatively stable overnight, though this morning he is receiving blood transfusions. The patient is slightly more awake than he was yesterday, but just mumbles answers which are confusing and not relevant to the question asked. When I asked him where he was this morning, he said Arianna, and when I asked him whether it was Arianna, Darby or Delisa, he immediately answered Bryan. He has really no ability to answer any questions and for what it is worth he denies focal physical complaint. PHYSICAL EXAMINATION: Reveals an afebrile gentleman. He has been afebrile since admission. Temperature 37 degrees, pulse 58, respiratory rate 18, blood pressure 117/49. He is saturating well on room air. LABORATORIES: Include a hematocrit 21 this morning. White count 7700, 200,000 platelets, 80% segs on the white count. Creatinine stable at 0.76. LFTs are normal. Troponins mildly elevated. Procalcitonin is 0.21, which is unchanged and essentially normal as compared to one done yesterday. Urinalysis had no white cells. Urine Legionella and pneumococcal antigens are negative. MRSA screen negative. Blood cultures negative. IMAGING: Included a chest x-ray which I reviewed yesterday and looked pretty normal except for perhaps some very subtle left retrocardiac atelectasis. An abdominal film showed possible ileus. IMPRESSION: This is an extremely unfortunate gentleman with far advanced dementia which eclipses all of his other medical problems which do include some organic heart disease. He has been treated for a stage 4 ulcer decubitus ulcer with underlying osteomyelitis and as part of that treatment for this polymicrobial process he received a very long course of Unasyn in September and October of this year. Following that the patient continued to stay at a [facility] where he received numerous short courses of other antibiotics aimed at either superinfection of his decubitus ulcers or urinary tract infections. He is now admitted for gurgling respiration and presumed aspiration pneumonia. Interestingly, I do not think that pneumonia is a very big problem here at all. His chest x-ray does not look bad, his lungs are fairly clear, and he is saturating very well without supplemental oxygen. He speaks in fairly long mumbling sentences which also suggest very little in the way of respiratory difficulty. His decubitus ulcers are obviously large. The patient has resisted examination of his sacral decubitus, so I have not seen it, but the one on his right lateral malleolus that I saw yesterday is quite deep and obviously not healing. I note the extensive work done by the mass spectrometry specialist in terms of evaluating his wounds yesterday and these are well summarized in the Wound Therapy notes. RECOMMENDATIONS: 1. I would provide a short course of Zosyn at this point for his presumably superinfected decubitus ulcers. I do not think he has aspiration pneumonia, but if there was some component of this the Zosyn would be fine. 2. I would discontinue the vancomycin as we have no evidence of MRSA, though it is worth noting that he did have a wound swab at [facility] which did grow MRSA after he left here in September. Recall that during his admission here in September all we found was MSSA. 3. I would probably continue with the Zosyn no longer than one week, which would take us through February 22. I do not think the longer courses of Zosyn will be of any value in trying to heal these decubitus ulcers in this bed-bound debilitated demented gentleman. 4. I have discussed this case with Dr. Gonsales of Palliative today. As stated in my note yesterday, I really believe that this patient should be transitioned to comfort care as he has a progressive and really severe dementia in association with debility and decubitus ulcers, and what would appear to be from my quick review a very poor quality of life. 5. ID will go ahead and sign off at this time. I have entered a stop date for the Zosyn but obviously if he were to transition to comfort care it could be stopped at any time. Thank you very much.
--- NOTE | 2017-02-16 12:55 | NUR ---
Transfer of patient Patient to be transferred to room 3007. Report given to [facility] RN. Patient instructed on transfer procedure. Pt mumbling, unable to understand pt at this time. Patient transferred to room 3007 via bed with personal belongings. Patient tolerated transfer well.
--- NOTE | 2017-02-16 12:59 | NUR ---
Transfer from [facility] Pt arrived from [facility] at 1255, alert with confusion, mumbling incoherently at times. Rec'd report from Maria Cuenca RN. On RA, denies any SOB. Diego patent, draining light mark urine, FMS in place with no output, stool sample still needed. Pt denies any pain/discomfort, no req at this time. IV D51/2 infusing at 75ml/hr. Bilat feet in booties. Per report, wound care will be coming to assess pt and perhaps trade bed for a Clinitron. Pt introduced to staff, bed/call light control. Bed in lowest, locked position and call light in reach.
--- NOTE | 2017-02-16 14:49 | NUR ---
NUTRITION ASSESSMENT: ASSESS: Pt is an 89yo M admitted for sepsis and aspiration pneumonia. Pt has a PEG and has been receiving nutrition via PEG. There is concern for ileus and aspiration of TF. Wound care is following and pt has multiple PU including stage 4 sacral PU. Unsigned TF orders have been placed in chart if TF is to be started over the weekend. RN is aware of unsigned TF orders. Family is considering Hospice. PMHX: Alzheimer's, Asthma, CAD, CHF, Diverticulosis, hypokalemia LABS: Reviewed. K 3.2, Bun 44, Ca 8.2, Alb 2.4 MEDS: Reviewed. GI: abdominal film shows possible ileus SKIN: multiple PU, including stg 4 sacral PU. See wound care note for further wound details CURRENT WTS: 74.9kg, BMI 22.4kg/m2, IBW: 78kg HOMF TF: There is conflicting info in charts from [facility] regarding TF formula pt was receiving (Jevity vs Vital). Formula was running @ 75ml x20hrs to provide 2250kcal and ~96g pro. Fluid flush 275ml 5x/day. DIET: NPO EST. 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 2.) If TF is to re-start, recommend start Jevity 1.5 @ 10ml/hr. If tolerated, recommend advance by 10ml q 12 hrs until reach goal rate of 80ml/hr to provide 2760kcal and 117gpro (100% estimated needs). Fluid flush 40ml q 4 hrs while on IVF. If off IVF, recommend flush 230ml q 4 hrs to better meet fluid needs. 3.) If Jevity is not tolerated due to ileus, recommend switch formula to Vital 1.5. MONITOR / EVAL: NPO, TF start?, GI, labs, wt, wounds, POC, nutrition status. Will continue to monitor per high nutrition risk guidelines
--- NOTE | 2017-02-16 15:27 | NUR ---
Spoke with RN and Paper Wrapping Machine Operator relating to swallowing evaluation. PLOF was PEG tube feed prior to hospitalization with severe dementia. 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
--- NOTE | 2017-02-16 15:55 | NUR ---
HOSPICE INFORMATIONAL VISIT : Called and spoke with Marco Antonio at [facility] and she is working on phone information visit with patient's son Osvaldo. This was requested by MD in multidisciplinary rounds. Updated STRIP PICKER
--- NOTE | 2017-02-16 16:01 | NUR ---
Ref labs Pt refusing labs, pushing staff away and attempting to strike while repeating, "No, no, no, no!" Addendum: 02/16/17 at 1819 by ADINA PRATT RN Lab called, req to attempt to draw pt's labs again. They said they would be up and call RN to assist.
--- NOTE | 2017-02-16 16:30 | NUR ---
Inpatient Wound Nurse Patient seen by [facility] for wound care of R lateral malleolus and sacrum. Wound beds unchanged from yesterday, odorous, draining purulent exudate. Edges are macerated, especially of sacrum. Wounds were cleansed and blotted dry, wound beds filled with Aquacel Extra Ag cut to fit within wound margins, then covered with Mepilex bordered dressings. Patient was combative with care but calmed as soon as completed. HOB should be raised no higher than 30 degrees to decrease shearing which is contributing to undermining of sacral wound. Clinitron bed was ordered and should be delivered this evening. Patient should be transferred to Clinitron bed as soon as available. The right lateral malleolus and sacral wounds limit turning position to L side only. Although changing from P500 to Clinitron may not improve healing, it likely will improve comfort with side-lying positions. Patient comfort is goal of wound care at this time. [facility] will see patient Sunday.
--- NOTE | 2017-02-16 17:14 | NUR ---
Wounds Wound care in this afternoon to change drsg to R lateral ankle and sacrum. Per wound care, change drsgs QD, instructions provided.
[2017-02-16 19:38] LABS: Mean Corpuscular Hemoglobin 29.3 pg (27.0-35.0); Mean Corpuscular Volume 93.4 fL (81-100)
--- NOTE | 2017-02-16 19:54 | PCM.PNMED ---
Subjective Date of Service Feb 16, 2017 Subjective 89 year old man with severe dementia, coronary artery disease, and chronic non- healing sacral pressure ulcers who presented to the emergency department via EMS from [facility] with altered mental status following a possible aspiration event. Hospital day #3. Nursing reports that patient's Hgb dropped significantly overnight to 6.8. Son called for verbal consent to transfuse PRBCs Patient seen and examined. Unable to obtain information secondary to patient's current mental state. Only have to speak in broken sentences with incoherent words. Exam Vital Signs Vital Sign - Last Date Time Temp Pulse Resp B/P Pulse Ox O2 Delivery O2 Flow Rate FiO2 02/16/17 19:33 36.4 52 18 138/60 97 Room Air Intake and Output 02/15/17 02/15/17 02/16/17 Cumulative From/Thru 15:00 23:00 07:00 02/15/17 08:32 - 02/16/17 05:56 Intake Total 2000 ml 1309 ml 3309 ml Output Total 950 ml 950 ml Balance 2000 ml 359 ml 2359 ml Intake IV Total 2000 ml 1309 ml 3309 ml Output Urine Total 950 ml 950 ml Exam Constitutional: Awake, confused, not speaking appropriate sentences. Frail. In no acute distress Head: normocephalic and atraumatic Eyes: No scleral icterus. [place] conjunctiva Heart: Bradycardic. Regular rhythm. No peripheral edema. Lungs: Diffuse rhonchi. No wheeze. ABD: soft. nontender. bowel sounds present throughout. Musculoskeletal: lower extremities with contractures. Moves upper extremities without purpose Neuro: no focal deficits. Diffuse muscular wasting. Skin: Warm, dry with scattered ecchymoses bilateral upper extremities. Patient would not allow me to exam sacral wound. Per wound care exam: 5.5cm x 3.5cm wound with tunneling, exposed bone, malodorous drainage and no granulating tissue. Psych: unable to assess. Patient severely demented and not speaking coherently. Unable to fully answer questions. IVs and Medications IV Fluids Dextrose w/ NS 1L in the last 24h. Medications Reviewed: Medications were reviewed in detail Medications High Risk IV Medications: Zosyn Lab and Diagnostics Result Diagram: 02/16/17 1930 02/16/17 0310 Microbiology Blood cultures pending Strep Pneumo antigen negative MRSA nasal swab pending X-Rays, CTs and MRIs X-RAY CHEST ONE VIEW, PORTABLE IMPRESSION: 1. Left retrocardiac opacities compatible with atelectasis or developing consolidation. Dictated by: Edward Sanchez M.D. on 02/15/2017 at 8:51 Approved by: Edward Sanchez M.D. on 02/15/2017 at 8:53 X-RAY ABDOMEN, ONE VIEW IMPRESSION: Mild gaseous distention of bowel throughout the abdomen and pelvis which would suggest paralytic ileus, developing obstruction is unlikely. Recommend continued clinical correlation and if indicated followup plain film series could be performed or alternatively abdominal pelvic CT. Dictated by: Bhargav Rendon RRA Interpreted: Bonifacio Osuna MD on 02/15/2017 at 13:25 Approved by: Bonifacio Osuna M.D. on 02/15/2017 at 14:04 . Assessment & Plan 89 year old man with severe dementia, coronary artery disease, and chronic non- healing sacral pressure ulcers who presented to the emergency department via EMS from [facility] with altered mental status following a possible aspiration event. Hospital day #2. Sepsis, acute. Present on admission. Active. - Likely secondary to infected decubitus ulcers. - Met criteria on admission with: hypotension, tachycardia, tachypnea, leukocytosis, and altered mental status. 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 Present on admission. Active - Secondary to severe, stage IV sacral decubitus ulcer. Previous admissions, wound/bone chip cultures grew Staph aureus, Strep, Enterococci - Per wound care, exposed bone observed during exam of sacral ulcer and foul odor noted. - Infectious disease is following, greatly appreciate expertise and recommendations. - Wound care will continue to manage Likely paralytic ileus. Present on admission. Active - Patient presented with abdominal distention and apparent discomfort on exam. Rectal exam revealed an empty, dilated rectal vault with gas and liquid stool - Distended loops of small bowel on abdominal xray consistent with ileus, unlikely obstruction. - Patient currently NPO due to altered mental status - Will consider CT if symptoms or clinical symptoms develop Acute on chronic normocytic anemia, present on admission. Active. - Likely secondary to chronic disease. Hb 8.1 on admission. Concern for upper GI bleed on admission in August with negative endoscopy. - Hb 6.8 this morning, down from 8.1 on admission. No obvious signs or symptoms of active bleed. - Transfuse 2units pRBCs with threshold for transfusion of Hb < 7.0. Patient received 1U PRBCs on 02/16. - Monitor for signs/symptoms of active bleeding - Serial H/H Dementia, chronic. Present on admission. Presumed stable. - Secondary to late onset Alzheimer's. Patient is a resident of [facility] and his son is his DPOA who would like to continue with full treatment. - Palliative care consulted, appreciate recommendations. Spoke with son 02/16. Would like to have further conversation with Palliative regarding Hospice. Elevated troponin of uncertain significance, acute on chronic. Present on admission. Stable - Likely secondary to stress in the setting infection. Patient with chronically elevated troponin, appears at baseline. - Monitor clinically and repeat ECG, troponin if patient develop symptoms Hyperglycemia, uncertain chronicity. Present on admission. Resolved. - Patient without prior diagnosis of diabetes and serum glucose of 195 on admission. HbA1c 5.1 - Continue to monitor, correctional insulin if necessary Pulmonology/Critical Care consulted at time of admission due to patient's significant comorbidities and tenuous status at presentation. He has since been transferred out of the CCU. Thank you for included us in the care of this interesting patient and we remain available if necessary. . GI Prophylaxis: H2 cyndi VTE Mechanical Devices: Intermittant Pneumatic CD, Venous Foot Pump Resuscitation Status: CPR: Attempt Resuscitation Attending Statement The patient was seen and examined together with Dr. Jorge on 02/16/2017 and I agree with the history, exam and plan as outlined in the note above. . Miguelito Jorge DO Feb 16, 2017 19:54 Ken Jordan MD Feb 17, 2017 08:17
[2017-02-16] MEDS ORDERED: KCl 40 mEq/D5W 500 mL 40 MEQ in IV Premix 500 EACH IV ONE (20:30)
[2017-02-16] MEDS ORDERED: Potassium Chloride 20 mEq SR Tablet PO ONE (20:30)
[2017-02-16] MEDS ORDERED: Potassium Chloride Inj 20 MEQ in Dextrose 5% 250 ML IV ONE (20:30)
[2017-02-16] MEDS ORDERED: Vancomycin 250 mg Oral Capsule PO SCH (23:38)
[2017-02-17] VITALS (7 sets, daily range): BP systolic 125–147; BP diastolic 47–57; PULSE 42–60; RESP 16–20; O2SAT 98–100
[2017-02-17] MEDS: 0.9% Sodium Chloride 250 ML IV SCH ×2 (02:04→19:14)
[2017-02-17] MEDS: Piperacillin-Tazo 3.375 Gm Inj 3.375 GM in Dextrose 5% Minibag Plus 50 ML IV SCH ×3 (02:04→17:31)
--- NOTE | 2017-02-17 05:21 | NUR ---
[place] bed / critical K+ / Cdiff Patient transferred to [facility] bed. Patient is alert, disoriented. Unable to redirect or to orient at this time. Becomes agitated w/ cares, staff using gentle approach and explaining all procedures and cares. 2009: Critical Kcl+ 2.6, results phoned and messaged to . New orders received for IV KCL 40meq (infusion complete) 2100: Patient combative w/ cigar machine feeder; DIRECTOR AND PROFESSOR and RN assist w/ lab draw, patient continued to be combative. MD notified of this. 2299: + Cdiff toxin, results from lab sent to . New orders for Vanco solution. (Per Peg tube) 1st dose given. Flagyl IV to be given in AM. Patient allowed next trop level blood draw. Diego patent, draining small amount of light yellow urine to gravity bag. FMS (Flexiseal rectal tube) in place, leaking slightly on incont pad. Pericare several times thru NOC. Barrier cream applied to reddened buttocks. Stool is brown liquid in collection bag. Tele: SB 53, w/ PVC's. Remains NPO. 40mL flush to PEG tube Q 4hours, clamped. patient refused to allow T-drain dressing change at insertion site. Podus boots on Bilat feet. Repositioned for comfort several times thru night. Soft music playing on TV, lights dim to encourage good rest. patient noted to be awake most of the night, fidgeting w/ linens, talking to self, non-sensical conversation. Frequent room / safety checks thru night. Call light w/in reach. CTM for changes.
[2017-02-17] MEDS: Vancomycin 100 mg/mL Oral Solution PO SCH ×3 (07:17→21:19)
[2017-02-17] MEDS: Famotidine Inj 20 MG in IV Premix 1 EACH IV SCH ×2 (07:17→21:19)
[2017-02-17] MEDS ORDERED: Vancomycin Serum Trough XX ONE (08:00)
[2017-02-17] MEDS ORDERED: metroNIDAZOLE Inj 1,000 MG in IV Premix 1 EACH IV SCH (08:30)
[2017-02-17 09:18] LABS: Mean Corpuscular Volume 94.3 fL (81-100)
[2017-02-17 09:19] LABS: Mean Corpuscular Hemoglobin 30.3 pg (27.0-35.0)
--- NOTE | 2017-02-17 13:15 | NUR ---
fecal management system tube system was not fastened to the drainage bag properly and was leaking on the floor. Bagged re-attached and floor cleaned. System in place with a slight leak near patients anus. Tube system straightened out and draining to collection bag. pt very upset about being moved but this RN determined it to be necessary to prevent further skin breakdown.
--- NOTE | 2017-02-17 13:18 | NUR ---
wound care. pt is not willing to roll on side to allow this RN to do his dressing change. This RN will attempt to change dressings on buttock and R heal.
[2017-02-17] MEDS: Dextrose 5% 0.45% NaCl 1,000 ML IV SCH ×2 (14:14→19:14)
--- NOTE | 2017-02-17 14:25 | NUR ---
wound care 2nd attempt at wound care, pt refusing. This RN tried to explain the importance of the dressing change. pt states that he doesn't care about the importance of dressing changes and states "leave me alone"
--- NOTE | 2017-02-17 14:55 | PCM.PNMED ---
Subjective Date of Service Feb 17, 2017 Subjective Patient is a verbal but unable to understand what he is saying and appears to be mostly nonsensical he does have severe dementia. Exam Vital Signs Vital Sign - Last Date Time Temp Pulse Resp B/P Pulse Ox O2 Delivery O2 Flow Rate FiO2 02/17/17 11:21 42 02/17/17 04:27 36.8 147/52 98 Room Air 02/16/17 19:33 18 Intake and Output 02/16/17 02/16/17 02/17/17 Cumulative From/Thru 15:00 23:00 07:00 02/15/17 08:32 - 02/17/17 05:34 Intake Total 350 ml 452 ml 806 ml 4917 ml Output Total 400 ml 800 ml 2150 ml Balance 350 ml 52 ml 6 ml 2767 ml Intake Oral 0 ml 300 ml 300 ml IV Total 50 ml 452 ml 506 ml 4317 ml Packed Cells 300 ml 300 ml Output Urine Total 400 ml 800 ml 2150 ml # Bowel Movements 0 2 2 Exam Constitutional: Elderly male in no acute distress Head: Normocephalic atraumatic Chest: Decreased breath sounds at his bases Cor: Regular rate and rhythm S1-S2 Abdomen: Soft nontender bowel sounds present Extremities trace bilateral pedal edema Neuro: He is alert but oriented 0, motor strength is intact bilaterally IVs and Medications Medications Reviewed: Medications were reviewed in detail Lab and Diagnostics Laboratory Tests 72 Hours Test 02/15/17 08:00 02/15/17 08:03 02/15/17 09:00 02/15/17 14:39 White Blood Count 11.2th/mm3 (3.8-10.1) Red Blood Count 2.72mil/mm3 (4.40-5.80) Hemoglobin 8.1g/dL (13.8-17.2) Hematocrit 25.8% (41.0-50.0) Mean Corpuscular Volume 94.9fL (81-100) Mean Corpuscular Hemoglobin 29.8pg (27.0-35.0) Mean Corpuscular Hemoglobin Concent 31.4% (32.0-37.0) Red Cell Distribution Width 16.7% (12.3-15.4) Platelet Count 231bil/L (150-400) Neutrophils (%) (Auto) 88.7% (40-74) Lymphocytes (%) (Auto) 4.0% (14-46) Monocytes (%) (Auto) 6.9% (4-12) Eosinophils (%) (Auto) 0.1% (0-5) Basophils (%) (Auto) 0.1% (0-3) Sodium Level 142mEq/L (134-144) Potassium Level 3.5mEq/L (3.5-5.2) Chloride Level 105mEq/L (97-108) Carbon Dioxide Level 20mmol/L (18-29) Blood Urea Nitrogen 57mg/dL (8-27) Creatinine 0.83mg/dL (0.76-1.27) Estimat Glomerular Filtration Rate 93mL/min (>59) Glucose Level 195mg/dL (60-99) Hemoglobin A1c 5.1% (4.8-5.6) Lactic Acid Level 2.2mmol/L (0.4-2.0) Calcium Level 8.4mg/dL (8.5-10.1) Phosphorus Level 3.7mg/dL (2.5-4.9) Total Bilirubin 0.2mg/dL (0.0-1.2) Aspartate Amino Transf (AST/SGOT) 16U/L (0-50) Alanine Aminotransferase (ALT/SGPT) 10U/L (0-44) Alkaline Phosphatase 65U/L (25-160) Troponin T 0.169ug/L (0.0-0.011) 0.161ug/L (0.0-0.011) Pro-B-Type Natriuretic Peptide 3871pg/mL (0-486) Total Protein 5.4g/dL (6.4-8.4) Albumin 2.7g/dL (3.4-5.0) Prealbumin 15mg/dL (20-40) Lipase 13U/L (13-60) Procalcitonin 0.22ng/mL (0.00-0.08) Urine Color Straw (YELLOW) Urine Appearance Hazy (CLEAR,HAZY) Urine pH 7.0 (5.0-8.0) Urine Specific [place] 1.005 (1.003-1.035) Urine Protein Negativemg/dL (NEG,TRACE) Urine Glucose (UA) Negativemg/dL (NEGATIVE) Urine Ketones Negativemg/dL (NEGATIVE) Urine Occult Blood Negative (NEGATIVE) Urine Nitrite Positive (NEGATIVE) Urine Bilirubin Negative (NEGATIVE) Urine Urobilinogen Normalmg/dL (NORMAL) Urine Leukocyte Esterase Negative (NEGATIVE) Urine RBC 0-2/hpf (0-2) Urine WBC 0-5/hpf (0-5) Urine Epithelial Cells Occasional/hpf (NONE-MOD) Urine Crystals None seen (NONE SEEN) Urine Bacteria Moderate/hpf (NONE-FEW) Urine Hyaline Casts None/lpf (NONE) Urine Granular Casts None seen (NONE SEEN) Urine Waxy Casts None seen (NONE SEEN) Urine Red Blood Cell Casts None seen (NONE SEEN) Urine White Blood Cell Casts None seen (NONE SEEN) Urine Mucus None seen (None Seen) Urine Trichomonas None seen (NONE SEEN) Urine Yeast None (NONE SEEN) Urinalysis Comment None Urine Culture Reflexed Indicated Urine Legionella pneumophilia Ag Negative (Negative) Test 02/15/17 20:30 02/16/17 03:10 02/16/17 13:27 02/16/17 19:30 Lactic Acid Level 1.1mmol/L (0.4-2.0) Troponin T 0.163ug/L (0.0-0.011) 0.175ug/L (0.0-0.011) 0.148ug/L (0.0-0.011) White Blood Count 7.7th/mm3 (3.8-10.1) 7.5th/mm3 (3.8-10.1) Red Blood Count 2.29mil/mm3 (4.40-5.80) 2.73mil/mm3 (4.40-5.80) Hemoglobin 6.8g/dL (13.8-17.2) 8.0g/dL (13.8-17.2) Hematocrit 21.4% (41.0-50.0) 25.5% (41.0-50.0) Mean Corpuscular Volume 93.4fL (81-100) 93.4fL (81-100) Mean Corpuscular Hemoglobin 29.7pg (27.0-35.0) 29.3pg (27.0-35.0) Mean Corpuscular Hemoglobin Concent 31.8% (32.0-37.0) 31.4% (32.0-37.0) Red Cell Distribution Width 16.5% (12.3-15.4) 16.0% (12.3-15.4) Platelet Count 202bil/L (150-400) 205bil/L (150-400) Neutrophils (%) (Auto) 80.7% (40-74) Lymphocytes (%) (Auto) 8.8% (14-46) Monocytes (%) (Auto) 8.4% (4-12) Eosinophils (%) (Auto) 1.7% (0-5) Basophils (%) (Auto) 0.1% (0-3) Sodium Level 143mEq/L (134-144) 142mEq/L (134-144) Potassium Level 3.2mEq/L (3.5-5.2) 2.6mEq/L (3.5-5.2) Chloride Level 108mEq/L (97-108) 107mEq/L (97-108) Carbon Dioxide Level 18mmol/L (18-29) 18mmol/L (18-29) Blood Urea Nitrogen 44mg/dL (8-27) 39mg/dL (8-27) Creatinine 0.76mg/dL (0.76-1.27) 0.73mg/dL (0.76-1.27) Estimat Glomerular Filtration Rate 103mL/min (>59) 108mL/min (>59) Glucose Level 98mg/dL (60-99) 90mg/dL (60-99) Calcium Level 8.2mg/dL (8.5-10.1) 8.4mg/dL (8.5-10.1) Phosphorus Level 2.6mg/dL (2.5-4.9) Magnesium Level 2.0mg/dL (1.6-2.6) Total Bilirubin 0.2mg/dL (0.0-1.2) 0.4mg/dL (0.0-1.2) Aspartate Amino Transf (AST/SGOT) 19U/L (0-50) 19U/L (0-50) Alanine Aminotransferase (ALT/SGPT) 9U/L (0-44) 11U/L (0-44) Alkaline Phosphatase 51U/L (25-160) 55U/L (25-160) Total Protein 5.0g/dL (6.4-8.4) 5.4g/dL (6.4-8.4) Albumin 2.4g/dL (3.4-5.0) 2.4g/dL (3.4-5.0) Procalcitonin 0.21ng/mL (0.00-0.08) Test 02/17/17 00:40 02/17/17 08:40 Troponin T 0.116ug/L (0.0-0.011) White Blood Count 8.9th/mm3 (3.8-10.1) Red Blood Count 2.44mil/mm3 (4.40-5.80) Hemoglobin 7.4g/dL (13.8-17.2) Hematocrit 23.0% (41.0-50.0) Mean Corpuscular Volume 94.3fL (81-100) Mean Corpuscular Hemoglobin 30.3pg (27.0-35.0) Mean Corpuscular Hemoglobin Concent 32.2% (32.0-37.0) Red Cell Distribution Width 15.9% (12.3-15.4) Platelet Count 209bil/L (150-400) Sodium Level 142mEq/L (134-144) Potassium Level 3.9mEq/L (3.5-5.2) Chloride Level 111mEq/L (97-108) Carbon Dioxide Level 16mmol/L (18-29) Blood Urea Nitrogen 35mg/dL (8-27) Creatinine 0.70mg/dL (0.76-1.27) Estimat Glomerular Filtration Rate 113mL/min (>59) Glucose Level 93mg/dL (60-99) Calcium Level 8.2mg/dL (8.5-10.1) Total Bilirubin 0.4mg/dL (0.0-1.2) Aspartate Amino Transf (AST/SGOT) 27U/L (0-50) Alanine Aminotransferase (ALT/SGPT) 12U/L (0-44) Alkaline Phosphatase 51U/L (25-160) Total Protein 5.0g/dL (6.4-8.4) Albumin 2.3g/dL (3.4-5.0) Result Diagram: 02/17/17 0840 02/17/17 0840 Microbiology Blood cultures pending Strep Pneumo antigen negative MRSA nasal swab pending X-Rays, CTs and MRIs X-RAY CHEST ONE VIEW, PORTABLE IMPRESSION: 1. Left retrocardiac opacities compatible with atelectasis or developing consolidation. Dictated by: Edward Sanchez M.D. on 02/15/2017 at 8:51 Approved by: Edward Sanchez M.D. on 02/15/2017 at 8:53 X-RAY ABDOMEN, ONE VIEW IMPRESSION: Mild gaseous distention of bowel throughout the abdomen and pelvis which would suggest paralytic ileus, developing obstruction is unlikely. Recommend continued clinical correlation and if indicated followup plain film series could be performed or alternatively abdominal pelvic CT. Dictated by: Bhargav Rendon RRA Interpreted: Bonifacio Osuna MD on 02/15/2017 at 13:25 Approved by: Bonifacio Osuna M.D. on 02/15/2017 at 14:04 . Assessment & Plan 89 year old man with severe dementia, coronary artery disease, and chronic non- healing sacral pressure ulcers who presented to the emergency department via EMS from [facility] with altered mental status following a possible aspiration event. Hospital day #2. Sepsis, acute. Present on admission. Active. - Likely secondary to infected decubitus ulcers. - Met criteria on admission with: hypotension, tachycardia, tachypnea, leukocytosis, and altered mental status. - Blood cultures with no growth at 24h - Procalcitonin mildly elevated and essentially unchanged from yesterday - Repeat CBC, procalcitonin - Continue Zosyn C. difficile colitis, acute, not present on admission - Found to have C. difficile on stool PCR and started on by mouth vancomycin and IV metronidazole overnight -There is some concern or ileus previously so we will go ahead and get CT scan of abdomen and pelvis although abdominal exam he was not tender to palpation Sinus bradycardia, acute, not present on admission -Patient was definitely tachycardic upon admission however has been dropping down to a lower heart rate with today dipping down into the low 40s. -Not clear if he has been symptomatic with this as he is not able to give a history although it looks like his blood pressures have been fairly stable with this. -He is not on any chronotropic agents to cause this. -We will transfer to [facility] given significant bradycardia -Check stat troponin, lactic acid, basic metabolic panel, 12-lead EKG, portable chest x-ray -I did Talk to his son who is DPOA, Osvaldo Leong, wishes full code. Hence patient is transferred to [facility] for continuing care. 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 Present on admission. Active - Secondary to severe, stage IV sacral decubitus ulcer. Previous admissions, wound/bone chip cultures grew Staph aureus, Strep, Enterococci - Per wound care, exposed bone observed during exam of sacral ulcer and foul odor noted. - Infectious disease is following, greatly appreciate expertise and recommendations. - Wound care will continue to manage Likely paralytic ileus. Present on admission. Active - Patient presented with abdominal distention and apparent discomfort on exam. Rectal exam revealed an empty, dilated rectal vault with gas and liquid stool - Distended loops of small bowel on abdominal xray consistent with ileus, unlikely obstruction. - Patient currently NPO due to altered mental status - Will consider CT if symptoms or clinical symptoms develop Acute on chronic normocytic anemia, present on admission. Active. - Likely secondary to chronic disease. Hb 8.1 on admission. Concern for upper GI bleed on admission in August with negative endoscopy. - Hb 6.8 this morning, down from 8.1 on admission. No obvious signs or symptoms of active bleed. - Transfuse 2units pRBCs with threshold for transfusion of Hb < 7.0. Patient received 1U PRBCs on 02/16. - Monitor for signs/symptoms of active bleeding - Serial H/H Dementia, chronic. Present on admission. Presumed stable. - Secondary to late onset Alzheimer's. Patient is a resident of [facility] and his son is his DPOA who would like to continue with full treatment. - Palliative care consulted, appreciate recommendations. Spoke with son 02/16. Would like to have further conversation with Palliative regarding Hospice. Elevated troponin of uncertain significance, acute on chronic. Present on admission. Stable - Likely secondary to stress in the setting infection. Patient with chronically elevated troponin, appears at baseline. - Monitor clinically and repeat ECG, troponin if patient develop symptoms Hyperglycemia, uncertain chronicity. Present on admission. Resolved. - Patient without prior diagnosis of diabetes and serum glucose of 195 on admission. HbA1c 5.1 - Continue to monitor, correctional insulin if necessary . GI Prophylaxis: H2 cyndi VTE Mechanical Devices: Intermittant Pneumatic CD, Venous Foot Pump Resuscitation Status: CPR: Attempt Resuscitation Time spent 30 minutes Pat Mark MD Feb 17, 2017 14:55
--- NOTE | 2017-02-17 15:20 | DRSVH ---
PROCEDURE: X-RAY CHEST ONE VIEW, PORTABLE ([id number]) INDICATIONS: bradycardia TECHNIQUE: One view of the chest was acquired. COMPARISON: None. FINDINGS: Surgical changes and devices: None. Lungs and pleura: No pleural effusions or pneumothorax. Lungs are abnormal with a mild pneumonia pa ttern of the right. Mediastinum: Mediastinal contours appear normal. Heart size is normal. Bones and chest wall: No suspicious bony lesions. Overlying soft tissues appear unremarkable. IMPRESSION: Mild right mid and lower lung pneumonia. Quality of visualization is somewhat diminishe d by reduced inspiratory volume and patient tilt and rotation rightward. Dictated by: Maciel Reyes M.D. on 02/17/2017 at 15:17 Approved by: Maciel Reyes M.D. on 02/17/2017 at 15:18
--- NOTE | 2017-02-17 15:30 | NUR ---
Pt transferred from [facility] Received report from Bharat [facility] RN. Pt transferred to room 2022 at about 1530. Pt in clinitron bed, no c/o pain at this time. Will resume IV fluids and ABX. [facility] team aware of pt's transfer. Per report, son was called several times and made aware of transfer. Ongoing care.
--- NOTE | 2017-02-17 15:33 | NUR ---
wound care this RN was able to re-dress pt's sacral wound and the skin tear on his left shoulder. This RN was not able to address wound on his ankle/heal
[2017-02-17 16:33] LABS: TROPONIN T 0.114 ug/L (0.0-0.011)
--- NOTE | 2017-02-17 16:49 | PCM.PNMED ---
Subjective Date of Service Feb 17, 2017 Subjective 89 chronically ill demented alf resident seen in CCU one evening when his admitting team was concerned he might decompensate. Did well over noc and has been transferred out of CCU while remaining stable. PCCM will sign off. Please reconsult as needed. Exam Vital Signs Vital Sign - Last Date Time Temp Pulse Resp B/P Pulse Ox O2 Delivery O2 Flow Rate FiO2 02/17/17 15:52 36.4 47 16 125/47 99 Room Air Intake and Output 02/16/17 02/16/17 02/17/17 Cumulative From/Thru 15:00 23:00 07:00 02/15/17 08:32 - 02/17/17 05:34 Intake Total 350 ml 452 ml 806 ml 4917 ml Output Total 400 ml 800 ml 2150 ml Balance 350 ml 52 ml 6 ml 2767 ml Intake Oral 0 ml 300 ml 300 ml IV Total 50 ml 452 ml 506 ml 4317 ml Packed Cells 300 ml 300 ml Output Urine Total 400 ml 800 ml 2150 ml # Bowel Movements 0 2 2 Lab and Diagnostics Result Diagram: 02/17/17 0840 02/17/17 1541 Microbiology Blood cultures pending Strep Pneumo antigen negative MRSA nasal swab pending X-Rays, CTs and MRIs X-RAY CHEST ONE VIEW, PORTABLE IMPRESSION: 1. Left retrocardiac opacities compatible with atelectasis or developing consolidation. Dictated by: Edward Sanchez M.D. on 02/15/2017 at 8:51 Approved by: Edward Sanchez M.D. on 02/15/2017 at 8:53 X-RAY ABDOMEN, ONE VIEW IMPRESSION: Mild gaseous distention of bowel throughout the abdomen and pelvis which would suggest paralytic ileus, developing obstruction is unlikely. Recommend continued clinical correlation and if indicated followup plain film series could be performed or alternatively abdominal pelvic CT. Dictated by: Bhargav Rendon [facility] Interpreted: Bonifacio Osuna MD on 02/15/2017 at 13:25 Approved by: Bonifacio Osuna M.D. on 02/15/2017 at 14:04 . Assessment & Plan 89 year old man with severe dementia, coronary artery disease, and chronic non- healing sacral pressure ulcers who presented to the emergency department via EMS from [facility] with altered mental status following a possible aspiration event. Hospital day #2. Sepsis, acute. Present on admission. Active. - Likely secondary to infected decubitus ulcers. - Met criteria on admission with: hypotension, tachycardia, tachypnea, leukocytosis, and altered mental status. - Blood cultures with no growth at 24h - Procalcitonin mildly elevated and essentially unchanged from yesterday - Repeat CBC, procalcitonin - Continue Zosyn C. difficile colitis, acute, not present on admission - Found to have C. difficile on stool PCR and started on by mouth vancomycin and IV metronidazole overnight -There is some concern or ileus previously so we will go ahead and get CT scan of abdomen and pelvis although abdominal exam he was not tender to palpation Sinus bradycardia, acute, not present on admission -Patient was definitely tachycardic upon admission however has been dropping down to a lower heart rate with today dipping down into the low 40s. -Not clear if he has been symptomatic with this as he is not able to give a history although it looks like his blood pressures have been fairly stable with this. -He is not on any chronotropic agents to cause this. -We will transfer to [facility] given significant bradycardia -Check stat troponin, lactic acid, basic metabolic panel, 12-lead EKG, portable chest x-ray -I did Talk to his son who is DPOA, Osvaldo Leong, wishes full code. Hence patient is transferred to [facility] for continuing care. 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 Present on admission. Active - Secondary to severe, stage IV sacral decubitus ulcer. Previous admissions, wound/bone chip cultures grew Staph aureus, Strep, Enterococci - Per wound care, exposed bone observed during exam of sacral ulcer and foul odor noted. - Infectious disease is following, greatly appreciate expertise and recommendations. - Wound care will continue to manage Likely paralytic ileus. Present on admission. Active - Patient presented with abdominal distention and apparent discomfort on exam. Rectal exam revealed an empty, dilated rectal vault with gas and liquid stool - Distended loops of small bowel on abdominal xray consistent with ileus, unlikely obstruction. - Patient currently NPO due to altered mental status - Will consider CT if symptoms or clinical symptoms develop Acute on chronic normocytic anemia, present on admission. Active. - Likely secondary to chronic disease. Hb 8.1 on admission. Concern for upper GI bleed on admission in August with negative endoscopy. - Hb 6.8 this morning, down from 8.1 on admission. No obvious signs or symptoms of active bleed. - Transfuse 2units pRBCs with threshold for transfusion of Hb < 7.0. Patient received 1U PRBCs on 02/16. - Monitor for signs/symptoms of active bleeding - Serial H/H Dementia, chronic. Present on admission. Presumed stable. - Secondary to late onset Alzheimer's. Patient is a resident of [facility] and his son is his DPOA who would like to continue with full treatment. - Palliative care consulted, appreciate recommendations. Spoke with son 02/16. Would like to have further conversation with Palliative regarding Hospice. Elevated troponin of uncertain significance, acute on chronic. Present on admission. Stable - Likely secondary to stress in the setting infection. Patient with chronically elevated troponin, appears at baseline. - Monitor clinically and repeat ECG, troponin if patient develop symptoms Hyperglycemia, uncertain chronicity. Present on admission. Resolved. - Patient without prior diagnosis of diabetes and serum glucose of 195 on admission. HbA1c 5.1 - Continue to monitor, correctional insulin if necessary . GI Prophylaxis: H2 cyndi VTE Mechanical Devices: Intermittant Pneumatic CD, Venous Foot Pump Resuscitation Status: CPR: Attempt Resuscitation Vishnu Lewis MD Feb 17, 2017 16:49
--- NOTE | 2017-02-17 17:36 | DRSVH ---
PROCEDURE: CT ABDOMEN AND PELVIS WITH CONTRAST ([id number]) INDICATIONS: C Diff colitis TECHNIQUE: After the administration of intravenous contrast, 5 mm thick sections acquired from the diaphragm to the symphysis. 5 mm coronal and sagittal reformats were acquired. For radiation dose reduction, the following was used: automated exposure control, adjustment of mA and/or kV according to patient siz e. COMPARISON: None. FINDINGS: Image quality: Excellent. ABDOMEN: Lung bases: Lung bases are abnormal with what appears to be mild bibasilar pneumonia posteriorly, ve rsus basilar atelectasis. Heart size is normal. Solid organs: Liver and spleen are normal in size and enhancement. Gallbladder appears previously r esected. Biliary system is non dilated. Pancreas enhances normally. No adrenal nodules. Kidneys d emonstrate normal size and enhancement, without hydronephrosis. 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 Peritoneum and bowel: Bowel loops demonstrate normal wall thickness and caliber. No free fluid or a ir. Nodes and vessels: No retroperitoneal or mesenteric adenopathy by size criteria. Aorta and inferior vena cava are normal in size. Miscellaneous: No ventral hernias. There is mild mural thickening of the posterior sigmoid colon, p reviously normal in appearance, with an appearance suggestive of colitis. A rectal tube with rectal balloon in place. Diego catheter is present draining the bladder lumen. PELVIS: Genitourinary: Bladder wall thickness is normal. Miscellaneous: No inguinal hernias or adenopathy. Bones: No suspicious bony lesions. No vertebral body compression fractures. IMPRESSION: Mild bibasilar atelectasis and/or pneumonia. Suspect posterior sigmoid colitis, where m ural thickening is concentric but without pneumatosis or evidence of adjacent abscess formation. Rec minerva balloon and tube in place. Diego catheter almost completely drains the bladder lumen. Dictated by: Maciel Reyes M.D. on 02/17/2017 at 17:32 Approved by: Maciel Reyes M.D. on 02/17/2017 at 17:35
--- NOTE | 2017-02-17 17:46 | NUR ---
Social Work Note: Initial Assessment Data& Assessment: Dioni Leong is a 89 year old male admitted on 02/15/2017 for sepsis. Pt has Medicare, [employer] supplement and [employer]. Pt sees José MEEKS for primary care. Pt is LTC pt at [facility]. ERNST spoke with Roseline at [facility] for assessment information. SW to follow up with pt son Osvaldo Leong ([place]) to confirm discharge plan and assess for any unmet needs. Pt is total assist at [facility] requiring assistance with all ADL's and is bed bound at baseline. Pt was receiving daily wound care and had a wound vac placed while at [facility] prior to this hospitalization. Pt was also on antibiotics. Pt has Alzheimer's diagnosis. Pt does not have LTC insurance or VA benefits. Pt son Osvaldo listed as DPOA/AD. [facility] does not have a copy of this paperwork on file. Per previous MD request and order, a call had been made to [facility] to speak with son via t/c for an informational visit. ERNST spoke with Mounika from Hospice today for an update. Apparenteley, the Hospice SW has been trying to reach pt son today without success, voicemails left. Hospice SW to continue to reach pt son this afternoon. Phone numbers matched what the hospital has on file for pt son ([phone]). SW to continue to follow and follow up with [facility] and pt son regarding discharge Planning. Plan: Anticipated discharge back to [facility] as a LTC when medically ready, SW to r/o Hospice. SW to continue to follow and follow up with [facility] and pt son regarding discharge Planning. RAFY Vasquez Addendum: 02/17/17 at 1752 by GO PUGA Amended: Links added.
[2017-02-17] MEDS ORDERED: 0.9% Sodium Chloride 1,000 ML IV ONE (18:25)
[2017-02-17] MEDS ORDERED: Potassium Chloride 20 mEq/15 mL 15mL Oral Soln PO ONE (18:30)
[2017-02-18] VITALS (11 sets, daily range): BP systolic 105–164; BP diastolic 54–59; PULSE 40–67; RESP 18–20; O2SAT 98–100
--- NOTE | 2017-02-18 00:22 | NUR ---
Report Report to Meme FRENCH, all questions answered, resting in bed and awake, confused but pleasant, no c/o pain,
[2017-02-18] MEDS: Dextrose 5% 0.45% NaCl 1,000 ML IV SCH (01:38)
[2017-02-18] MEDS: Piperacillin-Tazo 3.375 Gm Inj 3.375 GM in Dextrose 5% Minibag Plus 50 ML IV SCH ×3 (01:41→17:04)
[2017-02-18] MEDS: Vancomycin 100 mg/mL Oral Solution PO SCH ×4 (03:11→20:44)
--- NOTE | 2017-02-18 04:34 | NUR ---
Pain Assumed care of patient at 0000. Pt alert and responsive with baseline confusion. Pt has noted s/sx of pain with movement and was given Tylenol 975mg. Pt appears to be asleep without signs of distress. Care continues.
[2017-02-18] MEDS: Famotidine Inj 20 MG in IV Premix 1 EACH IV SCH ×2 (07:50→22:18)
[2017-02-18 09:00] LABS: Mean Corpuscular Hemoglobin 30.2 pg (27.0-35.0); Mean Corpuscular Volume 92.5 fL (81-100); Platelet Count 222 bil/L (150-400)
[2017-02-18 09:01] LABS: BASOPHILS % (AUTO) 1.8 % (0-3); EOSINOPHILS % (AUTO) 2.9 % (0-5); MONOCYTES % (AUTO) 7.2 % (4-12); NEUTROPHILS % (AUTO) 70.7 % (40-74)
--- NOTE | 2017-02-18 09:25 | NUR ---
KRISHNA signed DATA TECHNICIAN spoke with pt's DPOA on the phone, "Pascale Leong". KRISHNA given, verbal permission given for signature. RAFY Leblanc
--- NOTE | 2017-02-18 10:28 | NUR ---
Social Work: Continued d/c planning Data: Pt is on day 3 of hospitalization. EMR reviewed. Pt discussed in multidisciplinary rounds. POCKET SETTER LOCKSTITCH spoke with pt's DPOA, his son "Daryl Leong regarding hospice info visit. He states he spoke with [facility] yesterday and that they will talk on Sunday to set up an information visit as he will not know his schedule until that day. POCKET SETTER LOCKSTITCH called and spoke with Mounika with [facility] who confirmed this also. POCKET SETTER LOCKSTITCH will continue to follow. Assessment: Pt with dementia, from LTC, not independent at baseline or now. Plan: Pt will likely d/c back to [facility] , possibly with hospice. POCKET SETTER LOCKSTITCH will continue to follow. RAFY Leblanc
--- NOTE | 2017-02-18 14:59 | PCM.PNMED ---
Subjective Date of Service Feb 18, 2017 Subjective 89 year old man with severe dementia, coronary artery disease, and chronic non- healing sacral pressure ulcers who presented to the emergency department via EMS from [facility] with altered mental status following a possible aspiration event. Patient is verbal but nonsensical in responses such that a meaningful interview cannot be done. No significant overnight events Comprehensive ROS unable to be obtained in this demented patient. Exam Vital Signs Vital Sign - Last Date Time Temp Pulse Resp B/P Pulse Ox O2 Delivery O2 Flow Rate FiO2 02/18/17 11:56 36.6 46 20 105/54 99 Room Air Intake and Output 02/17/17 02/17/17 02/18/17 Cumulative From/Thru 15:00 23:00 07:00 02/15/17 08:32 - 02/18/17 06:46 Intake Total 476 ml 0 ml 1053 ml 6446 ml Output Total 300 ml 600 ml 3050 ml Balance 476 ml -300 ml 453 ml 3396 ml Intake Oral 0 ml 0 ml 300 ml IV Total 476 ml 1053 ml 5846 ml Packed Cells 300 ml Output Urine Total 300 ml 600 ml 3050 ml # Bowel Movements 2 Exam Gen: Patient alert but not oriented, elderly chronically ill appearing gentleman , NAD Neck: Supple, non tender, no lymphadenopathy HEENT: PERRL, EOMI, no scleral icterus CV: RRR, no murmurs rubs or gallops Resp: Lungs CTA BL, no wheezing rales or rhonchi Abd: Soft, no rebound masses or guarding Extr: Diffuse muscle wasting, decubitus ulcers are managed by wound care and not undressed today Neuro: CN 2-12 grossly intact, no focal neurologic deficit Psych: Patient is profoundly demented with little awareness of surroundings and nonsensical speech. Lab and Diagnostics Result Diagram: 02/18/17 0800 02/18/17 0800 Microbiology Blood cultures pending Strep Pneumo antigen negative MRSA nasal swab pending X-Rays, CTs and MRIs X-RAY CHEST ONE VIEW, PORTABLE IMPRESSION: 1. Left retrocardiac opacities compatible with atelectasis or developing consolidation. Dictated by: Edward Sanchez M.D. on 02/15/2017 at 8:51 Approved by: Edward Sanchez M.D. on 02/15/2017 at 8:53 X-RAY ABDOMEN, ONE VIEW IMPRESSION: Mild gaseous distention of bowel throughout the abdomen and pelvis which would suggest paralytic ileus, developing obstruction is unlikely. Recommend continued clinical correlation and if indicated followup plain film series could be performed or alternatively abdominal pelvic CT. Dictated by: Bhargav Rendon Shane Interpreted: Bonifacio Osuna MD on 02/15/2017 at 13:25 Approved by: Bonifacio Osuna M.D. on 02/15/2017 at 14:04 . Assessment & Plan 89 year old man with severe dementia, coronary artery disease, and chronic non- healing sacral pressure ulcers who presented to the emergency department via EMS from [facility] with altered mental status following a possible aspiration event. Sepsis, acute. Present on admission. Active. - Likely secondary to infected decubitus ulcers. - Met criteria on admission with: hypotension, tachycardia, tachypnea, leukocytosis, and altered mental status. - Blood cultures with no growth to date - Procalcitonin mildly elevated and essentially unchanged from yesterday - Repeat CBC, procalcitonin - Continue Zosyn C. difficile colitis, acute, not present on admission - Found to have C. difficile on stool PCR and started on by mouth vancomycin and IV metronidazole overnight - Abdominal CT did not reveal any signs of obstruction, did reveal diffuse concentric wall intestinal wall thickening Sinus bradycardia, acute, not present on admission -Patient was definitely tachycardic upon admission however has been dropping down to a lower heart rate with today dipping down into the low 40s. -Not clear if he has been symptomatic with this as he is not able to give a history although it looks like his blood pressures have been fairly stable with this. -He is not on any chronotropic agents to cause this. -I did Talk to his son who is DPOA, Osvaldo Leong, wishes full code. 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 Present on admission. Active - Secondary to severe, stage IV sacral decubitus ulcer. Previous admissions, wound/bone chip cultures grew Staph aureus, Strep, Enterococci - Per wound care, exposed bone observed during exam of sacral ulcer and foul odor noted. - Infectious disease is following, greatly appreciate expertise and recommendations. - Wound care will continue to manage Likely paralytic ileus. Present on admission. Active - Patient presented with abdominal distention and apparent discomfort on exam. Rectal exam revealed an empty, dilated rectal vault with gas and liquid stool - Distended loops of small bowel on abdominal xray consistent with ileus, unlikely obstruction. - Patient currently NPO due to altered mental status Acute on chronic normocytic anemia, present on admission. Active. - Likely secondary to chronic disease. Hb 8.1 on admission. Concern for upper GI bleed on admission in August with negative endoscopy. - Hb 6.8 this morning, down from 8.1 on admission. No obvious signs or symptoms of active bleed. - Threshold for transfusion of Hb < 7.0. Patient received 1U PRBCs on 02/16. - Monitor for signs/symptoms of active bleeding - Serial H/H Dementia, chronic. Present on admission. Presumed stable. - Secondary to late onset Alzheimer's. Patient is a resident of [facility] and his son is his DPOA who would like to continue with full treatment. - Palliative care consulted, appreciate recommendations. Spoke with son 02/16. Would like to have further conversation with Palliative regarding Hospice. Elevated troponin of uncertain significance, acute on chronic. Present on admission. Stable - Likely secondary to stress in the setting of infection. Patient with chronically elevated troponin, appears at baseline. - Monitor clinically and repeat ECG, troponin if patient develop symptoms Hyperglycemia, uncertain chronicity. Present on admission. Resolved. - Patient without prior diagnosis of diabetes and serum glucose of 195 on admission. HbA1c 5.1 - Continue to monitor, correctional insulin if necessary Disposition: Patient is clearly rapidly approaching the end of his life based upon multiple co-morbid medical conditions that cannot be cured or managed consistently as an outpatient; family has been involved in extensive palliative discussions with thus far no desire to change code status or treatment plan. There are reports that they are considering a Hospice info visit, but this has yet to materialize. DC date uncertain at this time as patient is approaching stability but would likely represent a near certain re-admit risk given his extremely tenuous health and non healing ulcers. Pain Evaluation: Adequate Pain Control GI Prophylaxis: H2 cyndi VTE Mechanical Devices: Intermittant Pneumatic CD, Venous Foot Pump Resuscitation Status: CPR: Attempt Resuscitation Attending Statement Severe protein calorie malnutrition, present on admission. Active. - Secondary to dementia and dysphagia as evidenced by severe body fat loss, severe muscle loss, need for nutrition via PEG and multiple PU - Continue recommendations per Nutrition The patient was seen and examined together with Dr. Crane on 02/18/2017 and I agree with the history, exam and plan as outlined in the note above. . Mathew Crane DO Feb 18, 2017 14:59 Ken Jordan MD Feb 18, 2017 16:29
--- NOTE | 2017-02-18 17:46 | NUR ---
Pain/Nuero Patient a/o to self only, c/o pain with any movement, Tylenol x 1 given with moderate effect. Patient turned q 2-3 hrs, coccyx and heel drsg c/d/i. Patient agitated this a.m. when lab draw done, but pleasant and cooperative with the rest of care. Patient able to nap intermittently this shift. VSS, tele SB 30-60's. Patient DPOA called to get update and patient progress and poc and rn social work able to speak with DPOA regarding D/C planning.
[2017-02-18] MEDS: 0.9% Sodium Chloride 1,000 ML IV SCH (20:30)
[2017-02-19] VITALS (9 sets, daily range): BP systolic 97–159; BP diastolic 48–71; PULSE 50–60; RESP 18; O2SAT 95–100
[2017-02-19] MEDS: Piperacillin-Tazo 3.375 Gm Inj 3.375 GM in Dextrose 5% Minibag Plus 50 ML IV SCH ×3 (01:24→16:49)
[2017-02-19] MEDS: Vancomycin 100 mg/mL Oral Solution PO SCH ×4 (02:30→22:01)
[2017-02-19] MEDS: 0.9% Sodium Chloride 250 ML IV SCH (02:38)
[2017-02-19] MEDS ORDERED: Dextrose 10% 250 ML IV ONE (03:35)
[2017-02-19 05:02] LABS: BASOPHILS % (AUTO) 0.3 % (0-3); EOSINOPHILS % (AUTO) 2.4 % (0-5); MONOCYTES % (AUTO) 7.1 % (4-12); Mean Corpuscular Hemoglobin 28.9 pg (27.0-35.0); Mean Corpuscular Volume 95 fL (81-100); NEUTROPHILS % (AUTO) 75.9 % (40-74); Platelet Count 214 bil/L (150-400)
[2017-02-19 05:09] LABS: Magnesium 1.8 mg/dL (1.6-2.6); Phosphorus 3.3 mg/dL (2.5-4.9)
[2017-02-19 05:16] LABS: INR 1.11 ratio
--- NOTE | 2017-02-19 06:21 | NUR ---
Pain/Agitation/Low Blood sugar Pt oriented to self. He mumbles most of the times. Pt sometimes follow command during care. Telemetry SB 40s-50s. Pain per FELDT scale and Tylenol per tube given. Blood sugar of 67 noted. made aware. D10% 250 cc given (Therapeutic substitute for 1 AMP D50). Rechecked Blood sugar 111. Pt yelling and agitated at times in room. Pt napping at this time especially after dose of Tylenol was given. PEG tube flush q4h with 40 ml as ordered.
[2017-02-19] MEDS: Potassium Chloride 20 mEq/15 mL Oral Soln (K < 3 Creat <2) TUBE SCH ×2 (06:38→09:02)
[2017-02-19] MEDS: Famotidine Inj 20 MG in IV Premix 1 EACH IV SCH ×2 (08:58→22:02)
--- NOTE | 2017-02-19 10:25 | NUR ---
NUTRITION FOLLOW UP: ASSESS: 89 yo M admitted for sepsis and aspiration pneumonia. TF to be started today via PEG. Previously, there is concern for ileus and aspiration of TF. Wound care is following and pt has multiple PU including stage 4 sacral PU. Family is considering Hospice. PMHX: Alzheimer's, Asthma, CAD, CHF, Diverticulosis, hypokalemia LABS: Reviewed. K+ 2.8, Cr 0.72, Glu 148, Ca 7.6, Alb 2.4 MEDS: Reviewed. GI: 2 BM 02/27. SKIN: Multiple PU, including stg 4 sacral PU. See wound care note for further wound details CURRENT WT: 74.9 kg, BMI 22.4 kg/m2, IBW: 78 kg HOMF TF: There is conflicting info in charts from [facility] regarding TF formula pt was receiving (Jevity vs Vital). Formula was running @ 75ml x20hrs to provide 2250kcal and ~96g pro. Fluid flush 275ml 5x/day. DIET: NPO ESTIMATED NEEDS: wounds/healing Calories: 6697-9782 kcal/day (35-40 kcal/kg BW) Protein: 110-150 g/day (1.5-2.0 g/kg BW) Fluids: ~2600 ml/day NUTRITION DIAGNOSIS: 1.) Increased kcal/pro needs related to increased demand for healing as evidence by multiple PU and stg 4 sacral PU---PERSISTS. 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 NUTRITION INTERVENTION: 1.) Recommend start Jevity 1.5 @ 10ml/hr. If tolerated, recommend advancing 10 ml q 12 hr until goal rate of 80 ml/hr to provide 2760 kcal and 117 g protein (100% estimated needs). Fluid flush 40ml q 4 hrs while on IVF. If off IVF, recommend flush 230ml q 4 hrs to better meet fluid needs. Signed ordered to be placed in chart. 2.) If Jevity is not tolerated due to ileus, recommend switch formula to Vital 1.5. MONITOR/EVALUATE: NPO, TF tolerance/advance, GI, labs, wt, wounds, POC, nutrition status. Follow per high nutrition risk guidelines Addendum: 02/19/17 at [address] Per nursing, son apparently wants a TF that contains no sugar. We have no TF formulas with zero sugar. Will switch TF to diabetic formula per son's request. Recommend TF of Glucerna 1.5 starting at 10 ml/hr, once tolerance established, advance 10 ml q 12 hr to goal rate of 80 ml/hr. At goal TF will provide 2760 kcal, 152 g protein; meeting 100% calorie/protein needs. New signed orders to be placed in chart.
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
--- NOTE | 2017-02-19 11:48 | DRSVH ---
[facility] [address] [place] [address] Echocardiogram Report Name: JOHANNY MACHADO KStudy Date: 02/19/2017 Height: 72 in Hospital Exam Location: [facility] Weight: 165 lb Gender: Male BSA: 2.0 m2 : 1925 Age: 89 yrs BP: 130/54 mmHg Reason For Study: Bradycardia Ordering Physician: Performed By: Parish Pearl Referring Physician: ANDIE REILLY Interpretation Summary The study quality was technically difficult. The left ventricle is normal in size. The ejection fraction is estimated to be 50-55%. The right ventricle grossly appears normal in size with probable normal systolic function. There is mild to moderate tricuspid regurgitation. The right ventricular systolic pressure is estimated at 54 mmHg assuming a right atrial pressure of 15 mm Hg. There is moderate pulmonary hypertension. The IVC is dilated (diameter is greater than 2.1 cm) and it collapses less than 50% with a sniff. This suggests a high right atrial pressure of 15 mm Hg. Compared to the prior echo exam, there has been an increase in TR severity. Compared to the prior echo exam, there has been an increase in the severity of pulmonary hypertension. Procedure: A two-dimensional transthoracic echocardiogram with color flow and Doppler was performed. The study quality was technically difficult. A contrast injection of Definity was performed to improve assessment of LV function. Comparison is made with the echocardiogram of 08/29/16. The patient was in sinus bradycardia with heart rates between 49-68 bpm during the exam. The patient had occasional PACs during the exam. Left Ventricle: The left ventricle is normal in size. Left ventricular wall thickness is at the upper limits of normal. There is no thrombus. The ejection fraction is estimated to be 50-55%. Left ventricular systolic function is low normal. There are no obvious focal wall motion abnormalities noted but poor endocardial definition reduces the sensitivity for the detection of such. E/E' ratio is normal. Right Ventricle: The right ventricle grossly appears normal in size with probable normal systolic function. Atria: The left atrium is not well visualized. Right atrium not well visualized. Mitral Valve: The mitral valve is not well visualized. There is mild mitral annular calcification. There is trace mitral regurgitation. Aortic Valve: The aortic valve is not well visualized. The aortic valve is mildly calcified. There is no hemodynamically significant valvular aortic stenosis. There is mild aortic regurgitation. Compared to the prior echo study, there has been an increase in the severity of aortic regurgitation. Tricuspid Valve: The tricuspid valve is not well visualized. The tricuspid valve is not well visualized, but is grossly normal. There is mild to moderate tricuspid regurgitation. The right ventricular systolic pressure is estimated at 54 mmHg assuming a right atrial pressure of 15 mm Hg. There is moderate pulmonary hypertension. Compared to the prior echo exam, there has been an increase in TR severity. Compared to the prior echo exam, there has been an increase in the severity of pulmonary hypertension. Pulmonic Valve: The pulmonic valve is not well visualized. There is mild pulmonic regurgitation. Great Vessels: The aortic root is normal size. The ascending aorta could not be visualized. The pulmonary is not well visualized. The IVC is dilated (diameter is greater than 2.1 cm) and it collapses less than 50% with a sniff. This suggests a high right atrial pressure of 15 mm Hg. Pericardium/ Pleura There is no pericardial effusion. There is no pleural effusion. MMode/2D Measurements & Calculations LVIDd IVC diam LV lopez. diameter/BSA LV sys. diameter/BSA : 5.2 cm : 2.7 cm (cm/m^2): 2.6 (cm/m^2): 2.0 LVIDs : 4.0 cm FS: 22.3 % IVSd : 1.cm LVPWd : 0.6cm Doppler Measurements & Calculations Ao V2 max MV E max ponce MV E/A: 1.2 TR max ponce : 139.0 cm/sec : 97.1 cm/sec : 312.2 cm/sec Ao max P.7 mmHg MV A max ponce TR max PG Ao mean P.0 mmH.0 cm/sec : 39.0 mmHg LVOT Max Ponce PA V2 max : 73.7 cm/sec : 102.0 cm/sec sev ratio: 0.55 PA mean PG : 2.2 mmHg MV dec time Ao V2 mean LV V1 max PG PA V2 mean : 0.15 sec : 95.6 cm/sec : 72.2 cm/sec Ao V2 VTI: 36.7 cm LV V1 VTI PA pr(Accel) : 20.2 cm : 40.1 mmHg Reading Physician:LEIGH
--- NOTE | 2017-02-19 12:00 | PCM.PNMED ---
Subjective Date of Service Feb 19, 2017 Subjective 89 year old man with severe dementia, coronary artery disease, and chronic non- healing sacral pressure ulcers who presented to the emergency department via EMS from [facility] with altered mental status following a possible aspiration event. Nursing reports no acute events overnight. Patient seen and examined. Awake, but severely demented. Verbal, but not formulating any linear thought. Unable to obtain information from patient. Complete ROS unable to be complete secondary to patient's mental status. Exam Vital Signs Vital Sign - Last Date Time Temp Pulse Resp B/P Pulse Ox O2 Delivery O2 Flow Rate FiO2 02/19/17 09:08 36.7 60 18 124/59 95 Room Air Intake and Output 02/18/17 02/18/17 02/19/17 Cumulative From/Thru 15:00 23:00 07:00 02/15/17 08:32 - 02/19/17 05:20 Intake Total 1678 ml 557 ml 8681 ml Output Total 800 ml 3850 ml Balance 878 ml 557 ml 4831 ml Intake Oral 300 ml IV Total 1558 ml 557 ml 7961 ml Packed Cells 300 ml Tube Irrigant 120 ml 120 ml Output Urine Total 600 ml 3650 ml Stool Total 200 ml 200 ml # Bowel Movements 2 Exam Constitutional: Awake, not alert to person, place, or time. In no acute distress. Head: Normocephalic and atraumatic Eyes: EOMI, pink conjunctiva Heart: Bradycardic, regular rhythm, no peripheral edema Lungs: Clear to auscultation bilaterally. no wheeze, rales, or rhonchi ABD: soft, nontender, bowel sounds present throughout. Musculoskeletal: lower extremity contractures. Muscle wasting diffusely. Skin: Diffuse ecchymoses bilateral UE. Sacral ulcer measuring 5.5cm x 3.5cm wound with tunneling, exposed bone, malodorous drainage and no granulating tissue. Psych: unable to assess secondary to severe dementia. IVs and Medications IV Fluids 1L NS given in the last 24 hours. Medications Reviewed: Medications were reviewed in detail Medications High Risk IV Medications: Zosyn Lab and Diagnostics Item Value Date Time Red Blood Count 2.56 mil/mm3 L 02/19/17 0450 Mean Corpuscular Volume 95 fL 02/19/17 0450 Mean Corpuscular Hemoglobin 28.9 pg 02/19/17 0450 Mean Corpuscular Hemoglobin Concent 30.3 % L 02/19/17 0450 Red Cell Distribution Width 15.6 % H 02/19/17 0450 Neutrophils (%) (Auto) 75.9 % H 02/19/17 0450 Lymphocytes (%) (Auto) 13.9 % L 02/19/17 0450 Monocytes (%) (Auto) 7.1 % 02/19/17 0450 Eosinophils (%) (Auto) 2.4 % 02/19/17 045 Basophils (%) (Auto) 0.3 % 02/19/17 0450 Estimat Glomerular Filtration Rate 109 mL/min 02/19/17 0410 Potassium Level 4.9 mEq/L 02/19/17 1225 Calcium Level 7.6 mg/dL L 02/19/17 0410 Phosphorus Level 3.3 mg/dL 02/19/17 0410 Magnesium Level 1.8 mg/dL 02/19/17 0410 Total Bilirubin 0.4 mg/dL 02/19/17 0410 Aspartate Amino Transf (AST/SGOT) 21 U/L 02/19/17 0410 Alanine Aminotransferase (ALT/SGPT) 13 U/L 02/19/17 0410 Alkaline Phosphatase 52 U/L 02/19/17 0410 Total Protein 4.6 g/dL L 02/19/17 0410 Albumin 2.4 g/dL L 02/19/17 0410 Procalcitonin 0.05 ng/mL 02/19/17 0410 Sodium Level 144 mEq/L 02/19/17 0410 Potassium Level 2.8 mEq/L L 02/19/17 0410 Carbon Dioxide Level 11 mmol/L L 02/19/17 0410 Chloride Level 111 mEq/L H 02/19/17 0410 Blood Urea Nitrogen 25 mg/dL 02/19/17 0410 Creatinine 0.72 mg/dL L 02/19/17 0410 Glucose Level 148 mg/dL H 02/19/17 0410 Prothrombin Time 11.9 sec 02/19/17 0450 Prothromb Time International Ratio 1.11 ratio 02/19/17 0450 Result Diagram: 02/19/17 0450 02/19/17 0410 Microbiology Blood cultures pending Strep Pneumo antigen negative MRSA nasal swab pending X-Rays, CTs and MRIs X-RAY CHEST ONE VIEW, PORTABLE IMPRESSION: 1. Left retrocardiac opacities compatible with atelectasis or developing consolidation. Dictated by: Edward Sanchez M.D. on 02/15/2017 at 8:51 Approved by: Edward Sanchez M.D. on 02/15/2017 at 8:53 X-RAY ABDOMEN, ONE VIEW IMPRESSION: Mild gaseous distention of bowel throughout the abdomen and pelvis which would suggest paralytic ileus, developing obstruction is unlikely. Recommend continued clinical correlation and if indicated followup plain film series could be performed or alternatively abdominal pelvic CT. Dictated by: Bhargav Rendon [facility] Interpreted: Bonifacio Osuna MD on 02/15/2017 at 13:25 Approved by: Bonifacio Osuna M.D. on 02/15/2017 at 14:04 PROCEDURE: CT ABDOMEN AND PELVIS WITH CONTRAST IMPRESSION: Mild bibasilar atelectasis and/or pneumonia. Suspect posterior sigmoid colitis, where mural thickening is concentric but without pneumatosis or evidence of adjacent abscess formation. Rectal balloon and tube in place. Diego catheter almost completely drains the bladder lumen. Dictated by: Maciel Reyes M.D. on 02/17/2017 at 17:32 Assessment & Plan 89 year old man with severe dementia, coronary artery disease, and chronic non- healing sacral pressure ulcers who presented to the emergency department via EMS from [facility] with altered mental status following a possible aspiration event. Sepsis, acute. Present on admission. Active. - Likely secondary to infected decubitus ulcers. - Met criteria on admission with: hypotension, tachycardia, tachypnea, leukocytosis, and altered mental status. - Blood cultures with no growth to date - Procalcitonin mildly elevated and essentially unchanged from yesterday - Repeat CBC, procalcitonin - Continue Zosyn C. difficile colitis, acute, not present on admission. Ongoing. - Found to have C. difficile on stool PCR and started on by mouth vancomycin through peg tube. - Abdominal CT did not reveal any signs of obstruction, did reveal diffuse concentric wall intestinal wall thickening Sinus bradycardia, acute, not present on admission. Ongoing. -Patient was tachycardic upon admission however has been dropping down to a lower heart rate with today dipping down into the low 40s. -Not clear if he has been symptomatic with this as he is not able to give a history although it looks like his blood pressures have been fairly stable with this. -He is not on any chronotropic agents to cause this. -I did Talk to his son who is DPOA, Osvaldo Leong (Bently), and wishes full code. 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 Present on admission. Active - Secondary to severe, stage IV sacral decubitus ulcer. Previous admissions, wound/bone chip cultures grew Staph aureus, Strep, Enterococci - Per wound care, exposed bone observed during exam of sacral ulcer and foul odor noted. - Infectious disease is following, greatly appreciate expertise and recommendations. - Wound care will continue to manage Likely paralytic ileus. Present on admission. Active - Patient presented with abdominal distention and apparent discomfort on exam. Rectal exam revealed an empty, dilated rectal vault with gas and liquid stool - Distended loops of small bowel on abdominal xray consistent with ileus, unlikely obstruction. - Patient currently NPO due to altered mental status Acute on chronic normocytic anemia, present on admission. Active. - Likely secondary to chronic disease. Hb 8.1 on admission. Concern for upper GI bleed on admission in August with negative endoscopy. - Threshold for transfusion of Hb < 7.0. Patient received 1U PRBCs on 02/16. - Monitor for signs/symptoms of active bleeding - Serial H/H Dementia, chronic. Present on admission. Presumed stable. - Secondary to late onset Alzheimer's. Patient is a resident of [facility] and his son is his DPOA who would like to continue with full treatment. - Spoke with son 02/16 regarding option for Hospice comfort care. Meeting planned for 02/19 informational visit. Elevated troponin of uncertain significance, acute on chronic. Present on admission. Stable - Likely secondary to stress in the setting of infection. Patient with chronically elevated troponin, appears at baseline. - Monitor clinically and repeat ECG, troponin if patient develop symptoms Hyperglycemia, uncertain chronicity. Present on admission. Resolved. - Patient without prior diagnosis of diabetes and serum glucose of 195 on admission. HbA1c 5.1 - Continue to monitor, correctional insulin if necessary Disposition: Patient is clearly rapidly approaching the end of his life based upon multiple co-morbid medical conditions that cannot be cured or managed consistently as an outpatient; family has been involved in extensive palliative discussions thus far no desire to change code status or treatment plan. The son is scheduled to have a discussion with Hospice later today. DC date uncertain at this time as patient is approaching stability but would likely represent a near certain re-admit risk given his extremely tenuous health and non healing ulcers. GI Prophylaxis: H2 cyndi VTE Mechanical Devices: Intermittant Pneumatic CD, Venous Foot Pump Resuscitation Status: CPR: Attempt Resuscitation Attending Statement The patient was seen and examined together with Dr. Jorge on 02/19/17 and I have added additional information to the note above. Miguelito Jorge DO Feb 19, 2017 11:59 Afsaneh Dickinson DO Feb 19, 2017 18:03
--- NOTE | 2017-02-19 12:51 | NUR ---
Inpatient Wound Nurse Patient seen for follow up of pressure ulcers. R lateral malleolus ulcer noted with increased granulation tissue, beefy red, bleeds easily, edges thickened but well adhered, drainage slightly odorous and rodriguez. Wound was cleansed, periwound swabbed with skin prep to protect from drainage and maceration, wound bed filled with Aquacel Extra Ag, then covered with bordered Mepilex foam. Sacral wound unchanged, glossy pink wound bed is very smooth, bone visualized in multiple areas. Undermining of entire wound margin persists but maceration is greatly improved. Wound was cleansed and blotted dry, periwound swabbed with skin prep to protect from drainage and maceration, wound bed filled with Aquacel Extra Ag, then covered with bordered Mepilex foam. Dressings to be changed daily unless saturated. CWON will follow daily. Foam heel protectors may not give added protection now that patient is no [place] bed. However, he is accustomed to wearing them and may find them comfortable. Staff may leave off or put them on as patient's behavior indicates. Patient can be positioned for comfort, either side or on his back, as Cl[place]ron bed is providing pressure relief.
[2017-02-19] MEDS: 0.9% Sodium Chloride 1,000 ML IV SCH (12:57)
--- NOTE | 2017-02-19 18:45 | NUR ---
Tube Feeding Pt alert to self only. FMS changed today d/t leaking, now draining well without any issues. Potassium today was 2.8, potassium protocol implemented. Received 2nd dose of potassium this morning around 0830. Potassium rechecked at 1300, potassium now 4.9. Has tele monitor, continues to be sinus riley. RA with oxygen sats between 97-100%. Tube feeding of Glucerna 1.5 started today around 1400, infusing at 42ml/hr with 40ml H20 bolus q4 per protocol via gastrostomy tube. Diego patent, draining pale urine.
[2017-02-20] VITALS (9 sets, daily range): BP systolic 137–155; BP diastolic 63–83; PULSE 53–72; RESP 16–18; O2SAT 95–100
[2017-02-20] MEDS: Piperacillin-Tazo 3.375 Gm Inj 3.375 GM in Dextrose 5% Minibag Plus 50 ML IV SCH ×3 (00:17→17:19)
[2017-02-20] MEDS: 0.9% Sodium Chloride 1,000 ML IV SCH ×3 (00:17→20:37)
[2017-02-20] MEDS: 0.9% Sodium Chloride 250 ML IV SCH ×2 (02:18→20:38)
[2017-02-20] MEDS: Vancomycin 100 mg/mL Oral Solution PO SCH ×4 (02:18→20:37)
[2017-02-20 03:58] LABS: BASOPHILS % (AUTO) 0.2 % (0-3); EOSINOPHILS % (AUTO) 2.6 % (0-5); MONOCYTES % (AUTO) 6.9 % (4-12); Mean Corpuscular Hemoglobin 29.8 pg (27.0-35.0); Mean Corpuscular Volume 94.1 fL (81-100); NEUTROPHILS % (AUTO) 78.7 % (40-74); Platelet Count 234 bil/L (150-400)
[2017-02-20 04:31] LABS: Vancomycin, Trough 3.4 mcg/mL
--- NOTE | 2017-02-20 06:27 | NUR ---
Glucose / Mentation BG checks this shift 86 and 77, respectively; paged this AM for glucose replacement; order given for 1/2 amp of D50 to be given. Pt alert to self only, unable to accurately state location, situation, or year. Occasional agitation with calling out; able to be redirected with conversation. FMS and mixon in place, draining to gravity; small leaking from FMS due to kink in tubing. VSS, tele SB 50s.
[2017-02-20] MEDS: Famotidine Inj 20 MG in IV Premix 1 EACH IV SCH ×2 (10:03→20:37)
--- NOTE | 2017-02-20 13:03 | NUR ---
Inpatient Wound Nurse Patient seen for follow up of pressure ulcers. R lateral malleolus ulcer noted with increased drainage, appears purulent and with mild odor. Adherent yellow slough is 50% of wound bed, remaining granulation tissue is beefy red and bleeds easily. Edges thickened but well adhered, no periwound maceration, 0.5 cm halo of erythema, Wound was cleansed, periwound swabbed with skin prep to protect from drainage and maceration, wound bed filled with Aquacel Extra Ag, then covered with bordered Mepilex foam. Sacral wound unchanged, glossy pink wound bed is very smooth and without granulating tissue, bone visualized in multiple areas. Undermining of entire wound margin persists, maceration continues improved. Wound was cleansed and blotted dry, periwound swabbed with skin prep to protect from drainage and maceration, wound bed filled with Aquacel Extra Ag, then covered with bordered Mepilex foam. Dressings to be changed daily and PRN. CWON will follow daily. Skin tears, bruises, and skin condition appears improved overall. However, there is no significant, measurable improvement of R lateral malleolus Stage 3 pressure ulcer, R midfoot unstageable pressure ulcer, or sacral Stage 4 pressure ulcer since admission. These may not be healable wounds considering patient's comorbidities, debilitated state, and multiple extrinsic factors that impact healing potential. For these reasons, Hospice is the appropriate and recommended support for these severe wounds.
--- NOTE | 2017-02-20 15:29 | NUR ---
NUTRITION FOLLOW UP: ASSESS: 89 yo M admitted for sepsis and aspiration pneumonia. TF was started 02/19. Pts Son requested pt be on a zero carb TF. We have no TF formulas with zero sugar. TF formula was switched to diabetic formula. Per RN, pt's BG levels have been running a bit low and has required some D5W. TF currently running @ 30ml/hr and tolerated well with minimal residuals. Pt has FMS in place and has been found to be C. Diff positive. PMHX: Alzheimer's, Asthma, CAD, CHF, Diverticulosis, hypokalemia LABS: Reviewed. 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 IVF running @ 80ml/hr GI: C.diff +, FMS is place SKIN: Multiple PU, including stg 4 sacral PU. See wound care note for further wound details CURRENT WT: 74.9 kg, BMI 22.4 kg/m2, IBW: 78 kg HOMF TF: There is conflicting info in charts from [facility] regarding TF formula pt was receiving (Jevity vs Vital). Formula was running @ 75ml x20hrs to provide 2250kcal and ~96g pro. Fluid flush 275ml 5x/day. CURRENT TF: Glucerna 1.5 @ 30ml/hr DIET: NPO ESTIMATED NEEDS: wounds/healing Calories: 9135-6608 kcal/day (35-40 kcal/kg BW) Protein: 110-150 g/day (1.5-2.0 g/kg BW) Fluids: ~2600 ml/day NUTRITION DIAGNOSIS: 1.) Increased kcal/pro needs related to increased demand for healing as evidence by multiple PU and stg 4 sacral PU---PERSISTS. 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 NUTRITION INTERVENTION: 1.) Recommend continue TF of Glucerna 1.5. Recommend advance TF by 10 ml q 6 hr to goal rate of 80 ml/hr. TF was advancing by 10ml q 12 hrs. This was changed to advance 10ml q 6hrs- RN is aware of change. At goal, TF will provide 2760 kcal, 152 g protein; meeting 100% calorie/protein needs. MONITOR/EVALUATE: NPO, TF tolerance/advance, GI, labs, wt, wounds, POC, nutrition status. Follow per high nutrition risk guidelines
--- NOTE | 2017-02-20 16:13 | NUR ---
Social Work: Continued Discharge Planning D: This HORSE RACE TIMER spoke with Yaritza, composite layup worker at [facility]. She has made repeated attempts to meet with the patient's son, Osvaldo/"Reuben" to complete an info visit. She was able to complete this with him via telephone and emailed him consents to sign for hospice. Per conversations in multidisciplinary rounds, pt's son had previously expressed to [facility] staff that he would not consider transitioning the pt to comfort care and that he will remain full code. This HORSE RACE TIMER and the pt's medical team has concerns about the pt's sons intentions of keeping the pt's full code, provided there is an open APS case for suspected financial exploitation. Pt's son has made repeated references that he is the DPOA and has this paperwork. It is not on file at [facility] and has been requested of him for the patient's chart and further decision-making. [facility] has also requested this paperwork in addition to the consents for hospice. This HORSE RACE TIMER spoke with Petrona at [facility] to inquire if they have DPOA paperwork on file. She states that they do not have this paperwork and that they have made repeated requests of the son to provide it. Per the patient's medical record, the pt's listed NOK is his Mireille Leong . It is unclear whether they are legally at this time. This HORSE RACE TIMER has staffed this case with administration who has has advised that palliative care be consulted for goals of care with the pt's son, for psychiatry to assess for pt's decision-making abilities and to update APS of evolving concerns. Administration is continuing to attempt to locate DPOA paperwork with several other sources. HORSE RACE TIMER has updated Dr. Crane of administration's advise to involve palliative and psych to determine pt's decision making. HORSE RACE TIMER left a message for Gus Aguero, APS shopping investigator to notify of concerns. HORSE RACE TIMER has also placed an online report as well to ensure concerns were reported: Confirmation code [id number]. A: Pt who remains full code at this time. P: Anticipate that the pt will return to [facility] once pt's code status is determined and an appropriate discharge care plan can be determined. HORSE RACE TIMER to continue to follow RAFY Amaya
--- NOTE | 2017-02-20 18:37 | PCM.PNMED ---
Subjective Date of Service Feb 20, 2017 Subjective 89 year old man with severe dementia, coronary artery disease, and chronic non- healing sacral pressure ulcers who presented to the emergency department via EMS from [facility] with altered mental status following a possible aspiration event. Nursing reports no acute events overnight. Patient seen and examined. Laying in bed awake, but not speaking in coherent sentences. Does not have any direct pain complaints, but unaware of the situation. Complete ROS unable to be obtained secondary to patient's mental status. Exam Vital Signs Vital Sign - Last Date Time Temp Pulse Resp B/P Pulse Ox O2 Delivery O2 Flow Rate FiO2 02/20/17 03:12 36.7 60 16 137/63 100 Room Air Intake and Output 02/19/17 02/19/17 02/20/17 Cumulative From/Thru 15:00 23:00 07:00 02/15/17 08:32 - 02/20/17 05:49 Intake Total 0 ml 1130 ml 1225 ml 26423 ml Output Total 825 ml 900 ml 5575 ml Balance -825 ml 230 ml 1225 ml 5461 ml Intake Oral 0 ml 300 ml IV Total 968 ml 1005 ml 9934 ml Tube Feeding 42 ml 140 ml 182 ml Packed Cells 300 ml Tube Irrigant 120 ml 80 ml 320 ml Output Urine Total 525 ml 600 ml 4775 ml Stool Total 300 ml 300 ml 800 ml # Bowel Movements 2 Exam Constitutional: Awake, confused, not speaking appropriate sentences. Frail. In no acute distress Head: normocephalic and atraumatic Eyes: No scleral icterus. Kress conjunctiva Heart: Bradycardic. Regular rhythm. No peripheral edema. Lungs: Diffuse rhonchi, improved from previous exam. No wheeze. ABD: soft. nontender. bowel sounds present throughout. Musculoskeletal: lower extremities with contractures. Moves upper extremities without purpose Neuro: no focal deficits. Diffuse muscular wasting. Skin: Warm, dry with scattered ecchymoses bilateral upper extremities. 5.5cm x 3.5cm wound with tunneling, exposed bone, malodorous drainage and no granulating tissue, unchanged from previous exam. erythema on perianal tissue. Psych: unable to assess. Patient severely demented and not speaking coherently. Unable to fully answer questions. IVs and Medications IV Fluids 1L NS given in the last 25 hours. Medications Reviewed: Medications were reviewed in detail Medications High Risk IV Medications: Zosyn Lab and Diagnostics Item Value Date Time Red Blood Count 2.72 mil/mm3 L 02/20/17309 Mean Corpuscular Volume 94.1 fL 02/20/17309 Mean Corpuscular Hemoglobin 29.8 pg 02/20/17309 Mean Corpuscular Hemoglobin Concent 31.6 % L 02/20/17309 Red Cell Distribution Width 15.7 % H 02/20/17309 Neutrophils (%) (Auto) 78.7 % H 02/20/17309 Lymphocytes (%) (Auto) 11.4 % L 02/20/17309 Monocytes (%) (Auto) 6.9 % 02/20/17309 Eosinophils (%) (Auto) 2.6 % 02/20/17309 Basophils (%) (Auto) 0.2 % 02/20/17309 Estimat Glomerular Filtration Rate 117 mL/min 02/20/17309 Calcium Level 7.7 mg/dL L 02/20/17309 Aspartate Amino Transf (AST/SGOT) 22 U/L 02/20/17309 Total Bilirubin 0.4 mg/dL 02/20/17309 Alanine Aminotransferase (ALT/SGPT) 15 U/L 02/20/17309 Alkaline Phosphatase 57 U/L 02/20/17309 Albumin 2.5 g/dL L 02/20/17309 Total Protein 4.9 g/dL L 02/20/17309 Result Diagram: 02/20/1730902/20/17309 Microbiology Blood cultures pending Strep Pneumo antigen negative MRSA nasal swab pending X-Rays, CTs and MRIs X-RAY CHEST ONE VIEW, PORTABLE IMPRESSION: 1. Left retrocardiac opacities compatible with atelectasis or developing consolidation. Dictated by: Edward Sanchez M.D. on 02/15/2017 at 8:51 Approved by: Edward Sanchez M.D. on 02/15/2017 at 8:53 X-RAY ABDOMEN, ONE VIEW IMPRESSION: Mild gaseous distention of bowel throughout the abdomen and pelvis which would suggest paralytic ileus, developing obstruction is unlikely. Recommend continued clinical correlation and if indicated followup plain film series could be performed or alternatively abdominal pelvic CT. Dictated by: Bhargav Rendon RRShane Interpreted: Bonifacio Osuna MD on 02/15/2017 at 13:25 Approved by: Bonifacio Osuna M.D. on 02/15/2017 at 14:04 PROCEDURE: CT ABDOMEN AND PELVIS WITH CONTRAST IMPRESSION: Mild bibasilar atelectasis and/or pneumonia. Suspect posterior sigmoid colitis, where mural thickening is concentric but without pneumatosis or evidence of adjacent abscess formation. Rectal balloon and tube in place. Diego catheter almost completely drains the bladder lumen. Dictated by: Maciel Reyes M.D. on 02/17/2017 at 17:32 Assessment & Plan 89 year old man with severe dementia, coronary artery disease, and chronic non- healing sacral pressure ulcers who presented to the emergency department via EMS from [facility] with altered mental status following a possible aspiration event. Sepsis, acute. Present on admission. Active. - Likely secondary to infected decubitus ulcers. - Met criteria on admission with: hypotension, tachycardia, tachypnea, leukocytosis, and altered mental status. - Blood cultures with no growth to date - Procalcitonin normalized - Repeat CBC - Continue Zosyn (Abx day 6), Will discuss with Infectious Disease on continuing this abx. C. difficile colitis, acute, not present on admission. Ongoing. - Found to have C. difficile on stool PCR and started on by mouth vancomycin ( Abx day 4) through peg tube. - Abdominal CT did not reveal any signs of obstruction, did reveal diffuse concentric wall intestinal wall thickening - Continue fluid management with NS @80ml/hr Sinus bradycardia, acute, not present on admission. Improving. -Patient was tachycardic upon admission however has been dropping down to a lower heart rate with today dipping down into the low 40s. -Not clear if he has been symptomatic with this as he is not able to give a history although it looks like his blood pressures have been fairly stable with this. -He is not on any chronotropic agents to cause this. -I did Talk to his son who is FERNEI Osvaldo (Pascale) Salo, and wishes full code. 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 Present on admission. Active - Secondary to severe, stage IV sacral decubitus ulcer. Previous admissions, wound/bone chip cultures grew Staph aureus, Strep, Enterococci - Per wound care, exposed bone observed during exam of sacral ulcer and foul odor noted. - Infectious disease is following, greatly appreciate expertise and recommendations. - Wound care will continue to manage Likely paralytic ileus. Present on admission. Active - Patient presented with abdominal distention and apparent discomfort on exam. Rectal exam revealed an empty, dilated rectal vault with gas and liquid stool - Distended loops of small bowel on abdominal xray consistent with ileus, unlikely obstruction. - Patient currently NPO due to altered mental status, patient currently receiving tube feeds at a goal rate of 80ml/hr Acute on chronic normocytic anemia, present on admission. Active. - Likely secondary to chronic disease. Hb 8.1 on admission. Concern for upper GI bleed on admission in August with negative endoscopy. - Threshold for transfusion of Hb < 7.0. Patient received 1U PRBCs on 02/16. - Monitor for signs/symptoms of active bleeding - Serial H/H Dementia, chronic. Present on admission. Presumed stable. - Secondary to late onset Alzheimer's. Patient is a resident of [facility] and his son is his DPOA who would like to continue with full treatment. - Spoke with son 02/16 regarding option for Hospice comfort care. Son has received Hospice paperwork, awaiting for him to review and make a decision. Elevated troponin of uncertain significance, acute on chronic. Present on admission. Stable - Likely secondary to stress in the setting of infection. Patient with chronically elevated troponin, appears at baseline. - Monitor clinically and repeat ECG, troponin if patient develop symptoms Hyperglycemia, uncertain chronicity. Present on admission. Resolved. - Patient without prior diagnosis of diabetes and serum glucose of 195 on admission. HbA1c 5.1 - Continue to monitor, correctional insulin if necessary Disposition: Patient is clearly rapidly approaching the end of his life based upon multiple co-morbid medical conditions that cannot be cured or managed consistently as an outpatient; family has been involved in extensive palliative discussions thus far no desire to change code status or treatment plan. The son is scheduled to have a discussion with Hospice later today. DC date uncertain at this time as patient is approaching stability but would likely represent a near certain re-admit risk given his extremely tenuous health and non healing ulcers. GI Prophylaxis: H2 cyndi VTE Mechanical Devices: Venous Foot Pump Resuscitation Status: CPR: Attempt Resuscitation Attending Statement The patient was seen and examined together with Dr. Jorge on 02/20/17 and I have added additional information to the note above. Miguelito Jorge DO Feb 20, 2017 06:32 Afsaneh Dickinson DO Feb 25, 2017 15:00
--- NOTE | 2017-02-20 19:13 | NUR ---
FMS and tube feeding Pt wiggled down in bed, repositioned and noted leaking around FMS. Pt cleaned and balloon deflated and tube repositioned, sacral dressing contaminated, changed. pt turned on his side and he slept comfortably for remainder of shift. oriented to self and birthdate only. tube feeding changed at 1330 and increased to 30ml/hr. residual of <5ml noted prior to advancing rate. water flush continues at 40ml/q4hr. BS q6, 87 and 106. pt maintained NPO.
[2017-02-21] VITALS (8 sets, daily range): BP systolic 131–145; BP diastolic 55–68; PULSE 56–67; RESP 16–18; O2SAT 96–99
[2017-02-21] MEDS: Piperacillin-Tazo 3.375 Gm Inj 3.375 GM in Dextrose 5% Minibag Plus 50 ML IV SCH ×2 (00:31→10:26)
[2017-02-21] MEDS: Vancomycin 100 mg/mL Oral Solution PO SCH ×4 (02:11→19:35)
[2017-02-21 04:14] LABS: BASOPHILS % (AUTO) 0.2 % (0-3); EOSINOPHILS % (AUTO) 4.1 % (0-5); MONOCYTES % (AUTO) 6.9 % (4-12); Mean Corpuscular Hemoglobin 29.4 pg (27.0-35.0); Mean Corpuscular Volume 93.7 fL (81-100); NEUTROPHILS % (AUTO) 76.6 % (40-74); Platelet Count 204 bil/L (150-400)
[2017-02-21] MEDS ORDERED: Potassium Chloride 20 mEq/15 mL Oral Soln(K 3 - 3.7 & Creat < 2) TUBE ONE (05:20)
--- NOTE | 2017-02-21 05:48 | NUR ---
Potassium AM potassium 3.2; replaced via potassium protocol with redraw scheduled for 0930. VSS throughout shift, tele SB 50s-60s. Tube feeding currently infusing at 50ml/hr of Glucerna 1.5; patient tolerating well with BGs in 100s and residual volumes <5mls. Alert to self only, frequent calling out this shift. Tylenol administered x1 for sacral pain without s/s of relief on reassessment. Pt able to rest intermittently this AM.
[2017-02-21] MEDS: Famotidine Inj 20 MG in IV Premix 1 EACH IV SCH ×2 (09:07→19:35)
[2017-02-21] MEDS: 0.9% Sodium Chloride 1,000 ML IV SCH (09:23)
[2017-02-21] MEDS: Nystatin 100,000 Unit/Gm 15 Gm Powder TOPICAL SCH ×2 (09:30→20:58)
--- NOTE | 2017-02-21 11:23 | NUR ---
Inpatient Wound Nurse Patient seen for follow up of pressure ulcers. R lateral malleolus ulcer unchanged from yesterday's assessment. Mild odor with removed dressing, adherent yellow slough is 50% of wound bed, remaining granulation tissue is beefy red and bled easily. Edges thickened but well adhered, no periwound maceration, 0.5 cm halo of erythema, Wound was cleansed, periwound swabbed with skin prep to protect from drainage and maceration, wound bed filled with Aquacel Extra Ag, then covered with bordered Mepilex foam. Sacral wound unchanged, glossy pink wound bed is smooth and without granulating tissue, bone visualized and palpated in multiple areas. Undermining of entire wound margin persists, maceration continues to be improved as compared to admission. Wound was cleansed and blotted dry, periwound swabbed with skin prep to protect from drainage and maceration, wound bed filled with Aquacel Extra Ag, then covered with bordered Mepilex foam. Dressings to be changed daily and PRN. CWON will follow daily. Extensive conversation was completed with [facility] regarding efficacy of multiple extensive and thorough treatments and modalities at [facility]. It appears that sacral wound had decreased in size with honey alginate, then stalled. NPWT was then applied which provided improvement in size of wound, but again wound progress stalled. It was near that point that patient was admitted to hospital and osteomyelitis is assumed as prominent bone is exposed. Patient is combative and agitated with wound care and unable to follow any instructions or have meaningful conversation regarding wounds. NPWT is contraindicated due to inability to rule out osteomyelitis. Wound care goals continue to be comfort and avoidance of wound deterioration. CWON will continue to follow with once daily dressing changes. Nursing staff may change PRN.
--- NOTE | 2017-02-21 15:02 | NUR ---
NUTRITION FOLLOW UP: ASSESS: 89yo M admitted for sepsis and aspiration pneumonia. Pt has PEG and was receiving TF at [facility]. TF was started 02/19. Pt's Son requested pt be on a zero carb TF. We have no TF formulas with zero sugar. TF formula was switched to diabetic formula. TF continues to advance towards goal. TF currently running @ 70ml/hr. Per RN residuals have been minimal. Pt continues to have diarrhea via FMS and C.Diff +. PMHX: Alzheimer's, Asthma, CAD, CHF, Diverticulosis, hypokalemia LABS: Reviewed. 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 IVF running @ 80ml/hr GI: C.diff +, FMS is place SKIN: Multiple PU, including stg 4 sacral PU. See wound care note for further wound details CURRENT WT: 74.9 kg, BMI 22.4 kg/m2, IBW: 78 kg (no new wt d/t clinitron bed) HOMF TF: There is conflicting info in charts from [facility] regarding TF formula pt was receiving (Jevity vs Vital). Formula was running @ 75ml x20hrs to provide 2250kcal and ~96g pro. Fluid flush 275ml 5x/day. CURRENT TF: Glucerna 1.5 @ 70ml/hr providing 2415kcal and 132g pro ( ~85% kcal and 100% pro needs) DIET: NPO ESTIMATED NEEDS: wounds/healing Calories: 8320-5496 kcal/day (35-40 kcal/kg BW) Protein: 110-150 g/day (1.5-2.0 g/kg BW) Fluids: ~2600 ml/day NUTRITION DIAGNOSIS: 1.) Increased kcal/pro needs related to increased demand for healing as evidence by multiple PU and stg 4 sacral PU---PERSISTS. 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 NUTRITION INTERVENTION: 1.) Recommend continue TF of Glucerna 1.5. Recommend advance TF by 10 ml q 6 hr to goal rate of 80 ml/hr. At goal, TF will provide 2760 kcal, 152 g protein; meeting 100% calorie/protein needs. 2.) Due to persistent diarrhea and pt w/ C.diff, will add 1 packet of banatrol TID (prebiotic w/banana flakes). RN is aware. Mix banatrol w/ 120ml H20. Flush PEG w/30ml before and after banatrol given. Please provide mixture @ 900, 1500, 2100. MONITOR/EVALUATE: NPO, TF tolerance/advance, banatrol tolerated?, GI, labs, wt, wounds, POC, nutrition status. Follow per high nutrition risk guidelines
--- NOTE | 2017-02-21 18:16 | NUR ---
FEEDING/WOUND/GI Patient J tube feeding tolerating well, advanced to 70ml/hr, BG 119, patient to receive Banatrol feeding TID to try to firm up stool. FMS output was 100mls this shift but patient cleaned up x2 due to leaking FMS. Nurse assisted wound care with change of dressing on sacrum, very little granulation present. MD's have changed patient's antibiotics treatment regimen today. Plan is to get patient back to [facility] once hydration can be maintained. Risk management faxed copy of DPOE which was put in chart and MD is aware. Patient remains FULL CODE.
--- NOTE | 2017-02-21 18:41 | PCM.PNMED ---
Subjective Date of Service Feb 21, 2017 Subjective 89 year old man with severe dementia, coronary artery disease, and chronic non- healing sacral pressure ulcers who presented to the emergency department via EMS from [facility] with altered mental status following a possible aspiration event. Nursing reports low potassium overnight with replacement ordered. Patient c/o pain during the night, Tylenol given. Exam Vital Signs Vital Sign - Last Date Time Temp Pulse Resp B/P Pulse Ox O2 Delivery O2 Flow Rate FiO2 02/21/17 03:37 64 17 132/61 98 Room Air 02/20/17 23:20 36.7 Intake and Output 02/20/17 02/20/17 02/21/17 Cumulative From/Thru 15:00 23:00 07:00 02/15/17 08:32 - 02/21/17 05:44 Intake Total 1646 ml 1533 ml 81537 ml Output Total 700 ml 7025 ml Balance 946 ml 1533 ml 7190 ml Intake Oral 0 ml 300 ml IV Total 1275 ml 1002 ml 14547 ml Tube Feeding 291 ml 410 ml 883 ml Packed Cells 300 ml Tube Irrigant 80 ml 121 ml 521 ml Output Urine Total 600 ml 6025 ml Stool Total 100 ml 1000 ml # Bowel Movements 2 Exam Constitutional: Awake, but not oriented to person, place, or time. In no acute distress. Head: normocephalic and atruamatic Eyes: EOMI, pupils equal round and reactive to light. Heart: regular rate and rhythm. No murumurs, rubs, or gallops. No peripheral edema Lungs: Clear to auscultation bilaterally. No wheeze, rales, or rhonchi ABD: Soft, nontender, bowel sounds present throughout Musculoskeletal: Lower extremity contractures from chronically being bedbound. Able to move Upper extremities at some capacity, but does not have FROM in any extremity. Skin: Diffuse ecchymoses bilateral UE. Sacral ulcer measuring 5.5cm x 3.5cm wound with tunneling, exposed bone, malodorous drainage and no granulating tissue. Unchanged from previous exam. Neuro: No focal deficits. Psych: unable to assess secondary to patient's baseline dementia. IVs and Medications IV Fluids 2L NS given in the last 24 hours. Medications Reviewed: Medications were reviewed in detail Medications High Risk IV Medications: Metronidazole Lab and Diagnostics Item Value Date Time Red Blood Count 2.69 mil/mm3 L 8/9/17 0355 Mean Corpuscular Volume 93.7 fL 02/21/17354 Mean Corpuscular Hemoglobin 29.4 pg 02/21/17354 Mean Corpuscular Hemoglobin Concent 31.3 % L 02/21/17354 Red Cell Distribution Width 15.6 % H 02/21/17354 Neutrophils (%) (Auto) 76.6 % H 02/21/17354 Lymphocytes (%) (Auto) 12.0 % L 02/21/17354 Monocytes (%) (Auto) 6.9 % 02/21/17354 Eosinophils (%) (Auto) 4.1 % 02/21/17354 Basophils (%) (Auto) 0.2 % 02/21/17354 Estimat Glomerular Filtration Rate 121 mL/min 02/21/17354 Calcium Level 7.6 mg/dL L 02/21/17354 Total Bilirubin 0.3 mg/dL 02/21/17354 Aspartate Amino Transf (AST/SGOT) 17 U/L 02/21/17354 Alanine Aminotransferase (ALT/SGPT) 13 U/L 02/21/17354 Alkaline Phosphatase 53 U/L 02/21/17354 Total Protein 4.9 g/dL L 02/21/17354 Albumin 2.4 g/dL L 02/21/17354 Result Diagram: 02/21/1735402/21/17354 Microbiology Blood cultures pending Strep Pneumo antigen negative MRSA nasal swab pending X-Rays, CTs and MRIs X-RAY CHEST ONE VIEW, PORTABLE IMPRESSION: 1. Left retrocardiac opacities compatible with atelectasis or developing consolidation. Dictated by: Edward Sanchez M.D. on 02/15/2017 at 8:51 Approved by: Edward Sanchez M.D. on 02/15/2017 at 8:53 X-RAY ABDOMEN, ONE VIEW IMPRESSION: Mild gaseous distention of bowel throughout the abdomen and pelvis which would suggest paralytic ileus, developing obstruction is unlikely. Recommend continued clinical correlation and if indicated followup plain film series could be performed or alternatively abdominal pelvic CT. Dictated by: Bhargav Rendon RRA Interpreted: Bonifacio Osuna MD on 02/15/2017 at 13:25 Approved by: Bonifacio Osuna M.D. on 02/15/2017 at 14:04 PROCEDURE: CT ABDOMEN AND PELVIS WITH CONTRAST IMPRESSION: Mild bibasilar atelectasis and/or pneumonia. Suspect posterior sigmoid colitis, where mural thickening is concentric but without pneumatosis or evidence of adjacent abscess formation. Rectal balloon and tube in place. Diego catheter almost completely drains the bladder lumen. Dictated by: Maciel Reyes M.D. on 02/17/2017 at 17:32 Assessment & Plan 89 year old man with severe dementia, coronary artery disease, and chronic non- healing sacral pressure ulcers who presented to the emergency department via EMS from [facility] with altered mental status following a possible aspiration event. Sepsis, acute. Present on admission. Active. - Likely secondary to infected decubitus ulcers. - Met criteria on admission with: hypotension, tachycardia, tachypnea, leukocytosis, and altered mental status. - Blood cultures with no growth to date - Repeat CBC - Stop Zosyn (Abx day 6) - Start IV Metronidazole C. difficile colitis, acute, not present on admission. Ongoing. - Found to have C. difficile on stool PCR and started on by mouth vancomycin ( Abx day 5) through peg tube. - Abdominal CT did not reveal any signs of obstruction, did reveal diffuse concentric wall intestinal wall thickening - Continue fluid management with NS @80ml/hr Sinus bradycardia, acute, not present on admission. Resolved. -Patient was tachycardic upon admission. Today (02/21) patient has maintained in the low 60's with normalized blood pressures. 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 Present on admission. Stable - Secondary to severe, stage IV sacral decubitus ulcer. Previous admissions, wound/bone chip cultures grew Staph aureus, Strep, Enterococci - Per wound care, exposed bone observed during exam of sacral ulcer and foul odor noted. Patient has had very little improvement in this sacral ulcer, wound care believes that with the lack of granulation in the time that they have seen it, that this will be as far as it will heal. Further goals are to prevent any continued wound deterioration. - Infectious disease is following, greatly appreciate expertise and recommendations. - Wound care will continue to manage Likely paralytic ileus. Present on admission. Active - Patient presented with abdominal distention and apparent discomfort on exam. Rectal exam revealed an empty, dilated rectal vault with gas and liquid stool - Distended loops of small bowel on abdominal xray consistent with ileus, unlikely obstruction. - Patient currently NPO due to altered mental status, patient currently receiving tube feeds at a goal rate of 80ml/hr Acute on chronic normocytic anemia, present on admission. Active. - Likely secondary to chronic disease. Hb 8.1 on admission. Concern for upper GI bleed on admission in August with negative endoscopy. - Threshold for transfusion of Hb < 7.0. Patient received 1U PRBCs on 02/16. - Monitor for signs/symptoms of active bleeding - Serial H/H Dementia, chronic. Present on admission. Presumed stable. - Secondary to late onset Alzheimer's. Patient is a resident of [facility] and his son is his DPOA who would like to continue with full treatment. - Spoke with son 02/16 regarding option for Hospice comfort care. Son has received Hospice paperwork, awaiting for him to review and make a decision. Elevated troponin of uncertain significance, acute on chronic. Present on admission. Stable - Likely secondary to stress in the setting of infection. Patient with chronically elevated troponin, appears at baseline. - Monitor clinically and repeat ECG, troponin if patient develop symptoms Hyperglycemia, uncertain chronicity. Present on admission. Resolved. - Patient without prior diagnosis of diabetes and serum glucose of 195 on admission. HbA1c 5.1 - Continue to monitor, correctional insulin if necessary Functional quadriplegia, present on admission. Active -Patient has some use of his arms however he has significant contractures in his lower extremity has significant contractures physical therapy can continue working with the patient in order to maintain what minimal function and he currently has -I did Talk to his son who is DPOA, Osvaldo Hansimon, and wishes full code. Disposition: Patient is clearly rapidly approaching the end of his life based upon multiple co-morbid medical conditions that cannot be cured or managed consistently as an outpatient; family has been involved in extensive palliative discussions thus far no desire to change code status or treatment plan. The son has had an informative discussion with Hospice, and is reviewing their paperwork. DC date uncertain at this time as patient is approaching stability but would likely represent a near certain re-admit risk given his extremely tenuous health and non healing ulcers. GI Prophylaxis: H2 cyndi VTE Mechanical Devices: Venous Foot Pump Resuscitation Status: CPR: Attempt Resuscitation Attending Statement The patient was seen and examined together with Dr. Jorge on 02/21/17 and I have added additional information to the note above. Miguelito Jorge DO Feb 21, 2017 06:46 Afsaneh Dickinson DO Feb 25, 2017 18:04
[2017-02-21] MEDS: metroNIDAZOLE Inj 500 MG in IV Premix 1 EACH IV SCH (20:57)
[2017-02-22] VITALS (9 sets, daily range): BP systolic 130–142; BP diastolic 64–72; PULSE 60–93; RESP 16–22; O2SAT 94–99
[2017-02-22] MEDS: 0.9% Sodium Chloride 1,000 ML IV SCH ×2 (00:02→12:59)
--- NOTE | 2017-02-22 01:41 | NUR ---
Mentation On initial assessment alert and confused per baseline. Combative and not allowing direct care stating he would hit RN. Patient approached at later time and more cooperative and allowed personal care but did become resistant to turning to clean around FMS and change soiled dressing. Nursing positioned outside room for frequent monitoring to ensure patient safety.
[2017-02-22] MEDS: Vancomycin 100 mg/mL Oral Solution PO SCH ×4 (02:07→20:57)
[2017-02-22 03:12] LABS: BASOPHILS % (AUTO) 0.2 % (0-3); EOSINOPHILS % (AUTO) 3.1 % (0-5); MONOCYTES % (AUTO) 5.9 % (4-12); Mean Corpuscular Hemoglobin 30.2 pg (27.0-35.0); Mean Corpuscular Volume 92.9 fL (81-100); NEUTROPHILS % (AUTO) 79.9 % (40-74); Platelet Count 221 bil/L (150-400)
[2017-02-22] MEDS: 0.9% Sodium Chloride 250 ML IV SCH (04:25)
[2017-02-22] MEDS: Famotidine Inj 20 MG in IV Premix 1 EACH IV SCH ×2 (09:42→20:57)
[2017-02-22] MEDS: Nystatin 100,000 Unit/Gm 15 Gm Powder TOPICAL SCH ×2 (09:43→21:07)
[2017-02-22] MEDS: metroNIDAZOLE Inj 500 MG in IV Premix 1 EACH IV SCH ×2 (10:21→20:57)
--- NOTE | 2017-02-22 11:18 | NUR ---
Inpatient Wound Nurse Patient seen for follow up of pressure ulcers. R lateral malleolus ulcer slightly improved with decreased slough over wound base. Mild odor with removed dressing, adherent yellow slough is now 33% of wound bed, remaining granulation tissue is beefy red and bled easily. Edges thickened but well adhered, no periwound maceration, 0.5 cm halo of erythema is resolving. Wound was cleansed, periwound swabbed with skin prep to protect from drainage and maceration, wound bed filled with Aquacel Extra Ag, then covered with bordered Mepilex foam. Sacral wound unchanged, glossy pink wound bed is smooth and without granulating tissue, bone visualized and palpated in multiple areas. Undermining of entire wound margin persists, maceration noted to entire wound margin with white, ruffling texture to distal half of wound margin. Wound was cleansed and blotted dry, periwound swabbed with skin prep to protect from drainage and maceration, wound bed filled with Aquacel Extra Ag, then covered with bordered Mepilex foam. Patient continues to be resistive to care but easily calmed once wound care is completed. CWON will follow daily. Dressings to be changed daily and PRN. If/when nursing staff changes dressings, PLEASE FILL WOUND BED WITH AQUACEL EXTRA AG. Without this absorber and wound filler, drainage will macerate wound edges and promote undermining and further tunneling. Secondary dressing is Mepilex bordered foam.
--- NOTE | 2017-02-22 13:34 | NUR ---
NUTRITION FOLLOW UP: ASSESS: 89yo M admitted for sepsis and aspiration pneumonia. Pt has PEG and was receiving TF at [facility]. TF was started 02/19. Pt's Son requested pt be on a zero carb TF. We have no TF formulas with zero sugar. TF formula was switched to diabetic formula. TF has been advanced to goal rate of 80ml/hr today. Per RN residuals have been minimal. Pt does not keep his HOB at 30degrees. Per RN, pt will slide down the bed when she tries to prop him up. Pt continues to have diarrhea via FMS and C.Diff . Banatrol was started 02/21. RN aware of Banatrol TID to help with diarrhea/C. diff. PMHX: Alzheimer's, Asthma, CAD, CHF, Diverticulosis, hypokalemia LABS: Reviewed. Na 146, Cl 117, CO2 17, tissue coordinator .7, Glu 109, Ca 7.7, Alb 2.6 MEDS: Reviewed. IVF running @ 80ml/hr GI: C.diff +, FMS is place SKIN: Multiple PU, including stg 4 sacral PU. See wound care note for further wound details CURRENT WT: 74.9 kg, BMI 22.4 kg/m2, IBW: 78 kg (no new wt d/t clinitron bed) HOMF TF: There is conflicting info in charts from [facility] regarding TF formula pt was receiving (Jevity vs Vital). Formula was running @ 75ml x20hrs to provide 2250kcal and ~96g pro. Fluid flush 275ml 5x/day. CURRENT TF: Glucerna 1.5 @ 80ml/hr providing 2760 kcal, 152 g protein; meeting 100% calorie/protein needs. DIET: NPO ESTIMATED NEEDS: wounds/healing Calories: 2328-8304 kcal/day (35-40 kcal/kg BW) Protein: 110-150 g/day (1.5-2.0 g/kg BW) Fluids: ~2600 ml/day NUTRITION DIAGNOSIS: 1.) Increased kcal/pro needs related to increased demand for healing as evidence by multiple PU and stg 4 sacral PU---PERSISTS. 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 NUTRITION INTERVENTION: 1.) Recommend continue TF of Glucerna 1.5 @ 80ml/hr to provide 2760 kcal, 152 g protein; meeting 100% calorie/protein needs. 2.) Due to persistent diarrhea and pt w/ C.diff, recommend continue 1 packet of banatrol TID (prebiotic w/banana flakes). RN is aware. Mix banatrol w/ 120ml H20. Flush PEG w/30ml before and after banatrol given. Please provide mixture @ 900, 1500, 2100 or TID with at least 6-8hrs btwn each packet given. MONITOR/EVALUATE: NPO, TF tolerance, banatrol tolerated?, GI, labs, wt, wounds, POC, nutrition status. Follow per high nutrition risk guidelines
--- NOTE | 2017-02-22 20:07 | PCM.PNMED ---
Subjective Date of Service Feb 22, 2017 Subjective 89 year old man with severe dementia, coronary artery disease, and chronic non- healing sacral pressure ulcers who presented to the emergency department via EMS from [facility] with altered mental status following a possible aspiration event. Nursing reports increased agitation and confusion overnight. Continued liquid stool throughout the night. Patient seen and examined. Confused per baseline and unable to answer questions ; however, formulating some clearer speech than as previously. ROS unable to be completed secondary to patient's mental status. Exam Vital Signs Vital Sign - Last Date Time Temp Pulse Resp B/P Pulse Ox O2 Delivery O2 Flow Rate FiO2 02/22/17 15:50 36.4 84 20 142/70 97 Room Air Intake and Output 02/21/17 02/21/17 02/22/17 Cumulative From/Thru 15:00 23:00 07:00 02/15/17 08:32 - 02/22/17 06:28 Intake Total 1815 ml 72459 ml Output Total 700 ml 450 ml 8700 ml Balance 1115 ml -450 ml 7330 ml Intake Oral 0 ml 300 ml IV Total 910 ml 67180 ml Tube Feeding 905 ml 1788 ml Packed Cells 300 ml Tube Irrigant 521 ml Output Urine Total 600 ml 450 ml 7525 ml Stool Total 100 ml 1175 ml # Bowel Movements 2 Exam Constitutional: Awake, but not oriented to person, place, or time. In no acute distress. Head: normocephalic and atruamatic Eyes: EOMI, pupils equal round and reactive to light. Heart: regular rate and rhythm. No murmurs. No peripheral edema Lungs: Clear to auscultation bilaterally. No wheeze, rales, or rhonchi ABD: Soft, nontender, bowel sounds present throughout Musculoskeletal: Lower extremity contractures from chronically being bedbound. Able to move Upper extremities at some capacity, but does not have Full ROM in any extremity. Skin: Diffuse ecchymoses bilateral UE. Sacral ulcer measuring 5.5cm x 3.5cm wound with tunneling, exposed bone, malodorous drainage and no granulating tissue. Unchanged from previous exam. Neuro: No focal deficits. Psych: unable to assess secondary to patient's baseline dementia. IVs and Medications IV Fluids 2L NS given in the last 24 hours. Medications Reviewed: Medications were reviewed in detail Medications High Risk IV Medications: Flagyl Lab and Diagnostics Item Value Date Time Red Blood Count 2.68 mil/mm3 L 02/22/17304 Mean Corpuscular Volume 92.9 fL 02/22/17304 Mean Corpuscular Hemoglobin 30.2 pg 02/22/17304 Mean Corpuscular Hemoglobin Concent 32.5 % 02/22/17304 Red Cell Distribution Width 15.9 % H 02/22/17304 Neutrophils (%) (Auto) 79.9 % H 02/22/17304 Lymphocytes (%) (Auto) 10.5 % L 02/22/17304 Monocytes (%) (Auto) 5.9 % 02/22/17304 Eosinophils (%) (Auto) 3.1 % 02/22/17304 Basophils (%) (Auto) 0.2 % 02/22/17304 Estimat Glomerular Filtration Rate 113 mL/min 02/22/17304 Calcium Level 7.7 mg/dL L 02/22/17304 Total Bilirubin 0.2 mg/dL 02/22/17304 Aspartate Amino Transf (AST/SGOT) 15 U/L 02/22/17304 Alanine Aminotransferase (ALT/SGPT) 13 U/L 02/22/17304 Alkaline Phosphatase 56 U/L 02/22/17304 Total Protein 5.2 g/dL L 02/22/17304 Albumin 2.6 g/dL L 02/22/17304 Result Diagram: 02/22/1730402/22/17304 Microbiology Blood cultures pending Strep Pneumo antigen negative MRSA nasal swab pending X-Rays, CTs and MRIs X-RAY CHEST ONE VIEW, PORTABLE IMPRESSION: 1. Left retrocardiac opacities compatible with atelectasis or developing consolidation. Dictated by: Edward Sanchez M.D. on 02/15/2017 at 8:51 Approved by: Edward Sanchez M.D. on 02/15/2017 at 8:53 X-RAY ABDOMEN, ONE VIEW IMPRESSION: Mild gaseous distention of bowel throughout the abdomen and pelvis which would suggest paralytic ileus, developing obstruction is unlikely. Recommend continued clinical correlation and if indicated followup plain film series could be performed or alternatively abdominal pelvic CT. Dictated by: Bhargav MORSE Interpreted: Bonifacio Osuna MD on 02/15/2017 at 13:25 Approved by: Bonifacio Osuna M.D. on 02/15/2017 at 14:04 PROCEDURE: CT ABDOMEN AND PELVIS WITH CONTRAST IMPRESSION: Mild bibasilar atelectasis and/or pneumonia. Suspect posterior sigmoid colitis, where mural thickening is concentric but without pneumatosis or evidence of adjacent abscess formation. Rectal balloon and tube in place. Diego catheter almost completely drains the bladder lumen. Dictated by: Maciel Reyes M.D. on 02/17/2017 at 17:32 Assessment & Plan 89 year old man with severe dementia, coronary artery disease, and chronic non- healing sacral pressure ulcers who presented to the emergency department via EMS from [facility] with altered mental status following a possible aspiration event. Sepsis, acute. Present on admission.Resolved - Likely secondary to infected decubitus ulcers. - Met criteria on admission with: hypotension, tachycardia, tachypnea, leukocytosis, and altered mental status. - Blood cultures negative 5 days - Repeat CBC - Continue IV Metronidazole (Abx day 2) C. difficile colitis, acute, not present on admission. Ongoing. -Patient continues to have frequent liquid stools. - C. difficile positive on stool PCR - Continue by mouth vancomycin (Abx day 6) through peg tube. - Abdominal CT did not reveal any signs of obstruction, did reveal diffuse concentric wall intestinal wall thickening - Continue fluid management with NS @80ml/hr Sinus bradycardia, acute, not present on admission. Resolved. -Patient was tachycardic upon admission. - 8/10 pt remained normal HR with normalized BP. 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 Present on admission. Stable - Secondary to severe, stage IV sacral decubitus ulcer. Previous admissions, wound/bone chip cultures grew Staph aureus, Strep, Enterococci - Per wound care, exposed bone observed during exam of sacral ulcer and foul odor noted. Patient has had very little improvement in this sacral ulcer, wound care believes that with the lack of granulation in the time that they have seen it, that this will be as far as it will heal. Further goals are to prevent any continued wound deterioration. - Infectious disease is following, greatly appreciate expertise and recommendations. - Wound care will continue to manage, monitoring Likely paralytic ileus. Present on admission. Active - Patient presented with abdominal distention and apparent discomfort on exam. Rectal exam revealed an empty, dilated rectal vault with gas and liquid stool - Patient currently NPO due to altered mental status, patient currently receiving tube feeds at a goal rate of 80ml/hr Acute on chronic normocytic anemia, present on admission. Active. - Likely secondary to chronic disease. Hb 8.1 on admission. Concern for upper GI bleed on admission in August with negative endoscopy. - Threshold for transfusion of Hb < 7.0. Patient received 1U PRBCs on 02/16. - Monitor for signs/symptoms of active bleeding - Serial H/H Dementia, chronic. Present on admission. Presumed stable. - Secondary to late onset Alzheimer's. Patient is a resident of [facility] and his son is his DPOA who would like to continue with full treatment. - Spoke with son 02/16 regarding option for Hospice comfort care. Son has received Hospice paperwork, awaiting for him to review and make a decision. Elevated troponin of uncertain significance, acute on chronic. Present on admission. Stable - Likely secondary to stress in the setting of infection. Patient with chronically elevated troponin, appears at baseline. - Monitor clinically and repeat ECG, troponin if patient develop symptoms Hyperglycemia, uncertain chronicity. Present on admission. Resolved. - Patient without prior diagnosis of diabetes and serum glucose of 195 on admission. HbA1c 5.1 - Continue to monitor, correctional insulin if necessary Functional quadriplegia, chronic. Present on admission. stable. - The patient has advanced dementia and no longer has full range of motion of any of his extremities. The patient will move his arms but does not seem to have any function in the lower extremities. -I did Talk to his son previously who is DPOA, Osvaldo Leong (Bently), and wishes the patient to remain full code. Disposition: Patient is clearly rapidly approaching the end of his life based upon multiple co-morbid medical conditions that cannot be cured or managed consistently as an outpatient; family has been involved in extensive palliative discussions thus far no desire to change code status or treatment plan. The son has had an informative discussion with Hospice, and is reviewing their paperwork. DC date uncertain at this time as patient is approaching stability but would likely represent a near certain re-admit risk given his extremely tenuous health and non healing ulcers. No contact with son today, we are continuing medically managing patient until the resolution of diarrhea with a plan to return patient back to the care of their previous SNF whether the son signs the hospice papers are not. GI Prophylaxis: H2 cyndi VTE Mechanical Devices: Venous Foot Pump Resuscitation Status: CPR: Attempt Resuscitation Attending Statement The patient was seen and examined together with Dr. Jorge on 02/22/17 and I have added additional information to the note above. Miguelito Jorge DO Feb 22, 2017 20:07 Afsaneh Dickinson DO Feb 23, 2017 14:16
[2017-02-23] VITALS (7 sets, daily range): BP systolic 136–147; BP diastolic 64–81; PULSE 68–92; RESP 16–20; O2SAT 95–99
[2017-02-23] MEDS: 0.9% Sodium Chloride 1,000 ML IV SCH (00:28)
[2017-02-23] MEDS: Vancomycin 100 mg/mL Oral Solution PO SCH ×4 (02:18→20:15)
[2017-02-23] MEDS: 0.9% Sodium Chloride 250 ML IV SCH (02:19)
--- NOTE | 2017-02-23 03:50 | NUR ---
Pt had episode of emesis at 0330, roughly 200 cc. He was laying supine in bed as he refuses raising HOB. Residual at 0130 12cc. Provider notified, rec'd verbal order to hold TF and fluid flushes at this time. Pillow ordered to raise HOB in clinatron bed.
[2017-02-23 04:21] LABS: BASOPHILS % (AUTO) 0.2 % (0-3); EOSINOPHILS % (AUTO) 1.6 % (0-5); MONOCYTES % (AUTO) 5.7 % (4-12); Mean Corpuscular Hemoglobin 29.8 pg (27.0-35.0); Mean Corpuscular Volume 94.7 fL (81-100); NEUTROPHILS % (AUTO) 86.6 % (40-74); Platelet Count 209 bil/L (150-400)
[2017-02-23] MEDS ORDERED: KCl 40 mEq/D5W 500 mL 40 MEQ in IV Premix 500 EACH IV ONE (05:45)
--- NOTE | 2017-02-23 05:45 | NUR ---
Moderate agitation/anxiety noted with cares, otherwise pt slept quietly most of this shift. SpO2 99% on room air. No SOB noted. Weak, wet sounding, unproductive cough. K 3.3 this AM, order rec'd for K rider. FMS frequently leaking, irrigated with 60cc water. Sacral dressing soiled during cares, changed by this ghost writer. Attempts to keep HOB at 30 degrees unsuccessful as pt is non-compliant and slides down in bed. Able to elevate bed to 15 degrees with pillows on one side.
[2017-02-23] MEDS: Nystatin 100,000 Unit/Gm 15 Gm Powder TOPICAL SCH ×2 (10:17→20:40)
[2017-02-23] MEDS: metroNIDAZOLE Inj 500 MG in IV Premix 1 EACH IV SCH ×2 (10:17→20:12)
[2017-02-23] MEDS: Famotidine Inj 20 MG in IV Premix 1 EACH IV SCH ×2 (10:18→20:12)
--- NOTE | 2017-02-23 11:02 | NUR ---
Social Work Note: Continued Discharge Planning Data& Assessment: Pt was discussed in multidisciplinary rounds this morning, per MD pt is not medically ready for discharge at this time. Pt had an episode of emesis that they plan to investigate today. DPOA/AD scanned into EMR during previous hospitalization faxed to [facility] per their request. LIABILITY CLAIMS MANAGER spoke with Gloria from [facility] via t/c who explained that pt son "Reuben" signed consents for Hospice. They have an opening on Sunday. LIABILITY CLAIMS MANAGER left voicemail for Admissions at [facility] to see if they would be able to accept pt on Sunday pending pt is medically stable for discharge and pending Hospice opening. LIABILITY CLAIMS MANAGER also left a voicemail for APS Closing Coordinator Gus Aguero to update him on the plan, LIABILITY CLAIMS MANAGER requested a call back when possible. SW to continue to follow. Plan: Anticipated discharge back to [facility] on Sunday pending pt is medically stable for discharge with Hospice to open that afternoon (Opening time is to be determined). LIABILITY CLAIMS MANAGER to follow up and await phone call back from [facility] and APS Closing Coordinator Gus Aguero regarding this plan. SW to continue to follow. RAFY Vasquez Addendum: 02/23/17 at 1410 by GO LUQUE SS [facility] returned phone call notifying LIABILITY CLAIMS MANAGER that they are able to accept pt back to their facility when medically stable. Per , pt son Osvaldo Ayala" plans on coming in to discuss updating POLST and care plan with either ant or Sunday as he is going out of town this weekend. SW to continue to follow. RAFY Vasquez
--- NOTE | 2017-02-23 11:59 | NUR ---
Inpatient Wound Nurse Patient seen for follow up of pressure ulcers. R lateral malleolus ulcer unchanged from yesterday, with mild odor on removed dressing, adherent yellow slough continues 33% of wound bed, remaining granulation tissue is beefy red and bled easily. Edges thickened but well adhered, no periwound maceration, 0.5 cm halo of erythema resolved when dressing was off for a few minutes. Wound was cleansed, periwound swabbed with skin prep to protect from drainage and maceration, wound bed filled with Aquacel Extra Ag, then covered with bordered Mepilex foam. Sacral wound unchanged, 5.5 cm L x 3.5 cm W. Patient would not be still long enough for depth, tunnel, and undermining to be measured. Wound bed glossy pink and smooth, without granulating tissue, bone visualized and palpated in multiple areas. Maceration noted to entire wound margin with white, ruffling texture to distal half of wound margin. Wound was cleansed and blotted dry, periwound swabbed with skin prep to protect from drainage and maceration, wound bed filled with Aquacel Extra Ag, then covered with bordered Mepilex foam. Patient continues to be combative and resistive to care but easily calmed once wound care was completed. CWON will follow daily. Dressings to be changed daily and PRN. If/when nursing staff changes dressings, PLEASE FILL WOUND BED WITH AQUACEL EXTRA AG. Without this absorber and wound filler, drainage will macerate wound edges and promote undermining and further tunneling. Secondary dressing is Mepilex bordered foam.
--- NOTE | 2017-02-23 14:12 | PCM.PNMED ---
Subjective Date of Service Feb 23, 2017 Subjective 89 year old man with severe dementia, coronary artery disease, and chronic non- healing sacral pressure ulcers who presented to the emergency department via EMS from [facility] with altered mental status following a possible aspiration event. Nursing reports that patient had an episode of emesis during the night. Patient has been bed bound and there was questionable aspiration during this episode. Nursing report hearing course rhonchi on lung exam after the event. Patient seen and examined. Laying in bed, but unable to answer questions secondary to baseline dementia. ROS unable to be completed secondary to patient dementia. Exam Vital Signs Vital Sign - Last Date Time Temp Pulse Resp B/P Pulse Ox O2 Delivery O2 Flow Rate FiO2 02/23/17 11:35 36.8 81 16 136/76 98 Room Air Intake and Output 02/22/17 02/22/17 02/23/17 Cumulative From/Thru 15:00 23:00 07:00 02/15/17 08:32 - 02/23/17 06:58 Intake Total 3817 ml 1246 ml 88054 ml Output Total 700 ml 600 ml 13982 ml Balance 3117 ml 646 ml 11402 ml Intake Oral 0 ml 300 ml IV Total 1984 ml 1246 ml 68845 ml Tube Feeding 1485 ml 3273 ml Packed Cells 300 ml Tube Irrigant 348 ml 869 ml Output Urine Total 525 ml 500 ml 8550 ml Stool Total 175 ml 100 ml 1450 ml # Bowel Movements 3 5 Exam Constitutional: Awake and alert, but not oriented. Frail. In no acute distress. Head: normocephalic and atraumatic Eyes: EOMI. [place] conjunctiva. Heart: regular rate and rhythm. No murmurs. No peripheral edema. Lungs: Coarse rhonchi throughout. No wheeze. ABD: soft, nontender. bowel sounds present throughout Musculoskeletal: bilateral lower extremity contractures, chronic. Able to move upper extremities with limitation. Skin: diffuse ecchymoses on bilateral upper extremities. Sacral ulcer measuring 5.5cm x 3.5cm wound with tunneling, exposed bone, malodorous drainage and no granulating tissue. Unchanged from previous exam. Neuro: No focal deficits. Psych: Unable to assess secondary to patient's baseline dementia. IVs and Medications Medications Reviewed: Medications were reviewed in detail Medications High Risk IV Medications: Flagyl Lab and Diagnostics Item Value Date Time Red Blood Count 2.85 mil/mm3 L 02/23/17354 Mean Corpuscular Volume 94.7 fL 02/23/17354 Mean Corpuscular Hemoglobin 29.8 pg 02/23/17354 Mean Corpuscular Hemoglobin Concent 31.5 % L 02/23/17354 Red Cell Distribution Width 16.4 % H 02/23/17354 Neutrophils (%) (Auto) 86.6 % H 02/23/17354 Lymphocytes (%) (Auto) 5.6 % L 02/23/17354 Monocytes (%) (Auto) 5.7 % 02/23/17354 Basophils (%) (Auto) 0.2 % 02/23/17354 Eosinophils (%) (Auto) 1.6 % 02/23/17354 Estimat Glomerular Filtration Rate 149 mL/min 02/23/17354 Calcium Level 7.6 mg/dL L 02/23/17354 Total Bilirubin 0.2 mg/dL 02/23/17354 Aspartate Amino Transf (AST/SGOT) 15 U/L 02/23/17354 Alanine Aminotransferase (ALT/SGPT) 12 U/L 02/23/17354 Alkaline Phosphatase 58 U/L 02/23/17354 Total Protein 5.3 g/dL L 02/23/17354 Albumin 2.6 g/dL L 02/23/17354 Result Diagram: 02/23/1735402/23/17354 Microbiology Blood cultures pending Strep Pneumo antigen negative MRSA nasal swab pending X-Rays, CTs and MRIs X-RAY CHEST ONE VIEW, PORTABLE IMPRESSION: 1. Left retrocardiac opacities compatible with atelectasis or developing consolidation. Dictated by: Edward Sanchez M.D. on 02/15/2017 at 8:51 Approved by: Edward Sanchez M.D. on 02/15/2017 at 8:53 X-RAY ABDOMEN, ONE VIEW IMPRESSION: Mild gaseous distention of bowel throughout the abdomen and pelvis which would suggest paralytic ileus, developing obstruction is unlikely. Recommend continued clinical correlation and if indicated followup plain film series could be performed or alternatively abdominal pelvic CT. Dictated by: Bhargav Rendon [facility] Interpreted: Bonifacio Osuna MD on 02/15/2017 at 13:25 Approved by: Bonifacio Osuna M.D. on 02/15/2017 at 14:04 PROCEDURE: CT ABDOMEN AND PELVIS WITH CONTRAST IMPRESSION: Mild bibasilar atelectasis and/or pneumonia. Suspect posterior sigmoid colitis, where mural thickening is concentric but without pneumatosis or evidence of adjacent abscess formation. Rectal balloon and tube in place. Diego catheter almost completely drains the bladder lumen. Dictated by: Maciel Reyes M.D. on 02/17/2017 at 17:32 Cardiac Echo Impressions Echocardiogram Report Interpretation Summary The study quality was technically difficult. The left ventricle is normal in size. The ejection fraction is estimated to be 50-55%. The right ventricle grossly appears normal in size with probable normal systolic function. There is mild to moderate tricuspid regurgitation. The right ventricular systolic pressure is estimated at 54 mmHg assuming a right atrial pressure of 15 mm Hg. There is moderate pulmonary hypertension. The IVC is dilated (diameter is greater than 2.1 cm) and it collapses less than 50% with a sniff. This suggests a high right atrial pressure of 15 mm Hg. Compared to the prior echo exam, there has been an increase in TR severity. Compared to the prior echo exam, there has been an increase in the severity of pulmonary hypertension. Assessment & Plan 89 year old man with severe dementia, coronary artery disease, and chronic non- healing sacral pressure ulcers who presented to the emergency department via EMS from [facility] with altered mental status following a possible aspiration event. Sepsis, acute. Present on admission. Active. - Likely secondary to infected decubitus ulcers. - Met criteria on admission with: hypotension, tachycardia, tachypnea, leukocytosis, and altered mental status. - Blood cultures with no growth to date - Repeat CBC - Continue IV Metronidazole (Abx day 3) C. difficile colitis, acute, not present on admission. Improving. -Patient continues to have frequent liquid stools. - C. difficile positive on stool PCR - Continue by mouth vancomycin (Abx day 7) through peg tube. - Abdominal CT did not reveal any signs of obstruction, did reveal diffuse concentric wall intestinal wall thickening Sinus bradycardia, acute, not present on admission. Resolved. -Patient was tachycardic upon admission. - 02/22 pt remained normal HR with normalized BP. 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 Present on admission. Stable - Secondary to severe, stage IV sacral decubitus ulcer. Previous admissions, wound/bone chip cultures grew Staph aureus, Strep, Enterococci - Per wound care, exposed bone observed during exam of sacral ulcer and foul odor noted. Patient has had very little improvement in this sacral ulcer, wound care believes that with the lack of granulation in the time that they have seen it, that this will be as far as it will heal. Further goals are to prevent any continued wound deterioration. - Infectious disease is following, greatly appreciate expertise and recommendations. - Wound care will continue to manage, monitoring Likely paralytic ileus. Present on admission. Active - Patient presented with abdominal distention and apparent discomfort on exam. Rectal exam revealed an empty, dilated rectal vault with gas and liquid stool - Patient currently receiving tube feeds at a rate of 40ml/hr. Will tritrate back up to goal feeds of 80ml/hr - Patient is NPO Acute on chronic normocytic anemia, present on admission. Active. - Likely secondary to chronic disease. Hb 8.1 on admission. Stable (02/23) at 8.5 - Threshold for transfusion of Hb < 7.0. Patient received 1U PRBCs on 02/16. - Monitor for signs/symptoms of active bleeding - Serial H/H Dementia, chronic. Present on admission. Presumed stable. - Secondary to late onset Alzheimer's. Patient is a resident of [facility] and his son is his DPOA who would like to continue with full treatment. - Spoke with son 02/16 regarding option for Hospice comfort care. Son has signed Hospice paperwork, and will sign POLST soon. Elevated troponin of uncertain significance, acute on chronic. Present on admission. Stable - Likely secondary to stress in the setting of infection. Patient with chronically elevated troponin, appears at baseline. - Monitor clinically and repeat ECG, troponin if patient develop symptoms Hyperglycemia, uncertain chronicity. Present on admission. Resolved. - Patient without prior diagnosis of diabetes and serum glucose of 195 on admission. HbA1c 5.1 - Continue to monitor, correctional insulin if necessary Functional quadriplegia, Present on admission -Continue to assist with bed changes and encouraging any ROM exercises with PT as tolerated -I did Talk to his son who is DPOA, Osvaldo FitzgeraldCandy [place], and he signed Hospice paperwork. Will sign POLST Disposition: Patient is clearly rapidly approaching the end of his life based upon multiple co-morbid medical conditions that cannot be cured or managed consistently as an outpatient; family has spoke with Hospice care and has signed the paperwork, and they will be able to see him on 02/27. Patient is still not medically stable for discharge to [facility]. DC date uncertain at this time as patient is approaching stability but would likely represent a near certain re-admit risk given his extremely tenuous health and non healing ulcers. GI Prophylaxis: H2 cyndi VTE Mechanical Devices: Venous Foot Pump Resuscitation Status: CPR: Attempt Resuscitation Attending Statement The patient was seen and examined together with Dr. Jorge on 02/23/17 and I have added additional information to the note above. Miguelito Jorge DO Feb 23, 2017 14:12 Afsaneh Dickinson DO Feb 23, 2017 19:50
[2017-02-24] VITALS (8 sets, daily range): BP systolic 129–137; BP diastolic 59–89; PULSE 70–109; RESP 16–20; O2SAT 87–97
[2017-02-24] MEDS: Vancomycin 100 mg/mL Oral Solution PO SCH ×4 (01:27→21:37)
[2017-02-24] MEDS: 0.9% Sodium Chloride 250 ML IV SCH (04:19)
--- NOTE | 2017-02-24 05:35 | NUR ---
J tube residual 4 cc at 0300, TF increased to 50/hr. Agitation/anxiety with cares, calling out "please don't" when touched. No s/s respiratory stress observed, maintains 99% on room air. Weak, non-productive cough. Coarse in upper airways.
[2017-02-24 05:45] LABS: BASOPHILS % (AUTO) 0.1 % (0-3); EOSINOPHILS % (AUTO) 1.1 % (0-5); MONOCYTES % (AUTO) 5.3 % (4-12); Mean Corpuscular Hemoglobin 30.3 pg (27.0-35.0); Mean Corpuscular Volume 94.9 fL (81-100); NEUTROPHILS % (AUTO) 88.8 % (40-74); Platelet Count 228 bil/L (150-400)
[2017-02-24] MEDS ORDERED: Potassium Chloride 20 mEq/15 mL 15mL Oral Soln PO ONE (07:00)
[2017-02-24] MEDS: Famotidine Inj 20 MG in IV Premix 1 EACH IV SCH ×2 (08:10→20:30)
[2017-02-24] MEDS: metroNIDAZOLE Inj 500 MG in IV Premix 1 EACH IV SCH ×2 (08:11→20:30)
[2017-02-24] MEDS: Nystatin 100,000 Unit/Gm 15 Gm Powder TOPICAL SCH ×2 (09:52→21:37)
--- NOTE | 2017-02-24 11:49 | NUR ---
NUTRITION FOLLOW UP: ASSESS: 89 YO male admitted with sepsis and aspiration pneumonia. Pt has PEG and was receiving enteral feeding at [facility]. Enteral feeding was started 02/19. Pt's son requested that enteral formula be zero carbohydrates. RD explained that there no enteral formulas with no carbohydrates. Formula changed to Glucerna 1.5, formula for diabetes. Enteral feeding was at goal rate 80 ml/hr yesterday; however, pt. refuses to maintain HOB at > 30 degrees, with emesis. Enteral feeding was held yesterday. However, it was restarted; rate is now 50 mL/hr, with minimal residuals. Diarrhea appears to be improved, as Banatrol (banana flake supplement for C. diff) was started 02/21. RN aware of Banatrol TID to help with diarrhea/C. diff. The patient has multiple comorbidities; after numerous family meetings, paperwork signed for hospice to open Sunday. It is unknown at this time if the patient will discharge with enteral feeding. PMHX: Alzheimer's, Asthma, CAD, CHF, Diverticulosis, hypokalemia LABS: Reviewed. Na 147, K+ 3.4, Chloride 118, CO2 16, Cr 0.58, Glu 116, Ca 7k.2, Alb 2.5. MEDS: Reviewed. GI: C.diff +, FMS is place. Diarrhea improved with Banatrol supplement. SKIN: Multiple PU, including stg 4 sacral PU. See wound care note for further wound details WT: 74.9 kg, BMI 22.4 kg/m2, IBW: 78 kg (no new wt d/t clinitron bed) HOMF ENTERAL FEEDING: There is conflicting info in charts from [facility] regarding TF formula pt was receiving (Jevity vs Vital). Formula was running @ 75ml x20hrs to provide 2250kcal and ~96g pro. Fluid flush 275ml 5x/day. CURRENT ENTERAL FEEDING: Glucerna 1.5 @ 50 ml/hr; goal rate will provide 2760 kcal, 152 g protein; meeting 100% calorie/protein needs. DIET: NPO ESTIMATED NEEDS: wounds/healing Calories: 7944-2820 kcal/day (35-40 kcal/kg BW) Protein: 110-150 g/day (1.5-2.0 g/kg BW) Fluids: ~2600 ml/day NUTRITION DIAGNOSIS: 1) Increased kcal/pro needs related to increased demand for healing as evidence by multiple PU and stg 4 sacral PU - PERSISTS. 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 NUTRITION INTERVENTION: 1) Recommend advance Glucerna 1.5 to 80 ml/hr, per recommendations. 2) Recommend continue 1 packet of banatrol TID (prebiotic w/banana flakes). RN is aware. Mix banatrol w/ 120ml H20. Flush PEG w/30ml before and after banatrol given. Please provide mixture @ 900, 1500, 2100 or TID with at least 6-8hrs btwn each packet given. 3) Recommend formulation of solid nutrition plan at discharge. MONITOR/EVALUATE: NPO status, enteral feeding tolerance, Banatrol administration, GI, labs, wt, wounds, POC, nutrition status. Follow per high nutrition risk guidelines.
--- NOTE | 2017-02-24 14:30 | PCM.PNMED ---
Subjective Date of Service Feb 24, 2017 Subjective 89 year old man with severe dementia, coronary artery disease, and chronic non- healing sacral pressure ulcers who presented to the emergency department via EMS from [facility] with altered mental status following a possible aspiration event. Nursing reports no acute events overnight. Patient seen and examined laying in bed. Unable to give me a complete thought or express any symptoms due to underlying dementia. Patient not overtly having any pain. ROS unable to be completed secondary to baseline dementia. Exam Vital Signs Vital Sign - Last Date Time Temp Pulse Resp B/P Pulse Ox O2 Delivery O2 Flow Rate FiO2 02/24/17 08:09 36.6 89 20 137/80 97 02/24/17 03:01 Room Air Intake and Output 02/23/17 02/23/17 02/24/17 Cumulative From/Thru 15:00 23:00 07:00 02/15/17 08:32 - 02/24/17 04:58 Intake Total 1498 ml 274 ml 51838 ml Output Total 575 ml 60638 ml Balance 923 ml 274 ml 46896 ml Intake Oral 0 ml 300 ml IV Total 1033 ml 274 ml 06801 ml Tube Feeding 195 ml 3468 ml Packed Cells 300 ml Tube Irrigant 270 ml 1139 ml Output Urine Total 450 ml 9000 ml Stool Total 125 ml 1575 ml # Bowel Movements 5 Exam Constitutional: Awake and alert, but not oriented. Frail. In no acute distress. Head: normocephalic and atraumatic Eyes: EOMI. [place] conjunctiva. Heart: regular rate and rhythm. No murmurs. No peripheral edema. Lungs: Coarse rhonchi throughout. No wheeze. ABD: soft, nontender. bowel sounds present throughout Musculoskeletal: bilateral lower extremity contractures, chronic. Able to move upper extremities with limitation. Skin: diffuse ecchymoses on bilateral upper extremities. Sacral ulcer measuring 5.5cm x 3.5cm wound with tunneling, exposed bone, malodorous drainage and no granulating tissue. Unchanged from previous exam. Neuro: No focal deficits. Psych: Unable to assess secondary to patient's baseline dementia. IVs and Medications Medications Reviewed: Medications were reviewed in detail Medications High Risk IV medications: Metronidazole Lab and Diagnostics Item Value Date Time Red Blood Count 2.74 mil/mm3 L 02/24/17 0515 Mean Corpuscular Volume 94.9 fL 8/12/17 0515 Mean Corpuscular Hemoglobin 30.3 pg 02/24/17514 Mean Corpuscular Hemoglobin Concent 31.9 % L 02/24/17514 Red Cell Distribution Width 16.7 % H 02/24/17514 Neutrophils (%) (Auto) 88.8 % H 02/24/17514 Lymphocytes (%) (Auto) 4.6 % L 02/24/17514 Monocytes (%) (Auto) 5.3 % 02/24/17514 Eosinophils (%) (Auto) 1.1 % 02/24/17514 Basophils (%) (Auto) 0.1 % 02/24/17514 Estimat Glomerular Filtration Rate 140 mL/min 02/24/17514 Calcium Level 7.8 mg/dL L 02/24/17514 Total Bilirubin 0.2 mg/dL 02/24/17514 Aspartate Amino Transf (AST/SGOT) 15 U/L 02/24/17514 Alanine Aminotransferase (ALT/SGPT) 11 U/L 02/24/17514 Alkaline Phosphatase 58 U/L 02/24/17514 Total Protein 5.1 g/dL L 02/24/17514 Albumin 2.5 g/dL L 02/24/17514 Result Diagram: 02/24/1751402/24/17514 Microbiology Blood cultures pending Strep Pneumo antigen negative MRSA nasal swab pending X-Rays, CTs and MRIs X-RAY CHEST ONE VIEW, PORTABLE IMPRESSION: 1. Left retrocardiac opacities compatible with atelectasis or developing consolidation. Dictated by: Edward Sanchez M.D. on 02/15/2017 at 8:51 Approved by: Edward Sanchez M.D. on 02/15/2017 at 8:53 X-RAY ABDOMEN, ONE VIEW IMPRESSION: Mild gaseous distention of bowel throughout the abdomen and pelvis which would suggest paralytic ileus, developing obstruction is unlikely. Recommend continued clinical correlation and if indicated followup plain film series could be performed or alternatively abdominal pelvic CT. Dictated by: Bhargav Rendon [facility] Interpreted: Bonifacio Osuna MD on 02/15/2017 at 13:25 Approved by: Bonifacio Osuna M.D. on 02/15/2017 at 14:04 PROCEDURE: CT ABDOMEN AND PELVIS WITH CONTRAST IMPRESSION: Mild bibasilar atelectasis and/or pneumonia. Suspect posterior sigmoid colitis, where mural thickening is concentric but without pneumatosis or evidence of adjacent abscess formation. Rectal balloon and tube in place. Diego catheter almost completely drains the bladder lumen. Dictated by: Maciel Reyes M.D. on 02/17/2017 at 17:32 12-lead ECG Sinus tachycardia with borderline ST depression Cardiac Echo Impressions Echocardiogram Report Interpretation Summary The study quality was technically difficult. The left ventricle is normal in size. The ejection fraction is estimated to be 50-55%. The right ventricle grossly appears normal in size with probable normal systolic function. There is mild to moderate tricuspid regurgitation. The right ventricular systolic pressure is estimated at 54 mmHg assuming a right atrial pressure of 15 mm Hg. There is moderate pulmonary hypertension. The IVC is dilated (diameter is greater than 2.1 cm) and it collapses less than 50% with a sniff. This suggests a high right atrial pressure of 15 mm Hg. Compared to the prior echo exam, there has been an increase in TR severity. Compared to the prior echo exam, there has been an increase in the severity of pulmonary hypertension. Assessment & Plan 89 year old man with severe dementia, coronary artery disease, and chronic non- healing sacral pressure ulcers who presented to the emergency department via EMS from [facility] with altered mental status following a possible aspiration event. Sepsis, acute. Present on admission. Active. - Likely secondary to infected decubitus ulcers. - Met criteria on admission with: hypotension, tachycardia, tachypnea, leukocytosis, and altered mental status. - Blood cultures with no growth to date - Repeat CBC - Continue IV Metronidazole (Abx day 3) -EKG reviewed C. difficile colitis, acute, not present on admission. Improving. -Patient continues to have frequent liquid stools. - C. difficile positive on stool PCR - Continue by mouth vancomycin (Abx day 7) through peg tube. - Abdominal CT did not reveal any signs of obstruction, did reveal diffuse concentric wall intestinal wall thickening Possible Aspiration with a known H/o Aspiration Pneumonia, Not present on admission. Active - patient had an episode of emesis with changes in breath sounds on exam. - WBC increase from 02/23. 11.3 to 13.3 (02/24) - Start Zosyn IV Sinus bradycardia, acute, not present on admission. Resolved. -Patient was tachycardic upon admission. - 02/22 pt remained normal HR with normalized BP. 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 Present on admission. Stable - Secondary to severe, stage IV sacral decubitus ulcer. Previous admissions, wound/bone chip cultures grew Staph aureus, Strep, Enterococci - Per wound care, exposed bone observed during exam of sacral ulcer and foul odor noted. Patient has had very little improvement in this sacral ulcer, wound care believes that with the lack of granulation in the time that they have seen it, that this will be as far as it will heal. Further goals are to prevent any continued wound deterioration. - Infectious disease is following, greatly appreciate expertise and recommendations. - Wound care will continue to manage, monitoring Likely paralytic ileus. Present on admission. Active - Patient presented with abdominal distention and apparent discomfort on exam. Rectal exam revealed an empty, dilated rectal vault with gas and liquid stool - Patient currently receiving tube feeds at a rate of 30ml/hr. Will tritrate back up to goal feeds of 80ml/hr - Patient is NPO Acute on chronic normocytic anemia, present on admission. Active. - Likely secondary to chronic disease. Hb 8.1 on admission. Stable (02/23) at 8.5 - Threshold for transfusion of Hb < 7.0. Patient received 1U PRBCs on 02/16. - Monitor for signs/symptoms of active bleeding - Serial H/H Dementia, chronic. Present on admission. Presumed stable. - Secondary to late onset Alzheimer's. Patient is a resident of [facility] and his son is his DPOA who would like to continue with full treatment. - Spoke with son 02/16 regarding option for Hospice comfort care. Son has signed Hospice paperwork, and will sign POLST "soon". Elevated troponin of uncertain significance, acute on chronic. Present on admission. Stable - Likely secondary to stress in the setting of infection. Patient with chronically elevated troponin, appears at baseline. - Monitor clinically and repeat ECG, troponin if patient develop symptoms Hyperglycemia, uncertain chronicity. Present on admission. Resolved. - Patient without prior diagnosis of diabetes and serum glucose of 195 on admission. HbA1c 5.1 - Continue to monitor, correctional insulin if necessary Functional quadriplegia, Present on admission -Continue to assist with bed changes and encouraging any ROM exercises with PT as tolerated -I did Talk to his son who is DPOA, Osvaldo Leong ([place]), and he signed Hospice paperwork. Will sign POLST Disposition: Patient is clearly rapidly approaching the end of his life based upon multiple co-morbid medical conditions that cannot be cured or managed consistently as an outpatient; family has spoke with Hospice care and has signed the paperwork, and they will be able to see him on 02/27. Patient is still not medically stable for discharge to [facility]. DC date uncertain at this time as patient is approaching stability but still not medically stable for SNF. Later in the evening the patient lost IV access. IV therapy came to try and start a new IV however his veins are very tenuous and this was unable to be started. Dr. Dickinson also attempted to start an IV and this was unsuccessful. Due to his veins being very tenuous a central line was not attempted at this could potentially cause worsening deterioration of the patient. At this time the patient is not receiving Zosyn for the suspected aspiration as the patient vomited yesterday and has very coarse and rhonchorous sounds today. This could also be secondary to the tube feeds so they were decreased to 30 mL an hour and will titrate up as necessary. The patient is declining rapidly and hospice is still open with the patient on 02/27/2017. Once paperwork has been signed and the patient is signed up for hospice then listed these interventions will be discontinued at that time. We will hold off on IV access as the patient clearly stated that he did not want an IV in that he wanted all interventions stopped and he wanted us to "let him go and let him ". At this time the patient is clinically stable we will continue feeding the patient through tube feeds but we will not attempt another IV access at this time. We will call the son tomorrow and further discussed with him the patient's CODE STATUS and any further interventions that we should do. GI Prophylaxis: H2 cyndi VTE Mechanical Devices: Venous Foot Pump Resuscitation Status: CPR: Attempt Resuscitation Attending Statement The patient was seen and examined together with Dr. Jorge on 02/24/17 and I have added additional information to the note above. Miguelito Jorge DO Feb 24, 2017 14:30 Afsaneh Dickinson DO Feb 25, 2017 12:36
[2017-02-24] MEDS ORDERED: Piperacillin-Tazo 3.375 Gm Inj 3.375 GM in Dextrose 5% Minibag Plus 50 ML IV ONE (15:00)
--- NOTE | 2017-02-24 15:32 | DRSVH ---
PROCEDURE: X-RAY CHEST ONE VIEW, PORTABLE ([id number]) INDICATIONS: possible aspiration TECHNIQUE: One view of the chest was acquired. COMPARISON: [facility], CR, XR CHEST 1VW (PORTABLE), 02/17/2017, 14:42. [facility], CR, XR CHEST 1VW (PORTABLE), 02/15/2017, 8:01. [facility], CR, XR CHEST 1VW (PORT ABLE), 09/21/2016, 12:48. [facility], CR, XR CHEST 1VW (PORTABLE), 08/27/2016, 3:27. FINDINGS: Surgical changes and devices: None. Lungs and pleura: New bilateral mostly perihilar pulmonary opacities. Opacities extending to the lung bases which are incompletely imaged on this study. Mediastinum: Mediastinal contours appear normal. Heart size is normal. Bones and chest wall: No suspicious bony lesions. Overlying soft tissues appear unremarkable. IMPRESSION: New bilateral perihilar pulmonary opacities consistent with edema or infection. Please no te, the lung bases are not included on this study and cannot be evaluated. Dictated by: Geoffrey Kothari M.D. on 02/24/2017 at 15:29 Approved by: Geoffrey Kothari M.D. on 02/24/2017 at 15:30
--- NOTE | 2017-02-24 17:00 | NUR ---
IVT called to insert peripheral line.Patient's skin is extremely thin, and bruised. No peripheral veins palpable. I asked the RN to speak to MD, as I am called to assist with a CCu procedure. Dr. Jorge notified me that an IV is not necessary at this time.
--- NOTE | 2017-02-24 19:15 | NUR ---
No IV access IV therapy unable to place PIV. unable to place PIV. No IV access at this time, ok per .
[2017-02-24] MEDS: Piperacillin-Tazo 3.375 Gm Inj 3.375 GM in Dextrose 5% Minibag Plus 50 ML IV SCH (20:00)
[2017-02-25] VITALS (10 sets, daily range): BP systolic 116–139; BP diastolic 69–88; PULSE 91–106; RESP 16–27; O2SAT 89–100
[2017-02-25] MEDS: Vancomycin 100 mg/mL Oral Solution PO SCH ×4 (02:15→20:41)
[2017-02-25] MEDS: Piperacillin-Tazo 3.375 Gm Inj 3.375 GM in Dextrose 5% Minibag Plus 50 ML IV SCH ×3 (04:00→20:00)
[2017-02-25 04:20] LABS: Mean Corpuscular Hemoglobin 29.5 pg (27.0-35.0)
[2017-02-25] MEDS: 0.9% Sodium Chloride 250 ML IV SCH (04:25)
[2017-02-25] MEDS: Famotidine Inj 20 MG in IV Premix 1 EACH IV SCH ×2 (08:30→20:23)
[2017-02-25] MEDS: metroNIDAZOLE Inj 500 MG in IV Premix 1 EACH IV SCH (08:30)
[2017-02-25] MEDS: Nystatin 100,000 Unit/Gm 15 Gm Powder TOPICAL SCH ×2 (14:02→20:41)
--- NOTE | 2017-02-25 17:31 | NUR ---
Shift summary Pt appears to be having pain with any repositioning. He will grimace or cry out when moved in bed. Has a mixon cath in place. Alert and oriented to self only. Sleeping on and off for much of the shift. Tube feeding continued at 30cc/hr with low residuals.
--- NOTE | 2017-02-25 18:25 | PCM.PNMED ---
Subjective Date of Service Feb 25, 2017 Subjective Patient continues to be minimally alert and oriented, in his brief moments of clarity he expresses a desire to discontinue medical therapy and peacefully. All IV access has been lost and cannot be re-established peripherally, patient will not tolerate and refuses central access. Efforts to get the son involved continue to be frustrating, states that he will be in on to sign POLST form commensurate with Hospice status. In the interim we will continue to be Full Code and full treatment as we are able. No significant overnight events Comprehensive ROS unable to be obtained in this profoundly demented patient. Exam Vital Signs Vital Sign - Last Date Time Temp Pulse Resp B/P Pulse Ox O2 Delivery O2 Flow Rate FiO2 02/25/17 16:13 37.0 99 20 116/69 97 Room Air Intake and Output 02/24/17 02/24/17 02/25/17 Cumulative From/Thru 14:58 22:58 06:58 02/15/17 08:32 - 02/25/17 06:30 Intake Total 0 ml 1310 ml 472 ml 20931 ml Output Total 450 ml 360 ml 77650 ml Balance -450 ml 950 ml 472 ml 27984 ml Intake Oral 0 ml 0 ml 300 ml IV Total 0 ml 68619 ml Tube Feeding 1110 ml 352 ml 4930 ml Packed Cells 300 ml Tube Irrigant 200 ml 120 ml 1459 ml Output Urine Total 350 ml 350 ml 9700 ml Stool Total 100 ml 1675 ml Gastric Drainage Total 10 ml 10 ml # Bowel Movements 5 Exam Gen: Patient alert but not oriented, elderly chronically ill appearing gentleman , NAD Neck: Supple, non tender, no lymphadenopathy HEENT: PERRL, EOMI, no scleral icterus CV: RRR, no murmurs rubs or gallops Resp: Lungs CTA BL, no wheezing rales or rhonchi Abd: Soft, no rebound masses or guarding Extr: Diffuse muscle wasting, decubitus ulcers are managed by wound care and not undressed today Neuro: CN 2-12 grossly intact, no focal neurologic deficit Psych: Patient is profoundly demented with little awareness of surroundings and nonsensical speech. IVs and Medications Medications Reviewed: Medications were reviewed in detail Lab and Diagnostics Item Value Date Time Red Blood Count 2.98 mil/mm3 L 02/25/17 0400 Mean Corpuscular Volume 93.0 fL 02/25/17399 Mean Corpuscular Hemoglobin 29.5 pg 02/25/17399 Mean Corpuscular Hemoglobin Concent 31.8 % L 02/25/17399 Red Cell Distribution Width 17.3 % H 02/25/17399 Estimat Glomerular Filtration Rate 121 mL/min 02/25/17399 Calcium Level 8.5 mg/dL 02/25/17399 Total Bilirubin 0.2 mg/dL 02/25/17399 Aspartate Amino Transf (AST/SGOT) 12 U/L 02/25/17 040 Alanine Aminotransferase (ALT/SGPT) 10 U/L 02/25/17 040 Alkaline Phosphatase 57 U/L 02/25/17399 Total Protein 5.8 g/dL L 02/25/17399 Albumin 2.9 g/dL L 02/25/17399 Procalcitonin 0.11 ng/mL H 02/25/17399 Result Diagram: 02/25/1739902/25/17399 Microbiology Blood cultures pending Strep Pneumo antigen negative MRSA nasal swab pending X-Rays, CTs and MRIs X-RAY CHEST ONE VIEW, PORTABLE IMPRESSION: 1. Left retrocardiac opacities compatible with atelectasis or developing consolidation. Dictated by: Edward Sanchez M.D. on 02/15/2017 at 8:51 Approved by: Edward Sanchez M.D. on 02/15/2017 at 8:53 X-RAY ABDOMEN, ONE VIEW IMPRESSION: Mild gaseous distention of bowel throughout the abdomen and pelvis which would suggest paralytic ileus, developing obstruction is unlikely. Recommend continued clinical correlation and if indicated followup plain film series could be performed or alternatively abdominal pelvic CT. Dictated by: Bhargav Rendon [facility] Interpreted: Bonifacio Osuna MD on 02/15/2017 at 13:25 Approved by: Bonifacio Osuna M.D. on 02/15/2017 at 14:04 PROCEDURE: CT ABDOMEN AND PELVIS WITH CONTRAST IMPRESSION: Mild bibasilar atelectasis and/or pneumonia. Suspect posterior sigmoid colitis, where mural thickening is concentric but without pneumatosis or evidence of adjacent abscess formation. Rectal balloon and tube in place. Diego catheter almost completely drains the bladder lumen. Dictated by: Maciel Reyes M.D. on 02/17/2017 at 17:32 12-lead ECG Sinus tachycardia with borderline ST depression Cardiac Echo Impressions Echocardiogram Report Interpretation Summary The study quality was technically difficult. The left ventricle is normal in size. The ejection fraction is estimated to be 50-55%. The right ventricle grossly appears normal in size with probable normal systolic function. There is mild to moderate tricuspid regurgitation. The right ventricular systolic pressure is estimated at 54 mmHg assuming a right atrial pressure of 15 mm Hg. There is moderate pulmonary hypertension. The IVC is dilated (diameter is greater than 2.1 cm) and it collapses less than 50% with a sniff. This suggests a high right atrial pressure of 15 mm Hg. Compared to the prior echo exam, there has been an increase in TR severity. Compared to the prior echo exam, there has been an increase in the severity of pulmonary hypertension. Assessment & Plan 89 year old man with severe dementia, coronary artery disease, and chronic non- healing sacral pressure ulcers who presented to the emergency department via EMS from [facility] with altered mental status following a possible aspiration event. Sepsis, acute. Present on admission. Improving - Likely secondary to infected decubitus ulcers. - Met criteria on admission with: hypotension, tachycardia, tachypnea, leukocytosis, and altered mental status. - Blood cultures with no growth to date - Stop Zosyn - Start PO Metronidazole C. difficile colitis, acute, not present on admission. Improving - Found to have C. difficile on stool PCR and started on by mouth vancomycin through peg tube. 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 Present on admission. Stable - Secondary to severe, stage IV sacral decubitus ulcer. Previous admissions, wound/bone chip cultures grew Staph aureus, Strep, Enterococci - Per wound care, exposed bone observed during exam of sacral ulcer and foul odor noted. Patient has had very little improvement in this sacral ulcer, wound care believes that with the lack of granulation in the time that they have seen it, that this will be as far as it will heal. Further goals are to prevent any continued wound deterioration. - Infectious disease is following, greatly appreciate expertise and recommendations. - Wound care will continue to manage Acute on chronic normocytic anemia, present on admission. Active. - Likely secondary to chronic disease. Hb 8.1 on admission. Concern for upper GI bleed on admission in August with negative endoscopy. - Threshold for transfusion of Hb < 7.0. Patient received 1U PRBCs on 02/16. - Monitor for signs/symptoms of active bleeding - Serial H/H Dementia, chronic. Present on admission. Presumed stable. - Secondary to late onset Alzheimer's. Patient is a resident of [facility] and his son is his DPOA who would like to continue with full treatment. - Son has signed Hospice paperwork, but has yet to present to sign POLST and will not discuss code status over the phone Elevated troponin of uncertain significance, acute on chronic. Present on admission. Stable - Likely secondary to stress in the setting of infection. Patient with chronically elevated troponin, appears at baseline. - Monitor clinically and repeat ECG, troponin if patient develop symptoms Hyperglycemia, uncertain chronicity. Present on admission. Resolved. - Patient without prior diagnosis of diabetes and serum glucose of 195 on admission. HbA1c 5.1 - Continue to monitor, correctional insulin if necessary Sinus bradycardia, acute, not present on admission. Resolved. -Patient was tachycardic upon admission. Functional quadriplegia, present on admission. Active -Patient has some use of his arms however he has significant contractures in his lower extremity has significant contractures physical therapy can continue working with the patient in order to maintain what minimal function and he currently has Disposition: Patient is clearly rapidly approaching the end of his life based upon multiple co-morbid medical conditions that cannot be cured or managed consistently as an outpatient; family has been involved in extensive palliative discussions thus far no desire to change code status or treatment plan. The son has had an informative discussion with Hospice and has signed the appropriate paperwork, however he has yet to present to fill out a POLST form and refuses to change code status over the phone. He stated that he will be in on 02/27, he has failed to show to previous appointed dates during this admission. Patient will likely DC to SNF and Hospice on 02/27 Pain Evaluation: Adequate Pain Control GI Prophylaxis: H2 cyndi VTE Mechanical Devices: Venous Foot Pump Resuscitation Status: CPR: Attempt Resuscitation Attending Statement The patient was seen and examined together with Dr. Crane on 02/25/17 and I have added additional information to the note above. Mathew Crane DO Feb 25, 2017 18:25 Afsaneh Dickinson DO Feb 25, 2017 19:37
[2017-02-26] VITALS (7 sets, daily range): BP systolic 104–118; BP diastolic 53–75; PULSE 93–104; RESP 16–20; O2SAT 97–100
[2017-02-26] MEDS: Vancomycin 100 mg/mL Oral Solution PO SCH ×3 (02:18→15:10)
[2017-02-26] MEDS: Piperacillin-Tazo 3.375 Gm Inj 3.375 GM in Dextrose 5% Minibag Plus 50 ML IV SCH ×2 (03:29→12:00)
[2017-02-26] MEDS: 0.9% Sodium Chloride 250 ML IV SCH (03:29)
--- NOTE | 2017-02-26 05:46 | NUR ---
repositioning pt on clinatron bed, repositioning is difficult pt stiff and almost fights with turning, pt cries out with moving and resists. pt having large BM, mixon draining, tube feedings running at 30cc/hr with q4 hour 40cc water flush, banatrol given at 2100, pt tolerating
[2017-02-26] MEDS: Famotidine Inj 20 MG in IV Premix 1 EACH IV SCH (08:30)
[2017-02-26] MEDS: Nystatin 100,000 Unit/Gm 15 Gm Powder TOPICAL SCH ×2 (09:40→22:12)
--- NOTE | 2017-02-26 13:00 | NUR ---
Inpatient Wound Nurse Patient seen for follow up of pressure ulcers. R lateral malleolus ulcer essentially unchanged from last week, with mild odor on removed dressing, adherent yellow slough continues to decrease, now only 25% of wound bed; however, remaining tissue is glossy pink. Edges thickened, well-adhered, no periwound maceration or erythema. Wound was cleansed, periwound swabbed with skin prep to protect from drainage and maceration, wound bed filled with Aquacel Extra Ag, then covered with bordered Mepilex foam. Sacral wound appears unchanged with exception of increased white bone observed. Measurements unchanged, 5.5 cm L x 3.5 cm W. Wound bed glossy pink and smooth, without granulating tissue, bone is more prominent, visualized and palpated in multiple areas. Maceration noted to entire wound margin with white, ruffling texture to distal half of wound margin. Wound was cleansed and blotted dry, periwound swabbed with skin prep to protect from drainage and maceration, wound bed filled with Aquacel Extra Ag, then covered with bordered Mepilex foam. Patient was seen second time today to trial [employer] XXL underpad since no fitted sheet is used with Clinitron bed. XXL underpad was placed with CWON and primary RN in lengthwise position which can be used as pull sheet as well as providing a filter cleaner surface than Clinitron cover. Patient continues to be quite combative and resistive to care but calms once interactions are finished. CWON will follow daily. Dressings to be changed daily and PRN. If/when nursing staff changes dressings, PLEASE FILL WOUND BED WITH AQUACEL EXTRA AG. Without this absorber and wound filler, drainage will macerate wound edges and promote undermining and further tunneling. Secondary dressing is Mepilex bordered foam.
--- NOTE | 2017-02-26 15:02 | NUR ---
spiritual care: routine caring visit. pt calm, responded to quiet conversational tone. Made several one-word responses, maintained eye contact. reached for my hand.
--- NOTE | 2017-02-26 16:31 | NUR ---
[facility] Signed
--- NOTE | 2017-02-26 17:17 | NUR ---
Social Work: Readiness for Discharge/Multidisciplinary Rounds D: Pt discussed in multidisciplinary rounds with pt's providers. The patient's son has signed consents for hospice and they are scheduled to open on Sunday (02/27) between 2-3pm. The pt's son is coming in today to discuss changing the patient's POLST Form. Dr. Jorge has met with the patient's son and is considering changing his code status. BODILY INJURY ADJUSTER spoke with [facility]. They state that the patient does not need to be DNR/DNI to open however it will be an ongoing conversation with the patient's son if he chooses not to change it at this time. Dr. Jorge is aware of this. t/c to [place], Machine Sewer at [facility] to inform them of pt's likely return to them tomorrow. They are requesting that the pt be discharged as close to his intake time so that information does not have to be repeated multiple times. BODILY INJURY ADJUSTER agreed and will aim for a tentative discharge time around 1:00pm. Pt will require BLS transport. A: Pt who is a LTC resident at [facility] P: Anticipate pt to return to [facility] tomorrow with [facility] to Open between 2-3pm. Pt to require BLS transport. BODILY INJURY ADJUSTER to continue to follow assess for further d/c needs. RAFY Amaya Addendum: 02/26/17 at 1734 by ANTONIO BUNN SS RAFY and resident spoke with pt's son about the discharge plan. Pt is now DNR/DNI- POLST Complete. BODILY INJURY ADJUSTER reviewed discharge plan to go back to [facility] with Hospice to open tomorrow. He agrees with this plan. BODILY INJURY ADJUSTER explained BLS transport and possibility of out of pocket expense. He understands this. RAFY Amaya
--- NOTE | 2017-02-26 17:48 | PCM.PNMED ---
Subjective Date of Service Feb 26, 2017 Subjective 89 year old man with severe dementia, coronary artery disease, and chronic non- healing sacral pressure ulcers who presented to the emergency department via EMS from [facility] with altered mental status following a possible aspiration event. Nursing reports no acute events overnight. Patient seen and examined. Patient unable to verbally express symptoms secondary to baseline dementia. No apparent pain at this time. Patient has good urine output. Diarrhea has slowed to one to two formed stools per day, and rectal tube has been removed. Full ROS unable to be complete secondary to patient baseline dementia. Exam Vital Signs Vital Sign - Last Date Time Temp Pulse Resp B/P Pulse Ox O2 Delivery O2 Flow Rate FiO2 02/26/17 15:30 37.1 93 16 110/75 99 Room Air Intake and Output 02/25/17 02/25/17 02/26/17 Cumulative From/Thru 15:00 23:00 07:00 02/15/17 08:32 - 02/26/17 06:20 Intake Total 0 ml 635 ml 58787 ml Output Total 400 ml 250 ml 39276 ml Balance -400 ml 385 ml 75910 ml Intake Oral 0 ml 0 ml 300 ml IV Total 06727 ml Tube Feeding 490 ml 5420 ml Packed Cells 300 ml Tube Irrigant 145 ml 1604 ml Output Urine Total 400 ml 250 ml 12492 ml Stool Total 1675 ml Gastric Drainage Total 10 ml # Bowel Movements 1 8 Exam Constitutional: Awake and alert, but not oriented. Frail. In no acute distress. Head: normocephalic and atraumatic Eyes: EOMI. Macy conjunctiva. Heart: regular rate and rhythm. No murmurs. No peripheral edema. Lungs: Coarse rhonchi throughout. No wheeze. ABD: soft, nontender. bowel sounds present throughout Musculoskeletal: bilateral lower extremity contractures, chronic. Able to move upper extremities with limitation. Skin: diffuse ecchymoses on bilateral upper extremities. Sacral ulcer measuring 5.5cm x 3.5cm wound with tunneling, exposed bone, malodorous drainage and no granulating tissue. Unchanged from previous exam. Neuro: No focal deficits. Psych: Unable to assess secondary to patient's baseline dementia. IVs and Medications Medications Reviewed: Medications were reviewed in detail Medications High Risk IV Medications: Flagyl Lab and Diagnostics Item Value Date Time Red Blood Count 2.98 mil/mm3 L 02/25/17 0400 Mean Corpuscular Volume 93.0 fL 02/25/17399 Mean Corpuscular Hemoglobin 29.5 pg 02/25/17399 Mean Corpuscular Hemoglobin Concent 31.8 % L 02/25/17399 Red Cell Distribution Width 17.3 % H 02/25/17399 Potassium Level 3.8 mEq/L 02/25/17399 Estimat Glomerular Filtration Rate 121 mL/min 02/25/17399 Calcium Level 8.5 mg/dL 02/25/17399 Total Bilirubin 0.2 mg/dL 02/25/17399 Aspartate Amino Transf (AST/SGOT) 12 U/L 02/25/17 040 Alanine Aminotransferase (ALT/SGPT) 10 U/L 02/25/17399 Alkaline Phosphatase 57 U/L 02/25/17399 Total Protein 5.8 g/dL L 02/25/17399 Albumin 2.9 g/dL L 02/25/17399 Procalcitonin 0.11 ng/mL H 02/25/17399 Result Diagram: 02/25/1739902/25/17399 Microbiology Blood cultures pending Strep Pneumo antigen negative MRSA nasal swab pending X-Rays, CTs and MRIs X-RAY CHEST ONE VIEW, PORTABLE IMPRESSION: 1. Left retrocardiac opacities compatible with atelectasis or developing consolidation. Dictated by: Edward Sanchez M.D. on 02/15/2017 at 8:51 Approved by: Edward Sanchez M.D. on 02/15/2017 at 8:53 X-RAY ABDOMEN, ONE VIEW IMPRESSION: Mild gaseous distention of bowel throughout the abdomen and pelvis which would suggest paralytic ileus, developing obstruction is unlikely. Recommend continued clinical correlation and if indicated followup plain film series could be performed or alternatively abdominal pelvic CT. Dictated by: Bhargav Rendon [facility] Interpreted: Bonifacio Osuna MD on 02/15/2017 at 13:25 Approved by: Bonifacio Osuna M.D. on 02/15/2017 at 14:04 PROCEDURE: CT ABDOMEN AND PELVIS WITH CONTRAST IMPRESSION: Mild bibasilar atelectasis and/or pneumonia. Suspect posterior sigmoid colitis, where mural thickening is concentric but without pneumatosis or evidence of adjacent abscess formation. Rectal balloon and tube in place. Diego catheter almost completely drains the bladder lumen. Dictated by: Maciel Reyes M.D. on 02/17/2017 at 17:32 12-lead ECG Sinus tachycardia with borderline ST depression Cardiac Echo Impressions Echocardiogram Report Interpretation Summary The study quality was technically difficult. The left ventricle is normal in size. The ejection fraction is estimated to be 50-55%. The right ventricle grossly appears normal in size with probable normal systolic function. There is mild to moderate tricuspid regurgitation. The right ventricular systolic pressure is estimated at 54 mmHg assuming a right atrial pressure of 15 mm Hg. There is moderate pulmonary hypertension. The IVC is dilated (diameter is greater than 2.1 cm) and it collapses less than 50% with a sniff. This suggests a high right atrial pressure of 15 mm Hg. Compared to the prior echo exam, there has been an increase in TR severity. Compared to the prior echo exam, there has been an increase in the severity of pulmonary hypertension. Assessment & Plan 89 year old man with severe dementia, coronary artery disease, and chronic non- healing sacral pressure ulcers who presented to the emergency department via EMS from [facility] with altered mental status following a possible aspiration event. Change to comfort care and hospice Sepsis, acute. Present on admission. Resolved - Likely secondary to infected decubitus ulcers. - Met criteria on admission with: hypotension, tachycardia, tachypnea, leukocytosis, and altered mental status. - Blood cultures with no growth to date - Stop Zosyn - Stop PO Metronidazole C. difficile colitis, acute, not present on admission. Resolved - Found to have C. 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 Present on admission. Stable - Secondary to severe, stage IV sacral decubitus ulcer. Previous admissions, wound/bone chip cultures grew Staph aureus, Strep, Enterococci - Per wound care, exposed bone observed during exam of sacral ulcer and foul odor noted. Patient has had very little improvement in this sacral ulcer, wound care believes that with the lack of granulation in the time that they have seen it, that this will be as far as it will heal. Further goals are to prevent any continued wound deterioration. - Infectious disease is following - Wound care will continue to manage Acute on chronic normocytic anemia, present on admission. Stable. - Likely secondary to chronic disease. Hb 8.1 on admission. Concern for upper GI bleed on admission in August with negative endoscopy. - Threshold for transfusion of Hb < 7.0. Patient received 1U PRBCs on 02/16. - Monitor for signs/symptoms of active bleeding - Serial H/H Dementia, chronic. Present on admission. Presumed stable. - Secondary to late onset Alzheimer's. Patient is a resident of [facility] and his son is his DPOA who would like to continue with full treatment. - Son has signed Hospice paperwork, and has signed the POLST form Elevated troponin of uncertain significance, acute on chronic. Present on admission. Stable - Likely secondary to stress in the setting of infection. Patient with chronically elevated troponin, appears at baseline. - Monitor clinically and repeat ECG, troponin if patient develop symptoms Hyperglycemia, uncertain chronicity. Present on admission. Resolved. - Patient without prior diagnosis of diabetes and serum glucose of 195 on admission. HbA1c 5.1 - Continue to monitor, correctional insulin if necessary Sinus bradycardia, acute, not present on admission. Resolved. -Patient was tachycardic upon admission. Functional quadriplegia, present on admission. Stable -Patient has some use of his arms however he has significant contractures in his lower extremity has significant contractures physical therapy can continue working with the patient in order to maintain what minimal function and he currently has POLST form completed. -Patient is DNR/DNI -Patient is no Abx -Patient is no tube feeds. -Patient is COMFORT CARE Disposition: Patient is clearly rapidly approaching the end of his life based upon multiple co-morbid medical conditions that cannot be cured or managed consistently as an outpatient; family has been involved in extensive palliative discussions regarding code status and treatment plan. The son has completed the POLST form and placement to SNF has been confirmed. Patient will DC to SNF and Hospice on 02/27 GI Prophylaxis: H2 cyndi VTE Mechanical Devices: Venous Foot Pump Resuscitation Status: CPR: Attempt Resuscitation Attending Statement The patient was seen and examined together with Dr. Jorge on 02/26/17 and I have added additional information to the note above. Miguelito Jorge DO Feb 26, 2017 17:48 Afsaneh Dickinson DO Feb 26, 2017 19:06
--- NOTE | 2017-02-26 18:37 | NUR ---
Tube Feed/Hospice Pt made DNR/DNI at end of shift after physician consult with son. Cardiac: Pt denies CP, Tele: SR 90s-low 100s Resp: Pt denies SOB, SPo2 96% on RA. GI/: Pt denies n/v, mixon draining to gravity, pt incontinent of stool, tube feedings DC'd at end of shift. Neuro: pt orientated to self, on clinatron bed pt with contractures in arms and legs bedriddin at baseline. Pt calls out, cannot specify pain, can answer questions, but is difficult to understand and is confused at times.
[2017-02-26] MEDS ORDERED: Morphine 2 mg/mL 5 mL Oral Solution PO PRN (21:10)
--- NOTE | 2017-02-26 22:55 | NUR ---
transfer Pt transferred to [facility] room 3011 due to need for IMCU room. Remains confused. All belongings in room gathered and sent with patient. Report to receiving nurse. Plan to notify family of move first thing in the morning.
--- NOTE | 2017-02-27 05:11 | NUR ---
Assume of care Pt has been confused. Could nod to yes or no questions. Denies any pain or concerns, denies sob, no n/v observed. Repositioning for comfort. Intentional hourly rounding in effect.
[2017-02-27] MEDS: Nystatin 100,000 Unit/Gm 15 Gm Powder TOPICAL SCH (08:33)
[2017-02-27] MEDS ORDERED: MORP10SO PO (10:47)
[2017-02-27] MEDS ORDERED: [UNRECOGNIZED DRUG - CODE] PO (10:52)
--- NOTE | 2017-02-27 10:54 | PCM.DIMED ---
Discharge Instructions Date of Service Feb 27, 2017 Dates of Hospitalization Feb 15, 2017 at 10:20 Discharge Diagnosis Discharge Diagnosis Severe Dementia, Non healing sacral ulcers, C Diff Osteomyelitis, Anemia, sinus bradycardia, Aspiration Pneumonia Diet Discharge Diet: Other (Patient has a PEG tube) Activity Discharge Activity: Other (bed ridden) Call your provider Call your provider for: Fever or Chills, Shortness of breath, Bleeding, Chest pain, Vomitting, Excessive diarrhea, Weakness (unilateral), Other Patient Instructions Patient Instructions Tube feeds were discontinued when patient/son decided on hospice car e per hospice notes. He is not currently on oxygen. Has several ulcers, and skin scrapes, largest one on his sacram, will need wound care Patient has c diff and was treated for it, will need isolation precautions Patient has no PO meds Patient has a mixon catheter Patient is chronically bed bound Follow-up plan Patient will be followed by the attending at [facility]/Hospice care Casi Lau DO Feb 27, 2017 10:54
[2017-02-27] MEDS ORDERED: NYST1POW25 TOPICAL (10:58)
[2017-02-27] MEDS ORDERED: Acetaminophen RECTAL (10:58)
--- NOTE | 2017-02-27 11:05 | PCM.DC.MED ---
Discharge Summary Date of Service Feb 27, 2017 Dates of Hospitalization Date of Hospital Admission Feb 15, 2017 at 10:20 Date of Discharge: Feb 27, 2017 Providers: Admitting Physician: Ken Jordan MD Primary Care Physician: Bharat Hughes Attending Physician: Casi Luke DO Diagnosis at Time of Discharge Diagnosis at Time of Discharge Severe Dementia, Non healing sacral ulcers, C Diff Osteomyelitis, Anemia, sinus bradycardia, Aspiration Pneumonia Procedures XRay, CTs & MRIs X-RAY CHEST ONE VIEW, PORTABLE IMPRESSION: 1. Left retrocardiac opacities compatible with atelectasis or developing consolidation. Dictated by: Edward Sanchez M.D. on 02/15/2017 at 8:51 Approved by: Edward Sanchez M.D. on 02/15/2017 at 8:53 X-RAY ABDOMEN, ONE VIEW IMPRESSION: Mild gaseous distention of bowel throughout the abdomen and pelvis which would suggest paralytic ileus, developing obstruction is unlikely. Recommend continued clinical correlation and if indicated followup plain film series could be performed or alternatively abdominal pelvic CT. Dictated by: Bhargav Rendon [facility] Interpreted: Bonifacio Osuna MD on 02/15/2017 at 13:25 Approved by: Bonifacio Osuna M.D. on 02/15/2017 at 14:04 PROCEDURE: CT ABDOMEN AND PELVIS WITH CONTRAST IMPRESSION: Mild bibasilar atelectasis and/or pneumonia. Suspect posterior sigmoid colitis, where mural thickening is concentric but without pneumatosis or evidence of adjacent abscess formation. Rectal balloon and tube in place. Mixon catheter almost completely drains the bladder lumen. Dictated by: Maciel Reyes M.D. on 02/17/2017 at 17:32 ECG 12 Lead Sinus tachycardia with borderline ST depression Cardiac Echo Impression Echocardiogram Report Interpretation Summary The study quality was technically difficult. The left ventricle is normal in size. The ejection fraction is estimated to be 50-55%. The right ventricle grossly appears normal in size with probable normal systolic function. There is mild to moderate tricuspid regurgitation. The right ventricular systolic pressure is estimated at 54 mmHg assuming a right atrial pressure of 15 mm Hg. There is moderate pulmonary hypertension. The IVC is dilated (diameter is greater than 2.1 cm) and it collapses less than 50% with a sniff. This suggests a high right atrial pressure of 15 mm Hg. Compared to the prior echo exam, there has been an increase in TR severity. Compared to the prior echo exam, there has been an increase in the severity of pulmonary hypertension. 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 The patient was unable to provide any meaningful information and is essentially only responsive to noxious stimuli. Upon arrival to the ED the patient's oropharynx was suctioned yielding a significant amount of tube feed mixture. The patient has been on multiple recent courses of antibiotics for soft tissue infections and osteomyelitis: cephalexin (01/24-02/03), ceftriaxone (01/30-02/06), and a 7-day course of Trimethoprim-sulfamethoxazole through 02/14. Wound care again evaluated the patient's chronic ulcer and determined that there was exposed bone which was highly likely to be infected and thus the patient's wound Vac was discontinued and managed per wound care recommendations. In the ED the patient was given Vanco, Zosyn, and Levofloxacin in response to his presumed aspiration with lab evaluation indicative of mild leukocytosis, lactic acidosis, tachycardia, mild hypotension, mildly elevated procalcitonin and a CXR indicative of pneumonia. Hospital Course 89 year old man with severe dementia, coronary artery disease, and chronic non- healing sacral pressure ulcers who presented to the emergency department via EMS from [facility] with altered mental status following a possible aspiration event. Change to comfort care and hospice Sepsis, acute. Present on admission. Resolved - Likely secondary to infected decubitus ulcers. - Met criteria on admission with: hypotension, tachycardia, tachypnea, leukocytosis, and altered mental status. - Blood cultures with no growth to date - Stopped Zosyn - Stopped PO Metronidazole --Patient's son, septum and hospice care, and patient was discharged on hospice care to SNF C. difficile colitis, acute, not present on admission. Resolved - Found to have C. 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 Present on admission. Stable - Secondary to severe, stage IV sacral decubitus ulcer. Previous admissions, wound/bone chip cultures grew Staph aureus, Strep, Enterococci - Per wound care, exposed bone observed during exam of sacral ulcer and foul odor noted. Patient has had very little improvement in this sacral ulcer, wound care believes that with the lack of granulation in the time that they have seen it, that this will be as far as it will heal. Further goals are to prevent any continued wound deterioration. - Infectious disease is following - Wound care will continue at discharge Acute on chronic normocytic anemia, present on admission. Stable. - Likely secondary to chronic disease. Hb 8.1 on admission. Concern for upper GI bleed on admission in August with negative endoscopy. - Threshold for transfusion of Hb < 7.0. Patient received 1U PRBCs on 02/16. - Monitor for signs/symptoms of active bleeding - --Patient's son, septum and hospice care, and patient was discharged on hospice care to SNF Dementia, chronic. Present on admission. Presumed stable. - Secondary to late onset Alzheimer's. Patient is a resident of [facility] and his son is his DPOA who would like to continue with full treatment. - Son has signed Hospice paperwork, and has signed the POLST form Elevated troponin of uncertain significance, acute on chronic. Present on admission. Stable - Likely secondary to stress in the setting of infection. Patient with chronically elevated troponin, appears at baseline. - --Patient's son, septum and hospice care, and patient was discharged on hospice care to SNF Hyperglycemia, uncertain chronicity. Present on admission. Resolved. - Patient without prior diagnosis of diabetes and serum glucose of 195 on admission. HbA1c 5.1 - Continue to monitor, correctional insulin if necessary Sinus bradycardia, acute, not present on admission. Resolved. -Patient was tachycardic upon admission. Functional quadriplegia, present on admission. Stable -Patient has some use of his arms however he has significant contractures in his lower extremity has significant contractures physical therapy can continue working with the patient in order to maintain what minimal function and he currently has POLST form completed. -Patient is DNR/DNI -Patient is no Abx -Patient is no tube feeds. -Patient is COMFORT CARE Disposition: Patient is clearly rapidly approaching the end of his life based upon multiple co-morbid medical conditions that cannot be cured or managed consistently as an outpatient; family has been involved in extensive palliative discussions regarding code status and treatment plan. The son has completed the POLST form and placement to SNF has been confirmed. Patient will DC to SNF and Hospice on 02/27 Exam Vital Signs (Last) Date Time Temp Pulse Resp B/P Pulse Ox O2 Delivery O2 Flow Rate FiO2 02/26/17 20:27 36.6 93 18 104/53 100 Room Air Exam General: ill appearing white male with long maldonado, cachectic HEENT: poor dentition Heart: distant sounds overpowered by breathing pattern Lungs: Diffusely diminished Skin: Several ulcerations, largest on sacral w/ spinal column exposed Ext: no edema Neuro: not interactive, but responds to pain Test 02/15/17 08:00 02/15/17 08:03 02/15/17 09:00 02/17/17 14:48 Hemoglobin A1c 5.1% (4.8-5.6) Pro-B-Type Natriuretic Peptide 3871pg/mL (0-486) Prealbumin 15mg/dL (20-40) Lipase 13U/L (13-60) Urine Color Straw (YELLOW) Urine Appearance Hazy (CLEAR,HAZY) Urine pH 7.0 (5.0-8.0) Urine Specific [place] 1.005 (1.003-1.035) Urine Protein Negativemg/dL (NEG,TRACE) Urine Glucose (UA) Negativemg/dL (NEGATIVE) Urine Ketones Negativemg/dL (NEGATIVE) Urine Occult Blood Negative (NEGATIVE) Urine Nitrite Positive (NEGATIVE) Urine Bilirubin Negative (NEGATIVE) Urine Urobilinogen Normalmg/dL (NORMAL) Urine Leukocyte Esterase Negative (NEGATIVE) Urine RBC 0-2/hpf (0-2) Urine WBC 0-5/hpf (0-5) Urine Epithelial Cells Occasional/hpf (NONE-MOD) Urine Crystals None seen (NONE SEEN) Urine Bacteria Moderate/hpf (NONE-FEW) Urine Hyaline Casts None/lpf (NONE) Urine Granular Casts None seen (NONE SEEN) Urine Waxy Casts None seen (NONE SEEN) Urine Red Blood Cell Casts None seen (NONE SEEN) Urine White Blood Cell Casts None seen (NONE SEEN) Urine Mucus None seen (None Seen) Urine Trichomonas None seen (NONE SEEN) Urine Yeast None (NONE SEEN) Urinalysis Comment None Urine Culture Reflexed Indicated Urine Legionella pneumophilia Ag Negative (Negative) Lactic Acid Level 0.9mmol/L (0.4-2.0) Test 02/17/17 15:41 02/19/17 04:10 02/19/17 04:50 02/20/17 03:10 Troponin T 0.114ug/L (0.0-0.011) Phosphorus Level 3.3mg/dL (2.5-4.9) Magnesium Level 1.8mg/dL (1.6-2.6) Prothrombin Time 11.9sec (8.1-12.5) Prothromb Time International Ratio 1.11ratio Vancomycin Level Trough 3.4mcg/mL Test 02/24/17 05:15 02/25/17 04:00 Neutrophils (%) (Auto) 88.8% (40-74) Lymphocytes (%) (Auto) 4.6% (14-46) Monocytes (%) (Auto) 5.3% (4-12) Eosinophils (%) (Auto) 1.1% (0-5) Basophils (%) (Auto) 0.1% (0-3) White Blood Count 13.0th/mm3 (3.8-10.1) Red Blood Count 2.98mil/mm3 (4.40-5.80) Hemoglobin 8.8g/dL (13.8-17.2) Hematocrit 27.7% (41.0-50.0) Mean Corpuscular Volume 93.0fL (81-100) Mean Corpuscular Hemoglobin 29.5pg (27.0-35.0) Mean Corpuscular Hemoglobin Concent 31.8% (32.0-37.0) Red Cell Distribution Width 17.3% (12.3-15.4) Platelet Count 252bil/L (150-400) Sodium Level 148mEq/L (134-144) Potassium Level 3.8mEq/L (3.5-5.2) Chloride Level 118mEq/L (97-108) Carbon Dioxide Level 17mmol/L (18-29) Blood Urea Nitrogen 26mg/dL (8-27) Creatinine 0.66mg/dL (0.76-1.27) Estimat Glomerular Filtration Rate 121mL/min (>59) Glucose Level 148mg/dL (60-99) Calcium Level 8.5mg/dL (8.5-10.1) Total Bilirubin 0.2mg/dL (0.0-1.2) Aspartate Amino Transf (AST/SGOT) 12U/L (0-50) Alanine Aminotransferase (ALT/SGPT) 10U/L (0-44) Alkaline Phosphatase 57U/L (25-160) Total Protein 5.8g/dL (6.4-8.4) Albumin 2.9g/dL (3.4-5.0) Procalcitonin 0.11ng/mL (0.00-0.08) Microbiology Results Blood cultures pending Strep Pneumo antigen negative MRSA nasal swab pending Discharge Medications Discharge Medications Nystatin (Nystatin) 1 Each Powder.ea. 1 APPLIC TOPICAL BID Prescribed by: CASI LUKE DO As needed ([Acetaminophen]) 650 MG SUPP 650 MG RECTAL Q6H PRN PRN For Mild Pain or Fever Prescribed by: CASI LUKE DO Morphine Sulfate Oral Soln (Morphine Sulfate Oral Soln) 10 Mg/5 Ml Solution 2 MG PO Q4H PRN PRN For Moderate Pain Prescribed by: CASI LUKE DO Followup Plan Follow-up plan Patient will be followed by the attending at [facility]ospice care Discharge Diet: Other (Patient has a PEG tube) Discharge Activity: Other (bed ridden) Patient Instructions Tube feeds were discontinued when patient/son decided on hospice car e per hospice notes. He is not currently on oxygen. Has several ulcers, and skin scrapes, largest one on his sacram, will need wound care Patient has c diff and was treated for it, will need isolation precautions Patient has no PO meds Patient has a mixon catheter Patient is chronically bed bound Time spent Greater than 30 minutes was spent in preparation of discharge with greater than 50% of that time dedicated to patient counseling and coordination of care. Casi Luke DO Feb 27, 2017 11:05
--- NOTE | 2017-02-27 11:15 | NUR ---
Discharge Patient given discharge orders. Patient report called to nurse at [facility] [place]. Patient son has been notified of transfer as well as patient. Patient belongings packed and awaiting transportation around 1300 by [facility].
--- NOTE | 2017-02-27 11:23 | NUR ---
Social Work-discharge: Data:EMR reviewed. Pt is on day 12 of hospitalization for sepsis per H&P. Pt is medically stable for discharge. ERNST confirmed with Jocelyn from Hospice that they are opening with pt this afternoon between 2-3. UR specialist arranged BLS transport for 1300. SW updated Petrona at [facility] of discharge and time and she is agreeable to plan. SW left message for APS deputy coroner investigator Gus Aguero and informed him of discharge plan and discharge today. SW called son Reuben [phone] and informed him of discharge to [facility] today with Hospice. Son is agreeable to plan. Son aware of BLS transport and aware that insurance may not cover the BLS transport, agreeable to proceed. RN,UC,pt/family, and [facility] all updated and agreeable to plan. Assessment:pt to return to [facility] with hospice. Plan:Pt to discharge back to [facility] today via BLS at 1300. Hospice to open with pt between 2-3. RN,UC,pt/family, and [facility] all updated and agreeable to plan. RAFY Vaughan
--- NOTE | 2017-02-27 12:23 | NUR ---
PENITENTIARY TRANSFER : Faxed orders to [facility] and patient will be transported BLS via [place] ambulance at 1300. PCS form completed and copy placed in chart along with copy of discharge information. Updated [employer]GGER
[2017-02-27 12:26] VITALS: BP 112/62; PULSE 92; RESP 18
--- NOTE | 2017-02-27 13:30 | NUR ---
Inpatient Wound Nurse Lateral malleolus wound and sacral wound were both cleansed, fill with Aquacel Extra Ag and covered with bordered Mepilex dressings. Message was left with Jennifer at [facility] regarding wound care regimen that was followed while inpatient and CWON made self available for any further conversation that may be required for patient's ongoing wound care while at SNF.
== END 2017-02-27 13:12 | DRG 871 ==
LOC: EDBD 07:55 → SED 07:55 → CCU 10:20 → PCC 13:25 → MPC 02-16 12:39 → PCC 02-17 15:13 → MPC 02-26 22:51
PROVIDERS: ADMIT Internal Medicine; ATTEND Internal Medicine
PROC: 30233N1 Transfusion of Nonautologous Red Blood Cells into Peripheral Vein, Percutaneous Approach (ICD-10-PCS; principal; 2017-02-16)
DX: A41.9 Sepsis, unspecified organism (principal); L89.154 Pressure ulcer of sacral region, stage 4; L89.513 Pressure ulcer of right ankle, stage 3; E43 Unspecified severe protein-calorie malnutrition; R53.2 Functional quadriplegia; J69.0 Pneumonitis due to inhalation of food and vomit; F02.81 Dementia in other diseases classified elsewhere, unspecified severity, with behavioral disturbance; M86.18 Other acute osteomyelitis, other site; I24.8 Other forms of acute ischemic heart disease; R64 Cachexia; K56.0 Paralytic ileus; A04.7 Enterocolitis due to Clostridium difficile; M86.68 Other chronic osteomyelitis, other site; G30.1 Alzheimer's disease with late onset; M62.59 Muscle wasting and atrophy, not elsewhere classified, multiple sites; Z68.22 Body mass index [BMI] 22.0-22.9, adult; L89.890 Pressure ulcer of other site, unstageable; L89.891 Pressure ulcer of other site, stage 1; R62.7 Adult failure to thrive; D64.9 Anemia, unspecified; R00.1 Bradycardia, unspecified; M24.50 Contracture, unspecified joint; R73.9 Hyperglycemia, unspecified; Z93.1 Gastrostomy status; Z66 Do not resuscitate; Z51.5 Encounter for palliative care